=== PATIENT | female | born 1945 | race Caucasian/White ===

== ENCOUNTER 2017-05-21 14:16 | Outpatient (RCR) | payer MEDICARE, BC ==
[2017-05-22] MEDS ORDERED: FUROSEMIDE20 M1 ORAL (11:43)
[2017-05-22] MEDS ORDERED: LOSARTAN POTASS50 MG ORAL (15:45)
[2017-05-28] MEDS ORDERED: BACTRIM DS TAB1 EAC1 ORAL (11:11)
[2017-05-28] MEDS ORDERED: LEVOFLOXACIN500 MG ORAL (11:11)
[2017-05-28] MEDS ORDERED: SANTYL30 GM TP (11:12)
== END 2017-06-15 | disposition home or self-care (01) ==
LOC: WCC 14:16
DX: L97.815 Non-pressure chronic ulcer of other part of right lower leg with muscle involvement without evidence of necrosis (principal); L97.825 Non-pressure chronic ulcer of other part of left lower leg with muscle involvement without evidence of necrosis; R60.0 Localized edema; L03.115 Cellulitis of right lower limb; L03.116 Cellulitis of left lower limb; M89.671 Osteopathy after poliomyelitis, right ankle and foot; M89.672 Osteopathy after poliomyelitis, left ankle and foot; I10 Essential (primary) hypertension; Z82.49 Family history of ischemic heart disease and other diseases of the circulatory system; Z88.0 Allergy status to penicillin; Z91.018 Allergy to other foods
CPT/HCPCS: G0463 ×3

== ENCOUNTER 2017-05-22 11:21 | Inpatient (IN) | payer MEDICARE, BC ==
[~2017-05-22] VITALS: Ht 167.6 cm; Wt 83.0 kg
[2017-05-22] MEDS ORDERED: FUROSEMIDE20 M1 ORAL (11:43)
[2017-05-22 12:00] VITALS: BP 155/74
[2017-05-22] MEDS ORDERED: Vancomycin 1.5gm/D5W 250ml 250 ML IVPB ONE (12:00)
[2017-05-22 12:45] LABS: BASOPHILS % (AUTO) 0.7 % (0.0-2.0); EOSINOPHILS % (AUTO) 1.2 % (0.0-3.0); HEMATOCRIT 36.2 % (37.0-47.0); LYMPHOCYTES % (AUTO) 13.1 % (20.0-45.0); MEAN CORPUSCULAR VOLUME 89 FL (80-99); MONOCYTES % (AUTO) 5.6 % (1.0-10.0); NEUTROPHILS % (AUTO) 79.4 % (45.0-75.0); PLATELET COUNT 300 K/UL (150-450); RED BLOOD COUNT 4.09 M/UL (4.20-5.40); WHITE BLOOD COUNT 10.1 K/UL (4.8-10.8)
[2017-05-22 13:00] LABS: ANION GAP 9 mmol/L (5-15); BLOOD UREA NITROGEN 23 mg/dL (7-18); CALCIUM 9.3 MG/DL (8.5-10.1); CARBON DIOXIDE 29 MMOL/L (21-32); CHLORIDE 103 MMOL/L (98-107); CREATININE 1.1 MG/DL (0.55-1.30); POTASSIUM 3.4 MMOL/L (3.5-5.1); SODIUM 141 MMOL/L (136-145)
[2017-05-22 13:04] LABS: ALANINE AMINOTRANSFERASE 17 U/L (12-78); ALBUMIN 2.8 G/DL (3.4-5.0); ALBUMIN/GLOBULIN RATIO 0.6 (1.0-2.7); ALKALINE PHOSPHATASE 91 U/L (46-116); ASPARTATE AMINO TRANSFERASE 16 U/L (15-37); BILIRUBIN,TOTAL 0.5 MG/DL (0.2-1.0)
--- NOTE | 2017-05-22 13:56 | Consultation ---
Consult Note Assessment/Plan A/ 1) h/o osteo 2) Cellulitis bilateral lower extremities 3) Polio 4) Joint derangement 5) Pain from wounds P/ 1) MRI of bilateral ankle and tib-fib 2) Will order wound care 3) Dr Hampton and Dr Berry called 4) Pain management 5) Will follow Evan Kim DPM May 22, 2017 13:56
--- NOTE | 2017-05-22 14:41 | Infectious Diseases Prog Note ---
Assessment/Plan Assessment/Plan Full consult dictated: A) 1) bilateral leg cellulitis/wound infection/ulcer infection, r/o osteomyelitis 2) check wound culture 3) allergies - pcn P) 1) vancomycin, cefepime and aztreonam 2) check MRI, check wound culture, check labs 3) thank you Subjective Allergies: Coded Allergies: PENICILLINS (Verified Allergy, Unknown, 05/22/17) Objective Vital Signs Last 24 Hour Vital Signs Date Time Temp Pulse Resp B/P (MAP) Pulse Ox O2 Delivery O2 Flow Rate FiO2 05/22/17 13:48 97.5 05/22/17 12:00 97.5 18 155/74 98 Room Air 97.5 05/22/17 11:36 97.6 90 18 155/74 98 Room Air 97.5 Height (Feet): 5 Height (Inches): 6.00 Weight (Pounds): 183 Laboratory Tests Test 05/22/17 12:24 White Blood Count 10.1 K/UL (4.8-10.8) Red Blood Count 4.09 M/UL (4.20-5.40) L Hemoglobin 12.0 G/DL (12.0-16.0) Hematocrit 36.2 % (37.0-47.0) L Mean Corpuscular Volume 89 FL (80-99) Mean Corpuscular Hemoglobin 29.3 PG (27.0-31.0) Mean Corpuscular Hemoglobin Concent 33.0 G/DL (32.0-36.0) Red Cell Distribution Width 13.0 % (11.6-14.8) Platelet Count 300 K/UL (150-450) Mean Platelet Volume 7.1 FL (6.5-10.1) Neutrophils (%) (Auto) 79.4 % (45.0-75.0) H Lymphocytes (%) (Auto) 13.1 % (20.0-45.0) L Monocytes (%) (Auto) 5.6 % (1.0-10.0) Eosinophils (%) (Auto) 1.2 % (0.0-3.0) Basophils (%) (Auto) 0.7 % (0.0-2.0) Sodium Level 141 MMOL/L (136-145) Potassium Level 3.4 MMOL/L (3.5-5.1) L Chloride Level 103 MMOL/L (98-107) Carbon Dioxide Level 29 MMOL/L (21-32) Anion Gap 9 mmol/L (5-15) Blood Urea Nitrogen 23 mg/dL (7-18) H Creatinine 1.1 MG/DL (0.55-1.30) Estimat Glomerular Filtration Rate mL/min (>60) Glucose Level 104 MG/DL (74-106) Lactic Acid Level 1.40 mmol/L (0.66-2.22) Calcium Level 9.3 MG/DL (8.5-10.1) Total Bilirubin 0.5 MG/DL (0.2-1.0) Aspartate Amino Transf (AST/SGOT) 16 U/L (15-37) Alanine Aminotransferase (ALT/SGPT) 17 U/L (12-78) Alkaline Phosphatase 91 U/L (46-116) Total Protein 7.6 G/DL (6.4-8.2) Albumin 2.8 G/DL (3.4-5.0) L Globulin 4.8 g/dL Albumin/Globulin Ratio 0.6 (1.0-2.7) L Current Medications Medications (Trade) Dose Ordered Sig/Alec Route PRN Reason Start Time Stop Time Status Last Admin Dose Admin Aztreonam 1 gm/ Dextrose 55 ml @ 110 mls/hr Q8HR IVPB 05/22/17 22:00 05/29/17 21:59 UNV Ciprofloxacin (Cipro 500mg tab) 500 mg EVERY 12 HOURS ORAL 05/22/17 21:00 05/29/17 20:59 UNV Vancomycin HCl (Vanco rx to dose) 1 ea DAILY PRN MISC Per rx protocol 05/22/17 14:45 06/21/17 14:44 UNV MICHEAL MINAYA May 22, 2017 14:41
[2017-05-22] MEDS ORDERED: Aztreonam Inj 1 GM in NS 55 ML IVPB SCH (15:00)
[2017-05-22] MEDS ORDERED: LOSARTAN POTASS50 MG ORAL (15:45)
--- NOTE | 2017-05-22 15:55 | Emergency Room Report ---
History of Present Illness General Chief Complaint: General Complaint Source: Patient Present Illness HPI 72-year-old female presents ED for evaluation. Patient referred from wound care clinic. Terminal Operator is Dr. Kim. Patient states that she's been having chronic cellulitis of her lower extremities for years now. she was told by podiatry that the wounds are not improving and that she will require admission. Pain is throbbing, 8 out of 10, nonradiating. Denies fevers chills. States that she just had the wounds dressed today. No other aggravating or relieving factors. Denies any other associated symptoms Allergies: Coded Allergies: PENICILLINS (Verified Allergy, Unknown, 05/22/17) Patient History Past Medical History: HTN Past Surgical History: none Pertinent Family History: none Social History: Denies: smoking, alcohol use, drug use Now: No Immunizations: UTD Reviewed Nursing Documentation: PMH: Agreed, PSxH: Agreed Nursing Documentation-PMH Hx Hypertension: Yes Review of Systems All Other Systems: negative except mentioned in HPI Physical Exam Vital Signs Date Time Temp Pulse Resp B/P (MAP) Pulse Ox O2 Delivery O2 Flow Rate FiO2 05/22/17 11:36 97.6 90 18 155/74 98 Room Air 97.5 Sp02 EP Interpretation: reviewed, normal General Appearance: no apparent distress, alert, GCS 15, non-toxic Head: normocephalic, atraumatic Eyes: bilateral eye normal inspection, bilateral eye PERRL ENT: hearing grossly normal, normal pharynx, no angioedema, normal voice Neck: full range of motion, supple/symm/no masses Respiratory: chest non-tender, lungs clear, normal breath sounds, speaking full sentences Cardiovascular #1: regular rate, rhythm, no edema Cardiovascular #2: 2+ carotid (R), 2+ carotid (L), 2+ radial (R), 2+ radial (L) , 2+ dorsalis pedis (R), 2+ dorsalis pedis (L) Gastrointestinal: normal bowel sounds, non tender, soft, non-distended, no guarding, no rebound Rectal: deferred Genitourinary: normal inspection, no CVA tenderness Musculoskeletal: back normal, gait/station normal, normal range of motion Neurologic: alert, oriented x3, responsive, motor strength/tone normal, sensory intact, speech normal Psychiatric: judgement/insight normal, memory normal, mood/affect normal, no suicidal/homicidal ideation Reflexes: 3+ bicep (R), 3+ bicep (L), 3+ tricep (R), 3+ tricep (L), 3+ knee (R) , 3+ knee (L) Skin: other - bilateral LE cellulitis Lymphatic: no adenopathy Medical Decision Making Diagnostic Impression: Primary Impression: Cellulitis of both lower extremities ER Course Hospital Course 72-year-old female presents to ED with cellulitis of bilatearl LEs Differential diagnoses include: Cellulitis, DVT, abscess, rash. Clinical course Patient placed on stretcher. After initial history and physical I ordered labs , blood Cx, pain meds labs reviewed - no leukocytosis, Hb/Hct stable, no electrolyte abnormalities. antibiotics given. Dr Barlow and Dr Kim will consult. Case discussed with Dr Hampton and he agreed to accept the patient to his service for further care and support Diagnosis - cellulitis of bilateral lower extremities Patient admitted to floor in serious condition Labs Test 05/22/17 12:24 White Blood Count 10.1 K/UL (4.8-10.8) Red Blood Count 4.09 M/UL (4.20-5.40) Hemoglobin 12.0 G/DL (12.0-16.0) Hematocrit 36.2 % (37.0-47.0) Mean Corpuscular Volume 89 FL (80-99) Mean Corpuscular Hemoglobin 29.3 PG (27.0-31.0) Mean Corpuscular Hemoglobin Concent 33.0 G/DL (32.0-36.0) Red Cell Distribution Width 13.0 % (11.6-14.8) Platelet Count 300 K/UL (150-450) Mean Platelet Volume 7.1 FL (6.5-10.1) Neutrophils (%) (Auto) 79.4 % (45.0-75.0) Lymphocytes (%) (Auto) 13.1 % (20.0-45.0) Monocytes (%) (Auto) 5.6 % (1.0-10.0) Eosinophils (%) (Auto) 1.2 % (0.0-3.0) Basophils (%) (Auto) 0.7 % (0.0-2.0) Sodium Level 141 MMOL/L (136-145) Potassium Level 3.4 MMOL/L (3.5-5.1) Chloride Level 103 MMOL/L (98-107) Carbon Dioxide Level 29 MMOL/L (21-32) Anion Gap 9 mmol/L (5-15) Blood Urea Nitrogen 23 mg/dL (7-18) Creatinine 1.1 MG/DL (0.55-1.30) Estimat Glomerular Filtration Rate mL/min (>60) Glucose Level 104 MG/DL (74-106) Lactic Acid Level 1.40 mmol/L (0.66-2.22) Calcium Level 9.3 MG/DL (8.5-10.1) Total Bilirubin 0.5 MG/DL (0.2-1.0) Aspartate Amino Transf (AST/SGOT) 16 U/L (15-37) Alanine Aminotransferase (ALT/SGPT) 17 U/L (12-78) Alkaline Phosphatase 91 U/L (46-116) Total Protein 7.6 G/DL (6.4-8.2) Albumin 2.8 G/DL (3.4-5.0) Globulin 4.8 g/dL Albumin/Globulin Ratio 0.6 (1.0-2.7) Last Vital Signs Date Time Temp Pulse Resp B/P (MAP) Pulse Ox O2 Delivery O2 Flow Rate FiO2 05/22/17 13:48 97.5 05/22/17 12:00 18 155/74 98 Room Air 05/22/17 11:36 90 Status: improved Disposition: ADMITTED INPATIENT Condition: Serious Referrals: NON PHYSICIAN (PCP) RAFAT ROACH M.D. May 22, 2017 15:55
[2017-05-22 16:00] VITALS: BP 147/70
[2017-05-22] MEDS ORDERED: Milk of Magnesia 30ml Ud ORAL PRN (16:15)
[2017-05-22] MEDS: Norco 5mg/325mg tab ORAL PRN (17:21)
[2017-05-22 20:00] VITALS: BP 143/67
[2017-05-22] MEDS ORDERED: Zolpidem 5mg tab ORAL PRN (21:00)
[2017-05-22] MEDS: Ciprofloxacin 500mg tab ORAL SCH (21:04)
[2017-05-22] MEDS: Docusate 100mg cap ORAL SCH (21:04)
[2017-05-22] MEDS: Aztreonam Inj 1 GM in NS 55 ML IVPB SCH (21:05)
[2017-05-22] MEDS: HYDROmorphone 1mg/ml Carpuject IVP PRN (21:11)
[2017-05-22] MEDS: Heparin 5000 units/ml inj SUBQ SCH (21:23)
[2017-05-23] VITALS: BP 140/68
--- NOTE | 2017-05-23 03:45 | History and Physical Report ---
DATE OF ADMISSION: 05/22/2017 HISTORY OF PRESENT ILLNESS: The patient is a very pleasant 72-year-old female with history of polio since childhood, who had presented to Dr. Kim's office yesterday. She has had lower extremity wounds and cellulitis, and he wanted her admitted for further evaluation and treatment of cellulitis and rule out osteomyelitis. She denies any fevers or chills. No chest pain or shortness of breath. No headache. No sore throat. The patient is having lower extremity pains as a result. PAST MEDICAL HISTORY: Includes history of hypertension. She states she also had history of lower extremity osteomyelitis and cellulitis in 2013, which she was treated also for sepsis. As a result, she states she was in the hospital for six weeks and had some debridement done as well. She has history of polio since childhood. SOCIAL HISTORY: The patient is a retired nurse. She denies smoking, alcohol use, or drug use. REVIEW OF SYSTEMS: A 12-point review of systems reviewed, negative except for above. ALLERGIES: Allergic to penicillin. MEDICATIONS: Please see reconciled medication list. FAMILY HISTORY: Noncontributory. PHYSICAL EXAMINATION: VITAL SIGNS: Reveal blood pressure is 155/74, pulse oximetry 98%, pulse 90, respirations 18, and temperature 97.6. HEENT: Head is normocephalic and atraumatic. Pupils reactive to light. Extraocular muscles intact. NECK: Supple. No JVP. LUNGS: Clear. HEART: Regular rate and rhythm. ABDOMEN: Soft. Positive bowel sounds. Nondistended, and nontender. EXTREMITIES: Bilateral lower extremities, she does have wounds that are currently wrapped. Neurovascular appears to be intact. LABORATORY VALUES: White count 10.1, hemoglobin 12, hematocrit 36.2, and platelet count 300,000. Sodium 141, potassium 3.4, BUN of 23, creatinine 1.1. Lactic acid 1.4. Albumin 2.8. ASSESSMENT AND PLAN: The patient is a pleasant 72-year-old female with history of hypertension, history of polio, history of previous lower extremity wounds, history of septicemia in the past, and osteomyelitis requiring debridement, who has been admitted again for cellulitis of lower extremity. We will need to rule out osteo. I also ordered lower extremity arterial study to see how her blood supply is as well as Doppler of the lower extremity. I placed her on DVT and ulcer prophylaxis, started on antibiotics. We will check ESR and CRP as well as an MRI of her lower extremity. She will be seen by Infectious Disease, Dr. Boo and her repeater operator, Dr. Kim. In terms of hypertension, continue her home medication. Chas Hampton M.D. DR: TATIANA JOB#: [id number] CC:
[2017-05-23 04:00] VITALS: BP 142/66
[2017-05-23] MEDS: Aztreonam Inj 1 GM in NS 55 ML IVPB SCH ×3 (04:24→20:14)
[2017-05-23] MEDS: HYDROmorphone 1mg/ml Carpuject IVP PRN ×4 (06:25→20:08)
[2017-05-23 08:00] VITALS: BP 139/74
[2017-05-23 08:19] LABS: BASOPHILS % (AUTO) 0.7 % (0.0-2.0); EOSINOPHILS % (AUTO) 1.3 % (0.0-3.0); HEMATOCRIT 32.8 % (37.0-47.0); HEMOGLOBIN 11.1 G/DL (12.0-16.0); LYMPHOCYTES % (AUTO) 13.5 % (20.0-45.0); MEAN CORPUSCULAR VOLUME 90 FL (80-99); MONOCYTES % (AUTO) 5.8 % (1.0-10.0); NEUTROPHILS % (AUTO) 78.8 % (45.0-75.0); PLATELET COUNT 251 K/UL (150-450); RED BLOOD COUNT 3.65 M/UL (4.20-5.40); RED CELL DISTRIBUTION WIDTH 13.1 % (11.6-14.8); WHITE BLOOD COUNT 9.2 K/UL (4.8-10.8)
[2017-05-23] MEDS: Losartan 50mg tab ORAL SCH (08:39)
[2017-05-23] MEDS: Ciprofloxacin 500mg tab ORAL SCH ×2 (08:39→21:29)
[2017-05-23] MEDS: Docusate 100mg cap ORAL SCH ×2 (08:39→17:19)
[2017-05-23] MEDS: Heparin 5000 units/ml inj SUBQ SCH ×2 (08:40→21:34)
--- NOTE | 2017-05-23 08:45 | Consultation ---
DATE OF CONSULTATION: 05/22/2017 INFECTIOUS DISEASE CONSULTATION CONSULTING PHYSICIAN: Lynda Boo M.D. ATTENDING PHYSICIAN: Chas Hampton M.D. REFERRING PHYSICIAN: Dr. Kim. REASON FOR CONSULTATION: Bilateral leg cellulitis and infected wound, rule out osteo, history of osteo. CHIEF COMPLAINT: The patient's chief complaint coming in to the hospital is bilateral leg cellulitis. HISTORY OF PRESENT ILLNESS: This is a 72-year-old female with history of osteomyelitis in the past. She is allergic to penicillin and was given vancomycin and Levaquin for she states 6 weeks it sounds like. It is unclear what the organism was at that time. She is unclear what type of allergy she has to penicillin. She has been off treatment for 6 months and was noted to have redness and warmth in both legs, and she has bilateral wounds of the legs. The patient was admitted to [facility] with bilateral leg cellulitis. Infectious Disease consultation was requested. MAR was noted. Orders were noted. Notes were reviewed. Case was discussed with RN. REVIEW OF SYSTEMS: CONSTITUTIONAL: The patient has no fever, chills, night sweats, or weight loss. No [place]. No central line. HEAD AND NECK: No thrush or dysphagia. CARDIAC: No chest pain or palpitations. GASTROINTESTINAL: No nausea, vomiting, or diarrhea. No abdominal pain. GENITOURINARY: No dysuria or frequency. PULMONARY: No congestion, shortness of breath, hemoptysis, or secretions. SKIN: No rash. NEUROLOGIC: No seizures. EXTREMITIES: She has bilateral lower extremity pain especially around the wounds. PAST MEDICAL HISTORY: Includes history of the following. She has history of polio and weakness. She has no history of diabetes. She does have history of hypertension. She has history of joint derangement, history of osteo of the legs, history of wounds of the legs. History pain management. ALLERGIES: Penicillin. She is unclear what type of allergy. She states she allergy since she was young and is not sure what type of allergy she has to penicillin. FAMILY HISTORY: Noncontributory. Negative for exposure to tuberculosis or cancer. SOCIAL HISTORY: Negative for smoking, alcohol, or drug abuse. She is a retired nurse. MEDICATIONS: Upon reviewing the MAR, she is on the following medications. She has been given hydromorphone, vancomycin, Cipro, and aztreonam. Outside medications were noted and she was on furosemide or Lasix. PHYSICAL EXAMINATION: VITAL SIGNS: Temperature is 97.5, pulse rate is 90, respiratory rate 18, blood pressure 155/74, O2 saturation 98% on room air. GENERAL: Alert, responsive, in no acute distress. HEAD AND NECK: Oral exam, no thrush. Eye exam, no icterus. Normocephalic. No facial droop. No neck stiffness. Neck is supple. HEART: Regular rate and rhythm. No gallop or murmur. ABDOMEN: Soft. Positive bowel sounds. Nontender. LUNGS: Clear bilaterally. No rhonchi or rales. SKIN: No other rash. MUSCULOSKELETAL: No effusion in the legs. Bilateral legs, she has redness and warmth noted and pain she has wounds with some slough noted and drainage. No evidence of septic arthritis. PERIPHERAL VASCULAR: No gangrene of the lower extremities noted. NEUROLOGIC: Intact. Alert and oriented x3. Nonfocal. LINE SITES: Without phlebitis. GENITOURINARY: No [place]. No CVA tenderness. LABORATORY DATA: Laboratory data is as follows. White count 10.1, hemoglobin 12.0. Creatinine 1.1. Wound culture has been ordered. MRI of the lower extremities ordered by Podiatry, Dr. Kim. ASSESSMENT AND PLAN: 1. The patient has bilateral leg cellulitis with warmth and redness noted. The patient has wounds, rule out osteomyelitis. We should rule out infected wound and ulcer infection. The patient has history of osteo, treated for 6 weeks in discussion with the patient on vancomycin and Levaquin. She has been off antibiotics for 6 months per history. At this time, we will continue vancomycin and Cipro. Because of the history of fluoroquinolone use, I will also add aztreonam which should be safe in a patient with penicillin allergy. Continue antibiotics of vancomycin, aztreonam, Cipro. Check wound culture. Check MRI to rule out osteo of the lower extremities and also rule out osteo of the ankles. Check cultures. Continue wound care per Podiatry and protocol. Length of antibiotic treatment and type of antibiotics will be dependent on the MRI results and cultures. 2. History of polio. 3. Generalized weakness. 4. Hypertension. 5. Joint deformity. 6. No history of diabetes. 7. Allergy to penicillin. 8. Social history is negative. 9. Family history noncontributory. 10. MAR was noted. 11. Case discussed with RN. 12. Continue wound care per Dr. Kim. 13. Notes and records were noted. 14. Orders were entered. Lynda Boo M.D. DR: Libia JOB#: [id number] CC:
[2017-05-23 09:19] LABS: ALANINE AMINOTRANSFERASE 16 U/L (12-78); ALBUMIN 2.5 G/DL (3.4-5.0); ALBUMIN/GLOBULIN RATIO 0.6 (1.0-2.7); ALKALINE PHOSPHATASE 78 U/L (46-116); ANION GAP 6 mmol/L (5-15); ASPARTATE AMINO TRANSFERASE 15 U/L (15-37); BILIRUBIN,TOTAL 0.4 MG/DL (0.2-1.0); BLOOD UREA NITROGEN 22 mg/dL (7-18); CALCIUM 8.8 MG/DL (8.5-10.1); CARBON DIOXIDE 27 MMOL/L (21-32); CHLORIDE 109 MMOL/L (98-107); CHOLESTEROL 144 MG/DL (< 200); CREATININE 0.9 MG/DL (0.55-1.30); HDL CHOLESTEROL 51 MG/DL (40-60); POTASSIUM 3.7 MMOL/L (3.5-5.1); SODIUM 142 MMOL/L (136-145); TRIGLYCERIDES 52 MG/DL (30-150)
[2017-05-23 12:00] VITALS: BP 141/76
--- NOTE | 2017-05-23 13:22 | Wound Care Consultation ---
Wound Assessment Wound Assessment #1: Wound Number: 1 Wound Present on Admission: Yes New Wound: No Status Change of Wound: No Wound Location Body Site Modif: left, lower, lateral Wound Location Body Site: leg Wound Type: other - wounds with cellulitis Carlos Manuel Test: Does not Carlos Manuel Wound Thickness: Full Thickness Wound Length: 16.0 Wound Width: 10.0 Wound Depth: utd Percent of Wound [place]/Red: 10 Percent of Wound Bed Yellow/Wh: 90 Wound Drainage Description: Serosanguineous Wound Drainage Amount: Copious Wound Drainage Odor: None/Absent Tissue Surrounding Wound: Erythemic Wound General Appearance: Draining, Necrotic Wound Assessment #2: Wound Number: 2 Wound Present on Admission: Yes New Wound: No Status Change of Wound: No Wound Location Body Site Modif: right, lower, lateral Wound Location Body Site: leg Wound Type: other - wound with cellulitis Carlos Manuel Test: Does not Carlos Manuel Wound Thickness: Full Thickness Wound Length: 4.0 Wound Width: 8.0 Wound Depth: utd Percent of Wound Bed Yellow/Wh: 100 Wound Drainage Description: Serosanguineous Wound Drainage Amount: Copious Wound Drainage Odor: None/Absent Tissue Surrounding Wound: Erythemic Wound General Appearance: Reddened, Draining, Necrotic Wound Assessment #3: Wound Number: 3 Wound Present on Admission: Yes New Wound: No Status Change of Wound: No Wound Location Body Site Modif: right, lower, medial Wound Location Body Site: leg Wound Type: other - open wound with cellulitis Carlos Manuel Test: Does not Carlos Manuel Wound Thickness: Full Thickness Wound Length: 11.0 Wound Width: 5.5 Wound Depth: utd Percent of Wound Bed Yellow/Wh: 100 Wound Drainage Description: Serosanguineous Wound Drainage Amount: Copious Wound Drainage Odor: None/Absent Tissue Surrounding Wound: Erythemic Wound General Appearance: Reddened, Draining, Necrotic Wound Assessment #4: Wound Number: 4 New Wound: No Status Change of Wound: No Wound Location Body Site Modif: right, mid, plantar Wound Location Body Site: foot Wound Type: other - dry fissure with surrounding skin with flaky dry thick skin Carlos Manuel Test: Does not Carlos Manuel Wound Length: 4.0 Wound Width: 0.8 Wound Depth: utd Percent of Wound Black/Brown: 100 - dry scab Wound Drainage Amount: None Wound Drainage Odor: None/Absent Tissue Surrounding Wound: dry flaky Wound Comment #1 left lateral lower extremity cellulitis open wound #2 right lateral lower extremity cellulitis open wound #3 right medial lower extremity cellulitis open wound #4 right planter foot fissure with scattered flaky dry skin to surrounding area. RECOMMENDATION- FOLLOW MD ANAYA ORDERS initial dressing done as ordered pictures taken dressing remains dry and intact MAURA BELCHER May 23, 2017 13:22
[2017-05-23] MEDS: Norco 5mg/325mg tab ORAL PRN (13:57)
--- NOTE | 2017-05-23 15:58 | Diagnostic Imaging Report ---
Indication: Cellulitis and ulceration Technique: Left lower leg ankle/hindfoot imaging utilizing multiplanar T1 fast spin-echo, proton and T2 fast spin-echo with fat saturation, and STIR. Comparison: None Findings: Bone marrow signal normal. There is no evidence of vascular myelitis. Generalized subcutaneous edema demonstrated. Motion artifact present. No abscess identified. IMPRESSION: Subcutaneous edema presumably on the basis of cellulitis. No evidence of acute osteomyelitis
[2017-05-23] MEDS: Vancomycin 1250mg/D5W 250ml IVPB SCH (15:59)
[2017-05-23 16:00] VITALS: BP 124/71
--- NOTE | 2017-05-23 16:02 | Diagnostic Imaging Report ---
Indication: Cellulitis lateral ankle Technique: Right lower leg ankle/hindfoot imaging utilizing multiplanar T1 fast spin-echo, proton and T2 fast spin-echo with fat saturation, and STIR. Comparison: None Findings: There is subcutaneous edema demonstrated within the lower leg and ankle. The intramuscular compartments are normal. The bone marrow signal is normal. There is soft tissue fullness T2 hyperintense edema also in the of the deltoid ligament, just inferior to the medial malleolus. Injury to the ligament is not excluded. The study was not protocoled for evaluation of ligaments or internal derangement. There is no obvious abscess. IMPRESSION: No evidence of acute osteomyelitis
--- NOTE | 2017-05-23 17:27 | Podiatric Progress Note ---
Assessment/Plan Patient Michelle Elias is a 72 year old female who was admitted on May 22, 2017 at 13:20 with Problems: Assessment/Plan A/ 1) NEG osteo 2) Cellulitis bilateral lower extremities - improving 3) Polio 4) Joint derangement 5) Pain from wounds/cellulitis P/ 1) MRI of bilateral ankle and tib-fib - reviewed 2) Cont wound care 3) Abx per ID. 4) Pain management 5) Will follow Subjective Allergies: Coded Allergies: PENICILLINS (Verified Allergy, Unknown, 05/22/17) Subjective Patient is resting comfortably. Pain is being controlled by Dilaudid/Watson Objective Exam Last 24 Hour Vital Signs Date Time Temp Pulse Resp B/P (MAP) Pulse Ox O2 Delivery O2 Flow Rate FiO2 05/23/17 16:00 97.9 86 22 124/71 99 Room Air 97.9 05/23/17 12:00 98.6 82 18 141/76 95 Room Air 98.6 05/23/17 08:39 139/74 05/23/17 08:00 98.5 80 17 139/74 96 Room Air 98.5 05/23/17 07:00 97.9 05/23/17 06:25 97.9 05/23/17 04:00 97.9 75 20 142/66 96 Room Air 97.9 05/23/17 00:00 98.2 72 20 140/68 98 Room Air 98.2 05/22/17 21:11 98.4 05/22/17 20:00 98.0 74 20 143/67 98 Room Air 98.0 Laboratory Tests Test 05/23/17 07:00 05/23/17 07:10 White Blood Count 9.2 K/UL (4.8-10.8) Red Blood Count 3.65 M/UL (4.20-5.40) L Hemoglobin 11.1 G/DL (12.0-16.0) L Hematocrit 32.8 % (37.0-47.0) L Mean Corpuscular Volume 90 FL (80-99) Mean Corpuscular Hemoglobin 30.4 PG (27.0-31.0) Mean Corpuscular Hemoglobin Concent 33.8 G/DL (32.0-36.0) Red Cell Distribution Width 13.1 % (11.6-14.8) Platelet Count 251 K/UL (150-450) Mean Platelet Volume 6.9 FL (6.5-10.1) Neutrophils (%) (Auto) 78.8 % (45.0-75.0) H Lymphocytes (%) (Auto) 13.5 % (20.0-45.0) L Monocytes (%) (Auto) 5.8 % (1.0-10.0) Eosinophils (%) (Auto) 1.3 % (0.0-3.0) Basophils (%) (Auto) 0.7 % (0.0-2.0) Sodium Level 142 MMOL/L (136-145) Potassium Level 3.7 MMOL/L (3.5-5.1) Chloride Level 109 MMOL/L (98-107) H Carbon Dioxide Level 27 MMOL/L (21-32) Anion Gap 6 mmol/L (5-15) Blood Urea Nitrogen 22 mg/dL (7-18) H Creatinine 0.9 MG/DL (0.55-1.30) Estimat Glomerular Filtration Rate mL/min (>60) Glucose Level 107 MG/DL (74-106) H Hemoglobin A1c 5.8 % (4.3-6.0) Calcium Level 8.8 MG/DL (8.5-10.1) Total Bilirubin 0.4 MG/DL (0.2-1.0) Aspartate Amino Transf (AST/SGOT) 15 U/L (15-37) Alanine Aminotransferase (ALT/SGPT) 16 U/L (12-78) Alkaline Phosphatase 78 U/L (46-116) C-Reactive Protein, Quantitative 5.5 mg/dL (0.00-0.90) H Pro-B-Type Natriuretic Peptide 323 pg/mL (0-125) H Total Protein 6.7 G/DL (6.4-8.2) Albumin 2.5 G/DL (3.4-5.0) L Globulin 4.2 g/dL Albumin/Globulin Ratio 0.6 (1.0-2.7) L Triglycerides Level 52 MG/DL (30-150) Cholesterol Level 144 MG/DL (< 200) LDL Cholesterol 86 mg/dL (<100) HDL Cholesterol 51 MG/DL (40-60) Cholesterol/HDL Ratio 2.8 (3.3-4.4) L Thyroid Stimulating Hormone (TSH) 1.251 uiU/mL (0.358-3.740) Erythrocyte Sedimentation Rate 95 MM/HR (0-30) H Musculoskeletal Musculoskeletal MRI bilateral TIB-FIB ankles - NEG for osteo Dermatological Wound Assessment : Exudate Amount: None Dermatological Narrative Wounds are fibrotic Erythema is darkening. Evan Kim DPM May 23, 2017 17:27
--- NOTE | 2017-05-23 17:46 | Infectious Diseases Prog Note ---
Assessment/Plan Assessment/Plan ASSESSMENT AND PLAN: 1. bilateral leg/ankle/foot wound infection/ulcer infection and cellulitis, MRI without evidence of osteomyelitis - continue ciprofloxacin, vancomycin and aztreonam - check wound culture - watch cellulitis - f/u on labs - continue wound care per podiatry - d/w Dr. Kim 2. History of polio. 3. Generalized weakness. 4. Hypertension. 5. Joint deformity. 6. No history of diabetes. 7. Allergy to penicillin. 8. Social history is negative. 9. Family history noncontributory. 10. MAR was noted. 11. Case discussed with RN. 12. Continue treatment per primary - Dr. Hampton 13. Notes and records were noted. 14. Orders were entered and noted Subjective Constitutional: Reports: fatigue, Denies: fever HEENT: Denies: congestion Respiratory: Denies: shortness of breath Cardiovascular: Denies: chest pain Gastrointestinal/Abdominal: Denies: nausea, vomiting, diarrhea Neurologic: Denies: headache Psychiatric: Denies: depression Skin: Denies: rash Hematologic: Denies: bleeding Musculoskeletal: Denies: pain Allergies: Coded Allergies: PENICILLINS (Verified Allergy, Unknown, 05/22/17) Objective Vital Signs Last 24 Hour Vital Signs Date Time Temp Pulse Resp B/P (MAP) Pulse Ox O2 Delivery O2 Flow Rate FiO2 05/23/17 16:00 97.9 86 22 124/71 99 Room Air 97.9 05/23/17 12:00 98.6 82 18 141/76 95 Room Air 98.6 05/23/17 08:39 139/74 05/23/17 08:00 98.5 80 17 139/74 96 Room Air 98.5 05/23/17 07:00 97.9 05/23/17 06:25 97.9 05/23/17 04:00 97.9 75 20 142/66 96 Room Air 97.9 05/23/17 00:00 98.2 72 20 140/68 98 Room Air 98.2 05/22/17 21:11 98.4 05/22/17 20:00 98.0 74 20 143/67 98 Room Air 98.0 Height (Feet): 5 Height (Inches): 6.00 Weight (Pounds): 183 General Appearance: no acute distress HEENT: normocephalic, atraumatic, anicteric, mucous membranes moist Respiratory/Chest: lungs clear, normal breath sounds, no accessory muscle use, respiratory distress Cardiovascular: normal peripheral pulses, normal rate, regular rhythm, no gallop/murmur, no JVD Abdomen: normal bowel sounds, soft, non tender, no organomegaly, non distended Genitourinary: other - no joshi, no cva pain Extremities: no cyanosis, other - wounds noted of both legs and ankles, slough noted, still with some cellulitis of both legs Skin: no rash 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, alert, oriented x 3, responsive Lymphatic: no neck adenopathy Musculoskeletal: no effusion Objective MRI - both legs and ankles - no evidence of osteo (reports noted) wound culture - pending per RN Laboratory Tests Test 05/23/17 07:00 05/23/17 07:10 White Blood Count 9.2 K/UL (4.8-10.8) Red Blood Count 3.65 M/UL (4.20-5.40) L Hemoglobin 11.1 G/DL (12.0-16.0) L Hematocrit 32.8 % (37.0-47.0) L Mean Corpuscular Volume 90 FL (80-99) Mean Corpuscular Hemoglobin 30.4 PG (27.0-31.0) Mean Corpuscular Hemoglobin Concent 33.8 G/DL (32.0-36.0) Red Cell Distribution Width 13.1 % (11.6-14.8) Platelet Count 251 K/UL (150-450) Mean Platelet Volume 6.9 FL (6.5-10.1) Neutrophils (%) (Auto) 78.8 % (45.0-75.0) H Lymphocytes (%) (Auto) 13.5 % (20.0-45.0) L Monocytes (%) (Auto) 5.8 % (1.0-10.0) Eosinophils (%) (Auto) 1.3 % (0.0-3.0) Basophils (%) (Auto) 0.7 % (0.0-2.0) Sodium Level 142 MMOL/L (136-145) Potassium Level 3.7 MMOL/L (3.5-5.1) Chloride Level 109 MMOL/L (98-107) H Carbon Dioxide Level 27 MMOL/L (21-32) Anion Gap 6 mmol/L (5-15) Blood Urea Nitrogen 22 mg/dL (7-18) H Creatinine 0.9 MG/DL (0.55-1.30) Estimat Glomerular Filtration Rate mL/min (>60) Glucose Level 107 MG/DL (74-106) H Hemoglobin A1c 5.8 % (4.3-6.0) Calcium Level 8.8 MG/DL (8.5-10.1) Total Bilirubin 0.4 MG/DL (0.2-1.0) Aspartate Amino Transf (AST/SGOT) 15 U/L (15-37) Alanine Aminotransferase (ALT/SGPT) 16 U/L (12-78) Alkaline Phosphatase 78 U/L (46-116) C-Reactive Protein, Quantitative 5.5 mg/dL (0.00-0.90) H Pro-B-Type Natriuretic Peptide 323 pg/mL (0-125) H Total Protein 6.7 G/DL (6.4-8.2) Albumin 2.5 G/DL (3.4-5.0) L Globulin 4.2 g/dL Albumin/Globulin Ratio 0.6 (1.0-2.7) L Triglycerides Level 52 MG/DL (30-150) Cholesterol Level 144 MG/DL (< 200) LDL Cholesterol 86 mg/dL (<100) HDL Cholesterol 51 MG/DL (40-60) Cholesterol/HDL Ratio 2.8 (3.3-4.4) L Thyroid Stimulating Hormone (TSH) 1.251 uiU/mL (0.358-3.740) Erythrocyte Sedimentation Rate 95 MM/HR (0-30) H Current Medications Medications (Trade) Dose Ordered Sig/Alec Route PRN Reason Start Time Stop Time Status Last Admin Dose Admin Acetaminophen (Tylenol) 650 mg Q4H PRN ORAL Mild Pain/Temp > 100.5 05/22/17 17:00 06/21/17 16:59 Acetaminophen/ Hydrocodone Bitart (Secretary 5/325) 1 tab Q4H PRN ORAL Moderate Pain (Pain Scale 4-6) 05/22/17 16:15 05/29/17 16:14 05/23/17 13:57 Al Hydroxide/Mg Hydroxide (Mylanta) 30 ml Q6H PRN ORAL STOMACH UPSET 05/22/17 16:15 06/21/17 16:14 Aztreonam 1 gm/ Sodium Chloride 55 ml @ 110 mls/hr Q8H IVPB 05/22/17 20:30 05/29/17 23:59 05/23/17 12:45 Ciprofloxacin (Cipro 500mg tab) 500 mg EVERY 12 HOURS ORAL 05/22/17 21:00 05/29/17 20:59 05/23/17 08:39 Collagenase (Santyl) 1 applic DAILY TOPIC 05/23/17 09:00 06/22/17 08:59 05/23/17 08:40 Docusate Sodium (Colace) 100 mg TWICE A DAY ORAL 05/22/17 18:00 06/21/17 17:59 05/23/17 17:19 Heparin Sodium (Porcine) (Heparin 5000 units/ml) 5,000 units EVERY 12 HOURS SUBQ 05/22/17 21:00 06/21/17 20:59 05/23/17 08:40 Hydromorphone HCl (Dilaudid) 1 mg Q4H PRN IVP Severe Pain (Pain Scale 7-10) 05/22/17 20:00 05/29/17 19:59 05/23/17 15:52 Losartan Potassium (Cozaar) 100 mg DAILY ORAL 05/23/17 09:00 06/22/17 08:59 05/23/17 08:39 Magnesium Hydroxide (Mom) 30 ml DAILYPRN PRN ORAL Constipation 05/22/17 16:15 06/21/17 16:14 Vancomycin HCl (Vanco rx to dose) 1 ea DAILY PRN MISC Per rx protocol 05/22/17 14:45 06/21/17 14:44 Vancomycin HCl/ Dextrose 250 ml @ 166.667 mls/hr Q24H IVPB 05/23/17 12:00 05/28/17 23:59 05/23/17 15:59 Zolpidem Tartrate (Ambien) 5 mg HSPRN PRN ORAL Insomnia 05/22/17 21:00 05/29/17 20:59 MICHEAL MINAYA May 23, 2017 17:46
[2017-05-23 20:00] VITALS: BP 146/73
--- NOTE | 2017-05-23 22:59 | General Progress Note ---
Assessment/Plan Assessment/Plan LE cellulitis ostoe ruled out by MRI htn ho polio abx per ID sound care per podaitry bp controlled dvt and ulcer prohyalxis Subjective Allergies: Coded Allergies: PENICILLINS (Verified Allergy, Unknown, 05/22/17) Subjective above noted has pain in her legs no chest pain or sob Objective Last 24 Hour Vital Signs Date Time Temp Pulse Resp B/P (MAP) Pulse Ox O2 Delivery O2 Flow Rate FiO2 05/23/17 20:00 99.0 82 20 146/73 92 Room Air 99.0 05/23/17 16:00 97.9 86 22 124/71 99 Room Air 97.9 05/23/17 12:00 98.6 82 18 141/76 95 Room Air 98.6 05/23/17 08:39 139/74 05/23/17 08:00 98.5 80 17 139/74 96 Room Air 98.5 05/23/17 07:00 97.9 05/23/17 06:25 97.9 05/23/17 04:00 97.9 75 20 142/66 96 Room Air 97.9 05/23/17 00:00 98.2 72 20 140/68 98 Room Air 98.2 Intake and Output 05/22/17 05/23/17 19:00 07:00 Intake Total 350 ml 350 ml Balance 350 ml 350 ml Intake Oral 350 ml 240 ml IV Total 110 ml # Voids 2 2 Laboratory Tests 05/23/17 07:00: White Blood Count 9.2, Red Blood Count 3.65L, Hemoglobin 11.1L, Hematocrit 32.8L , Mean Corpuscular Volume 90, Mean Corpuscular Hemoglobin 30.4, Mean Corpuscular Hemoglobin Concent 33.8, Red Cell Distribution Width 13.1, Platelet Count 251, Mean Platelet Volume 6.9, Neutrophils (%) (Auto) 78.8H, Lymphocytes ( %) (Auto) 13.5L, Monocytes (%) (Auto) 5.8, Eosinophils (%) (Auto) 1.3, Basophils (%) (Auto) 0.7, Sodium Level 142, Potassium Level 3.7, Chloride Level 109H, Carbon Dioxide Level 27, Anion Gap 6, Blood Urea Nitrogen 22H, Creatinine 0.9, Estimat Glomerular Filtration Rate , Glucose Level 107H, Hemoglobin A1c 5.8 , Calcium Level 8.8, Total Bilirubin 0.4, Aspartate Amino Transf (AST/SGOT) 15, Alanine Aminotransferase (ALT/SGPT) 16, Alkaline Phosphatase 78, C-Reactive Protein, Quantitative 5.5H, Pro-B-Type Natriuretic Peptide 323H, Total Protein 6.7, Albumin 2.5L, Globulin 4.2, Albumin/Globulin Ratio 0.6L, Triglycerides Level 52, Cholesterol Level 144, LDL Cholesterol 86, HDL Cholesterol 51, Cholesterol/HDL Ratio 2.8L, Thyroid Stimulating Hormone (TSH) 1.251 05/23/17 07:10: Erythrocyte Sedimentation Rate 95H Height (Feet): 5 Height (Inches): 6.00 Weight (Pounds): 183 General Appearance: WD/WN, no apparent distress Neck: supple Cardiovascular: normal rate Respiratory/Chest: lungs clear Objective LE dressing cleann neurovascular intact FRANSICO TELLO May 23, 2017 22:59
[2017-05-24] VITALS: BP 154/74
[2017-05-24] MEDS: HYDROmorphone 1mg/ml Carpuject IVP PRN ×5 (00:34→20:47)
[2017-05-24 04:00] VITALS: BP 120/68
[2017-05-24] MEDS: Aztreonam Inj 1 GM in NS 55 ML IVPB SCH ×3 (04:48→20:46)
[2017-05-24 08:00] VITALS: BP 137/61
[2017-05-24] MEDS: Ciprofloxacin 500mg tab ORAL SCH ×2 (08:56→20:46)
[2017-05-24] MEDS: Losartan 50mg tab ORAL SCH (08:57)
[2017-05-24] MEDS: Heparin 5000 units/ml inj SUBQ SCH ×2 (08:58→20:49)
[2017-05-24] MEDS: Docusate 100mg cap ORAL SCH ×2 (08:58→17:42)
--- NOTE | 2017-05-24 10:26 | Diagnostic Imaging Report ---
APPROVED REPORT CPT Code: 39469 Present Symptoms Comments: Swelling and BLE ankle ulcers BILATERAL: Imaging reveals a patent deep venous system bilaterally. There is no evidence of thrombus within the femoral, popliteal or tibial segments. The greater saphenous veins are also within normal limits. Doppler indicates normal spontaneous flow within these segments.
--- NOTE | 2017-05-24 10:26 | Diagnostic Imaging Report ---
APPROVED REPORT CPT Code: 87103 Symptoms Non-healing Ulcer : Bilaterally Comments: Pain Comments Infection RIGHT LEG: Common femoral artery waveform analysis is within normal limits at rest. Color duplex sonography reveals patency of the superficial femoral, popliteal, posterior tibial, anterior tibial, and peroneal tibial arteries. There is no evidence of stenosis or occlusion within these segments. Doppler tibial artery waveform analysis is vasodilated, those possible results from swelling. LEFT LEG: Common femoral artery waveform analysis is within normal limits at rest. Color duplex sonography reveals patency of the superficial femoral, popliteal, posterior tibial, anterior tibial, and peroneal tibial arteries. There is no evidence of stenosis or occlusion within these segments. Doppler tibial artery waveform analysis is within normal limits. The dorsalis pedis arteries from both legs were not imaged, due to open wound. There is no evidence of hemodynamically significant arterial occlusive disease, bilaterally.
[2017-05-24 12:00] VITALS: BP 147/67
[2017-05-24] MEDS: Vancomycin 1250mg/D5W 250ml IVPB SCH (12:50)
--- NOTE | 2017-05-24 14:03 | Podiatric Progress Note ---
Assessment/Plan Patient Michelle Elias is a 72 year old female who was admitted on May 22, 2017 at 13:20 with Problems: Assessment/Plan A/ 1) NEG osteo 2) Cellulitis bilateral lower extremities - improving 3) Polio 4) Joint derangement 5) Pain from wounds/cellulitis P/ 1) MRI of bilateral ankle and tib-fib - reviewed 2) Cont wound care 3) Abx per ID. 4) Pain management 5) Will follow Subjective Allergies: Coded Allergies: PENICILLINS (Verified Allergy, Unknown, 05/22/17) Subjective Patient comfortable Objective Exam Last 24 Hour Vital Signs Date Time Temp Pulse Resp B/P (MAP) Pulse Ox O2 Delivery O2 Flow Rate FiO2 05/24/17 12:00 98.8 82 20 147/67 98 Room Air 98.8 05/24/17 08:57 137/61 05/24/17 08:00 98.9 79 18 137/61 94 Room Air 98.9 05/24/17 04:00 98.5 76 20 120/68 94 Room Air 98.5 05/24/17 00:00 98.8 90 20 154/74 94 Room Air 98.8 05/23/17 20:00 99.0 82 20 146/73 92 Room Air 99.0 05/23/17 16:00 97.9 86 22 124/71 99 Room Air 97.9 Laboratory Tests Test 05/24/17 06:35 Thyroid Stimulating Hormone (TSH) 1.019 uiU/mL (0.358-3.740) Microbiology Date/Time Source Procedure Growth Status 05/22/17 12:24 Blood Blood Culture - Preliminary NO GROWTH AFTER 24 HOURS Resulted 05/23/17 11:30 Leg Left Gram Stain Pending Resulted 05/23/17 11:30 Leg Left Wound Culture - Preliminary Resulted Dermatological Wound Assessment : Exudate Amount: None Dermatological Narrative wounds dressed. Evan Kim DPM May 24, 2017 14:03
[2017-05-24 16:00] VITALS: BP 133/68
[2017-05-24] MEDS ORDERED: Tubing IV Secondary IV ONE (17:03)
[2017-05-24] MEDS: Norco 5mg/325mg tab ORAL PRN (17:41)
[2017-05-24 22:14] VITALS: BP 121/58
--- NOTE | 2017-05-24 23:07 | General Progress Note ---
Assessment/Plan Assessment/Plan LE cellulitis ostoe ruled out by MRI htn ho polio abx per ID sound care per podaitry bp controlled dvt and ulcer prohyalxis afshan control will give breakthourgh pain mediation during dressing changes le arterial and venous studies noted dvt and ulcer phylaxis Subjective Allergies: Coded Allergies: PENICILLINS (Verified Allergy, Unknown, 05/22/17) Subjective above noted has pain in her legs no chest pain or sob Objective Last 24 Hour Vital Signs Date Time Temp Pulse Resp B/P (MAP) Pulse Ox O2 Delivery O2 Flow Rate FiO2 05/24/17 22:14 121/58 05/24/17 20:00 97.4 96 20 95 Room Air 97.4 05/24/17 16:00 97.3 71 20 133/68 96 97.3 05/24/17 12:00 98.8 82 20 147/67 98 Room Air 98.8 05/24/17 08:57 137/61 05/24/17 08:00 98.9 79 18 137/61 94 Room Air 98.9 05/24/17 04:00 98.5 76 20 120/68 94 Room Air 98.5 05/24/17 00:00 98.8 90 20 154/74 94 Room Air 98.8 Intake and Output 05/23/17 05/24/17 19:00 07:00 Intake Total 480 ml 250 ml Balance 480 ml 250 ml Intake Oral 480 ml 250 ml # Voids 2 2 # Bowel Movements 2 Laboratory Tests 05/24/17 06:35: Thyroid Stimulating Hormone (TSH) 1.019 Height (Feet): 5 Height (Inches): 6.00 Weight (Pounds): 183 General Appearance: WD/WN, alert Neck: supple Cardiovascular: normal rate Respiratory/Chest: lungs clear Objective LE dressing cleann neurovascular intact FRANSICO TELLO May 24, 2017 23:07
[2017-05-25] VITALS: BP 117/64
[2017-05-25] MEDS: Aztreonam Inj 1 GM in NS 55 ML IVPB SCH ×3 (04:25→20:39)
[2017-05-25 04:26] VITALS: BP 151/77
[2017-05-25 08:00] VITALS: BP 130/58
[2017-05-25 08:25] LABS: BASOPHILS % (AUTO) 0.7 % (0.0-2.0); EOSINOPHILS % (AUTO) 2.7 % (0.0-3.0); HEMATOCRIT 30.9 % (37.0-47.0); HEMOGLOBIN 10.3 G/DL (12.0-16.0); LYMPHOCYTES % (AUTO) 23.3 % (20.0-45.0); MEAN CORPUSCULAR VOLUME 90 FL (80-99); MONOCYTES % (AUTO) 6.1 % (1.0-10.0); NEUTROPHILS % (AUTO) 67.2 % (45.0-75.0); PLATELET COUNT 249 K/UL (150-450); RED BLOOD COUNT 3.45 M/UL (4.20-5.40); RED CELL DISTRIBUTION WIDTH 13.2 % (11.6-14.8); WHITE BLOOD COUNT 6.9 K/UL (4.8-10.8)
[2017-05-25 08:43] LABS: ANION GAP 6 mmol/L (5-15); BLOOD UREA NITROGEN 28 mg/dL (7-18); CALCIUM 8.9 MG/DL (8.5-10.1); CARBON DIOXIDE 28 MMOL/L (21-32); CHLORIDE 109 MMOL/L (98-107); CREATININE 0.9 MG/DL (0.55-1.30); SODIUM 143 MMOL/L (136-145)
[2017-05-25] MEDS: Docusate 100mg cap ORAL SCH ×3 (09:00→17:51)
[2017-05-25] MEDS: Ciprofloxacin 500mg tab ORAL SCH ×2 (09:53→20:39)
[2017-05-25] MEDS: Losartan 50mg tab ORAL SCH (09:53)
[2017-05-25] MEDS: Heparin 5000 units/ml inj SUBQ SCH ×2 (09:54→20:45)
[2017-05-25] MEDS: Norco 5mg/325mg tab ORAL PRN (11:52)
[2017-05-25 12:00] VITALS: BP 163/79
[2017-05-25] MEDS: Vancomycin 1250mg/D5W 250ml IVPB SCH (14:19)
[2017-05-25] MEDS: HYDROmorphone 1mg/ml Carpuject IVP PRN ×3 (14:22→21:31)
[2017-05-25 16:00] VITALS: BP 131/65
--- NOTE | 2017-05-25 16:45 | Infectious Diseases Prog Note ---
Assessment/Plan Assessment/Plan ASSESSMENT AND PLAN: 1. 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 History of polio. 3. Generalized weakness. 4. Hypertension. 5. Joint deformity. 6. No history of diabetes. 7. Allergy to penicillin. 8. Social history is negative. 9. Family history noncontributory. 10. MAR was noted. 11. Case discussed with RN. 12. Continue treatment per primary - Dr. Hampton 13. Notes and records were noted. 14. Orders were entered and noted Subjective Constitutional: Denies: fever HEENT: Denies: congestion Respiratory: Denies: shortness of breath Cardiovascular: Denies: chest pain Gastrointestinal/Abdominal: Denies: nausea, vomiting, diarrhea Genitourinary: Reports: other - no joshi, Denies: dysuria, hematuria, frequency Neurologic: Denies: headache Psychiatric: Denies: depression Skin: Denies: rash Hematologic: Denies: bleeding Musculoskeletal: Reports: pain - less leg pain bilateral Allergies: Coded Allergies: PENICILLINS (Verified Allergy, Unknown, 05/22/17) Objective Vital Signs Last 24 Hour Vital Signs Date Time Temp Pulse Resp B/P (MAP) Pulse Ox O2 Delivery O2 Flow Rate FiO2 05/25/17 16:00 98.7 84 20 131/65 94 Room Air 98.7 05/25/17 12:00 98.5 72 20 163/79 95 Room Air 98.5 05/25/17 09:53 130/58 05/25/17 08:00 98.4 76 20 130/58 95 Room Air 98.4 05/25/17 04:26 97.6 68 18 151/77 91 97.6 05/25/17 00:00 98.1 71 19 117/64 92 Room Air 98.1 05/24/17 22:14 121/58 05/24/17 20:00 97.4 96 20 95 Room Air 97.4 Height (Feet): 5 Height (Inches): 6.00 Weight (Pounds): 183 General Appearance: no acute distress HEENT: normocephalic, atraumatic, anicteric, mucous membranes moist Respiratory/Chest: lungs clear, normal breath sounds, no respiratory distress, no accessory muscle use Cardiovascular: normal rate, regular rhythm, no gallop/murmur, no JVD Abdomen: normal bowel sounds, soft, non tender, no organomegaly, non distended Genitourinary: other - no johsi, no cva pain Extremities: no cyanosis, other - sig less redness noted Skin: no rash 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, alert, oriented x 3, responsive Lymphatic: no neck adenopathy Musculoskeletal: no effusion Objective MRI - both legs and ankles - no evidence of osteo (reports noted) Microbiology Date/Time Source Procedure Growth Status 05/23/17 11:30 Leg Left Gram Stain - Final Resulted 05/23/17 11:30 Wound Culture - Preliminary Staphylococcus Sp Coag Neg Diphtheroids Resulted Laboratory Tests Test 05/25/17 06:12 05/25/17 11:30 White Blood Count 6.9 K/UL (4.8-10.8) Red Blood Count 3.45 M/UL (4.20-5.40) L Hemoglobin 10.3 G/DL (12.0-16.0) L Hematocrit 30.9 % (37.0-47.0) L Mean Corpuscular Volume 90 FL (80-99) Mean Corpuscular Hemoglobin 29.8 PG (27.0-31.0) Mean Corpuscular Hemoglobin Concent 33.3 G/DL (32.0-36.0) Red Cell Distribution Width 13.2 % (11.6-14.8) Platelet Count 249 K/UL (150-450) Mean Platelet Volume 7.0 FL (6.5-10.1) Neutrophils (%) (Auto) 67.2 % (45.0-75.0) Lymphocytes (%) (Auto) 23.3 % (20.0-45.0) Monocytes (%) (Auto) 6.1 % (1.0-10.0) Eosinophils (%) (Auto) 2.7 % (0.0-3.0) Basophils (%) (Auto) 0.7 % (0.0-2.0) Sodium Level 143 MMOL/L (136-145) Potassium Level 4.0 MMOL/L (3.5-5.1) Chloride Level 109 MMOL/L (98-107) H Carbon Dioxide Level 28 MMOL/L (21-32) Anion Gap 6 mmol/L (5-15) Blood Urea Nitrogen 28 mg/dL (7-18) H Creatinine 0.9 MG/DL (0.55-1.30) Estimat Glomerular Filtration Rate mL/min (>60) Glucose Level 97 MG/DL (74-106) Calcium Level 8.9 MG/DL (8.5-10.1) Vancomycin Level Trough 7.5 ug/mL (5.0-12.0) Current Medications Medications (Trade) Dose Ordered Sig/Alec Route PRN Reason Start Time Stop Time Status Last Admin Dose Admin Acetaminophen (Tylenol) 650 mg Q4H PRN ORAL Mild Pain/Temp > 100.5 05/22/17 17:00 06/21/17 16:59 Acetaminophen/ Hydrocodone Bitart (Dolores 5/325) 1 tab Q4H PRN ORAL Moderate Pain (Pain Scale 4-6) 05/22/17 16:15 05/29/17 16:14 05/25/17 11:52 Al Hydroxide/Mg Hydroxide (Mylanta) 30 ml Q6H PRN ORAL STOMACH UPSET 05/22/17 16:15 06/21/17 16:14 Aztreonam 1 gm/ Sodium Chloride 55 ml @ 110 mls/hr Q8H IVPB 05/22/17 20:30 05/29/17 23:59 05/25/17 13:10 Ciprofloxacin (Cipro 500mg tab) 500 mg EVERY 12 HOURS ORAL 05/22/17 21:00 05/29/17 20:59 05/25/17 09:53 Collagenase (Santyl) 1 applic DAILY TOPIC 05/23/17 09:00 06/22/17 08:59 05/25/17 09:53 Docusate Sodium (Colace) 100 mg TWICE A DAY ORAL 05/22/17 18:00 06/21/17 17:59 05/23/17 17:19 Heparin Sodium (Porcine) (Heparin 5000 units/ml) 5,000 units EVERY 12 HOURS SUBQ 05/22/17 21:00 06/21/17 20:59 05/25/17 09:54 Hydromorphone HCl (Dilaudid) 1 mg DAILYPRN PRN IVP Severe Breakthru Pain (>7) 05/24/17 09:45 05/31/17 09:44 05/25/17 14:22 Hydromorphone HCl (Dilaudid) 1 mg Q4H PRN IVP Severe Pain (Pain Scale 7-10) 05/22/17 20:00 05/29/17 19:59 05/24/17 20:47 Losartan Potassium (Cozaar) 100 mg DAILY ORAL 05/23/17 09:00 06/22/17 08:59 05/25/17 09:53 Magnesium Hydroxide (Mom) 30 ml DAILYPRN PRN ORAL Constipation 05/22/17 16:15 06/21/17 16:14 Vancomycin HCl (Vanco rx to dose) 1 ea DAILY PRN MISC Per rx protocol 05/22/17 14:45 06/21/17 14:44 Vancomycin HCl/ Dextrose 250 ml @ 166.667 mls/hr Q12H IVPB 05/25/17 14:00 05/30/17 13:59 05/25/17 14:19 Zolpidem Tartrate (Ambien) 5 mg HSPRN PRN ORAL Insomnia 05/22/17 21:00 05/29/17 20:59 MICHEAL MINAYA May 25, 2017 16:45
[2017-05-25 20:12] VITALS: BP 119/55
--- NOTE | 2017-05-25 21:33 | General Progress Note ---
Assessment/Plan Assessment/Plan LE cellulitis ostoe ruled out by MRI htn ho polio abx per ID sound care per podaitry bp controlled dvt and ulcer prohyalxis afshan control will give breakthourgh pain mediation during dressing changes le arterial and venous studies noted dvt and ulcer phylaxis dc plans when ok with podiatry Subjective Allergies: Coded Allergies: PENICILLINS (Verified Allergy, Unknown, 05/22/17) Subjective above noted has pain in her legs bettter controlled no chest pain or sob Objective Last 24 Hour Vital Signs Date Time Temp Pulse Resp B/P (MAP) Pulse Ox O2 Delivery O2 Flow Rate FiO2 05/25/17 21:31 98.1 05/25/17 20:12 98.1 71 18 119/55 95 98.1 05/25/17 16:00 98.7 84 20 131/65 94 Room Air 98.7 05/25/17 12:00 98.5 72 20 163/79 95 Room Air 98.5 05/25/17 09:53 130/58 05/25/17 08:00 98.4 76 20 130/58 95 Room Air 98.4 05/25/17 04:26 97.6 68 18 151/77 91 97.6 05/25/17 00:00 98.1 71 19 117/64 92 Room Air 98.1 05/24/17 22:14 121/58 Intake and Output 05/24/17 05/25/17 19:00 07:00 Intake Total 240 ml 480 ml Balance 240 ml 480 ml Intake Oral 240 ml 480 ml # Voids 4 3 Laboratory Tests 05/25/17 06:12: White Blood Count 6.9, Red Blood Count 3.45L, Hemoglobin 10.3L, Hematocrit 30.9L , Mean Corpuscular Volume 90, Mean Corpuscular Hemoglobin 29.8, Mean Corpuscular Hemoglobin Concent 33.3, Red Cell Distribution Width 13.2, Platelet Count 249, Mean Platelet Volume 7.0, Neutrophils (%) (Auto) 67.2, Lymphocytes (% ) (Auto) 23.3, Monocytes (%) (Auto) 6.1, Eosinophils (%) (Auto) 2.7, Basophils ( %) (Auto) 0.7, Sodium Level 143, Potassium Level 4.0, Chloride Level 109H, Carbon Dioxide Level 28, Anion Gap 6, Blood Urea Nitrogen 28H, Creatinine 0.9, Estimat Glomerular Filtration Rate , Glucose Level 97, Calcium Level 8.9 05/25/17 11:30: Vancomycin Level Trough 7.5 Height (Feet): 5 Height (Inches): 6.00 Weight (Pounds): 183 Neck: supple Cardiovascular: normal rate Respiratory/Chest: lungs clear Objective LE dressing cleann neurovascular intact FRANSICO TELLO May 25, 2017 21:33
[2017-05-26 00:12] VITALS: BP 140/77
[2017-05-26] MEDS: Vancomycin 1250mg/D5W 250ml IVPB SCH ×2 (02:00→13:49)
[2017-05-26 04:30] VITALS: BP 130/70
[2017-05-26] MEDS: Aztreonam Inj 1 GM in NS 55 ML IVPB SCH ×3 (05:13→20:46)
--- NOTE | 2017-05-26 07:14 | Podiatric Progress Note ---
Assessment/Plan Patient Michelle Elias is a 72 year old female who was admitted on May 22, 2017 at 13:20 with Problems: Assessment/Plan A/ 1) NEG osteo 2) Cellulitis bilateral lower extremities - improving 3) Polio 4) Joint derangement 5) Pain from wounds/cellulitis P/ 1) MRI of bilateral ankle and tib-fib - reviewed 2) Cont wound care 3) Abx per ID. Cultures reviewed 4) Pain management 5) Can D/C tomorrow, with abx recs from ID. Subjective Allergies: Coded Allergies: PENICILLINS (Verified Allergy, Unknown, 05/22/17) Subjective Resting comfortably. Objective Exam Last 24 Hour Vital Signs Date Time Temp Pulse Resp B/P (MAP) Pulse Ox O2 Delivery O2 Flow Rate FiO2 05/26/17 04:30 97.2 80 19 130/70 95 97.2 05/26/17 00:12 97.5 74 18 140/77 93 97.5 05/25/17 22:01 98.1 05/25/17 21:31 98.1 05/25/17 20:12 98.1 71 18 119/55 95 98.1 05/25/17 16:00 98.7 84 20 131/65 94 Room Air 98.7 05/25/17 12:00 98.5 72 20 163/79 95 Room Air 98.5 05/25/17 09:53 130/58 05/25/17 08:00 98.4 76 20 130/58 95 Room Air 98.4 Laboratory Tests Test 05/25/17 11:30 Vancomycin Level Trough 7.5 ug/mL (5.0-12.0) Microbiology Date/Time Source Procedure Growth Status 05/22/17 12:24 Blood Blood Culture - Preliminary NO GROWTH AFTER 72 HOURS Resulted 05/23/17 11:30 Leg Left Gram Stain - Final Resulted 05/23/17 11:30 Wound Culture - Preliminary Staphylococcus Sp Coag Neg Diphtheroids Resulted Dermatological Wound Assessment : Exudate Amount: None Dermatological Narrative dressings intact. Erythema resolving Evan Kim DPM May 26, 2017 07:14
[2017-05-26 08:00] VITALS: BP 144/78
[2017-05-26] MEDS: Ciprofloxacin 500mg tab ORAL SCH ×2 (08:56→20:46)
[2017-05-26] MEDS: Docusate 100mg cap ORAL SCH ×2 (08:57→18:43)
[2017-05-26] MEDS: Losartan 50mg tab ORAL SCH (08:57)
[2017-05-26] MEDS: Heparin 5000 units/ml inj SUBQ SCH ×2 (08:59→20:46)
[2017-05-26] MEDS: Norco 5mg/325mg tab ORAL PRN ×2 (11:40→21:09)
[2017-05-26 12:00] VITALS: BP 153/76
[2017-05-26 16:00] VITALS: BP 131/62
[2017-05-26 20:00] VITALS: BP 134/68
[2017-05-27] VITALS: BP 152/77
[2017-05-27] MEDS: HYDROmorphone 1mg/ml Carpuject IVP PRN ×7 (00:32→21:27)
[2017-05-27] MEDS: Vancomycin 1250mg/D5W 250ml IVPB SCH (01:39)
[2017-05-27 04:00] VITALS: BP 135/70
[2017-05-27] MEDS: Aztreonam Inj 1 GM in NS 55 ML IVPB SCH ×2 (04:41→13:01)
[2017-05-27 07:57] LABS: BASOPHILS % (AUTO) 1.5 % (0.0-2.0); EOSINOPHILS % (AUTO) 3.8 % (0.0-3.0); HEMATOCRIT 28.8 % (37.0-47.0); HEMOGLOBIN 9.7 G/DL (12.0-16.0); LYMPHOCYTES % (AUTO) 26.8 % (20.0-45.0); MEAN CORPUSCULAR VOLUME 89 FL (80-99); MONOCYTES % (AUTO) 9.3 % (1.0-10.0); NEUTROPHILS % (AUTO) 58.6 % (45.0-75.0); PLATELET COUNT 254 K/UL (150-450); RED BLOOD COUNT 3.23 M/UL (4.20-5.40); RED CELL DISTRIBUTION WIDTH 13.4 % (11.6-14.8); WHITE BLOOD COUNT 6.3 K/UL (4.8-10.8)
[2017-05-27 08:00] VITALS: BP 149/62
[2017-05-27 08:10] LABS: ANION GAP 8 mmol/L (5-15); BLOOD UREA NITROGEN 19 mg/dL (7-18); CALCIUM 8.7 MG/DL (8.5-10.1); CARBON DIOXIDE 26 MMOL/L (21-32); CHLORIDE 110 MMOL/L (98-107); CREATININE 0.7 MG/DL (0.55-1.30); POTASSIUM 3.4 MMOL/L (3.5-5.1); SODIUM 144 MMOL/L (136-145)
[2017-05-27] MEDS: Ciprofloxacin 500mg tab ORAL SCH (09:41)
[2017-05-27] MEDS: Docusate 100mg cap ORAL SCH ×2 (09:42→17:43)
[2017-05-27] MEDS: Losartan 50mg tab ORAL SCH (09:42)
[2017-05-27] MEDS: Heparin 5000 units/ml inj SUBQ SCH ×3 (09:50→21:46)
[2017-05-27 12:00] VITALS: BP 130/67
[2017-05-27] MEDS: Vancomycin 1gm/D5W 275ml IVPB SCH ×2 (15:38)
[2017-05-27 16:00] VITALS: BP 159/79
--- NOTE | 2017-05-27 17:58 | Infectious Diseases Prog Note ---
Assessment/Plan Assessment/Plan ASSESSMENT AND PLAN: 1. bilateral leg/ankle/foot wound infection/ulcer infection and cellulitis, MRI without evidence of osteomyelitis right leg wound with stenotrophomonas and route sales associate/diphtheroids and left leg with route sales associate/diphtheroids - levofloxacin, vancomycin and aztreonam - day # 5 abx - clinically improved to my exam with less redness overall on legs, still with pain and some swelling/redness around wounds - wound culture route sales associate and diphtheroids which are likely contaminants - watch cellulitis - f/u on labs - continue wound care per podiatry - d/w Dr. Kim and will re-evaluate patient tomorrow - if stable can discharge on levofloxacin 750 mg po daily and bactrim DS tablet one po bid, both for 7 days - d/w patient 2. History of polio. 3. Generalized weakness. 4. Hypertension. 5. Joint deformity. 6. No history of diabetes. 7. Allergy to penicillin. 8. Social history is negative. 9. Family history noncontributory. 10. MAR was noted. 11. Case discussed with RN. 12. Continue treatment per primary - Dr. Hampton 13. Notes and records were noted. 14. Orders were entered and noted 15. time spent - 30 minutes total Subjective Constitutional: Reports: fatigue, Denies: fever, chills HEENT: Denies: congestion Respiratory: Denies: shortness of breath, productive cough Cardiovascular: Denies: chest pain, palpitations Gastrointestinal/Abdominal: Denies: nausea, vomiting, diarrhea Genitourinary: Reports: other - no joshi Neurologic: Denies: headache Psychiatric: Denies: depression Skin: Denies: rash Hematologic: Denies: bleeding Musculoskeletal: Reports: pain - + leg pain, persists Allergies: Coded Allergies: PENICILLINS (Verified Allergy, Unknown, 05/22/17) Objective Vital Signs Last 24 Hour Vital Signs Date Time Temp Pulse Resp B/P (MAP) Pulse Ox O2 Delivery O2 Flow Rate FiO2 05/27/17 17:29 97.6 05/27/17 12:00 97.6 75 20 130/67 97 Room Air 97.6 05/27/17 09:42 159/56 05/27/17 08:00 97.7 73 20 149/62 96 Room Air 97.7 05/27/17 04:00 97.8 69 20 135/70 97 97.8 05/27/17 00:00 98.0 63 20 152/77 95 98.0 05/26/17 20:00 97.8 64 20 134/68 92 97.8 Height (Feet): 5 Height (Inches): 6.00 Weight (Pounds): 183 General Appearance: no acute distress HEENT: normocephalic, atraumatic, anicteric, mucous membranes moist Respiratory/Chest: lungs clear, normal breath sounds, no respiratory distress, no accessory muscle use Cardiovascular: normal rate, no gallop/murmur, no JVD Abdomen: normal bowel sounds, soft, non tender, no organomegaly, non distended Genitourinary: other - no joshi Extremities: no cyanosis, other - legs and wounds examined and overall less redness on bilateral anterior legs, some redness and pain around wounds, wounds stable Skin: no rash Neurologic/Psychiatric: ase certified technician II-XII grossly normal, alert, oriented x 3, responsive Lymphatic: no neck adenopathy Musculoskeletal: no effusion Objective MRI - both legs and ankles - no evidence of osteo (reports noted) Microbiology Date/Time Source Procedure Growth Status 05/22/17 12:24 Blood Blood Culture - Preliminary NO GROWTH AFTER 72 HOURS Resulted 05/23/17 11:30 Leg Right Gram Stain - Final Complete 05/23/17 11:30 Wound Culture - Final Stenotrophomonas Maltophilia Staphylococcus Sp Coag Neg Diphtheroids Complete Laboratory Tests Test 05/27/17 00:10 05/27/17 06:40 Vancomycin Level Trough 18.4 ug/mL (5.0-12.0) H White Blood Count 6.3 K/UL (4.8-10.8) Red Blood Count 3.23 M/UL (4.20-5.40) L Hemoglobin 9.7 G/DL (12.0-16.0) L Hematocrit 28.8 % (37.0-47.0) L Mean Corpuscular Volume 89 FL (80-99) Mean Corpuscular Hemoglobin 29.8 PG (27.0-31.0) Mean Corpuscular Hemoglobin Concent 33.5 G/DL (32.0-36.0) Red Cell Distribution Width 13.4 % (11.6-14.8) Platelet Count 254 K/UL (150-450) Mean Platelet Volume 6.8 FL (6.5-10.1) Neutrophils (%) (Auto) 58.6 % (45.0-75.0) Lymphocytes (%) (Auto) 26.8 % (20.0-45.0) Monocytes (%) (Auto) 9.3 % (1.0-10.0) Eosinophils (%) (Auto) 3.8 % (0.0-3.0) H Basophils (%) (Auto) 1.5 % (0.0-2.0) Sodium Level 144 MMOL/L (136-145) Potassium Level 3.4 MMOL/L (3.5-5.1) L Chloride Level 110 MMOL/L (98-107) H Carbon Dioxide Level 26 MMOL/L (21-32) Anion Gap 8 mmol/L (5-15) Blood Urea Nitrogen 19 mg/dL (7-18) H Creatinine 0.7 MG/DL (0.55-1.30) Estimat Glomerular Filtration Rate mL/min (>60) Glucose Level 102 MG/DL (74-106) Calcium Level 8.7 MG/DL (8.5-10.1) Current Medications Medications (Trade) Dose Ordered Sig/Alec Route PRN Reason Start Time Stop Time Status Last Admin Dose Admin Acetaminophen (Tylenol) 650 mg Q4H PRN ORAL Mild Pain/Temp > 100.5 05/22/17 17:00 06/21/17 16:59 Acetaminophen/ Hydrocodone Bitart (Medon 5/325) 1 tab Q4H PRN ORAL Moderate Pain (Pain Scale 4-6) 05/22/17 16:15 05/29/17 16:14 05/26/17 21:09 Al Hydroxide/Mg Hydroxide (Mylanta) 30 ml Q6H PRN ORAL STOMACH UPSET 05/22/17 16:15 06/21/17 16:14 Aztreonam 1 gm/ Sodium Chloride 55 ml @ 110 mls/hr Q8H IVPB 05/27/17 20:30 06/03/17 20:29 Collagenase (Santyl) 1 applic DAILY TOPIC 05/23/17 09:00 06/22/17 08:59 05/26/17 08:57 Docusate Sodium (Colace) 100 mg TWICE A DAY ORAL 05/22/17 18:00 06/21/17 17:59 05/27/17 09:42 Heparin Sodium (Porcine) (Heparin 5000 units/ml) 5,000 units EVERY 12 HOURS SUBQ 05/22/17 21:00 06/21/17 20:59 05/27/17 09:50 Hydromorphone HCl (Dilaudid) 1 mg DAILYPRN PRN IVP Severe Breakthru Pain (>7) 05/24/17 09:45 05/31/17 09:44 05/27/17 00:32 Hydromorphone HCl (Dilaudid) 1 mg Q4H PRN IVP Severe Pain (Pain Scale 7-10) 05/22/17 20:00 05/29/17 19:59 05/27/17 17:29 Levofloxacin (Levaquin) 500 mg DAILY ORAL 05/28/17 09:00 06/04/17 08:59 Losartan Potassium (Cozaar) 100 mg DAILY ORAL 05/23/17 09:00 06/22/17 08:59 05/27/17 09:42 Magnesium Hydroxide (Mom) 30 ml DAILYPRN PRN ORAL Constipation 05/22/17 16:15 06/21/17 16:14 Vancomycin HCl (Vanco rx to dose) 1 ea DAILY PRN MISC Per rx protocol 05/22/17 14:45 06/21/17 14:44 Vancomycin HCl 1 gm/Dextrose 275 ml @ 183.708 mls/hr Q12HR@0300,1500 IVPB 05/27/17 15:00 06/01/17 14:59 05/27/17 15:38 Zolpidem Tartrate (Ambien) 5 mg HSPRN PRN ORAL Insomnia 05/22/17 21:00 05/29/17 20:59 MICHEAL MINAYA May 27, 2017 17:58
[2017-05-27 20:00] VITALS: BP 151/71
[2017-05-27] MEDS ORDERED: Aztreonam Inj 1 GM in NS 55 ML IVPB SCH (20:30)
--- NOTE | 2017-05-27 21:38 | General Progress Note ---
Assessment/Plan Assessment/Plan LE cellulitis ostoe ruled out by MRI htn ho polio abx per ID dw Dr Kim to reassess legs sound care per podaitry bp controlled dvt and ulcer prohyalxis afshan control will give breakthourgh pain mediation during dressing changes le arterial and venous studies noted dvt and ulcer phylaxis dc plans when ok with podiatry Subjective Allergies: Coded Allergies: PENICILLINS (Verified Allergy, Unknown, 05/22/17) Subjective above noted patient states has increased pain and erythem in legs controlled no chest pain or sob Objective Last 24 Hour Vital Signs Date Time Temp Pulse Resp B/P (MAP) Pulse Ox O2 Delivery O2 Flow Rate FiO2 05/27/17 20:00 98.5 75 20 151/71 96 98.5 05/27/17 18:13 97.6 05/27/17 17:29 97.6 05/27/17 16:00 97.9 75 20 159/79 97 97.9 05/27/17 12:00 97.6 75 20 130/67 97 Room Air 97.6 05/27/17 09:42 159/56 05/27/17 08:00 97.7 73 20 149/62 96 Room Air 97.7 05/27/17 04:00 97.8 69 20 135/70 97 97.8 05/27/17 00:00 98.0 63 20 152/77 95 98.0 Intake and Output 05/26/17 05/27/17 19:00 07:00 Intake Total 550 ml 560.000 ml Balance 550 ml 560.000 ml Intake Oral 550 ml 200 ml IV Total 360.000 ml # Voids 4 3 # Bowel Movements 1 Laboratory Tests 05/27/17 00:10: Vancomycin Level Trough 18.4H 05/27/17 06:40: White Blood Count 6.3, Red Blood Count 3.23L, Hemoglobin 9.7L, Hematocrit 28.8L , Mean Corpuscular Volume 89, Mean Corpuscular Hemoglobin 29.8, Mean Corpuscular Hemoglobin Concent 33.5, Red Cell Distribution Width 13.4, Platelet Count 254, Mean Platelet Volume 6.8, Neutrophils (%) (Auto) 58.6, Lymphocytes (% ) (Auto) 26.8, Monocytes (%) (Auto) 9.3, Eosinophils (%) (Auto) 3.8H, Basophils (%) (Auto) 1.5, Sodium Level 144, Potassium Level 3.4L, Chloride Level 110H, Carbon Dioxide Level 26, Anion Gap 8, Blood Urea Nitrogen 19H, Creatinine 0.7, Estimat Glomerular Filtration Rate , Glucose Level 102, Calcium Level 8.7 Height (Feet): 5 Height (Inches): 6.00 Weight (Pounds): 183 General Appearance: WD/WN, no apparent distress Neck: supple Respiratory/Chest: lungs clear Abdomen: soft Objective LE dressing cleann neurovascular intact some erythema noted above dressing FRANSICO TELLO May 27, 2017 21:37
[2017-05-28] VITALS: BP 118/77
[2017-05-28] MEDS: HYDROmorphone 1mg/ml Carpuject IVP PRN ×3 (01:27→09:42)
[2017-05-28] MEDS: Vancomycin 1gm/D5W 275ml IVPB SCH ×2 (02:56)
[2017-05-28 04:00] VITALS: BP 109/58
[2017-05-28 06:58] LABS: EOSINOPHILS % (AUTO) 2.9 % (0.0-3.0); HEMOGLOBIN 10.5 G/DL (12.0-16.0); LYMPHOCYTES % (AUTO) 30.1 % (20.0-45.0); MEAN CORPUSCULAR VOLUME 90 FL (80-99); MONOCYTES % (AUTO) 9.6 % (1.0-10.0); NEUTROPHILS % (AUTO) 56.3 % (45.0-75.0); PLATELET COUNT 286 K/UL (150-450); RED BLOOD COUNT 3.46 M/UL (4.20-5.40); RED CELL DISTRIBUTION WIDTH 13.6 % (11.6-14.8)
[2017-05-28 07:11] LABS: ANION GAP 7 mmol/L (5-15); BLOOD UREA NITROGEN 18 mg/dL (7-18); CALCIUM 9.1 MG/DL (8.5-10.1); CARBON DIOXIDE 29 MMOL/L (21-32); CHLORIDE 106 MMOL/L (98-107); CREATININE 0.9 MG/DL (0.55-1.30); POTASSIUM 3.8 MMOL/L (3.5-5.1); SODIUM 142 MMOL/L (136-145)
[2017-05-28 08:00] VITALS: BP 116/56
[2017-05-28] MEDS ORDERED: Aztreonam Inj 1 GM in NS 55 ML IVPB SCH (08:00)
--- NOTE | 2017-05-28 08:25 | Podiatric Progress Note ---
Assessment/Plan Patient Michelle Elias is a 72 year old female who was admitted on May 22, 2017 at 13:20 with Problems: Assessment/Plan A/ 1) NEG osteo 2) Cellulitis bilateral lower extremities - resolved 3) Polio 4) Joint derangement 5) Pain from wounds/cellulitis P/ 1) MRI of bilateral ankle and tib-fib - reviewed 2) Cont wound care - home health orders written. d/w nursing at bedside. Rx for Santyl written. 3) Abx per ID. Cultures reviewed - Rx written for Bactrim DS BID and Levofloxacin 750mg QD both x 7 days 4) Pain management - will send Rx for [place] electronically from my office. 5) D/C today with home health. Will see at wound center next week. Subjective Allergies: Coded Allergies: PENICILLINS (Verified Allergy, Unknown, 05/22/17) Subjective Patient is comfortable. Is happy swelling is down and redness has resolved. She is getting tingling sensation on the top of the left foot. Objective Exam Last 24 Hour Vital Signs Date Time Temp Pulse Resp B/P (MAP) Pulse Ox O2 Delivery O2 Flow Rate FiO2 05/28/17 04:00 97.7 68 20 109/58 93 97.7 05/28/17 00:00 98.8 74 20 118/77 93 98.8 05/27/17 20:00 98.5 75 20 151/71 96 98.5 05/27/17 18:13 97.6 05/27/17 17:29 97.6 05/27/17 16:00 97.9 75 20 159/79 97 97.9 05/27/17 12:00 97.6 75 20 130/67 97 Room Air 97.6 05/27/17 09:42 159/56 Laboratory Tests Test 05/28/17 06:00 White Blood Count 7.0 K/UL (4.8-10.8) Red Blood Count 3.46 M/UL (4.20-5.40) L Hemoglobin 10.5 G/DL (12.0-16.0) L Hematocrit 31.0 % (37.0-47.0) L Mean Corpuscular Volume 90 FL (80-99) Mean Corpuscular Hemoglobin 30.4 PG (27.0-31.0) Mean Corpuscular Hemoglobin Concent 33.8 G/DL (32.0-36.0) Red Cell Distribution Width 13.6 % (11.6-14.8) Platelet Count 286 K/UL (150-450) Mean Platelet Volume 6.7 FL (6.5-10.1) Neutrophils (%) (Auto) 56.3 % (45.0-75.0) Lymphocytes (%) (Auto) 30.1 % (20.0-45.0) Monocytes (%) (Auto) 9.6 % (1.0-10.0) Eosinophils (%) (Auto) 2.9 % (0.0-3.0) Basophils (%) (Auto) 1.0 % (0.0-2.0) Sodium Level 142 MMOL/L (136-145) Potassium Level 3.8 MMOL/L (3.5-5.1) Chloride Level 106 MMOL/L (98-107) Carbon Dioxide Level 29 MMOL/L (21-32) Anion Gap 7 mmol/L (5-15) Blood Urea Nitrogen 18 mg/dL (7-18) Creatinine 0.9 MG/DL (0.55-1.30) Estimat Glomerular Filtration Rate mL/min (>60) Glucose Level 79 MG/DL (74-106) Calcium Level 9.1 MG/DL (8.5-10.1) Microbiology Date/Time Source Procedure Growth Status 05/22/17 12:24 Blood Blood Culture - Final NO GROWTH AFTER 5 DAYS Complete 05/23/17 11:30 Leg Right Gram Stain - Final Complete 05/23/17 11:30 Wound Culture - Final Stenotrophomonas Maltophilia Staphylococcus Sp Coag Neg Diphtheroids Complete Dermatological Wound Assessment : Exudate Amount: None Dermatological Narrative BLE wounds are 20% more granalar now. Fibrosis is present. Erythema has darkened at all sites. Edema BLE resolved. Evan Kim DPM May 28, 2017 08:25
[2017-05-28] MEDS ORDERED: Levofloxacin 500mg tab ORAL SCH (09:00)
[2017-05-28] MEDS: Docusate 100mg cap ORAL SCH (09:29)
[2017-05-28 09:30] VITALS: BP 116/56
[2017-05-28] MEDS: Losartan 50mg tab ORAL SCH (09:30)
[2017-05-28] MEDS: Heparin 5000 units/ml inj SUBQ SCH (09:31)
[2017-05-28] MEDS ORDERED: LEVOFLOXACIN500 MG ORAL (11:11)
[2017-05-28] MEDS ORDERED: BACTRIM DS TAB1 EAC1 ORAL (11:11)
[2017-05-28] MEDS ORDERED: SANTYL30 GM TP (11:12)
--- NOTE | 2017-05-28 18:11 | Discharge Summary ---
Discharge Summary Hospital Course Date of Admission May 22, 2017 at 13:20 Date of Discharge May 28, 2017 at 12:08 Admitting Diagnosis bilateral LE cellulitis HPI Michelle Elias is a 72 year old female who was admitted on May 22, 2017 at 13:20 for Bilateral Lower Extremity Cellulitis Hospital Course [id number] Discharge Discharge Disposition Patient was discharged to Home with Home Health(06) Discharge Diagnoses: Magdalena Suárez NP May 28, 2017 18:10
--- NOTE | 2017-05-29 01:30 | Discharge Summary 2 SIG ---
DATE OF ADMISSION: 05/22/2017 DATE OF DISCHARGE: 05/28/2017 CONSULTANTS: 1. Lynda Boo M.D. 2. Evan Kim M.D. BRIEF HOSPITAL COURSE: The patient is a 72-year-old female with history of polio since childhood, who presented to Dr. Kim's office. She had lower extremity wounds and cellulitis. The patient was then transferred to [facility] for further evaluation. She has medical history including hypertension, history of lower extremity osteomyelitis and cellulitis in 2013, she was also treated for sepsis. On evaluation at ED, there was no leukocytosis. H/H were stable. There were no electrolyte abnormalities noted. She was admitted for cellulitis of both lower extremities and the patient was seen by Dr. Boo. She was started on vancomycin and ciprofloxacin. Because of history of fluoroquinolone use, aztreonam was added. She was seen by wound nurse and was given daily wound care treatment. She had MRI of bilateral ankle, tibia, and fibula. Results were negative for osteomyelitis. She had venous duplex of lower extremity that was negative for DVT. Arterial ultrasound showed significant arterial occlusive disease bilaterally. Blood culture did not isolate any growth. Wound culture with Stenotrophomonas and coagulase-negative Staph/diptheroids. Left leg with coagulase-negative Staph and diphtheroids. She was continued on levofloxacin, vancomycin, and aztreonam. She was clinically improved with less redness on the legs. Coagulase-negative Staph and diphtheroids likely contaminant. She was eventually cleared for discharge home to continue p.o. antibiotics at home, levofloxacin 750 mg p.o. daily and Bactrim DS one tablet p.o. b.i.d. for 7 days. DISCHARGE DIAGNOSES: 1. Lower extremity cellulitis, polymicrobial. 2. Osteomyelitis, ruled out by MRI. 3. Hypertension. 4. Polio. 5. Joint derangement. 6. Bilateral leg/ankle/foot wound infection with ulcer, present on admission. DISPOSITION: The patient was discharged home with home health. DISCHARGE MEDICATIONS: Refer to medication list. DISCHARGE INSTRUCTIONS: Follow up with PCP and Podiatry for wound care. Chas Hampton M.D. I have been assigned to dictate discharge summary on this account and I was not involved in the patient's management. Magdalena Suárez N.P. DR: Valerie JOB#: [id number] CC: LINN
== END 2017-05-28 12:08 | disposition home health service (06) | DRG 603 ==
LOC: EMR 12:02 → 4E 13:20 → EDBEDREQ 13:38 → 4E 15:13
DX: L03.116 Cellulitis of left lower limb (principal); I10 Essential (primary) hypertension; L03.115 Cellulitis of right lower limb; Z86.12 Personal history of poliomyelitis; R53.1 Weakness; M21.90 Unspecified acquired deformity of unspecified limb; Z88.0 Allergy status to penicillin
CPT/HCPCS: 36415; 80048; 80053; 80061; 80202; 83036; 83605; 83880; 84443; 85025; 85651; 86140; 87040; 87070; 87181; 87205; 93925; 93970; 99285; J8499

== ENCOUNTER 2017-06-18 11:29 | Outpatient (RCR) | payer MEDICARE, BC ==
[~2017-06-18] VITALS: Ht 167.6 cm; Wt 83.0 kg
[~2017-06-18 11:29] MED LIST: BACTRIM DS TAB1 EAC1 ORAL; FUROSEMIDE20 M1 ORAL; LEVOFLOXACIN500 MG ORAL; LOSARTAN POTASS50 MG ORAL; SANTYL30 GM TP
[2017-07-12] MEDS ORDERED: Lidocaine 4% Top Soln 50ml TOPIC ONE (12:45)
== END 2017-07-15 | disposition home or self-care (01) ==
LOC: WCC 11:29
DX: L97.815 Non-pressure chronic ulcer of other part of right lower leg with muscle involvement without evidence of necrosis (principal); L97.825 Non-pressure chronic ulcer of other part of left lower leg with muscle involvement without evidence of necrosis; R60.0 Localized edema; M89.671 Osteopathy after poliomyelitis, right ankle and foot; M89.672 Osteopathy after poliomyelitis, left ankle and foot; L03.115 Cellulitis of right lower limb; L03.116 Cellulitis of left lower limb; I10 Essential (primary) hypertension; Z88.0 Allergy status to penicillin
CPT/HCPCS: G0463 ×4

== ENCOUNTER 2017-07-16 10:37 | Outpatient (RCR) | payer MEDICARE, BC ==
[~2017-07-16] VITALS: Ht 167.6 cm; Wt 83.0 kg
[2017-07-25] MEDS ORDERED: Lidocaine 4% Top Soln 50ml TOPIC ONE (16:45)
[2017-08-05] MEDS ORDERED: ATENOLOL100 MG ORAL (14:02)
== END 2017-08-15 | disposition home or self-care (01) ==
LOC: WCC 10:37
DX: L97.815 Non-pressure chronic ulcer of other part of right lower leg with muscle involvement without evidence of necrosis (principal); L97.825 Non-pressure chronic ulcer of other part of left lower leg with muscle involvement without evidence of necrosis; R60.0 Localized edema; M89.671 Osteopathy after poliomyelitis, right ankle and foot; M89.672 Osteopathy after poliomyelitis, left ankle and foot; L03.116 Cellulitis of left lower limb; Z88.0 Allergy status to penicillin
CPT/HCPCS: G0463 ×3

== ENCOUNTER 2017-08-05 13:09 | Inpatient (IN) | payer MEDICARE, BC ==
[~2017-08-05] VITALS: Ht 170.2 cm; Wt 76.7 kg
--- NOTE | 2017-08-05 14:00 | Emergency Room Report ---
History of Present Illness General Chief Complaint: Lower Extremity Injury Source: Patient Present Illness HPI Patient presents with complaints of bilateral worsening leg infections Patient has been seen at wound care For over the past several months recently saw her specialist who felt the area was worsening Patient has been on oral Levaquin Denies any fevers however feels generally weak denies any chest pain or shortness of breath Denies any back or flank pain there has been increased discharge from the bilateral feet Left foot appears to be worsening Allergies: Coded Allergies: CRANBERRY (Verified Allergy, Unknown, Anaphylaxis, 08/05/17) PENICILLINS (Verified Allergy, Unknown, 05/22/17) Patient History Past Medical History: see triage record Pertinent Family History: none Last Menstrual Period: NA Reviewed Nursing Documentation: PMH: Agreed; PSxH: Agreed Nursing Documentation-PMH Past Medical History: No History, Except For Hx Cardiac Problems: No Hx Hypertension: Yes Hx Gastrointestinal Problems: No Hx Neurological Problems: No Review of Systems All Other Systems: negative except mentioned in HPI Physical Exam Vital Signs Date Time Temp Pulse Resp B/P (MAP) Pulse Ox O2 Delivery O2 Flow Rate FiO2 08/05/17 13:21 98.2 87 18 165/86 98 Room Air 98.2 Sp02 EP Interpretation: reviewed, normal General Appearance: well appearing, no apparent distress Head: normocephalic, atraumatic Eyes: bilateral eye PERRL, bilateral eye EOMI ENT: hearing grossly normal, normal pharynx, TMs + canals normal, uvula midline Neck: full range of motion, supple, no meningismus, no bony tend Respiratory: lungs clear, normal breath sounds, no rhonchi, no respiratory distress, no retraction, no accessory muscle use Cardiovascular #1: normal peripheral pulses, regular rate, rhythm, no edema, no gallop, no JVD, no murmur Gastrointestinal: normal bowel sounds, non tender, soft, no mass, no organomegaly, non-distended, no guarding, no hernia, no pulsatile mass, no rebound Genitourinary: no CVA tenderness Musculoskeletal: other - Increased swelling, erythema bilaterally, causing difficulty ambulating Neurologic: oriented x3, responsive, senior maintenance technician III-XII nml as tested, motor strength/ tone normal, sensory intact Psychiatric: mood/affect normal Skin: other - Significant erythema and open wounds bilaterally, left lower shimmery has increased discharge pulses are intact Lymphatic: normal inspection, no adenopathy Medical Decision Making Diagnostic Impression: Primary Impression: Bilateral lower leg cellulitis ER Course Given the patient's presentation and findings Septic workup is initiated Patient provided with IV hydration Antibiotics are deferred to specialty consultation Podiatry specialty notified Labs Test 08/05/17 13:40 08/06/17 06:10 White Blood Count 11.1 K/UL (4.8-10.8) 11.4 K/UL (4.8-10.8) Red Blood Count 3.80 M/UL (4.20-5.40) 2.97 M/UL (4.20-5.40) Hemoglobin 10.3 G/DL (12.0-16.0) 8.5 G/DL (12.0-16.0) Hematocrit 32.3 % (37.0-47.0) 25.0 % (37.0-47.0) Mean Corpuscular Volume 85 FL (80-99) 84 FL (80-99) Mean Corpuscular Hemoglobin 27.2 PG (27.0-31.0) 28.6 PG (27.0-31.0) Mean Corpuscular Hemoglobin Concent 32.0 G/DL (32.0-36.0) 34.1 G/DL (32.0-36.0) Red Cell Distribution Width 13.3 % (11.6-14.8) 13.4 % (11.6-14.8) Platelet Count 338 K/UL (150-450) 257 K/UL (150-450) Mean Platelet Volume 7.0 FL (6.5-10.1) 6.9 FL (6.5-10.1) Neutrophils (%) (Auto) 78.1 % (45.0-75.0) 77.1 % (45.0-75.0) Lymphocytes (%) (Auto) 13.8 % (20.0-45.0) 14.0 % (20.0-45.0) Monocytes (%) (Auto) 6.3 % (1.0-10.0) 6.7 % (1.0-10.0) Eosinophils (%) (Auto) 1.4 % (0.0-3.0) 1.6 % (0.0-3.0) Basophils (%) (Auto) 0.5 % (0.0-2.0) 0.5 % (0.0-2.0) Sodium Level 142 MMOL/L (136-145) 142 MMOL/L (136-145) Potassium Level 3.3 MMOL/L (3.5-5.1) 4.4 MMOL/L (3.5-5.1) Chloride Level 103 MMOL/L (98-107) 107 MMOL/L (98-107) Carbon Dioxide Level 28 MMOL/L (21-32) 27 MMOL/L (21-32) Anion Gap 11 mmol/L (5-15) 8 mmol/L (5-15) Blood Urea Nitrogen 26 mg/dL (7-18) 26 mg/dL (7-18) Creatinine 1.2 MG/DL (0.55-1.30) 1.0 MG/DL (0.55-1.30) Estimat Glomerular Filtration Rate mL/min (>60) mL/min (>60) Glucose Level 107 MG/DL (74-106) 89 MG/DL (74-106) Lactic Acid Level 1.80 mmol/L (0.66-2.22) Calcium Level 10.2 MG/DL (8.5-10.1) 9.1 MG/DL (8.5-10.1) Total Bilirubin 0.4 MG/DL (0.2-1.0) 0.4 MG/DL (0.2-1.0) Aspartate Amino Transf (AST/SGOT) 16 U/L (15-37) 25 U/L (15-37) Alanine Aminotransferase (ALT/SGPT) 14 U/L (12-78) 14 U/L (12-78) Alkaline Phosphatase 75 U/L (46-116) 59 U/L (46-116) Creatine Kinase MB 0.6 NG/ML (0.0-3.6) Total Protein 8.2 G/DL (6.4-8.2) 6.7 G/DL (6.4-8.2) Albumin 2.8 G/DL (3.4-5.0) 2.1 G/DL (3.4-5.0) Globulin 5.4 g/dL 4.6 g/dL Albumin/Globulin Ratio 0.5 (1.0-2.7) 0.5 (1.0-2.7) Erythrocyte Sedimentation Rate 125 MM/HR (0-30) C-Reactive Protein, Quantitative 13.4 mg/dL (0.00-0.90) Triglycerides Level 57 MG/DL (30-150) Cholesterol Level 126 MG/DL (< 200) LDL Cholesterol 79 mg/dL (<100) HDL Cholesterol 50 MG/DL (40-60) Cholesterol/HDL Ratio 2.5 (3.3-4.4) Thyroid Stimulating Hormone (TSH) 2.827 uiU/mL (0.358-3.740) Rhythm Strip Diag. Results EP Interpretation: yes Rate: 77 Rhythm: NSR, no PVC's, no ectopy Chest X-Ray Diagnostic Results Chest X-Ray Diagnostic Results : Chest X-Ray Ordered: Yes # of Views/Limited/Complete: 1 View Indication: Chest Pain EP Interpretation: Yes Interpretation: no consolidation, no effusion, no pneumothorax Impression: No acute disease Last Vital Signs Date Time Temp Pulse Resp B/P (MAP) Pulse Ox O2 Delivery O2 Flow Rate FiO2 08/05/17 13:21 98.2 87 18 165/86 98 Room Air 98.2 Status: improved Disposition: ADMITTED INPATIENT Condition: Serious Referrals: NON PHYSICIAN (PCP) Cr Pavon DO August 05, 2017 14:00
[2017-08-05] MEDS ORDERED: ATENOLOL100 MG ORAL (14:02)
[2017-08-05 14:08] LABS: BASOPHILS % (AUTO) 0.5 % (0.0-2.0); EOSINOPHILS % (AUTO) 1.4 % (0.0-3.0); HEMATOCRIT 32.3 % (37.0-47.0); HEMOGLOBIN 10.3 G/DL (12.0-16.0); LYMPHOCYTES % (AUTO) 13.8 % (20.0-45.0); MEAN CORPUSCULAR VOLUME 85 FL (80-99); MONOCYTES % (AUTO) 6.3 % (1.0-10.0); NEUTROPHILS % (AUTO) 78.1 % (45.0-75.0); PLATELET COUNT 338 K/UL (150-450); RED CELL DISTRIBUTION WIDTH 13.3 % (11.6-14.8); WHITE BLOOD COUNT 11.1 K/UL (4.8-10.8)
--- NOTE | 2017-08-05 14:19 | Diagnostic Imaging Report ---
Indication: Cough, preop Comparison: None A single view chest radiograph was obtained. Findings: Cardiomediastinal appearance is prominent. Pulmonary vascularity is appropriate. The diaphragmatic contour is smooth and costophrenic angles are sharp. No pleural effusions are identified. The bones are osteopenic. Impression: No acute findings. Cardiomegaly
[2017-08-05 14:21] LABS: ANION GAP 11 mmol/L (5-15); BLOOD UREA NITROGEN 26 mg/dL (7-18); CALCIUM 10.2 MG/DL (8.5-10.1); CARBON DIOXIDE 28 MMOL/L (21-32); CHLORIDE 103 MMOL/L (98-107); CREATININE 1.2 MG/DL (0.55-1.30); POTASSIUM 3.3 MMOL/L (3.5-5.1); SODIUM 142 MMOL/L (136-145)
[2017-08-05 14:34] LABS: ALANINE AMINOTRANSFERASE 14 U/L (12-78); ALBUMIN 2.8 G/DL (3.4-5.0); ALBUMIN/GLOBULIN RATIO 0.5 (1.0-2.7); ALKALINE PHOSPHATASE 75 U/L (46-116); ASPARTATE AMINO TRANSFERASE 16 U/L (15-37); BILIRUBIN,TOTAL 0.4 MG/DL (0.2-1.0); CKMB 0.6 NG/ML (0.0-3.6)
[2017-08-05] MEDS ORDERED: Zolpidem 5mg tab ORAL PRN (17:45)
[2017-08-05] MEDS ORDERED: Milk of Magnesia 30ml Ud ORAL PRN (17:45)
[2017-08-05] MEDS ORDERED: Morphine Sulfate 4mg/ml Inj IM PRN (17:45)
[2017-08-05 17:53] VITALS: BP 136/64
[2017-08-05] MEDS: Docusate 100mg cap ORAL SCH (18:00)
[2017-08-05] MEDS ORDERED: Vancomycin 1.5 GM/D5W 250ML IVPB ONE (20:00)
[2017-08-05] MEDS: Heparin 5000 units/ml inj SUBQ SCH (20:48)
[2017-08-05 21:26] VITALS: BP 123/54
[2017-08-05] MEDS: Morphine Sulfate 4mg/ml Inj IVP PRN (21:55)
[2017-08-05] MEDS ORDERED: HYDROcodone/Acetamin 10/325 tab ORAL PRN (23:45)
[2017-08-05] MEDS ORDERED: Norco 5mg/325mg tab ORAL PRN (23:45)
[2017-08-05] MEDS: HYDROcodone/Acetamin 10/325 tab ORAL PRN (23:58)
--- NOTE | 2017-08-06 | History and Physical Report ---
DATE OF ADMISSION: 08/05/2017 HISTORY OF PRESENT ILLNESS: This is a very pleasant 72-year-old female with history of polio since childhood, history of lower extremity wound with cellulitis, followed by Dr. Kim from [facility] for wound care, who has sent her to the emergency room for admission for infection of lower extremity cellulitis for which she will probably need to have some debridement done. She denies any fevers or chills. She admits the pain and takes narcotics at home. She denies any chest pain or shortness of breath. No headaches. No sore throat. No urinary symptoms. PAST MEDICAL HISTORY: History of hypertension. She has a history of lower extremity osteomyelitis and cellulitis in the past in 2013. She was also treated at that time for sepsis. She was in the hospital for 6 weeks, and had some debridement done as well. She has had a history of polio since childhood. MEDICATIONS: Please see reconciled medication list. ALLERGIES: Allergic to penicillin. SOCIAL HISTORY: The patient is retired nurse. She does not smoke, does not drink any alcohol, and does not use any illicit drugs. FAMILY HISTORY: Noncontributory. REVIEW OF SYSTEMS: Twelve point review of systems reviewed negative except for above. PHYSICAL EXAMINATION: GENERAL: She is well developed and well nourished, currently in no apparent distress. VITAL SIGNS: Blood pressure 123/54, pulse 90, respirations 20, and temperature 97.7 degrees. HEENT: Head is normocephalic and atraumatic. Pupils reactive to light. LUNGS: Clear to auscultation. HEART: Regular rate and rhythm. ABDOMEN: Soft. EXTREMITIES: Left lower extremity is wrapped and appears to be erythematous. NEUROLOGIC: She is alert and oriented. LABORATORY AND DIAGNOSTIC DATA: Labs revealed a white count of 11.1, hemoglobin 10.3, hematocrit 32.3 and platelet count was 338,000. Sodium 142, potassium 3.3, BUN of 26, creatinine 1.2, and glucose 107. Calcium 10.2. Lactic acid 1.80. Chest x-ray reveals no acute findings. ASSESSMENT AND PLAN: The patient is a 72-year-old female with history of polio and history of lower extremity wounds, history of cellulitis and osteomyelitis who presents with worsening cellulitis. She has been on oral antibiotics at home. The patient will be admitted. Fever workup initiated. We will place on vancomycin. Infectious Disease consultation to see her as well. Her strategic consultant Dr. Kim will see her for treatment to continue her other medications from home. Ordered lower extremity venous Dopplers placed on DVT and ulcer prophylaxis. For pain management, I have asked Dr. Stone to see her. Chas Hampton M.D. DR: ALISSA JOB#: [id number] CC:
[2017-08-06] MEDS: Morphine Sulfate 4mg/ml Inj IVP PRN ×5 (01:25→20:49)
[2017-08-06] MEDS: HYDROcodone/Acetamin 10/325 tab ORAL PRN ×5 (04:25→22:47)
[2017-08-06 07:25] LABS: BASOPHILS % (AUTO) 0.5 % (0.0-2.0); EOSINOPHILS % (AUTO) 1.6 % (0.0-3.0); HEMOGLOBIN 8.5 G/DL (12.0-16.0); MEAN CORPUSCULAR VOLUME 84 FL (80-99); MONOCYTES % (AUTO) 6.7 % (1.0-10.0); NEUTROPHILS % (AUTO) 77.1 % (45.0-75.0); PLATELET COUNT 257 K/UL (150-450); RED BLOOD COUNT 2.97 M/UL (4.20-5.40); RED CELL DISTRIBUTION WIDTH 13.4 % (11.6-14.8); WHITE BLOOD COUNT 11.4 K/UL (4.8-10.8)
[2017-08-06 07:56] LABS: ALANINE AMINOTRANSFERASE 14 U/L (12-78); ALBUMIN 2.1 G/DL (3.4-5.0); ALBUMIN/GLOBULIN RATIO 0.5 (1.0-2.7); ALKALINE PHOSPHATASE 59 U/L (46-116); ANION GAP 8 mmol/L (5-15); ASPARTATE AMINO TRANSFERASE 25 U/L (15-37); BILIRUBIN,TOTAL 0.4 MG/DL (0.2-1.0); BLOOD UREA NITROGEN 26 mg/dL (7-18); CALCIUM 9.1 MG/DL (8.5-10.1); CARBON DIOXIDE 27 MMOL/L (21-32); CHLORIDE 107 MMOL/L (98-107); CHOLESTEROL 126 MG/DL (< 200); HDL CHOLESTEROL 50 MG/DL (40-60); POTASSIUM 4.4 MMOL/L (3.5-5.1); SODIUM 142 MMOL/L (136-145); TRIGLYCERIDES 57 MG/DL (30-150)
[2017-08-06 08:00] VITALS: BP 112/67
[2017-08-06] MEDS: Docusate 100mg cap ORAL SCH ×2 (08:26→17:15)
[2017-08-06] MEDS: Losartan 50mg tab ORAL SCH (08:31)
[2017-08-06] MEDS: Heparin 5000 units/ml inj SUBQ SCH ×2 (08:37→20:55)
[2017-08-06] MEDS ORDERED: Levofloxacin 500mg tab ORAL ONE (09:00)
[2017-08-06 15:53] VITALS: BP 101/50
--- NOTE | 2017-08-06 16:15 | Consultation ---
Consult Note Assessment/Plan A/ 1) h/o osteo 2) Cellulitis bilateral lower extremities 3) Polio 4) Joint derangement 5) Pain from wounds P/ 1) Will order repeat MRI of bilateral ankle and tib-fib. 2) Will order wound care 3) Dr Amato - cardiology clearance for surgery this 1:30PM 4) Pain management consult requested 5) Will follow Evan Kim DPM August 06, 2017 16:15
--- NOTE | 2017-08-06 16:46 | Cardiac Electrophysiology PN ---
Subjective Subjective [id number] Objective Last 24 Hour Vital Signs Date Time Temp Pulse Resp B/P (MAP) Pulse Ox O2 Delivery O2 Flow Rate FiO2 08/06/17 16:01 97.5 08/06/17 15:53 97.5 73 20 101/50 93 97.5 08/06/17 15:31 97.7 08/06/17 13:32 97.7 08/06/17 12:33 97.7 08/06/17 09:29 97.7 08/06/17 08:29 97.7 08/06/17 08:00 97.5 84 16 112/67 96 97.5 08/06/17 06:24 97.7 08/06/17 04:25 97.7 08/06/17 01:25 97.7 08/05/17 23:58 97.7 08/05/17 21:55 97.7 08/05/17 21:26 97.7 90 20 123/54 95 Room Air 97.7 08/05/17 19:19 98.1 08/05/17 18:49 98.1 08/05/17 17:55 Room Air 08/05/17 17:53 98.1 82 20 136/64 94 98.1 Intake and Output 08/05/17 08/06/17 19:00 07:00 Intake Total 120 ml 500 ml Output Total 300 ml Balance 120 ml 200 ml Intake Oral 120 ml 250 ml IV Total 250 ml Output Urine Total 300 ml # Voids 1 Laboratory Tests Test 08/06/17 06:10 White Blood Count 11.4 K/UL (4.8-10.8) H Red Blood Count 2.97 M/UL (4.20-5.40) L Hemoglobin 8.5 G/DL (12.0-16.0) L Hematocrit 25.0 % (37.0-47.0) L Mean Corpuscular Volume 84 FL (80-99) Mean Corpuscular Hemoglobin 28.6 PG (27.0-31.0) Mean Corpuscular Hemoglobin Concent 34.1 G/DL (32.0-36.0) Red Cell Distribution Width 13.4 % (11.6-14.8) Platelet Count 257 K/UL (150-450) Mean Platelet Volume 6.9 FL (6.5-10.1) Neutrophils (%) (Auto) 77.1 % (45.0-75.0) H Lymphocytes (%) (Auto) 14.0 % (20.0-45.0) L Monocytes (%) (Auto) 6.7 % (1.0-10.0) Eosinophils (%) (Auto) 1.6 % (0.0-3.0) Basophils (%) (Auto) 0.5 % (0.0-2.0) Erythrocyte Sedimentation Rate 125 MM/HR (0-30) H Sodium Level 142 MMOL/L (136-145) Potassium Level 4.4 MMOL/L (3.5-5.1) Chloride Level 107 MMOL/L (98-107) Carbon Dioxide Level 27 MMOL/L (21-32) Anion Gap 8 mmol/L (5-15) Blood Urea Nitrogen 26 mg/dL (7-18) H Creatinine 1.0 MG/DL (0.55-1.30) Estimat Glomerular Filtration Rate mL/min (>60) Glucose Level 89 MG/DL (74-106) Calcium Level 9.1 MG/DL (8.5-10.1) Total Bilirubin 0.4 MG/DL (0.2-1.0) Aspartate Amino Transf (AST/SGOT) 25 U/L (15-37) Alanine Aminotransferase (ALT/SGPT) 14 U/L (12-78) Alkaline Phosphatase 59 U/L (46-116) C-Reactive Protein, Quantitative 13.4 mg/dL (0.00-0.90) H Total Protein 6.7 G/DL (6.4-8.2) Albumin 2.1 G/DL (3.4-5.0) L Globulin 4.6 g/dL Albumin/Globulin Ratio 0.5 (1.0-2.7) L Triglycerides Level 57 MG/DL (30-150) Cholesterol Level 126 MG/DL (< 200) LDL Cholesterol 79 mg/dL (<100) HDL Cholesterol 50 MG/DL (40-60) Cholesterol/HDL Ratio 2.5 (3.3-4.4) L Thyroid Stimulating Hormone (TSH) 2.827 uiU/mL (0.358-3.740) Elver Amato MD August 06, 2017 16:46
--- NOTE | 2017-08-06 17:27 | Consultation ---
History of Present Illness General Date patient seen: August 06, 2017 Time patient seen: 05:15 - pm Chief Complaint: Lower Extremity Injury Referring physician: Dr. Hampton Reason for Consultation: Pain management Present Illness HPI This is a 72 y/o female being seen on the med/surg floor of [facility] for initial pain management consultation. Patient was admitted under the care of Dr. Hampton with c/o B/L LE pain caused by cellulitis and h/o polio causing post polio syndrome. She has been seen by chiropractic care and is scheduled for surgery. She was started on Morphine 2mg IV Q3H PRN and [place] 10/325mg PO 1 tab Q4H PRN moderate pain. She had been requesting Dilaudid but hospital has run out of this medication. At this time patient is in bed reporting her pain has been a 6/10 which has been tolerated on the medication. She has no other complaints. Allergies: Coded Allergies: CRANBERRY (Verified Allergy, Unknown, Anaphylaxis, 08/05/17) PENICILLINS (Verified Allergy, Unknown, 05/22/17) Medication History Scheduled Atenolol* (Tenormin*), 100 MG ORAL DAILY, (Reported) Collagenase Clostridium Hist. (Santyl), 1 APPLIC TP DAILY, (Reported) Furosemide* (Lasix*), 20 MG ORAL DAILY, (Reported) Levofloxacin (Levofloxacin*), 750 MG ORAL DAILY, (Reported) Losartan Potassium* (Losartan Potassium*), 100 MG ORAL DAILY, (Reported) Trimethoprim/Sulfamethoxazole 160/800* (Bactrim Ds Tablet*), 1 TAB ORAL BID, ( Reported) Patient History Healthcare decision maker Resuscitation status Advanced Directive on File No Patient History Narrative History of hypertension. She has a history of lower extremity osteomyelitis and cellulitis in the past in 2013. She was also treated at that time for sepsis. She was in the hospital for 6 weeks, and had some debridement done as well. She has had a history of polio since childhood. Review of Systems Constitutional: Reports: no symptoms Eye: Reports: no symptoms ENT: Reports: no symptoms Respiratory: Reports: no symptoms Cardiovascular: Reports: no symptoms Gastrointestinal: Reports: no symptoms Genitourinary: Reports: no symptoms Musculoskeletal: Reports: muscle stiffness Skin: Reports: lesions Psychiatric: Reports: no symptoms Neurological: Reports: focal weakness Endocrine: Reports: no symptoms Hematologic/Lymphatic: Reports: no symptoms Physical Exam General Appearance: WD/WN, no apparent distress, alert HEENT: PERRL, EOMI Neck: non-tender, normal alignment, supple, normal inspection Respiratory/Chest: lungs clear, normal breath sounds, no respiratory distress Cardiovascular/Chest: normal rate, regular rhythm Abdomen: non tender, soft Extremities: severe edema - with bandages applied, tenderness to palpaiton Neurologic: abnormal gait, alert, oriented x 3 Last 24 Hour Vital Signs Date Time Temp Pulse Resp B/P (MAP) Pulse Ox O2 Delivery O2 Flow Rate FiO2 08/06/17 16:01 97.5 08/06/17 15:53 97.5 73 20 101/50 93 97.5 08/06/17 15:31 97.7 08/06/17 13:32 97.7 08/06/17 12:33 97.7 08/06/17 09:29 97.7 08/06/17 08:29 97.7 08/06/17 08:00 97.5 84 16 112/67 96 97.5 08/06/17 06:24 97.7 08/06/17 04:25 97.7 08/06/17 01:25 97.7 08/05/17 23:58 97.7 08/05/17 21:55 97.7 08/05/17 21:26 97.7 90 20 123/54 95 Room Air 97.7 08/05/17 19:19 98.1 08/05/17 18:49 98.1 08/05/17 17:55 Room Air 08/05/17 17:53 98.1 82 20 136/64 94 98.1 Intake and Output 08/05/17 08/06/17 19:00 07:00 Intake Total 120 ml 500 ml Output Total 300 ml Balance 120 ml 200 ml Intake Oral 120 ml 250 ml IV Total 250 ml Output Urine Total 300 ml # Voids 1 Laboratory Tests Test 08/06/17 06:10 White Blood Count 11.4 K/UL (4.8-10.8) H Red Blood Count 2.97 M/UL (4.20-5.40) L Hemoglobin 8.5 G/DL (12.0-16.0) L Hematocrit 25.0 % (37.0-47.0) L Mean Corpuscular Volume 84 FL (80-99) Mean Corpuscular Hemoglobin 28.6 PG (27.0-31.0) Mean Corpuscular Hemoglobin Concent 34.1 G/DL (32.0-36.0) Red Cell Distribution Width 13.4 % (11.6-14.8) Platelet Count 257 K/UL (150-450) Mean Platelet Volume 6.9 FL (6.5-10.1) Neutrophils (%) (Auto) 77.1 % (45.0-75.0) H Lymphocytes (%) (Auto) 14.0 % (20.0-45.0) L Monocytes (%) (Auto) 6.7 % (1.0-10.0) Eosinophils (%) (Auto) 1.6 % (0.0-3.0) Basophils (%) (Auto) 0.5 % (0.0-2.0) Erythrocyte Sedimentation Rate 125 MM/HR (0-30) H Sodium Level 142 MMOL/L (136-145) Potassium Level 4.4 MMOL/L (3.5-5.1) Chloride Level 107 MMOL/L (98-107) Carbon Dioxide Level 27 MMOL/L (21-32) Anion Gap 8 mmol/L (5-15) Blood Urea Nitrogen 26 mg/dL (7-18) H Creatinine 1.0 MG/DL (0.55-1.30) Estimat Glomerular Filtration Rate mL/min (>60) Glucose Level 89 MG/DL (74-106) Calcium Level 9.1 MG/DL (8.5-10.1) Total Bilirubin 0.4 MG/DL (0.2-1.0) Aspartate Amino Transf (AST/SGOT) 25 U/L (15-37) Alanine Aminotransferase (ALT/SGPT) 14 U/L (12-78) Alkaline Phosphatase 59 U/L (46-116) C-Reactive Protein, Quantitative 13.4 mg/dL (0.00-0.90) H Total Protein 6.7 G/DL (6.4-8.2) Albumin 2.1 G/DL (3.4-5.0) L Globulin 4.6 g/dL Albumin/Globulin Ratio 0.5 (1.0-2.7) L Triglycerides Level 57 MG/DL (30-150) Cholesterol Level 126 MG/DL (< 200) LDL Cholesterol 79 mg/dL (<100) HDL Cholesterol 50 MG/DL (40-60) Cholesterol/HDL Ratio 2.5 (3.3-4.4) L Thyroid Stimulating Hormone (TSH) 2.827 uiU/mL (0.358-3.740) Height (Feet): 5 Height (Inches): 7.00 Weight (Pounds): 165 Medications Current Medications Medications (Trade) Dose Ordered Sig/Alec Route PRN Reason Start Time Stop Time Status Last Admin Dose Admin Acetaminophen/ Hydrocodone Bitart ([place] 10/325) 1 tab Q4H PRN ORAL Pain Scale (4-6) 08/05/17 23:45 08/12/17 23:44 08/06/17 12:33 Al Hydroxide/Mg Hydroxide (Mylanta) 30 ml BID PRN ORAL Abdominal cramps 08/05/17 17:45 09/04/17 17:44 Atenolol (Tenormin) 100 mg DAILY ORAL 08/06/17 09:00 09/05/17 08:59 Collagenase (Santyl) 1 applic DAILY TOPIC 08/05/17 19:30 09/04/17 19:29 08/06/17 08:28 Diphenhydramine HCl (Benadryl) 25 mg Q6H PRN ORAL Itching 08/05/17 21:45 09/04/17 21:44 08/05/17 21:58 Docusate Sodium (Colace) 100 mg TWICE A DAY ORAL 08/05/17 18:00 09/04/17 17:59 08/06/17 17:15 Furosemide (Lasix) 20 mg DAILY ORAL 08/06/17 09:00 09/05/17 08:59 Heparin Sodium (Porcine) (Heparin 5000 units/ml) 5,000 units EVERY 12 HOURS SUBQ 08/05/17 21:00 09/04/17 20:59 08/06/17 08:37 Levofloxacin (Levaquin) 750 mg Q48H ORAL 08/05/17 20:00 08/12/17 23:59 08/05/17 20:44 Losartan Potassium (Cozaar) 100 mg DAILY ORAL 08/06/17 09:00 09/05/17 08:59 Magnesium Hydroxide (Mom) 30 ml BID PRN ORAL Constipation 08/05/17 17:45 09/04/17 17:44 Morphine Sulfate (Morphine Sulfate) 2 mg Q3H PRN IVP Severe Pain (Pain Scale 7-10) 08/05/17 21:15 08/12/17 21:14 08/06/17 15:31 Ondansetron HCl (Zofran) 4 mg Q4HR PRN IVP Nausea & Vomiting 08/05/17 17:45 09/04/17 17:44 Vancomycin HCl (Vanco rx to dose) 1 ea DAILY PRN MISC Per rx protocol 08/05/17 17:45 09/04/17 17:44 Vancomycin HCl 1 gm/Dextrose 275 ml @ 183.708 mls/hr Q24H IVPB 08/06/17 20:00 08/11/17 19:59 Zolpidem Tartrate (Ambien) 5 mg HSPRN PRN ORAL Insomnia 08/05/17 17:45 08/12/17 17:44 Assessment/Plan Assessment/Plan (1) B/L LE pain (2) B/L LE cellulitis with open wounds (3) Post polio syndrome Patient will be continued on [place] and Morphine D/w Dr. Stone and he concurred. Thank you for the courtesy of this consultation. AZAM GAMEZ August 06, 2017 17:27
--- NOTE | 2017-08-06 18:45 | Consultation ---
DATE OF CONSULTATION: 08/06/2017 CARDIOLOGY CONSULTATION CONSULTING PHYSICIAN: Elver Amato M.D. REFERRING PHYSICIAN: Chas Hampton M.D. REASON FOR CONSULTATION: Management of hypertension and preoperative clearance prior to podiatric surgery. HISTORY OF PRESENT ILLNESS: The patient is a 72-year-old lady with history of hypertension, probably since childhood as well as lower extremity wound and cellulitis, was sent to the emergency room for infection of the lower extremity cellulitis. The patient was evaluated by Dr. Kim and felt the patient needs debridement. A Cardiology consultation is obtained for management of hypertension and preoperative clearance. PAST MEDICAL HISTORY: 1. Hypertension. 2. Bilateral lower extremity cellulitis and osteomyelitis in 2013. 3. History of polio. MEDICATIONS: Per reconciliation. ALLERGIES: She is allergic to penicillin. FAMILY HISTORY: Noncontributory. 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 REVIEW OF SYSTEMS: Review of systems was performed and was negative other than what was mentioned in the history of present illness. PHYSICAL EXAMINATION: VITAL SIGNS: Blood pressure of 101/50, pulse 73, respirations 20, and she is afebrile. HEAD AND NECK: No JVD. LUNGS: Clear. CARDIOVASCULAR: Regular S1 and S2 with no gallop or murmur. ABDOMEN: Soft and nontender. EXTREMITIES: Bilateral lower extremity edema and cellulitis of the ankles. LABORATORY AND DIAGNOSTIC DATA: Her labs show white count of 11.4, hemoglobin 8.5, hematocrit of 25, and platelet count is 257. Sodium 142, potassium 4.4, BUN of 26, creatinine 1, and glucose of 89. ASSESSMENT AND PLAN: 1. Hypertension. Blood pressure is currently stable on atenolol 100 mg daily as well as Lasix 20 mg daily. The patient also on Cozaar 100 mg daily, all will be continued. 2. Lower extremity cellulitis, possible osteo. We will get EKG and echocardiogram for further evaluation. The patient, however, denies any prior myocardial infarction or coronary artery disease or congestive heart failure, and is able to lay flat in bed without any shortness of breath. Unless EKG and echocardiogram are significantly abnormal, the patient is cleared to undergo surgery by Dr. Kim. 3. History of polio. 4. Anemia. Thank you very much, Dr. Hampton, for allowing me to participate in the care of this patient. Please do not hesitate to contact me for any questions regarding my evaluation. Elvre Amato M.D. DR: CHANA JOB#: [id number] CC:
--- NOTE | 2017-08-06 18:45 | Consultation ---
DATE OF CONSULTATION: 08/06/2017 INFECTIOUS DISEASE CONSULTATION CONSULTING PHYSICIAN: Helio Shepherd M.D. This consult is for coverage of Dr. Burrell. PRIMARY ATTENDING PHYSICIAN: Chas Hampton M.D. REASON FOR CONSULT: Cellulitis of both legs. HISTORY OF PRESENT ILLNESS: This is a 72-year-old white female admitted yesterday because of chronic wound in the lower extremities not responding to the antibiotic. The patient had these wounds for long time of about 1 year. She had a recent admission in May 2017 that showed bilateral cellulitis. Both MRIs were negative for osteomyelitis. She got Levaquin and vancomycin at that time and before admission was on p.o. Levaquin. 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 ALLERGIES: Allergic to cranberry and penicillin. MEDICATION: Getting vancomycin, atenolol, Lasix, losartan, [place], diphenhydramine, morphine, Levaquin, collagenase, Zofran, Ambien, Mylanta. SOCIAL HISTORY: . No history of alcohol, drug abuse, or smoking. no child REVIEW OF SYSTEMS: No fever. No chills. No nausea. No vomiting. No diarrhea. No coughing. No shortness of breath. She has chronic ulceration in legs, ambulatory with walker. PHYSICAL EXAMINATION: VITAL SIGNS: Temperature 97.7, pulse 84, blood pressure 112/67. GENERAL APPEARANCE: No acute distress. HEAD AND NECK: [place] conjunctivae. No oral lesion. HEART: S1, S2. Regular. LUNGS: Clear. ABDOMEN: Soft, nontender. EXTREMITIES: She has some edema in the lower extremities. Multiple ulcerations in lower extremity, two in the right side and another one in the left side. wounds are extensive and located in lower leg. LABORATORY AND DIAGNOSTIC DATA: WBC 11.4, hemoglobin 8.5, hematocrit 25, and platelet 257,000. Sodium 142, potassium 4.4, chloride 107, bicarbonate 27, BUN 26, creatinine 1, albumin is 2.1. Chest x-ray showed cardiomegaly. Venous duplex was negative for DVT. IMPRESSION: Cellulitis with ulceration in both lower extremities. The patient will have wound debridement with registered dental assistant. She has hypertension, anemia, post-polio syndrome. RECOMMENDATION: We will continue Levaquin and vancomycin. We will obtain wound cultures. We will suggest deep tissue culture at the time of surgery. At the end of my exam, I thank Dr. Hampton for involving me in the care of this patient. Helio Shepherd M.D. DR: DIDIER JOB#: [id number] CC: LNIN
[2017-08-06] MEDS: Vancomycin 1gm/D5W 275ml IVPB SCH ×2 (20:00)
[2017-08-06 21:09] VITALS: BP 130/63
--- NOTE | 2017-08-06 22:31 | General Progress Note ---
Assessment/Plan Assessment/Plan LE cellulitis ho om ho polio ho chronic pain abx per ID wound care ? need for debridement pain control per Dr Gann dvt and ulcer prhylaxis Subjective Allergies: Coded Allergies: CRANBERRY (Verified Allergy, Unknown, Anaphylaxis, 08/05/17) PENICILLINS (Verified Allergy, Unknown, 05/22/17) Subjective co pain LE no chest pain or sob Objective Last 24 Hour Vital Signs Date Time Temp Pulse Resp B/P (MAP) Pulse Ox O2 Delivery O2 Flow Rate FiO2 08/06/17 21:19 98.3 08/06/17 21:09 98.3 80 17 130/63 95 98.3 08/06/17 20:49 97.5 08/06/17 19:05 97.5 08/06/17 18:06 97.5 08/06/17 15:53 97.5 73 20 101/50 93 97.5 08/06/17 15:31 97.7 08/06/17 12:33 97.7 08/06/17 09:29 97.7 08/06/17 08:29 97.7 08/06/17 08:00 97.5 84 16 112/67 96 97.5 08/06/17 06:24 97.7 08/06/17 04:25 97.7 08/06/17 01:25 97.7 08/05/17 23:58 97.7 Intake and Output 08/05/17 08/06/17 19:00 07:00 Intake Total 120 ml 500 ml Output Total 300 ml Balance 120 ml 200 ml Intake Oral 120 ml 250 ml IV Total 250 ml Output Urine Total 300 ml # Voids 1 Laboratory Tests 08/06/17 06:10: White Blood Count 11.4H, Red Blood Count 2.97L, Hemoglobin 8.5L, Hematocrit 25.0L, Mean Corpuscular Volume 84, Mean Corpuscular Hemoglobin 28.6, Mean Corpuscular Hemoglobin Concent 34.1, Red Cell Distribution Width 13.4, Platelet Count 257, Mean Platelet Volume 6.9, Neutrophils (%) (Auto) 77.1H, Lymphocytes ( %) (Auto) 14.0L, Monocytes (%) (Auto) 6.7, Eosinophils (%) (Auto) 1.6, Basophils (%) (Auto) 0.5, Erythrocyte Sedimentation Rate 125H, Sodium Level 142 , Potassium Level 4.4, Chloride Level 107, Carbon Dioxide Level 27, Anion Gap 8 , Blood Urea Nitrogen 26H, Creatinine 1.0, Estimat Glomerular Filtration Rate , Glucose Level 89, Calcium Level 9.1, Total Bilirubin 0.4, Aspartate Amino Transf (AST/SGOT) 25, Alanine Aminotransferase (ALT/SGPT) 14, Alkaline Phosphatase 59, C-Reactive Protein, Quantitative 13.4H, Total Protein 6.7, Albumin 2.1L, Globulin 4.6, Albumin/Globulin Ratio 0.5L, Triglycerides Level 57 , Cholesterol Level 126, LDL Cholesterol 79, HDL Cholesterol 50, Cholesterol/ HDL Ratio 2.5L, Thyroid Stimulating Hormone (TSH) 2.827 Height (Feet): 5 Height (Inches): 7.00 Weight (Pounds): 165 General Appearance: WD/WN, no apparent distress Neck: supple Cardiovascular: regular rhythm Respiratory/Chest: lungs clear Objective LE wroapped pos erythema see pictures Chas Hampton MD August 06, 2017 22:31
[2017-08-07 00:13] VITALS: BP 127/65
[2017-08-07] MEDS: Morphine Sulfate 4mg/ml Inj IVP PRN ×5 (01:59→17:27)
[2017-08-07] MEDS: HYDROcodone/Acetamin 10/325 tab ORAL PRN ×4 (03:13→22:25)
[2017-08-07 04:00] VITALS: BP 114/62
[2017-08-07 08:10] LABS: CHOLESTEROL 130 MG/DL (< 200); HDL CHOLESTEROL 45 MG/DL (40-60); TRIGLYCERIDES 62 MG/DL (30-150)
--- NOTE | 2017-08-07 09:07 | General Progress Note ---
Assessment/Plan Assessment/Plan (1) B/L LE pain (2) B/L LE cellulitis with open wounds (3) Post polio syndrome Patient will be continued on [place] and Morphine D/w Dr. Stone and he concurred. Subjective Date patient seen: August 07, 2017 Time patient seen: 07:15 - am Allergies: Coded Allergies: CRANBERRY (Verified Allergy, Unknown, Anaphylaxis, 08/05/17) PENICILLINS (Verified Allergy, Unknown, 05/22/17) Subjective Constitutional: Reports: no symptoms Eye: Reports: no symptoms ENT: Reports: no symptoms Respiratory: Reports: no symptoms Cardiovascular: Reports: no symptoms Gastrointestinal: Reports: no symptoms Genitourinary: Reports: no symptoms Musculoskeletal: Reports: muscle stiffness Skin: Reports: lesions Psychiatric: Reports: no symptoms Neurological: Reports: focal weakness Endocrine: Reports: no symptoms Hematologic/Lymphatic: Reports: no symptoms Subjective Patient reports that here pain is at a moderate level. Controlled on the [place] and Morphine. She has no new complaints. Objective Last 24 Hour Vital Signs Date Time Temp Pulse Resp B/P (MAP) Pulse Ox O2 Delivery O2 Flow Rate FiO2 08/07/17 08:48 98.1 08/07/17 07:49 98.1 08/07/17 06:44 98.1 08/07/17 06:14 98.1 08/07/17 04:00 98.0 74 17 114/62 97 98.0 08/07/17 03:13 98.1 08/07/17 01:59 98.1 08/07/17 00:13 98.1 75 16 127/65 95 98.1 08/06/17 22:47 98.3 08/06/17 21:09 98.3 80 17 130/63 95 98.3 08/06/17 20:49 97.5 08/06/17 18:06 97.5 08/06/17 15:53 97.5 73 20 101/50 93 97.5 08/06/17 15:31 97.7 08/06/17 12:33 97.7 08/06/17 09:29 97.7 Intake and Output 08/06/17 08/07/17 19:00 07:00 Intake Total 480 ml 240 ml Balance 480 ml 240 ml Intake Oral 480 ml 240 ml Laboratory Tests 08/07/17 05:45: Pro-B-Type Natriuretic Peptide 632H, Triglycerides Level 62, Cholesterol Level 130, LDL Cholesterol 78, HDL Cholesterol 45, Cholesterol/HDL Ratio 2.9L Height (Feet): 5 Height (Inches): 7.00 Weight (Pounds): 169 Objective General Appearance: WD/WN, no apparent distress, alert HEENT: PERRL, EOMI Neck: non-tender, normal alignment, supple, normal inspection Respiratory/Chest: lungs clear, normal breath sounds, no respiratory distress Cardiovascular/Chest: normal rate, regular rhythm Abdomen: non tender, soft Extremities: severe edema - with bandages applied, tenderness to palpaiton Neurologic: abnormal gait, alert, oriented x 3 AZAM GAMEZ August 07, 2017 09:07
[2017-08-07] MEDS: Docusate 100mg cap ORAL SCH ×2 (09:48→17:22)
[2017-08-07] MEDS: Heparin 5000 units/ml inj SUBQ SCH ×2 (09:48→20:02)
[2017-08-07] MEDS: Losartan 50mg tab ORAL SCH (09:49)
[2017-08-07 10:29] VITALS: BP 128/63
--- NOTE | 2017-08-07 11:19 | Infectious Diseases Prog Note ---
Assessment/Plan Assessment/Plan antibiotics : vancomycin iv, levoquin A 1. bilateral leg ulcers with cellulitis 2. hypertension 3. post polio syndrome P 1. continue vancomycin iv, levoquin 2. will follow up cultures 3. debridement planned Subjective Constitutional: Denies: fever, chills Respiratory: Denies: shortness of breath Gastrointestinal/Abdominal: Denies: nausea, vomiting, diarrhea Musculoskeletal: Reports: pain - decreased Allergies: Coded Allergies: CRANBERRY (Verified Allergy, Unknown, Anaphylaxis, 08/05/17) PENICILLINS (Verified Allergy, Unknown, 05/22/17) Objective Vital Signs Last 24 Hour Vital Signs Date Time Temp Pulse Resp B/P (MAP) Pulse Ox O2 Delivery O2 Flow Rate FiO2 08/07/17 10:47 97.9 08/07/17 10:29 97.9 72 18 128/63 96 Room Air 97.9 08/07/17 10:17 98.1 08/07/17 09:49 112/56 08/07/17 09:00 79 112/56 08/07/17 08:48 98.1 08/07/17 07:49 98.1 08/07/17 06:14 98.1 08/07/17 04:00 98.0 74 17 114/62 97 98.0 08/07/17 03:13 98.1 08/07/17 01:59 98.1 08/07/17 00:13 98.1 75 16 127/65 95 98.1 08/06/17 22:47 98.3 08/06/17 21:09 98.3 80 17 130/63 95 98.3 08/06/17 20:49 97.5 08/06/17 18:06 97.5 08/06/17 15:53 97.5 73 20 101/50 93 97.5 08/06/17 15:31 97.7 08/06/17 12:33 97.7 Height (Feet): 5 Height (Inches): 7.00 Weight (Pounds): 169 Respiratory/Chest: lungs clear Cardiovascular: normal rate, regular rhythm, no gallop/murmur Abdomen: soft, non tender Extremities: other - + edema, erythema with ulcers bilaterally Microbiology Date/Time Source Procedure Growth Status 08/05/17 13:50 Blood Blood Culture - Preliminary NO GROWTH AFTER 24 HOURS Resulted 08/05/17 13:40 Blood Blood Culture - Preliminary NO GROWTH AFTER 24 HOURS Resulted Laboratory Tests Test 08/07/17 05:45 Pro-B-Type Natriuretic Peptide 632 pg/mL (0-125) H Triglycerides Level 62 MG/DL (30-150) Cholesterol Level 130 MG/DL (< 200) LDL Cholesterol 78 mg/dL (<100) HDL Cholesterol 45 MG/DL (40-60) Cholesterol/HDL Ratio 2.9 (3.3-4.4) L Current Medications Medications (Trade) Dose Ordered Sig/Alec Route PRN Reason Start Time Stop Time Status Last Admin Dose Admin Acetaminophen/ Hydrocodone Bitart ([place] 10/325) 1 tab Q4H PRN ORAL Pain Scale (4-6) 08/05/17 23:45 08/12/17 23:44 08/07/17 07:49 Al Hydroxide/Mg Hydroxide (Mylanta) 30 ml BID PRN ORAL Abdominal cramps 08/05/17 17:45 09/04/17 17:44 Atenolol (Tenormin) 100 mg DAILY ORAL 08/06/17 09:00 09/05/17 08:59 Collagenase (Santyl) 1 applic DAILY TOPIC 08/07/17 06:00 09/04/17 19:29 08/07/17 10:17 Diphenhydramine HCl (Benadryl) 25 mg Q6H PRN ORAL Itching 08/05/17 21:45 09/04/17 21:44 08/05/17 21:58 Docusate Sodium (Colace) 100 mg TWICE A DAY ORAL 08/05/17 18:00 09/04/17 17:59 08/07/17 09:48 Furosemide (Lasix) 20 mg DAILY ORAL 08/06/17 09:00 09/05/17 08:59 Heparin Sodium (Porcine) (Heparin 5000 units/ml) 5,000 units EVERY 12 HOURS SUBQ 08/05/17 21:00 09/04/17 20:59 08/07/17 09:48 Levofloxacin (Levaquin) 750 mg Q48H ORAL 08/05/17 20:00 08/12/17 23:59 08/05/17 20:44 Losartan Potassium (Cozaar) 100 mg DAILY ORAL 08/06/17 09:00 09/05/17 08:59 Magnesium Hydroxide (Mom) 30 ml BID PRN ORAL Constipation 5/21/18 17:45 09/04/17 17:44 Morphine Sulfate (Morphine Sulfate) 2 mg Q3H PRN IVP Severe Pain (Pain Scale 7-10) 08/05/17 21:15 08/12/17 21:14 08/07/17 10:17 Ondansetron HCl (Zofran) 4 mg Q4HR PRN IVP Nausea & Vomiting 08/05/17 17:45 09/04/17 17:44 Vancomycin HCl (Vanco rx to dose) 1 ea DAILY PRN MISC Per rx protocol 08/05/17 17:45 09/04/17 17:44 Vancomycin HCl 1 gm/Dextrose 275 ml @ 183.708 mls/hr Q24H IVPB 08/06/17 20:00 08/11/17 19:59 08/06/17 20:00 Zolpidem Tartrate (Ambien) 5 mg HSPRN PRN ORAL Insomnia 08/05/17 17:45 08/12/17 17:44 NASIR MCKEON August 07, 2017 11:19
[2017-08-07 12:00] VITALS: BP 131/60
--- NOTE | 2017-08-07 13:20 | Diagnostic Imaging Report ---
APPROVED REPORT CPT Code: 69492 Present Symptoms Comments: BILATERAL LEGS PAIN. BILATERAL: Imaging reveals a patent deep venous system bilaterally. There is no evidence of thrombus within the femoral, popliteal or tibial segments. The greater saphenous veins are also within normal limits. Doppler indicates normal spontaneous flow within these segments.
--- NOTE | 2017-08-07 14:03 | Cardiac Electrophysiology PN ---
Assessment/Plan Assessment/Plan 1. Hypertension, stable on atenolol 100 mg daily, Lasix 20 mg daily and Cozaar 100 mg daily 2. Lower extremity cellulitis, possible osteo. Echo pending. The patient, however, denies any prior myocardial infarction or coronary artery disease or congestive heart failure, and is able to lay flat in bed without any shortness of breath.The patient is cleared to undergo surgery by Dr. Kim. 3. History of polio. 4. Anemia. Subjective Subjective Feeling better. Getting MRI feet. Objective Last 24 Hour Vital Signs Date Time Temp Pulse Resp B/P (MAP) Pulse Ox O2 Delivery O2 Flow Rate FiO2 08/07/17 12:40 97.9 08/07/17 10:47 97.9 08/07/17 10:29 97.9 72 18 128/63 96 Room Air 97.9 08/07/17 10:17 98.1 08/07/17 09:49 112/56 08/07/17 09:00 79 112/56 08/07/17 08:48 98.1 08/07/17 07:49 98.1 08/07/17 06:14 98.1 08/07/17 04:00 98.0 74 17 114/62 97 98.0 08/07/17 03:13 98.1 08/07/17 01:59 98.1 08/07/17 00:13 98.1 75 16 127/65 95 98.1 08/06/17 22:47 98.3 08/06/17 21:09 98.3 80 17 130/63 95 98.3 08/06/17 20:49 97.5 08/06/17 18:06 97.5 08/06/17 15:53 97.5 73 20 101/50 93 97.5 08/06/17 15:31 97.7 Intake and Output 08/06/17 08/07/17 19:00 07:00 Intake Total 480 ml 240 ml Balance 480 ml 240 ml Intake Oral 480 ml 240 ml Laboratory Tests Test 08/07/17 05:45 Pro-B-Type Natriuretic Peptide 632 pg/mL (0-125) H Triglycerides Level 62 MG/DL (30-150) Cholesterol Level 130 MG/DL (< 200) LDL Cholesterol 78 mg/dL (<100) HDL Cholesterol 45 MG/DL (40-60) Cholesterol/HDL Ratio 2.9 (3.3-4.4) L Microbiology Date/Time Source Procedure Growth Status 08/05/17 13:50 Blood Blood Culture - Preliminary NO GROWTH AFTER 24 HOURS Resulted 08/05/17 13:40 Blood Blood Culture - Preliminary NO GROWTH AFTER 24 HOURS Resulted Objective HEAD AND NECK: No JVD. LUNGS: Clear. CARDIOVASCULAR: Regular S1 and S2 with no gallop or murmur. ABDOMEN: Soft and nontender. EXTREMITIES: Bilateral lower extremity edema and cellulitis of the ankles. Elver Amato MD August 07, 2017 14:03
--- NOTE | 2017-08-07 14:58 | Cardiology Report ---
APPROVED REPORT EXAM: Two-dimensional and M-mode echocardiogram with Doppler and color Doppler. INDICATION Hypertension/HCVD M-Mode DIMENSIONS IVSd1.4 (0.7-1.1cm)Left Atrium (MM)3.2 (1.6-4.0cm) LVDd5.1 (3.5-5.6cm)Aortic Root3.2 (2.0-3.7cm) PWd0.9 (0.7-1.1cm)Aortic Cusp Exc.1.6 (1.5-2.0cm) IVSs1.9 cm LVDs2.7 (2.5-4.0cm) PWs1.6 cm Normal left ventricular chamber size, systolic function and wall motion. Left ventricular ejection fraction estimated to be 60 %. Mild left ventricular hypertrophy by 2-D. No evidence of pericardial effusion. Left and right atrial sizes at upper limits of normal. Right ventricular chamber size is within normal limits. Focal aortic valve sclerosis with adequate cusp excursion. Thickened mitral valve leaflets with normal excursion. Mitral annulus and aortic root calcification. Normal pulmonic valve structure. Normal tricuspid valve structure. IVC at normal size with physiologic collapse. A color flow and spectral Doppler study was performed and revealed: Trace aortic regurgitation. Trace mitral regurgitation. Mitral diastolic velocities suggest reduced left ventricular relaxation c/w mild LV diastolic dysfunction (Grade I ). Trace tricuspid regurgitation. Tricuspid systolic velocities suggests peak right ventricular systolic pressure of 18 mmHg. Mild pulmonic regurgitation present.
--- NOTE | 2017-08-07 15:13 | Anethesia Preoperative Eval ---
Anesthesia Pre-op PMH/ROS General Date of Evaluation: August 07, 2017 Time of Evaluation: 15:01 Anesthesiologist: Charity ASA Score: ASA 4 Mallampati Score Class I : Soft palate, uvula, fauces, pillars visible Class II: Soft palate, uvula, fauces visible Class III: Soft palate, base of uvula visible Class IV: Only hard plate visible Mallampati Classification: Class II Surgeon: Julio Diagnosis: Cellulitis L Lower Extremity Surgical Procedure: Debride Bilateral Legs nd Ankle BX Anesthesia History: none Family History: no anesthesia problems Allergies: Coded Allergies: CRANBERRY (Verified Allergy, Unknown, Anaphylaxis, 08/05/17) PENICILLINS (Verified Allergy, Unknown, 05/22/17) Medications: see eMAR Past Medical History Cardiovascular: Reports: HTN Gastrointestinal/Genitourinary: Reports: other - Uterine/Ovarian CA Hematology/Immune: Reports: other - Polymyositis Musculoskeletal/Integumentary: Reports: edema, other - Cold Extremities PSxH Narrative: POLLY, Oophorectomy Anesthesia Pre-op Phys. Exam Physician Exam Last Vital Signs Date Time Temp Pulse Resp B/P (MAP) Pulse Ox O2 Delivery O2 Flow Rate FiO2 08/07/17 14:52 97.9 08/07/17 10:29 72 18 128/63 96 Room Air Constitutional: NAD Neurologic: CN 2-12 intact Cardiovascular: RRR Respiratory: CTA Gastrointestinal: S/NT/ND Airway Exam Mallampati Score: Class II MO: limited ROM: limited Teeth: missing, intact Anesthesia Pre-op A/P Labs Chemistry Test 08/07/17 05:45 Pro-B-Type Natriuretic Peptide 632 pg/mL (0-125) H Triglycerides Level 62 MG/DL (30-150) Cholesterol Level 130 MG/DL (< 200) LDL Cholesterol 78 mg/dL (<100) HDL Cholesterol 45 MG/DL (40-60) Cholesterol/HDL Ratio 2.9 (3.3-4.4) L Risk Assessment & Plan Assessment: ASA 4 Plan: GA Status Change Before Surgery: No Pre-Antibiotics Drug: AARONA Zach Nash MD August 07, 2017 15:13
--- NOTE | 2017-08-07 16:09 | Diagnostic Imaging Report ---
Indication: Cellulitis, swelling and ulceration Technique: MRI examination of the pelvis and left tibia was performed in a 1.5 Cecile magnet. Sequences obtained include multiplanar T1 and T2 fast spin echo, and STIR. Comparison: none Findings: Bone marrow signal is normal. The marker placed in the anterolateral part of the lower leg. No definite abscess. There is subcutaneous edema. The anterior compartment and posterior compartments of the leg appear normal. IMPRESSION: Subcutaneous edema consistent with cellulitis. No evidence of abscess or acute osteomyelitis
--- NOTE | 2017-08-07 16:11 | Diagnostic Imaging Report ---
Indication: Right leg cellulitis and pain Technique: MRI of the right tibia was imaged in a 1.5 Cecile magnet. Pulse sequences obtained include multiphase T1 fast spin-echo and STIR. Comparison: None Findings: Subcutaneous edema is present especially along the lateral part of the lower leg. No obvious large abscess. Skin thickening noted. The muscular compartments appear normal in signal. Bone marrow signal is normal. IMPRESSION: Subcutaneous edema and swelling consistent with cellulitis. No evidence of acute osteomyelitis. No obvious abscess.
--- NOTE | 2017-08-07 16:19 | Cardiology Report ---
APPROVED REPORT EKG Measurement Heart [id number] Sinus rhythm with premature supraventricular complexes Otherwise normal ECG
--- NOTE | 2017-08-07 17:14 | Cardiology Report ---
APPROVED REPORT EKG Measurement Heart [id number] Sinus rhythm with 1st degree AV block with occasional premature ventricular complexes Nonspecific T wave abnormality Abnormal ECG
[2017-08-07] MEDS: Vancomycin 1gm/D5W 275ml IVPB SCH ×2 (20:34)
[2017-08-07 21:10] VITALS: BP 148/63
--- NOTE | 2017-08-07 22:35 | General Progress Note ---
Assessment/Plan Assessment/Plan LE cellulitis ho om ho polio ho chronic pain abx per ID wound care planning on surgeryon podiatric surgery tomorrow pain control per Dr Gann dvt and ulcer prhylaxis Subjective Allergies: Coded Allergies: CRANBERRY (Verified Allergy, Unknown, Anaphylaxis, 08/05/17) PENICILLINS (Verified Allergy, Unknown, 05/22/17) Subjective co pain LE no chest pain or sob Objective Last 24 Hour Vital Signs Date Time Temp Pulse Resp B/P (MAP) Pulse Ox O2 Delivery O2 Flow Rate FiO2 08/07/17 22:25 98.1 08/07/17 21:10 98.1 71 17 148/63 96 Room Air 98.1 08/07/17 17:57 97.9 08/07/17 17:27 97.9 08/07/17 14:22 97.9 08/07/17 14:12 97.9 08/07/17 12:40 97.9 08/07/17 12:00 97.1 71 131/60 97.1 08/07/17 10:29 97.9 72 18 128/63 96 Room Air 97.9 08/07/17 10:17 98.1 08/07/17 09:49 112/56 08/07/17 09:00 79 112/56 08/07/17 07:49 98.1 08/07/17 06:14 98.1 08/07/17 04:00 98.0 74 17 114/62 97 98.0 08/07/17 03:13 98.1 08/07/17 01:59 98.1 08/07/17 00:13 98.1 75 16 127/65 95 98.1 08/06/17 22:47 98.3 Intake and Output 08/06/17 08/07/17 19:00 07:00 Intake Total 480 ml 240 ml Balance 480 ml 240 ml Intake Oral 480 ml 240 ml Laboratory Tests 08/07/17 05:45: Pro-B-Type Natriuretic Peptide 632H, Triglycerides Level 62, Cholesterol Level 130, LDL Cholesterol 78, HDL Cholesterol 45, Cholesterol/HDL Ratio 2.9L Height (Feet): 5 Height (Inches): 7.00 Weight (Pounds): 169 General Appearance: WD/WN Cardiovascular: normal rate Respiratory/Chest: lungs clear Abdomen: soft Objective LE wroapped pos erythema see pictures Chas Hampton MD August 07, 2017 22:35
[2017-08-08] VITALS (11 sets, daily range): BP systolic 113–167; BP diastolic 57–83
[2017-08-08] MEDS: Morphine Sulfate 4mg/ml Inj IVP PRN ×6 (00:37→21:25)
--- NOTE | 2017-08-08 08:54 | General Progress Note ---
Assessment/Plan Assessment/Plan (1) B/L LE pain (2) B/L LE cellulitis with open wounds (3) Post polio syndrome Patient will be continued on [place] and Morphine D/w Dr. Stone and he concurred. Subjective Date patient seen: August 08, 2017 Time patient seen: 08:00 - am Allergies: Coded Allergies: CRANBERRY (Verified Allergy, Unknown, Anaphylaxis, 08/05/17) PENICILLINS (Verified Allergy, Unknown, 05/22/17) Subjective Constitutional: Reports: no symptoms Eye: Reports: no symptoms ENT: Reports: no symptoms Respiratory: Reports: no symptoms Cardiovascular: Reports: no symptoms Gastrointestinal: Reports: no symptoms Genitourinary: Reports: no symptoms Musculoskeletal: Reports: muscle stiffness Skin: Reports: lesions Psychiatric: Reports: no symptoms Neurological: Reports: focal weakness Endocrine: Reports: no symptoms Hematologic/Lymphatic: Reports: no symptoms Subjective Patient is comfortable and is scheduled for wound debridement later today. Her pain is tolerated well on the medications. Objective Last 24 Hour Vital Signs Date Time Temp Pulse Resp B/P (MAP) Pulse Ox O2 Delivery O2 Flow Rate FiO2 08/08/17 08:00 98.6 73 20 144/74 98 98.6 08/08/17 07:07 98.6 08/08/17 06:37 98.6 08/08/17 05:57 Room Air 08/08/17 04:00 98.2 67 18 142/74 95 Room Air 98.2 08/08/17 03:31 98.6 08/08/17 01:33 Room Air 08/08/17 01:00 98.6 69 18 130/68 95 Room Air 98.6 08/08/17 00:37 98.1 08/07/17 23:24 98.1 08/07/17 22:25 98.1 08/07/17 21:10 98.1 71 17 148/63 96 Room Air 98.1 08/07/17 20:00 Room Air 08/07/17 17:27 97.9 08/07/17 14:22 97.9 08/07/17 12:40 97.9 08/07/17 12:00 97.1 71 131/60 97.1 08/07/17 10:29 97.9 72 18 128/63 96 Room Air 97.9 08/07/17 10:17 98.1 08/07/17 09:49 112/56 08/07/17 09:00 79 112/56 Intake and Output 08/07/17 08/08/17 19:00 07:00 Intake Total 850 ml 275.000 ml Balance 850 ml 275.000 ml IV Total 275.000 ml Other 850 ml # Voids 3 1 Height (Feet): 5 Height (Inches): 7.00 Weight (Pounds): 169 Objective General Appearance: WD/WN, no apparent distress, alert HEENT: PERRL, EOMI Neck: non-tender, normal alignment, supple, normal inspection Respiratory/Chest: lungs clear, normal breath sounds, no respiratory distress Cardiovascular/Chest: normal rate, regular rhythm Abdomen: non tender, soft Extremities: severe edema - with bandages applied, tenderness to palpaiton Neurologic: abnormal gait, alert, oriented x 3 AZAM GAMEZ August 08, 2017 08:54
[2017-08-08] MEDS: Losartan 50mg tab ORAL SCH ×2 (09:00→09:17)
[2017-08-08] MEDS: Heparin 5000 units/ml inj SUBQ SCH ×2 (09:00→21:21)
[2017-08-08] MEDS: Docusate 100mg cap ORAL SCH ×2 (09:00→09:16)
--- NOTE | 2017-08-08 12:05 | Infectious Diseases Prog Note ---
Assessment/Plan Assessment/Plan A 1. bilateral leg ulcers with cellulitis 2. hypertension 3. post polio syndrome P 1. continue vancomycin iv, Levaquin 2. will follow up cultures 3. Waiting for debridement today Subjective ROS Limited/Unobtainable: No Constitutional: Reports: no symptoms Cardiovascular: Reports: no symptoms Gastrointestinal/Abdominal: Reports: other - NPO for procedure Genitourinary: Reports: no symptoms Musculoskeletal: Reports: pain, other - in legs Allergies: Coded Allergies: CRANBERRY (Verified Allergy, Unknown, Anaphylaxis, 08/05/17) PENICILLINS (Verified Allergy, Unknown, 05/22/17) Objective Vital Signs Last 24 Hour Vital Signs Date Time Temp Pulse Resp B/P (MAP) Pulse Ox O2 Delivery O2 Flow Rate FiO2 08/08/17 08:00 98.6 73 20 144/74 98 98.6 08/08/17 07:07 98.6 08/08/17 06:37 98.6 08/08/17 05:57 Room Air 08/08/17 04:00 98.2 67 18 142/74 95 Room Air 98.2 08/08/17 03:31 98.6 08/08/17 01:33 Room Air 08/08/17 01:00 98.6 69 18 130/68 95 Room Air 98.6 08/08/17 00:37 98.1 08/07/17 23:24 98.1 08/07/17 22:25 98.1 08/07/17 21:10 98.1 71 17 148/63 96 Room Air 98.1 08/07/17 20:00 Room Air 08/07/17 17:27 97.9 08/07/17 14:22 97.9 08/07/17 12:40 97.9 Height (Feet): 5 Height (Inches): 7.00 Weight (Pounds): 169 General Appearance: no acute distress HEENT: mucous membranes moist Respiratory/Chest: lungs clear Cardiovascular: normal rate Abdomen: soft, non tender Extremities: no edema Skin: other - bilateral leg ulcers Neurologic/Psychiatric: alert, oriented x 3, responsive Microbiology Date/Time Source Procedure Growth Status 08/05/17 13:50 Blood Blood Culture - Preliminary NO GROWTH AFTER 48 HOURS Resulted 08/05/17 13:40 Blood Blood Culture - Preliminary NO GROWTH AFTER 48 HOURS Resulted 08/07/17 06:45 Wound Gram Stain Pending Resulted 08/07/17 06:45 Wound Wound Culture - Preliminary Resulted Current Medications Medications (Trade) Dose Ordered Sig/Alec Route PRN Reason Start Time Stop Time Status Last Admin Dose Admin Acetaminophen/ Hydrocodone Bitart ([place] 10/325) 1 tab Q4H PRN ORAL Pain Scale (4-6) 08/05/17 23:45 08/12/17 23:44 08/07/17 22:25 Al Hydroxide/Mg Hydroxide (Mylanta) 30 ml BID PRN ORAL Abdominal cramps 08/05/17 17:45 09/04/17 17:44 Atenolol (Tenormin) 100 mg DAILY ORAL 08/06/17 09:00 09/05/17 08:59 Collagenase (Santyl) 1 applic DAILY TOPIC 08/07/17 06:00 09/04/17 19:29 08/07/17 10:17 Diphenhydramine HCl (Benadryl) 25 mg Q6H PRN ORAL Itching 08/05/17 21:45 09/04/17 21:44 08/05/17 21:58 Docusate Sodium (Colace) 100 mg TWICE A DAY ORAL 08/05/17 18:00 09/04/17 17:59 08/07/17 17:22 Furosemide (Lasix) 20 mg DAILY ORAL 08/06/17 09:00 09/05/17 08:59 Heparin Sodium (Porcine) (Heparin 5000 units/ml) 5,000 units EVERY 12 HOURS SUBQ 08/05/17 21:00 09/04/17 20:59 08/07/17 09:48 Levofloxacin (Levaquin) 750 mg Q48H ORAL 08/05/17 20:00 08/12/17 23:59 08/07/17 20:34 Losartan Potassium (Cozaar) 100 mg DAILY ORAL 08/06/17 09:00 09/05/17 08:59 Magnesium Hydroxide (Mom) 30 ml BID PRN ORAL Constipation 08/05/17 17:45 09/04/17 17:44 Morphine Sulfate (Morphine Sulfate) 2 mg Q3H PRN IVP Severe Pain (Pain Scale 7-10) 08/05/17 21:15 08/12/17 21:14 08/08/17 09:36 Ondansetron HCl (Zofran) 4 mg Q4HR PRN IVP Nausea & Vomiting 08/05/17 17:45 09/04/17 17:44 Vancomycin HCl (Vanco rx to dose) 1 ea DAILY PRN MISC Per rx protocol 08/05/17 17:45 09/04/17 17:44 Vancomycin HCl 1 gm/Dextrose 275 ml @ 183.708 mls/hr Q24H IVPB 08/06/17 20:00 08/11/17 19:59 08/07/17 20:34 Zolpidem Tartrate (Ambien) 5 mg HSPRN PRN ORAL Insomnia 08/05/17 17:45 08/12/17 17:44 MARK POMPA August 08, 2017 12:05
[2017-08-08] MEDS ORDERED: Bacitracin 50000 Units Vial ONE (13:03)
[2017-08-08] MEDS ORDERED: Bupivacaine 0.5% Inj 30 ml vial INJ ONE (13:03)
[2017-08-08] MEDS ORDERED: NeoSporin Gu Irrig 1ml Amp IRRIG ONE (13:03)
[2017-08-08] MEDS ORDERED: Lidocaine 1% MPF 10mg/ml 5ml ONE (13:15)
[2017-08-08] MEDS ORDERED: Propofol 200mg/20ml IV ONE (13:15)
[2017-08-08] MEDS ORDERED: fentaNYL 100 mcg/2 mL IV ONE (13:16)
[2017-08-08] MEDS ORDERED: Midazolam 2mg/2ml Inj ONE (13:16)
[2017-08-08] MEDS ORDERED: Sterile Water Irrig 1000ml IRRIG ONE (13:30)
[2017-08-08] MEDS ORDERED: Labetalol 5mg/ml 20ml vial IV ONE (13:30)
[2017-08-08] MEDS ORDERED: LR 1000ml ONE (13:30)
[2017-08-08] MEDS ORDERED: NS Irrig 1000ml ONE (13:30)
--- NOTE | 2017-08-08 13:38 | Pre-Procedure Note/Attestation ---
Pre-Procedure Note/Attestation Complete Prior to Procedure Planned Procedure: bilateral Procedure Narrative: Debridement of wounds and skin biopsy bilateral leg wounds Attestation I attest that I discussed the nature of the procedure; its benefits; risks and complications; and alternatives (and the risks and benefits of such alternatives ), prior to the procedure, with the patient (or the patient's legal field sales representative). I attest that, if there was a reasonable possibility of needing a blood transfusion, the patient (or the patient's legal field sales representative) was given the [facility] standardized written summary, pursuant to the Duane Nicol[place] Blood Safety Act ([place] Health and Safety Code # 1645, as amended). I attest that I re-evaluated the patient just prior to the surgery and that there has been no change in the patient's H&P, except as documented below: vEan Kim DPM August 08, 2017 13:38
[2017-08-08] MEDS ORDERED: Bupivacaine 0.25% Inj 30ml INJ ONE (13:58)
[2017-08-08] MEDS ORDERED: Sodium Chloride 10ml vial INJ ONE (14:23)
[2017-08-08] MEDS ORDERED: Morphine Sulfate 10mg/ml Inj ONE (14:23)
[2017-08-08] MEDS ORDERED: Midazolam 2mg/2ml Inj IVP PRN (14:46)
[2017-08-08] MEDS ORDERED: LR 1000ml 1,000 ML IVLG SCH (14:47)
[2017-08-08] MEDS ORDERED: Metoclopramide 10mg/2ml Inj IVP PRN (14:47)
[2017-08-08] MEDS ORDERED: DiphenhydrAMINE 50mg/ml Inj IVP PRN (14:47)
[2017-08-08] MEDS ORDERED: fentaNYL 100 mcg/2 mL IV PRN (14:48)
[2017-08-08] MEDS ORDERED: Ketorolac 30mg Inj IV PRN (14:49)
--- NOTE | 2017-08-08 15:14 | Brief Operative Note ---
Immediate Post Operative Note Operative Note Pre-op Diagnosis: 1) Nonpressure ulcers bilateral legs 2) Cellulitis bilateral lower extremities 3) Polio 4) Joint derangement 5) Pain from wounds Post-op Diagnosis: same as pre-op Surgeon: Evan Kim DPM Home Demonstration Agent: none Anesthesiologist: Dr Coe Anesthesia: general Specimen: yes - 7 skin biopsies Complications: none Condition: stable Fluids: per anesthesia Estimated Blood Loss: volume - 20 Drains: none Implant(s) used?: No Evan Kim DPM August 08, 2017 15:14
--- NOTE | 2017-08-08 15:23 | Immediate Post-Op Evaluation ---
Immediate Post-Op Evalulation Immediate Post-Op Evalulation Procedure: Debridement and Bx of chronic wounds bilateral legs Date of Evaluation: August 08, 2017 Time of Evaluation: 15:22 IV Fluids: 1000 Blood Products: none Estimated Blood Loss: 50 Urinary Output: none Blood Pressure Systolic: 162 Blood Pressure Diastolic: 58 Pulse Rate: 78 Respiratory Rate: 22 O2 Sat by Pulse Oximetry: 99 Temperature (Fahrenheit): 97.8 Pain Score (1-10): 2 Nausea: No Vomiting: No Complications none Patient Status: reacts, patent, none Hydration Status: adequate Macario Coe MD August 08, 2017 15:23
--- NOTE | 2017-08-08 17:18 | Cardiac Electrophysiology PN ---
Assessment/Plan Assessment/Plan 1. Hypertension, stable on atenolol 100 mg daily, Lasix 20 mg daily and Cozaar 100 mg daily 2. Lower extremity cellulitis, possible osteo. Echo EF 60%. No prior myocardial infarction or coronary artery disease or congestive heart failure. S/P Debridement by Dr. Kim.No periop cardiac issues 3. History of polio. 4. Anemia. OMERO RN Subjective Subjective Feeling better. Had LE debridement today by Dr Kim. Objective Last 24 Hour Vital Signs Date Time Temp Pulse Resp B/P (MAP) Pulse Ox O2 Delivery O2 Flow Rate FiO2 08/08/17 15:58 98.6 80 20 150/79 100 Nasal Cannula 3.0 98.6 08/08/17 15:45 81 18 158/73 100 Nasal Cannula 3.0 08/08/17 15:30 79 20 163/81 100 Nasal Cannula 3.0 08/08/17 15:23 208.0 78 22 99 08/08/17 15:20 78 18 148/74 100 Nasal Cannula 3.0 08/08/17 15:15 82 21 162/83 100 Simple Mask 6.0 08/08/17 15:11 98.9 83 22 167/81 97 Simple Mask 6.0 98.9 08/08/17 12:00 99.0 76 20 128/73 97 99.0 08/08/17 08:00 98.6 73 20 144/74 98 98.6 08/08/17 07:07 98.6 08/08/17 06:37 98.6 08/08/17 05:57 Room Air 08/08/17 04:00 98.2 67 18 142/74 95 Room Air 98.2 08/08/17 03:31 98.6 08/08/17 01:33 Room Air 08/08/17 01:00 98.6 69 18 130/68 95 Room Air 98.6 08/08/17 00:37 98.1 08/07/17 23:24 98.1 08/07/17 22:25 98.1 08/07/17 21:10 98.1 71 17 148/63 96 Room Air 98.1 08/07/17 20:00 Room Air 08/07/17 17:27 97.9 Intake and Output 08/07/17 08/08/17 19:00 07:00 Intake Total 850 ml 275.000 ml Balance 850 ml 275.000 ml IV Total 275.000 ml Other 850 ml # Voids 3 1 Microbiology Date/Time Source Procedure Growth Status 08/07/17 06:45 Wound Gram Stain Pending Resulted 08/07/17 06:45 Wound Wound Culture - Preliminary Resulted Objective HEAD AND NECK: No JVD. LUNGS: Clear. CARDIOVASCULAR: Regular S1 and S2 with no gallop or murmur. ABDOMEN: Soft and nontender. EXTREMITIES: Bilateral lower extremity edema. S/p debridement Elver Amato MD August 08, 2017 17:18
--- NOTE | 2017-08-08 18:15 | Operative Note - Dictated ---
DATE OF OPERATION: 08/08/2017 SURGEON: Evan Kim M.D. BREAKFAST MANAGER SURGEON: None. ANESTHESIOLOGIST: Macario Coe M.D. TYPE OF ANESTHESIA: General. PREOPERATIVE DIAGNOSES: 1. Non-pressure ulcers, bilateral legs to the level of muscle. 2. Cellulitis, bilateral lower extremities. 3. Polio. 4. Joint derangement. 5. Pain from wounds. POSTOPERATIVE DIAGNOSES: 1. Non-pressure ulcers, bilateral legs to the level of muscle. 2. Cellulitis, bilateral lower extremities. 3. Polio. 4. Joint derangement. 5. Pain from wounds. PROCEDURES PERFORMED: 1. Excisional debridement of bilateral lower extremity wounds to the level of muscle, greater than 60 cm2. 2. Seven full-thickness biopsies of the wounds bilaterally. COMPLICATIONS: None. ESTIMATED BLOOD LOSS: 20 mL. SPECIMENS SENT: Seven skin biopsies. CONDITION: At PACU, stable. ANTIBIOTICS: Given on the floor including vancomycin and Levaquin. OPERATIVE PROCEDURE: The patient was transferred to the operating room and placed on the operating table supine position. Anesthesiologist then began general anesthesia. Bilateral lower extremities were scrubbed, prepped, and draped in usual aseptic manner. Time-out was taken. After anesthesia check, attention was directed to the left lateral leg where excisional debridement was performed to the level of muscle. Good bleeding and healthy tissue was noted. Hemostasis was achieved through compression. Three biopsies were taken at three various sites as noted on the pathology reports and designated in a clock fashion to identify the sites. Any bleeders were cauterized. Attention was then directed to the medial right leg where excisional debridement was performed to the level of muscle. Again, hemostasis was achieved through compression. Two biopsies were taken there at the 12 and 6 o'clock. Bleeders were cauterized with cautery. Attention was directed to the right lateral foot where excisional debridement was performed to the level of muscle. Hemostasis was achieved through compression. Two full-thickness skin biopsies were performed again at the 12 and 6 o'clock positions. All superficial bleeders were cauterized. All wounds were flushed. Visual inspection was performed to note all the wounds were granular, healthy, and no active bleeding was noted. Wounds were dry. All three wounds were locally infiltrated with a total of 23 mL of 0.25% plain Marcaine. Xeroform dressings, gauze, and compression was applied to both bilateral lower extremities. The patient tolerated the procedure and anesthesia well and was sent to recovery room in stable condition. The patient will be followed as an inpatient and biopsies will be monitored for diagnosis. Evan Kim D.P.M. DR: Yossi JOB#: [id number] CC: LINN
[2017-08-08] MEDS: HYDROcodone/Acetamin 10/325 tab ORAL PRN (18:53)
[2017-08-08] MEDS: Vancomycin 1250mg/D5W 250ml IVPB SCH (21:19)
--- NOTE | 2017-08-08 22:22 | General Progress Note ---
Assessment/Plan Assessment/Plan LE cellulitis ho osteomylitis ho polio ho chronic pain abx per ID wound care planning on surgeryon podiatric surgery today pain control per Dr Gann dvt and ulcer prhylaxis Subjective Allergies: Coded Allergies: CRANBERRY (Verified Allergy, Unknown, Anaphylaxis, 08/05/17) PENICILLINS (Verified Allergy, Unknown, 05/22/17) Subjective no chest pain or sob leg pain controlled going to OR today Objective Last 24 Hour Vital Signs Date Time Temp Pulse Resp B/P (MAP) Pulse Ox O2 Delivery O2 Flow Rate FiO2 08/08/17 20:00 97.5 80 18 113/57 97 Room Air 97.5 08/08/17 15:58 98.6 80 20 150/79 100 Nasal Cannula 3.0 98.6 08/08/17 15:45 81 18 158/73 100 Nasal Cannula 3.0 08/08/17 15:30 79 20 163/81 100 Nasal Cannula 3.0 08/08/17 15:23 208.0 78 22 99 08/08/17 15:20 78 18 148/74 100 Nasal Cannula 3.0 08/08/17 15:15 82 21 162/83 100 Simple Mask 6.0 08/08/17 15:11 98.9 83 22 167/81 97 Simple Mask 6.0 98.9 08/08/17 12:00 99.0 76 20 128/73 97 99.0 08/08/17 08:00 98.6 73 20 144/74 98 98.6 08/08/17 07:07 98.6 08/08/17 06:37 98.6 08/08/17 05:57 Room Air 08/08/17 04:00 98.2 67 18 142/74 95 Room Air 98.2 08/08/17 03:31 98.6 08/08/17 01:33 Room Air 08/08/17 01:00 98.6 69 18 130/68 95 Room Air 98.6 08/08/17 00:37 98.1 08/07/17 23:24 98.1 08/07/17 22:25 98.1 Intake and Output 08/07/17 08/08/17 19:00 07:00 Intake Total 850 ml 275.000 ml Balance 850 ml 275.000 ml IV Total 275.000 ml Other 850 ml # Voids 3 1 Laboratory Tests 08/08/17 19:25: Vancomycin Level Trough 9.1 Height (Feet): 5 Height (Inches): 7.00 Weight (Pounds): 169 General Appearance: WD/WN, no apparent distress Neck: supple Cardiovascular: normal rate Respiratory/Chest: lungs clear Abdomen: soft Objective LE wroapped pos erythema see pictures Chas Hampton MD August 08, 2017 22:22
[2017-08-09 00:14] VITALS: BP 112/63
[2017-08-09] MEDS: Morphine Sulfate 4mg/ml Inj IVP PRN ×6 (00:32→20:15)
[2017-08-09 04:03] VITALS: BP 143/71
[2017-08-09 08:00] VITALS: BP 92/50
--- NOTE | 2017-08-09 08:42 | 48 Hour Post Anesthesia Eval ---
Post Anesthesia Evaluation Procedure: Debridement and Bx of chronic wounds bilateral legs Date of Evaluation: August 09, 2017 Time of Evaluation: 08:41 Blood Pressure Systolic: 148 0: 76 Pulse Rate: 82 Respiratory Rate: 22 Temperature (Fahrenheit): 97.8 O2 Sat by Pulse Oximetry: 99 Airway: patent Nausea: No Vomiting: No Pain Intensity: 3 Hydration Status: adequate Cardiopulmonary Status: stable Mental Status/LOC: patient returned to baseline Follow-up Care/Observations: n/a Post-Anesthesia Complications: none Follow-up care needed: N/A Macario Coe MD August 09, 2017 08:42
[2017-08-09] MEDS: Losartan 50mg tab ORAL SCH (08:50)
[2017-08-09] MEDS: Docusate 100mg cap ORAL SCH ×3 (08:53→17:16)
[2017-08-09] MEDS: HYDROcodone/Acetamin 10/325 tab ORAL PRN ×3 (08:54→22:04)
[2017-08-09] MEDS: Heparin 5000 units/ml inj SUBQ SCH ×2 (09:00→21:53)
--- NOTE | 2017-08-09 09:23 | General Progress Note ---
Assessment/Plan Assessment/Plan (1) B/L LE pain (2) B/L LE cellulitis with open wounds (3) Post polio syndrome (4) S/p debridement of B/L LE wounds Patient will be continued on [place] and Morphine. No RX for opioids needed for discharge as per Pt. D/w Dr. Stone and he concurred. Subjective Date patient seen: August 09, 2017 Time patient seen: 07:15 - am Allergies: Coded Allergies: CRANBERRY (Verified Allergy, Unknown, Anaphylaxis, 08/05/17) PENICILLINS (Verified Allergy, Unknown, 05/22/17) Subjective Constitutional: Reports: no symptoms Eye: Reports: no symptoms ENT: Reports: no symptoms Respiratory: Reports: no symptoms Cardiovascular: Reports: no symptoms Gastrointestinal: Reports: no symptoms Genitourinary: Reports: no symptoms Musculoskeletal: Reports: muscle stiffness Skin: Reports: lesions Psychiatric: Reports: no symptoms Neurological: Reports: focal weakness Endocrine: Reports: no symptoms Hematologic/Lymphatic: Reports: no symptoms Subjective Patient is s/p debridement of wounds. The pain has been well tolerated on the [place] and Morphine. She explains that at home as Vicodin and does not need an RX for discharge. Objective Last 24 Hour Vital Signs Date Time Temp Pulse Resp B/P (MAP) Pulse Ox O2 Delivery O2 Flow Rate FiO2 08/09/17 08:54 97.8 08/09/17 08:50 92/50 08/09/17 08:50 82 92/50 08/09/17 08:42 208.0 82 22 99 08/09/17 08:00 97.3 81 16 92/50 94 Room Air 97.3 08/09/17 04:03 97.9 73 18 143/71 95 Room Air 97.9 08/09/17 00:14 97.7 71 16 112/63 97 Room Air 97.7 08/08/17 20:00 97.5 80 18 113/57 97 Room Air 97.5 08/08/17 15:58 98.6 80 20 150/79 100 Nasal Cannula 3.0 98.6 08/08/17 15:45 81 18 158/73 100 Nasal Cannula 3.0 08/08/17 15:30 79 20 163/81 100 Nasal Cannula 3.0 08/08/17 15:23 208.0 78 22 99 5/24/18 15:20 78 18 148/74 100 Nasal Cannula 3.0 08/08/17 15:15 82 21 162/83 100 Simple Mask 6.0 08/08/17 15:11 98.9 83 22 167/81 97 Simple Mask 6.0 98.9 08/08/17 12:00 99.0 76 20 128/73 97 99.0 Intake and Output 08/08/17 08/09/17 19:00 07:00 Intake Total 1000 ml 240 ml Output Total 20 ml Balance 980 ml 240 ml Intake Oral 240 ml IV Total 1000 ml Estimated Blood Loss 20 ml # Voids 1 Laboratory Tests 08/08/17 19:25: Vancomycin Level Trough 9.1 Height (Feet): 5 Height (Inches): 7.00 Weight (Pounds): 169 Objective General Appearance: WD/WN, no apparent distress, alert HEENT: PERRL, EOMI Neck: non-tender, normal alignment, supple, normal inspection Respiratory/Chest: lungs clear, normal breath sounds, no respiratory distress Cardiovascular/Chest: normal rate, regular rhythm Abdomen: non tender, soft Extremities: severe edema - with bandages applied, tenderness to palpaiton Neurologic: abnormal gait, alert, oriented x 3 AZAM GAMEZ August 09, 2017 09:23
[2017-08-09 10:04] LABS: BASOPHILS % (AUTO) 0.8 % (0.0-2.0); EOSINOPHILS % (AUTO) 2.5 % (0.0-3.0); HEMATOCRIT 25.4 % (37.0-47.0); HEMOGLOBIN 8.3 G/DL (12.0-16.0); LYMPHOCYTES % (AUTO) 24.1 % (20.0-45.0); MEAN CORPUSCULAR VOLUME 85 FL (80-99); MONOCYTES % (AUTO) 7.7 % (1.0-10.0); NEUTROPHILS % (AUTO) 64.9 % (45.0-75.0); PLATELET COUNT 269 K/UL (150-450); RED BLOOD COUNT 2.99 M/UL (4.20-5.40); RED CELL DISTRIBUTION WIDTH 13.3 % (11.6-14.8); WHITE BLOOD COUNT 6.4 K/UL (4.8-10.8)
[2017-08-09 10:28] LABS: ALANINE AMINOTRANSFERASE 15 U/L (12-78); ALBUMIN 2.2 G/DL (3.4-5.0); ALBUMIN/GLOBULIN RATIO 0.5 (1.0-2.7); ALKALINE PHOSPHATASE 59 U/L (46-116); ANION GAP 6 mmol/L (5-15); ASPARTATE AMINO TRANSFERASE 18 U/L (15-37); BILIRUBIN,TOTAL 0.3 MG/DL (0.2-1.0); BLOOD UREA NITROGEN 12 mg/dL (7-18); CALCIUM 8.6 MG/DL (8.5-10.1); CARBON DIOXIDE 30 MMOL/L (21-32); CHLORIDE 107 MMOL/L (98-107); POTASSIUM 3.3 MMOL/L (3.5-5.1); SODIUM 143 MMOL/L (136-145)
--- NOTE | 2017-08-09 11:20 | Infectious Diseases Prog Note ---
Assessment/Plan Assessment/Plan antibiotics : vancomycin iv, levoquin A 1. bilateral leg ulcers with cellulitis with gram negative rods s/p debridement 2. hypertension 3. post polio syndrome P 1. continue vancomycin iv, levoquin 2. will follow up cultures Subjective Constitutional: Denies: fever, chills Respiratory: Denies: shortness of breath, dry cough Gastrointestinal/Abdominal: Denies: nausea, vomiting, diarrhea Musculoskeletal: Reports: pain Allergies: Coded Allergies: CRANBERRY (Verified Allergy, Unknown, Anaphylaxis, 08/05/17) PENICILLINS (Verified Allergy, Unknown, 05/22/17) Objective Vital Signs Last 24 Hour Vital Signs Date Time Temp Pulse Resp B/P (MAP) Pulse Ox O2 Delivery O2 Flow Rate FiO2 08/09/17 10:49 97.8 08/09/17 10:05 97.8 08/09/17 09:53 97.8 08/09/17 08:54 97.8 08/09/17 08:50 92/50 08/09/17 08:50 82 92/50 08/09/17 08:42 208.0 82 22 99 08/09/17 08:00 97.3 81 16 92/50 94 Room Air 97.3 08/09/17 04:03 97.9 73 18 143/71 95 Room Air 97.9 08/09/17 00:14 97.7 71 16 112/63 97 Room Air 97.7 08/08/17 20:00 97.5 80 18 113/57 97 Room Air 97.5 08/08/17 15:58 98.6 80 20 150/79 100 Nasal Cannula 3.0 98.6 08/08/17 15:45 81 18 158/73 100 Nasal Cannula 3.0 08/08/17 15:30 79 20 163/81 100 Nasal Cannula 3.0 08/08/17 15:23 208.0 78 22 99 08/08/17 15:20 78 18 148/74 100 Nasal Cannula 3.0 08/08/17 15:15 82 21 162/83 100 Simple Mask 6.0 08/08/17 15:11 98.9 83 22 167/81 97 Simple Mask 6.0 98.9 08/08/17 12:00 99.0 76 20 128/73 97 99.0 Height (Feet): 5 Height (Inches): 7.00 Weight (Pounds): 169 Respiratory/Chest: lungs clear Cardiovascular: normal rate, regular rhythm, no gallop/murmur Abdomen: soft, non tender Extremities: other - + legs in bandages Microbiology Date/Time Source Procedure Growth Status 08/07/17 06:45 Wound Gram Stain Pending Resulted 08/07/17 06:45 Wound Culture - Preliminary Gram Negative Bacillus 1 Resulted Laboratory Tests Test 08/08/17 19:25 08/09/17 09:30 Vancomycin Level Trough 9.1 ug/mL (5.0-12.0) White Blood Count 6.4 K/UL (4.8-10.8) Red Blood Count 2.99 M/UL (4.20-5.40) L Hemoglobin 8.3 G/DL (12.0-16.0) L Hematocrit 25.4 % (37.0-47.0) L Mean Corpuscular Volume 85 FL (80-99) Mean Corpuscular Hemoglobin 27.7 PG (27.0-31.0) Mean Corpuscular Hemoglobin Concent 32.6 G/DL (32.0-36.0) Red Cell Distribution Width 13.3 % (11.6-14.8) Platelet Count 269 K/UL (150-450) Mean Platelet Volume 6.1 FL (6.5-10.1) L Neutrophils (%) (Auto) 64.9 % (45.0-75.0) Lymphocytes (%) (Auto) 24.1 % (20.0-45.0) Monocytes (%) (Auto) 7.7 % (1.0-10.0) Eosinophils (%) (Auto) 2.5 % (0.0-3.0) Basophils (%) (Auto) 0.8 % (0.0-2.0) Sodium Level 143 MMOL/L (136-145) Potassium Level 3.3 MMOL/L (3.5-5.1) L Chloride Level 107 MMOL/L (98-107) Carbon Dioxide Level 30 MMOL/L (21-32) Anion Gap 6 mmol/L (5-15) Blood Urea Nitrogen 12 mg/dL (7-18) Creatinine 1.0 MG/DL (0.55-1.30) Estimat Glomerular Filtration Rate mL/min (>60) Glucose Level 109 MG/DL (74-106) H Calcium Level 8.6 MG/DL (8.5-10.1) Total Bilirubin 0.3 MG/DL (0.2-1.0) Aspartate Amino Transf (AST/SGOT) 18 U/L (15-37) Alanine Aminotransferase (ALT/SGPT) 15 U/L (12-78) Alkaline Phosphatase 59 U/L (46-116) Total Protein 6.5 G/DL (6.4-8.2) Albumin 2.2 G/DL (3.4-5.0) L Globulin 4.3 g/dL Albumin/Globulin Ratio 0.5 (1.0-2.7) L Current Medications Medications (Trade) Dose Ordered Sig/Alec Route PRN Reason Start Time Stop Time Status Last Admin Dose Admin Acetaminophen/ Hydrocodone Bitart (Carmen 10/325) 1 tab Q4H PRN ORAL Pain Scale (4-6) 08/05/17 23:45 08/12/17 23:44 08/09/17 08:54 Al Hydroxide/Mg Hydroxide (Mylanta) 30 ml BID PRN ORAL Abdominal cramps 08/05/17 17:45 09/04/17 17:44 Atenolol (Tenormin) 100 mg DAILY ORAL 08/06/17 09:00 09/05/17 08:59 Collagenase (Santyl) 1 applic DAILY TOPIC 08/07/17 06:00 09/04/17 19:29 08/09/17 09:00 Diphenhydramine HCl (Benadryl) 25 mg Q6H PRN ORAL Itching 08/05/17 21:45 09/04/17 21:44 08/05/17 21:58 Docusate Sodium (Colace) 100 mg TWICE A DAY ORAL 08/05/17 18:00 09/04/17 17:59 08/09/17 09:01 Furosemide (Lasix) 20 mg DAILY ORAL 08/06/17 09:00 09/05/17 08:59 Heparin Sodium (Porcine) (Heparin 5000 units/ml) 5,000 units EVERY 12 HOURS SUBQ 08/05/17 21:00 09/04/17 20:59 08/09/17 09:00 Levofloxacin (Levaquin) 750 mg Q48H ORAL 08/05/17 20:00 08/12/17 23:59 08/07/17 20:34 Losartan Potassium (Cozaar) 100 mg DAILY ORAL 08/06/17 09:00 09/05/17 08:59 Magnesium Hydroxide (Mom) 30 ml BID PRN ORAL Constipation 08/05/17 17:45 09/04/17 17:44 Morphine Sulfate (Morphine Sulfate) 2 mg Q3H PRN IVP Severe Pain (Pain Scale 7-10) 08/05/17 21:15 08/12/17 21:14 08/09/17 10:05 Ondansetron HCl (Zofran) 4 mg Q4HR PRN IVP Nausea & Vomiting 08/05/17 17:45 09/04/17 17:44 Potassium Chloride (K-Dur) 40 meq ONCE ONCE ORAL 08/09/17 11:00 08/09/17 11:01 UNV Vancomycin HCl (Vanco rx to dose) 1 ea DAILY PRN MISC Per rx protocol 08/05/17 17:45 09/04/17 17:44 Vancomycin HCl/ Dextrose 250 ml @ 166.667 mls/hr Q24H IVPB 08/08/17 22:00 08/13/17 21:59 08/08/17 21:19 Zolpidem Tartrate (Ambien) 5 mg HSPRN PRN ORAL Insomnia 08/05/17 17:45 08/12/17 17:44 NASIR MCKEON August 09, 2017 11:20
[2017-08-09 11:55] VITALS: BP 133/66
--- NOTE | 2017-08-09 14:58 | Cardiac Electrophysiology PN ---
Assessment/Plan Assessment/Plan 1. Hypertension on atenolol 100 mg daily, Lasix 20 mg daily and Cozaar 100 mg daily 2. Lower extremity cellulitis, possible osteo. Echo EF 60%. No prior myocardial infarction or coronary artery disease or congestive heart failure. S/P Debridement by Dr. Kim. Tolerated well 3. History of polio. 4. Anemia. DW RN Subjective Subjective Has feet pain at site of LE debridement yesterday Objective Last 24 Hour Vital Signs Date Time Temp Pulse Resp B/P (MAP) Pulse Ox O2 Delivery O2 Flow Rate FiO2 08/09/17 14:20 98.0 08/09/17 13:50 98.0 08/09/17 11:55 98.0 78 20 133/66 98 98.0 08/09/17 10:05 97.8 08/09/17 09:53 97.8 08/09/17 08:54 97.8 08/09/17 08:50 92/50 08/09/17 08:50 82 92/50 08/09/17 08:42 208.0 82 22 99 08/09/17 08:00 97.3 81 16 92/50 94 Room Air 97.3 08/09/17 04:03 97.9 73 18 143/71 95 Room Air 97.9 08/09/17 00:14 97.7 71 16 112/63 97 Room Air 97.7 08/08/17 20:00 97.5 80 18 113/57 97 Room Air 97.5 08/08/17 15:58 98.6 80 20 150/79 100 Nasal Cannula 3.0 98.6 08/08/17 15:45 81 18 158/73 100 Nasal Cannula 3.0 08/08/17 15:30 79 20 163/81 100 Nasal Cannula 3.0 08/08/17 15:23 208.0 78 22 99 08/08/17 15:20 78 18 148/74 100 Nasal Cannula 3.0 08/08/17 15:15 82 21 162/83 100 Simple Mask 6.0 08/08/17 15:11 98.9 83 22 167/81 97 Simple Mask 6.0 98.9 Intake and Output 08/08/17 08/09/17 19:00 07:00 Intake Total 1000 ml 240 ml Output Total 20 ml Balance 980 ml 240 ml Intake Oral 240 ml IV Total 1000 ml Estimated Blood Loss 20 ml # Voids 1 Laboratory Tests Test 08/08/17 19:25 08/09/17 09:30 Vancomycin Level Trough 9.1 ug/mL (5.0-12.0) White Blood Count 6.4 K/UL (4.8-10.8) Red Blood Count 2.99 M/UL (4.20-5.40) L Hemoglobin 8.3 G/DL (12.0-16.0) L Hematocrit 25.4 % (37.0-47.0) L Mean Corpuscular Volume 85 FL (80-99) Mean Corpuscular Hemoglobin 27.7 PG (27.0-31.0) Mean Corpuscular Hemoglobin Concent 32.6 G/DL (32.0-36.0) Red Cell Distribution Width 13.3 % (11.6-14.8) Platelet Count 269 K/UL (150-450) Mean Platelet Volume 6.1 FL (6.5-10.1) L Neutrophils (%) (Auto) 64.9 % (45.0-75.0) Lymphocytes (%) (Auto) 24.1 % (20.0-45.0) Monocytes (%) (Auto) 7.7 % (1.0-10.0) Eosinophils (%) (Auto) 2.5 % (0.0-3.0) Basophils (%) (Auto) 0.8 % (0.0-2.0) Sodium Level 143 MMOL/L (136-145) Potassium Level 3.3 MMOL/L (3.5-5.1) L Chloride Level 107 MMOL/L (98-107) Carbon Dioxide Level 30 MMOL/L (21-32) Anion Gap 6 mmol/L (5-15) Blood Urea Nitrogen 12 mg/dL (7-18) Creatinine 1.0 MG/DL (0.55-1.30) Estimat Glomerular Filtration Rate mL/min (>60) Glucose Level 109 MG/DL (74-106) H Calcium Level 8.6 MG/DL (8.5-10.1) Total Bilirubin 0.3 MG/DL (0.2-1.0) Aspartate Amino Transf (AST/SGOT) 18 U/L (15-37) Alanine Aminotransferase (ALT/SGPT) 15 U/L (12-78) Alkaline Phosphatase 59 U/L (46-116) Total Protein 6.5 G/DL (6.4-8.2) Albumin 2.2 G/DL (3.4-5.0) L Globulin 4.3 g/dL Albumin/Globulin Ratio 0.5 (1.0-2.7) L Microbiology Date/Time Source Procedure Growth Status 08/07/17 06:45 Wound Gram Stain Pending Resulted 08/07/17 06:45 Wound Culture - Preliminary Gram Negative Bacillus 1 Resulted Objective HEAD AND NECK: No JVD. LUNGS: Clear. CARDIOVASCULAR: Regular S1 and S2 with no gallop or murmur. ABDOMEN: Soft and nontender. EXTREMITIES: Bilateral lower extremity edema. S/p debridement Elver Amato MD August 09, 2017 14:58
--- NOTE | 2017-08-09 15:53 | Podiatric Progress Note ---
Assessment/Plan Patient Michelle Elias is a 72 year old female who was admitted on August 05, 2017 at 13: 57 with Assessment/Plan A/ 1) Non pressure ulcers to muscle bilateral lower extremities 2) Cellulitis bilateral lower extremities 3) Polio 4) Joint derangement 5) Pain from wounds P/ 1) Cont daily wound care 2) Cont IV abx per ID 3) Skin biopsies pending 4) Appreciate pain management recs 5) Will follow Subjective Allergies: Coded Allergies: CRANBERRY (Verified Allergy, Unknown, Anaphylaxis, 08/05/17) PENICILLINS (Verified Allergy, Unknown, 05/22/17) Subjective Patient seen. Has significant post op pain being controlled with Morphine. Dressings changed today with nurse. Objective Exam Last 24 Hour Vital Signs Date Time Temp Pulse Resp B/P (MAP) Pulse Ox O2 Delivery O2 Flow Rate FiO2 08/09/17 14:20 98.0 08/09/17 13:50 98.0 08/09/17 11:55 98.0 78 20 133/66 98 98.0 08/09/17 10:05 97.8 08/09/17 09:53 97.8 08/09/17 08:54 97.8 08/09/17 08:50 92/50 08/09/17 08:50 82 92/50 08/09/17 08:42 208.0 82 22 99 08/09/17 08:00 97.3 81 16 92/50 94 Room Air 97.3 08/09/17 04:03 97.9 73 18 143/71 95 Room Air 97.9 08/09/17 00:14 97.7 71 16 112/63 97 Room Air 97.7 08/08/17 20:00 97.5 80 18 113/57 97 Room Air 97.5 08/08/17 15:58 98.6 80 20 150/79 100 Nasal Cannula 3.0 98.6 Laboratory Tests Test 08/08/17 19:25 08/09/17 09:30 Vancomycin Level Trough 9.1 ug/mL (5.0-12.0) White Blood Count 6.4 K/UL (4.8-10.8) Red Blood Count 2.99 M/UL (4.20-5.40) L Hemoglobin 8.3 G/DL (12.0-16.0) L Hematocrit 25.4 % (37.0-47.0) L Mean Corpuscular Volume 85 FL (80-99) Mean Corpuscular Hemoglobin 27.7 PG (27.0-31.0) Mean Corpuscular Hemoglobin Concent 32.6 G/DL (32.0-36.0) Red Cell Distribution Width 13.3 % (11.6-14.8) Platelet Count 269 K/UL (150-450) Mean Platelet Volume 6.1 FL (6.5-10.1) L Neutrophils (%) (Auto) 64.9 % (45.0-75.0) Lymphocytes (%) (Auto) 24.1 % (20.0-45.0) Monocytes (%) (Auto) 7.7 % (1.0-10.0) Eosinophils (%) (Auto) 2.5 % (0.0-3.0) Basophils (%) (Auto) 0.8 % (0.0-2.0) Sodium Level 143 MMOL/L (136-145) Potassium Level 3.3 MMOL/L (3.5-5.1) L Chloride Level 107 MMOL/L (98-107) Carbon Dioxide Level 30 MMOL/L (21-32) Anion Gap 6 mmol/L (5-15) Blood Urea Nitrogen 12 mg/dL (7-18) Creatinine 1.0 MG/DL (0.55-1.30) Estimat Glomerular Filtration Rate mL/min (>60) Glucose Level 109 MG/DL (74-106) H Calcium Level 8.6 MG/DL (8.5-10.1) Total Bilirubin 0.3 MG/DL (0.2-1.0) Aspartate Amino Transf (AST/SGOT) 18 U/L (15-37) Alanine Aminotransferase (ALT/SGPT) 15 U/L (12-78) Alkaline Phosphatase 59 U/L (46-116) Total Protein 6.5 G/DL (6.4-8.2) Albumin 2.2 G/DL (3.4-5.0) L Globulin 4.3 g/dL Albumin/Globulin Ratio 0.5 (1.0-2.7) L Microbiology Date/Time Source Procedure Growth Status 08/05/17 13:50 Blood Blood Culture - Preliminary NO GROWTH AFTER 72 HOURS Resulted 08/07/17 06:45 Wound Gram Stain Pending Resulted 08/07/17 06:45 Wound Culture - Preliminary Gram Negative Bacillus 1 Resulted Dermatological Dermatological Narrative Dressings intact. No strike through Evan Kim DPM August 09, 2017 15:53
[2017-08-09 16:00] VITALS: BP 110/49
[2017-08-09] MEDS ORDERED: Tubing IV Secondary IV ONE (17:51)
[2017-08-09 20:03] VITALS: BP 117/58
--- NOTE | 2017-08-09 21:47 | General Progress Note ---
Assessment/Plan Assessment/Plan LE cellulitis ho osteomyelitis ho polio ho chronic pain abx per ID post op wound care pain control per Dr Gann dvt and ulcer prophylaxis Subjective Allergies: Coded Allergies: CRANBERRY (Verified Allergy, Unknown, Anaphylaxis, 08/05/17) PENICILLINS (Verified Allergy, Unknown, 05/22/17) Subjective no chest pain or sob sp surgery has some pain Objective Last 24 Hour Vital Signs Date Time Temp Pulse Resp B/P (MAP) Pulse Ox O2 Delivery O2 Flow Rate FiO2 08/09/17 20:45 97.9 08/09/17 20:38 Room Air 08/09/17 20:15 97.9 08/09/17 20:03 97.9 70 17 117/58 95 97.9 08/09/17 19:09 98.0 08/09/17 18:10 98.0 08/09/17 17:16 98.0 08/09/17 16:00 98.0 72 19 110/49 98 98.0 08/09/17 13:50 98.0 08/09/17 11:55 98.0 78 20 133/66 98 98.0 08/09/17 10:05 97.8 08/09/17 08:54 97.8 08/09/17 08:50 92/50 08/09/17 08:50 82 92/50 08/09/17 08:42 208.0 82 22 99 08/09/17 08:00 97.3 81 16 92/50 94 Room Air 97.3 08/09/17 04:03 97.9 73 18 143/71 95 Room Air 97.9 08/09/17 00:14 97.7 71 16 112/63 97 Room Air 97.7 Intake and Output 08/08/17 08/09/17 19:00 07:00 Intake Total 1000 ml 240 ml Output Total 20 ml Balance 980 ml 240 ml Intake Oral 240 ml IV Total 1000 ml Estimated Blood Loss 20 ml # Voids 1 Laboratory Tests 08/09/17 09:30: White Blood Count 6.4, Red Blood Count 2.99L, Hemoglobin 8.3L, Hematocrit 25.4L , Mean Corpuscular Volume 85, Mean Corpuscular Hemoglobin 27.7, Mean Corpuscular Hemoglobin Concent 32.6, Red Cell Distribution Width 13.3, Platelet Count 269, Mean Platelet Volume 6.1L, Neutrophils (%) (Auto) 64.9, Lymphocytes ( %) (Auto) 24.1, Monocytes (%) (Auto) 7.7, Eosinophils (%) (Auto) 2.5, Basophils (%) (Auto) 0.8, Sodium Level 143, Potassium Level 3.3L, Chloride Level 107, Carbon Dioxide Level 30, Anion Gap 6, Blood Urea Nitrogen 12, Creatinine 1.0, Estimat Glomerular Filtration Rate , Glucose Level 109H, Calcium Level 8.6, Total Bilirubin 0.3, Aspartate Amino Transf (AST/SGOT) 18, Alanine Aminotransferase (ALT/SGPT) 15, Alkaline Phosphatase 59, Total Protein 6.5, Albumin 2.2L, Globulin 4.3, Albumin/Globulin Ratio 0.5L Height (Feet): 5 Height (Inches): 7.00 Weight (Pounds): 169 General Appearance: WD/WN Cardiovascular: normal rate Respiratory/Chest: lungs clear Abdomen: soft Objective LE wroapped pos erythema see pictures Chas Hampton MD August 09, 2017 21:47
[2017-08-09] MEDS: Vancomycin 1250mg/D5W 250ml IVPB SCH (22:21)
[2017-08-10] MEDS: Morphine Sulfate 4mg/ml Inj IVP PRN ×6 (00:21→22:09)
[2017-08-10 00:41] VITALS: BP 137/70
[2017-08-10 04:00] VITALS: BP 133/65
[2017-08-10 07:59] LABS: BASOPHILS % (AUTO) 0.7 % (0.0-2.0); EOSINOPHILS % (AUTO) 2.7 % (0.0-3.0); HEMATOCRIT 25.6 % (37.0-47.0); HEMOGLOBIN 8.4 G/DL (12.0-16.0); LYMPHOCYTES % (AUTO) 24.7 % (20.0-45.0); MEAN CORPUSCULAR VOLUME 85 FL (80-99); MONOCYTES % (AUTO) 7.9 % (1.0-10.0); PLATELET COUNT 242 K/UL (150-450); RED BLOOD COUNT 3.02 M/UL (4.20-5.40); RED CELL DISTRIBUTION WIDTH 13.8 % (11.6-14.8); WHITE BLOOD COUNT 7.3 K/UL (4.8-10.8)
[2017-08-10 08:00] VITALS: BP 114/53
[2017-08-10 08:01] LABS: ANION GAP 7 mmol/L (5-15); BLOOD UREA NITROGEN 15 mg/dL (7-18); CALCIUM 8.5 MG/DL (8.5-10.1); CARBON DIOXIDE 28 MMOL/L (21-32); CHLORIDE 108 MMOL/L (98-107); POTASSIUM 4.1 MMOL/L (3.5-5.1); SODIUM 143 MMOL/L (136-145)
[2017-08-10] MEDS: Losartan 50mg tab ORAL SCH (09:00)
[2017-08-10] MEDS: Docusate 100mg cap ORAL SCH ×2 (09:19→17:11)
[2017-08-10] MEDS: Heparin 5000 units/ml inj SUBQ SCH ×2 (09:21→22:21)
[2017-08-10 12:00] VITALS: BP 143/73
[2017-08-10] MEDS: HYDROcodone/Acetamin 10/325 tab ORAL PRN ×3 (13:04→23:31)
[2017-08-10 15:52] VITALS: BP 123/60
--- NOTE | 2017-08-10 15:58 | Cardiac Electrophysiology PN ---
Assessment/Plan Assessment/Plan 1. Hypertension on atenolol 100 mg daily, Lasix 20 mg daily and Cozaar 100 mg daily 2. Lower extremity cellulitis, possible osteo. Echo EF 60%. No prior myocardial infarction or coronary artery disease or congestive heart failure. S/P Debridement by Dr. Kim. 3. History of polio. 4. Anemia. OMERO RN Subjective Subjective Feet pain at site of debridement better. Objective Last 24 Hour Vital Signs Date Time Temp Pulse Resp B/P (MAP) Pulse Ox O2 Delivery O2 Flow Rate FiO2 08/10/17 15:52 98.2 72 18 123/60 95 98.2 08/10/17 14:03 97.9 08/10/17 13:04 97.9 08/10/17 12:00 100.0 18 143/73 94 Room Air 100.0 08/10/17 12:00 97.9 75 18 143/73 95 97.9 08/10/17 10:43 96.8 08/10/17 10:13 96.8 08/10/17 08:00 96.8 72 18 114/53 95 96.8 08/10/17 06:57 97.7 08/10/17 06:40 Room Air 08/10/17 04:06 97.7 08/10/17 04:00 97.3 69 18 133/65 97 97.3 08/10/17 00:50 Room Air 08/10/17 00:41 97.7 70 18 137/70 95 97.7 08/10/17 00:21 97.9 08/09/17 22:04 97.9 08/09/17 20:38 Room Air 08/09/17 20:15 97.9 08/09/17 20:03 97.9 70 17 117/58 95 97.9 08/09/17 18:10 98.0 08/09/17 17:16 98.0 08/09/17 16:00 98.0 72 19 110/49 98 98.0 Intake and Output 08/09/17 08/10/17 19:00 07:00 Intake Total 300 ml 250.000 ml Balance 300 ml 250.000 ml Intake Oral 300 ml IV Total 250.000 ml # Voids 3 3 Laboratory Tests Test 08/10/17 06:35 White Blood Count 7.3 K/UL (4.8-10.8) Red Blood Count 3.02 M/UL (4.20-5.40) L Hemoglobin 8.4 G/DL (12.0-16.0) L Hematocrit 25.6 % (37.0-47.0) L Mean Corpuscular Volume 85 FL (80-99) Mean Corpuscular Hemoglobin 28.0 PG (27.0-31.0) Mean Corpuscular Hemoglobin Concent 33.0 G/DL (32.0-36.0) Red Cell Distribution Width 13.8 % (11.6-14.8) Platelet Count 242 K/UL (150-450) Mean Platelet Volume 5.8 FL (6.5-10.1) L Neutrophils (%) (Auto) 64.0 % (45.0-75.0) Lymphocytes (%) (Auto) 24.7 % (20.0-45.0) Monocytes (%) (Auto) 7.9 % (1.0-10.0) Eosinophils (%) (Auto) 2.7 % (0.0-3.0) Basophils (%) (Auto) 0.7 % (0.0-2.0) Sodium Level 143 MMOL/L (136-145) Potassium Level 4.1 MMOL/L (3.5-5.1) Chloride Level 108 MMOL/L (98-107) H Carbon Dioxide Level 28 MMOL/L (21-32) Anion Gap 7 mmol/L (5-15) Blood Urea Nitrogen 15 mg/dL (7-18) Creatinine 1.0 MG/DL (0.55-1.30) Estimat Glomerular Filtration Rate mL/min (>60) Glucose Level 88 MG/DL (74-106) Calcium Level 8.5 MG/DL (8.5-10.1) Magnesium Level 1.8 MG/DL (1.8-2.4) Objective HEAD AND NECK: No JVD. LUNGS: Clear. CARDIOVASCULAR: Regular S1 and S2 with no gallop or murmur. ABDOMEN: Soft and nontender. EXTREMITIES: Bilateral lower extremity edema. S/p debridement Elver Amato MD August 10, 2017 15:58
--- NOTE | 2017-08-10 17:03 | General Progress Note ---
Assessment/Plan Assessment/Plan LE cellulitis ho osteomyelitis ho polio ho chronic pain abx per ID post op wound care pain control per Dr Gann dvt and ulcer prophylaxis ambulate Subjective Allergies: Coded Allergies: CRANBERRY (Verified Allergy, Unknown, Anaphylaxis, 08/05/17) PENICILLINS (Verified Allergy, Unknown, 05/22/17) Subjective no chest pain or sob pain controlled Objective Last 24 Hour Vital Signs Date Time Temp Pulse Resp B/P (MAP) Pulse Ox O2 Delivery O2 Flow Rate FiO2 08/10/17 15:52 98.2 72 18 123/60 95 98.2 08/10/17 14:03 97.9 08/10/17 13:04 97.9 08/10/17 12:00 100.0 18 143/73 94 Room Air 100.0 08/10/17 12:00 97.9 75 18 143/73 95 97.9 08/10/17 10:43 96.8 08/10/17 10:13 96.8 08/10/17 08:00 96.8 72 18 114/53 95 96.8 08/10/17 06:57 97.7 08/10/17 06:40 Room Air 08/10/17 04:06 97.7 08/10/17 04:00 97.3 69 18 133/65 97 97.3 08/10/17 00:50 Room Air 08/10/17 00:41 97.7 70 18 137/70 95 97.7 08/10/17 00:21 97.9 08/09/17 22:04 97.9 08/09/17 20:38 Room Air 08/09/17 20:15 97.9 08/09/17 20:03 97.9 70 17 117/58 95 97.9 08/09/17 18:10 98.0 08/09/17 17:16 98.0 Intake and Output 08/09/17 08/10/17 19:00 07:00 Intake Total 300 ml 250.000 ml Balance 300 ml 250.000 ml Intake Oral 300 ml IV Total 250.000 ml # Voids 3 3 Laboratory Tests 08/10/17 06:35: White Blood Count 7.3, Red Blood Count 3.02L, Hemoglobin 8.4L, Hematocrit 25.6L , Mean Corpuscular Volume 85, Mean Corpuscular Hemoglobin 28.0, Mean Corpuscular Hemoglobin Concent 33.0, Red Cell Distribution Width 13.8, Platelet Count 242, Mean Platelet Volume 5.8L, Neutrophils (%) (Auto) 64.0, Lymphocytes ( %) (Auto) 24.7, Monocytes (%) (Auto) 7.9, Eosinophils (%) (Auto) 2.7, Basophils (%) (Auto) 0.7, Sodium Level 143, Potassium Level 4.1, Chloride Level 108H, Carbon Dioxide Level 28, Anion Gap 7, Blood Urea Nitrogen 15, Creatinine 1.0, Estimat Glomerular Filtration Rate , Glucose Level 88, Calcium Level 8.5, Magnesium Level 1.8 Height (Feet): 5 Height (Inches): 7.00 Weight (Pounds): 169 General Appearance: WD/WN Neck: supple Cardiovascular: regular rhythm Respiratory/Chest: lungs clear Abdomen: soft Objective LE wrapped pos erythema see pictures Chas Hampton MD August 10, 2017 17:03
[2017-08-10 20:00] VITALS: BP 118/66
[2017-08-10] MEDS ORDERED: Vancomycin 1gm inj IVPB ONE (21:49)
[2017-08-10] MEDS: Vancomycin 1250mg/D5W 250ml IVPB SCH (22:07)
[2017-08-11] VITALS: BP 135/75
[2017-08-11] MEDS: Morphine Sulfate 4mg/ml Inj IVP PRN ×3 (02:11→18:11)
[2017-08-11 04:00] VITALS: BP 139/65
[2017-08-11 08:21] VITALS: BP 100/52
[2017-08-11] MEDS: Docusate 100mg cap ORAL SCH ×2 (08:40→17:01)
[2017-08-11] MEDS: Heparin 5000 units/ml inj SUBQ SCH ×2 (08:41→21:04)
[2017-08-11] MEDS: Losartan 50mg tab ORAL SCH (08:41)
[2017-08-11] MEDS: HYDROcodone/Acetamin 10/325 tab ORAL PRN ×3 (10:18→21:57)
[2017-08-11] MEDS ORDERED: Minocycline HCl 50mg cap ORAL SCH (11:00)
[2017-08-11 12:04] VITALS: BP 124/66
--- NOTE | 2017-08-11 12:22 | Infectious Diseases Prog Note ---
Assessment/Plan Assessment/Plan A 1. bilateral leg ulcers with cellulitis s/p debridement 2. 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 continue vancomycin iv & Minocycline 2. can be discharged with Po Minocycline Subjective ROS Limited/Unobtainable: No Constitutional: Reports: no symptoms Respiratory: Reports: no symptoms Cardiovascular: Reports: no symptoms Gastrointestinal/Abdominal: Reports: no symptoms Musculoskeletal: Reports: pain, other - in legs Allergies: Coded Allergies: CRANBERRY (Verified Allergy, Unknown, Anaphylaxis, 08/05/17) PENICILLINS (Verified Allergy, Unknown, 05/22/17) Objective Vital Signs Last 24 Hour Vital Signs Date Time Temp Pulse Resp B/P (MAP) Pulse Ox O2 Delivery O2 Flow Rate FiO2 08/11/17 12:04 97.7 65 20 124/66 94 97.7 08/11/17 11:17 98.1 08/11/17 10:18 98.1 08/11/17 08:42 79 100/52 08/11/17 08:41 100/52 08/11/17 08:21 98.1 79 20 100/52 95 98.1 08/11/17 06:42 97.7 08/11/17 05:48 97.7 08/11/17 04:00 97.7 68 19 139/65 98 97.7 08/11/17 00:00 98.4 72 20 135/75 98 98.4 08/10/17 20:00 99.5 84 19 118/66 93 99.5 08/10/17 18:58 98.2 08/10/17 17:12 98.2 08/10/17 15:52 98.2 72 18 123/60 95 98.2 08/10/17 13:04 97.9 Height (Feet): 5 Height (Inches): 7.00 Weight (Pounds): 169 General Appearance: no acute distress HEENT: mucous membranes moist Respiratory/Chest: lungs clear Cardiovascular: normal rate Abdomen: soft, non tender Extremities: no edema Skin: ulcers, other - surgical dressing of legs Neurologic/Psychiatric: alert, oriented x 3, responsive Current Medications Medications (Trade) Dose Ordered Sig/Alec Route PRN Reason Start Time Stop Time Status Last Admin Dose Admin Acetaminophen/ Hydrocodone Bitart ([place] 10/325) 1 tab Q4H PRN ORAL Pain Scale (4-6) 08/05/17 23:45 08/12/17 23:44 08/11/17 10:18 Al Hydroxide/Mg Hydroxide (Mylanta) 30 ml BID PRN ORAL Abdominal cramps 08/05/17 17:45 09/04/17 17:44 Atenolol (Tenormin) 100 mg DAILY ORAL 08/06/17 09:00 09/05/17 08:59 Collagenase (Santyl) 1 applic DAILY TOPIC 08/07/17 06:00 09/04/17 19:29 08/11/17 08:42 Diphenhydramine HCl (Benadryl) 25 mg Q6H PRN ORAL Itching 08/05/17 21:45 09/04/17 21:44 08/05/17 21:58 Docusate Sodium (Colace) 100 mg TWICE A DAY ORAL 08/05/17 18:00 09/04/17 17:59 08/11/17 08:40 Furosemide (Lasix) 20 mg DAILY ORAL 08/06/17 09:00 09/05/17 08:59 Heparin Sodium (Porcine) (Heparin 5000 units/ml) 5,000 units EVERY 12 HOURS SUBQ 08/05/17 21:00 09/04/17 20:59 08/11/17 08:41 Losartan Potassium (Cozaar) 100 mg DAILY ORAL 08/06/17 09:00 09/05/17 08:59 Magnesium Hydroxide (Mom) 30 ml BID PRN ORAL Constipation 08/05/17 17:45 09/04/17 17:44 Minocycline HCl (Minocin) 100 mg Q12HR ORAL 08/11/17 21:00 08/18/17 20:59 Morphine Sulfate (Morphine Sulfate) 2 mg Q3H PRN IVP Severe Pain (Pain Scale 7-10) 08/05/17 21:15 08/12/17 21:14 08/11/17 05:48 Ondansetron HCl (Zofran) 4 mg Q4HR PRN IVP Nausea & Vomiting 08/05/17 17:45 09/04/17 17:44 Vancomycin HCl (Vanco rx to dose) 1 ea DAILY PRN MISC Per rx protocol 08/05/17 17:45 09/04/17 17:44 Vancomycin HCl/ Dextrose 250 ml @ 166.667 mls/hr Q24H IVPB 08/08/17 22:00 08/13/17 21:59 08/10/17 22:07 Zolpidem Tartrate (Ambien) 5 mg HSPRN PRN ORAL Insomnia 08/05/17 17:45 08/12/17 17:44 MARK POMPA August 11, 2017 12:22
[2017-08-11 16:09] VITALS: BP 137/65
--- NOTE | 2017-08-11 17:10 | General Progress Note ---
Assessment/Plan Assessment/Plan (1) B/L LE pain (2) B/L LE cellulitis with open wounds (3) Post polio syndrome (4) S/p debridement of B/L LE wounds Patient will be continued on [place] and Morphine. D/w Dr. Stone and he concurred. Subjective Date patient seen: August 11, 2017 Time patient seen: 19:00 - pm Allergies: Coded Allergies: CRANBERRY (Verified Allergy, Unknown, Anaphylaxis, 08/05/17) PENICILLINS (Verified Allergy, Unknown, 05/22/17) Subjective Constitutional: Reports: no symptoms Eye: Reports: no symptoms ENT: Reports: no symptoms Respiratory: Reports: no symptoms Cardiovascular: Reports: no symptoms Gastrointestinal: Reports: no symptoms Genitourinary: Reports: no symptoms Musculoskeletal: Reports: muscle stiffness Skin: Reports: lesions Psychiatric: Reports: no symptoms Neurological: Reports: focal weakness Endocrine: Reports: no symptoms Hematologic/Lymphatic: Reports: no symptoms Subjective Patient is in bed and pain is 2/10. She has no new complaints. Objective Last 24 Hour Vital Signs Date Time Temp Pulse Resp B/P (MAP) Pulse Ox O2 Delivery O2 Flow Rate FiO2 08/11/17 17:01 97.7 08/11/17 16:09 97.7 74 20 137/65 97 97.7 08/11/17 12:04 97.7 65 20 124/66 94 97.7 08/11/17 11:17 98.1 08/11/17 10:18 98.1 08/11/17 08:42 79 100/52 08/11/17 08:41 100/52 08/11/17 08:21 98.1 79 20 100/52 95 98.1 08/11/17 06:42 97.7 08/11/17 05:48 97.7 08/11/17 04:00 97.7 68 19 139/65 98 97.7 08/11/17 00:00 98.4 72 20 135/75 98 98.4 08/10/17 20:00 99.5 84 19 118/66 93 99.5 08/10/17 18:58 98.2 08/10/17 17:12 98.2 Intake and Output 08/10/17 08/11/17 19:00 07:00 Intake Total 480 ml 450.000 ml Balance 480 ml 450.000 ml Intake Oral 480 ml 200 ml IV Total 250.000 ml # Voids 3 3 Height (Feet): 5 Height (Inches): 7.00 Weight (Pounds): 169 Objective General Appearance: WD/WN, no apparent distress, alert HEENT: PERRL, EOMI Neck: non-tender, normal alignment, supple, normal inspection Respiratory/Chest: lungs clear, normal breath sounds, no respiratory distress Cardiovascular/Chest: normal rate, regular rhythm Abdomen: non tender, soft Extremities: severe edema - with bandages applied, tenderness to palpaiton Neurologic: abnormal gait, alert, oriented x 3 AZAM GAMEZ August 11, 2017 17:10
[2017-08-11 20:00] VITALS: BP 138/75
[2017-08-11] MEDS: Minocycline HCl 50mg cap ORAL SCH (21:02)
[2017-08-11] MEDS: Vancomycin 1250mg/D5W 250ml IVPB SCH (21:48)
[2017-08-12] VITALS: BP 147/67
[2017-08-12] MEDS: Morphine Sulfate 4mg/ml Inj IVP PRN (01:52)
[2017-08-12 04:00] VITALS: BP 137/62
[2017-08-12 08:00] VITALS: BP 128/62
--- NOTE | 2017-08-12 09:12 | General Progress Note ---
Assessment/Plan Assessment/Plan (1) B/L LE pain (2) B/L LE cellulitis with open wounds (3) Post polio syndrome (4) S/p debridement of B/L LE wounds Patient will be continued on [place] and Morphine. D/w Dr. Stone and he concurred. Subjective Date patient seen: August 12, 2017 Time patient seen: 07:00 - am Allergies: Coded Allergies: CRANBERRY (Verified Allergy, Unknown, Anaphylaxis, 08/05/17) PENICILLINS (Verified Allergy, Unknown, 05/22/17) Subjective Constitutional: Reports: no symptoms Eye: Reports: no symptoms ENT: Reports: no symptoms Respiratory: Reports: no symptoms Cardiovascular: Reports: no symptoms Gastrointestinal: Reports: no symptoms Genitourinary: Reports: no symptoms Musculoskeletal: Reports: muscle stiffness Skin: Reports: lesions Psychiatric: Reports: no symptoms Neurological: Reports: focal weakness Endocrine: Reports: no symptoms Hematologic/Lymphatic: Reports: no symptoms Subjective Her pain has been well controlled and tolerated on the [place] and Morphine. She has no new complaints. Objective Last 24 Hour Vital Signs Date Time Temp Pulse Resp B/P (MAP) Pulse Ox O2 Delivery O2 Flow Rate FiO2 08/12/17 08:00 98.0 69 20 128/62 98 98.0 08/12/17 04:00 98.4 65 18 137/62 96 98.4 08/12/17 00:00 98.6 66 18 147/67 94 98.6 08/11/17 20:00 97.9 68 18 138/75 96 97.9 08/11/17 18:41 97.7 08/11/17 18:11 97.7 08/11/17 18:00 97.7 08/11/17 17:01 97.7 08/11/17 16:09 97.7 74 20 137/65 97 97.7 08/11/17 12:04 97.7 65 20 124/66 94 97.7 08/11/17 10:18 98.1 Intake and Output 08/11/17 08/12/17 19:00 07:00 Intake Total 600 ml 725.000 ml Balance 600 ml 725.000 ml Intake Oral 600 ml 475 ml IV Total 250.000 ml # Voids 2 3 Height (Feet): 5 Height (Inches): 7.00 Weight (Pounds): 169 Objective General Appearance: WD/WN, no apparent distress, alert HEENT: PERRL, EOMI Neck: non-tender, normal alignment, supple, normal inspection Respiratory/Chest: lungs clear, normal breath sounds, no respiratory distress Cardiovascular/Chest: normal rate, regular rhythm Abdomen: non tender, soft Extremities: severe edema - with bandages applied, tenderness to palpaiton Neurologic: abnormal gait, alert, oriented x 3 AZAM GAMEZ August 12, 2017 09:11
[2017-08-12] MEDS: Docusate 100mg cap ORAL SCH ×2 (09:16→18:51)
[2017-08-12] MEDS: Losartan 50mg tab ORAL SCH (09:17)
[2017-08-12] MEDS: Minocycline HCl 50mg cap ORAL SCH ×2 (09:17→21:12)
[2017-08-12] MEDS: Heparin 5000 units/ml inj SUBQ SCH ×2 (09:18→21:18)
[2017-08-12] MEDS ORDERED: Morphine Sulfate 4mg/ml Inj IVP PRN (10:00)
[2017-08-12 12:00] VITALS: BP 139/66
--- NOTE | 2017-08-12 12:06 | Infectious Diseases Prog Note ---
Assessment/Plan Assessment/Plan A 1. bilateral leg ulcers with cellulitis s/p debridement 2. 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 continue vancomycin iv & Minocycline 2. can be discharged with Po Minocycline Subjective ROS Limited/Unobtainable: No Constitutional: Reports: no symptoms Cardiovascular: Reports: no symptoms Gastrointestinal/Abdominal: Reports: no symptoms Genitourinary: Reports: no symptoms Musculoskeletal: Reports: pain, other - in legs Allergies: Coded Allergies: CRANBERRY (Verified Allergy, Unknown, Anaphylaxis, 08/05/17) PENICILLINS (Verified Allergy, Unknown, 05/22/17) Objective Vital Signs Last 24 Hour Vital Signs Date Time Temp Pulse Resp B/P (MAP) Pulse Ox O2 Delivery O2 Flow Rate FiO2 08/12/17 09:17 128/62 08/12/17 09:00 69 128/62 08/12/17 08:00 98.0 69 20 128/62 98 98.0 08/12/17 04:00 98.4 65 18 137/62 96 98.4 08/12/17 00:00 98.6 66 18 147/67 94 98.6 08/11/17 20:00 97.9 68 18 138/75 96 97.9 08/11/17 18:41 97.7 08/11/17 18:11 97.7 08/11/17 18:00 97.7 08/11/17 17:01 97.7 08/11/17 16:09 97.7 74 20 137/65 97 97.7 Height (Feet): 5 Height (Inches): 7.00 Weight (Pounds): 169 General Appearance: no acute distress HEENT: mucous membranes moist Respiratory/Chest: lungs clear Cardiovascular: normal rate Abdomen: soft, non tender Extremities: no edema, other - deformity of legs Skin: ulcers, other - legs Neurologic/Psychiatric: alert, oriented x 3, responsive Current Medications Medications (Trade) Dose Ordered Sig/Alec Route PRN Reason Start Time Stop Time Status Last Admin Dose Admin Acetaminophen/ Hydrocodone Bitart ([place] 10/325) 1 tab Q4H PRN ORAL Pain Scale (4-6) 08/12/17 10:00 08/19/17 09:59 Al Hydroxide/Mg Hydroxide (Mylanta) 30 ml BID PRN ORAL Abdominal cramps 08/05/17 17:45 09/04/17 17:44 Atenolol (Tenormin) 100 mg DAILY ORAL 08/06/17 09:00 09/05/17 08:59 Collagenase (Santyl) 1 applic DAILY TOPIC 08/07/17 06:00 09/04/17 19:29 08/12/17 09:19 Diphenhydramine HCl (Benadryl) 25 mg Q6H PRN ORAL Itching 08/05/17 21:45 09/04/17 21:44 08/05/17 21:58 Docusate Sodium (Colace) 100 mg TWICE A DAY ORAL 08/05/17 18:00 09/04/17 17:59 08/12/17 09:16 Furosemide (Lasix) 20 mg DAILY ORAL 08/06/17 09:00 09/05/17 08:59 Heparin Sodium (Porcine) (Heparin 5000 units/ml) 5,000 units EVERY 12 HOURS SUBQ 08/05/17 21:00 09/04/17 20:59 08/12/17 09:18 Losartan Potassium (Cozaar) 100 mg DAILY ORAL 08/06/17 09:00 09/05/17 08:59 08/12/17 09:17 Magnesium Hydroxide (Mom) 30 ml BID PRN ORAL Constipation 08/05/17 17:45 09/04/17 17:44 Minocycline HCl (Minocin) 100 mg Q12HR ORAL 08/11/17 21:00 08/18/17 20:59 08/12/17 09:17 Morphine Sulfate (Morphine Sulfate) 2 mg Q3H PRN IVP Severe Pain (Pain Scale 7-10) 08/12/17 10:00 08/19/17 09:59 Ondansetron HCl (Zofran) 4 mg Q4HR PRN IVP Nausea & Vomiting 08/05/17 17:45 09/04/17 17:44 Vancomycin HCl (Vanco rx to dose) 1 ea DAILY PRN MISC Per rx protocol 08/05/17 17:45 09/04/17 17:44 Vancomycin HCl/ Dextrose 250 ml @ 166.667 mls/hr Q24H IVPB 08/08/17 22:00 08/13/17 21:59 08/11/17 21:48 Zolpidem Tartrate (Ambien) 5 mg HSPRN PRN ORAL Insomnia 08/05/17 17:45 08/12/17 17:44 MARK POMPA August 12, 2017 12:06
[2017-08-12] MEDS: HYDROcodone/Acetamin 10/325 tab ORAL PRN ×2 (12:34→21:20)
--- NOTE | 2017-08-12 13:11 | Cardiac Electrophysiology PN ---
Assessment/Plan Assessment/Plan 1. Hypertension on atenolol 100 mg daily, Lasix 20 mg daily and Cozaar 100 mg daily 2. Lower extremity cellulitis, possible osteo. Echo EF 60%. No prior myocardial infarction or coronary artery disease or congestive heart failure. S/P Debridement by Dr. Kim. Dressing changed today 3. History of polio. 4. Anemia. DW RN Subjective Subjective Feet dressing change was just done.No CP or SOB. Objective Last 24 Hour Vital Signs Date Time Temp Pulse Resp B/P (MAP) Pulse Ox O2 Delivery O2 Flow Rate FiO2 08/12/17 12:34 97.6 08/12/17 12:00 97.6 68 20 139/66 97 97.6 08/12/17 09:17 128/62 08/12/17 09:00 69 128/62 08/12/17 08:00 98.0 69 20 128/62 98 98.0 08/12/17 04:00 98.4 65 18 137/62 96 98.4 08/12/17 00:00 98.6 66 18 147/67 94 98.6 08/11/17 20:00 97.9 68 18 138/75 96 97.9 08/11/17 18:41 97.7 08/11/17 18:11 97.7 08/11/17 18:00 97.7 08/11/17 17:01 97.7 08/11/17 16:09 97.7 74 20 137/65 97 97.7 Intake and Output 08/11/17 08/12/17 19:00 07:00 Intake Total 600 ml 725.000 ml Balance 600 ml 725.000 ml Intake Oral 600 ml 475 ml IV Total 250.000 ml # Voids 2 3 Objective HEAD AND NECK: No JVD. LUNGS: Clear. CARDIOVASCULAR: Regular S1 and S2 with no gallop or murmur. ABDOMEN: Soft and nontender. EXTREMITIES: Bilateral lower extremity edema. S/p debridement Elver Amato MD August 12, 2017 13:11
[2017-08-12 16:00] VITALS: BP_SYST 122; BP_SYST 144; BP_DIAS 60; BP_DIAS 78
[2017-08-12 20:00] VITALS: BP 127/61
[2017-08-12] MEDS: Vancomycin 1250mg/D5W 250ml IVPB SCH (21:13)
--- NOTE | 2017-08-12 21:23 | General Progress Note ---
Assessment/Plan Assessment/Plan LE cellulitis ho osteomyelitis ho polio ho chronic pain abx per ID post op wound care pain control per Dr Gann dvt and ulcer prophylaxis ambulate dc plans when ok with podiatry and ID Subjective Allergies: Coded Allergies: CRANBERRY (Verified Allergy, Unknown, Anaphylaxis, 08/05/17) PENICILLINS (Verified Allergy, Unknown, 05/22/17) Subjective no chest pain or sob pain controlled Objective Last 24 Hour Vital Signs Date Time Temp Pulse Resp B/P (MAP) Pulse Ox O2 Delivery O2 Flow Rate FiO2 08/12/17 20:00 97.7 63 17 127/61 95 97.7 08/12/17 19:22 97.9 08/12/17 18:52 97.9 08/12/17 16:00 97.9 89 19 122/60 98 97.9 08/12/17 13:33 97.6 08/12/17 12:34 97.6 08/12/17 12:00 97.6 68 20 139/66 97 97.6 08/12/17 09:17 128/62 08/12/17 09:00 69 128/62 08/12/17 08:00 98.0 69 20 128/62 98 98.0 08/12/17 04:00 98.4 65 18 137/62 96 98.4 08/12/17 00:00 98.6 66 18 147/67 94 98.6 Intake and Output 08/11/17 08/12/17 19:00 07:00 Intake Total 600 ml 725.000 ml Balance 600 ml 725.000 ml Intake Oral 600 ml 475 ml IV Total 250.000 ml # Voids 2 3 Height (Feet): 5 Height (Inches): 7.00 Weight (Pounds): 169 General Appearance: WD/WN Cardiovascular: normal rate Respiratory/Chest: lungs clear Abdomen: soft Objective LE wrapped pos erythema see pictures Chas Hampton MD August 12, 2017 21:23
[2017-08-13] VITALS: BP 150/78
[2017-08-13 04:00] VITALS: BP 136/72
[2017-08-13 08:01] VITALS: BP 144/72
[2017-08-13] MEDS: Docusate 100mg cap ORAL SCH (08:51)
[2017-08-13] MEDS: HYDROcodone/Acetamin 10/325 tab ORAL PRN (08:52)
[2017-08-13] MEDS: Losartan 50mg tab ORAL SCH (08:52)
[2017-08-13] MEDS: Minocycline HCl 50mg cap ORAL SCH (08:53)
--- NOTE | 2017-08-13 08:54 | General Progress Note ---
Assessment/Plan Assessment/Plan (1) B/L LE pain (2) B/L LE cellulitis with open wounds (3) Post polio syndrome (4) S/p debridement of B/L LE wounds Patient will be continued on [place] and Morphine. Was advised to f/u with her PMD and surgeon when discharged. D/w Dr. Stone and he concurred. Subjective Date patient seen: August 13, 2017 Time patient seen: 07:00 - am Allergies: Coded Allergies: CRANBERRY (Verified Allergy, Unknown, Anaphylaxis, 08/05/17) PENICILLINS (Verified Allergy, Unknown, 05/22/17) Subjective Constitutional: Reports: no symptoms Eye: Reports: no symptoms ENT: Reports: no symptoms Respiratory: Reports: no symptoms Cardiovascular: Reports: no symptoms Gastrointestinal: Reports: no symptoms Genitourinary: Reports: no symptoms Musculoskeletal: Reports: muscle stiffness Skin: Reports: lesions Psychiatric: Reports: no symptoms Neurological: Reports: focal weakness Endocrine: Reports: no symptoms Hematologic/Lymphatic: Reports: no symptoms Subjective Patient is in bed showing no signs of pain or distress. Looking forward to being discharged home as per onshore diver. Objective Last 24 Hour Vital Signs Date Time Temp Pulse Resp B/P (MAP) Pulse Ox O2 Delivery O2 Flow Rate FiO2 08/13/17 08:50 64 144/72 08/13/17 08:01 97.9 64 18 144/72 98 97.9 08/13/17 04:00 97.7 66 17 136/72 94 97.7 08/13/17 00:00 97.7 66 18 150/78 94 97.7 08/12/17 20:00 97.7 63 17 127/61 95 97.7 08/12/17 19:22 97.9 08/12/17 18:52 97.9 08/12/17 16:00 97.9 89 19 122/60 98 97.9 08/12/17 13:33 97.6 08/12/17 12:34 97.6 08/12/17 12:00 97.6 68 20 139/66 97 97.6 08/12/17 09:17 128/62 08/12/17 09:00 69 128/62 Intake and Output 08/12/17 08/13/17 19:00 07:00 Intake Total 600 ml Balance 600 ml Intake Oral 600 ml # Voids 3 3 # Bowel Movements 2 Height (Feet): 5 Height (Inches): 7.00 Weight (Pounds): 169 Objective General Appearance: WD/WN, no apparent distress, alert HEENT: PERRL, EOMI Neck: non-tender, normal alignment, supple, normal inspection Respiratory/Chest: lungs clear, normal breath sounds, no respiratory distress Cardiovascular/Chest: normal rate, regular rhythm Abdomen: non tender, soft Extremities: severe edema - with bandages applied, tenderness to palpaiton Neurologic: abnormal gait, alert, oriented x 3 AZAM GAMEZ August 13, 2017 08:54
[2017-08-13] MEDS: Heparin 5000 units/ml inj SUBQ SCH (08:58)
--- NOTE | 2017-08-13 10:36 | Cardiac Electrophysiology PN ---
Assessment/Plan Assessment/Plan 1. Hypertension on atenolol 100 mg daily, Lasix 20 mg daily and Cozaar 100 mg daily 2. Lower extremity cellulitis, possible osteo. Echo EF 60%. No prior myocardial infarction or coronary artery disease or congestive heart failure. S/P Debridement by Dr. Kim. 3. History of polio. 4. Anemia. 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 Subjective Subjective No CP or SOB.Awaiting DC today Objective Last 24 Hour Vital Signs Date Time Temp Pulse Resp B/P (MAP) Pulse Ox O2 Delivery O2 Flow Rate FiO2 08/13/17 09:51 97.9 08/13/17 08:52 97.9 08/13/17 08:52 144/72 08/13/17 08:50 64 144/72 08/13/17 08:01 97.9 64 18 144/72 98 97.9 08/13/17 04:00 97.7 66 17 136/72 94 97.7 08/13/17 00:00 97.7 66 18 150/78 94 97.7 08/12/17 20:00 97.7 63 17 127/61 95 97.7 08/12/17 19:22 97.9 08/12/17 18:52 97.9 08/12/17 16:00 97.9 89 19 122/60 98 97.9 08/12/17 12:34 97.6 08/12/17 12:00 97.6 68 20 139/66 97 97.6 Intake and Output 08/12/17 08/13/17 19:00 07:00 Intake Total 600 ml Balance 600 ml Intake Oral 600 ml # Voids 3 3 # Bowel Movements 2 Objective HEAD AND NECK: No JVD. LUNGS: Clear. CARDIOVASCULAR: Regular S1 and S2 with no gallop or murmur. ABDOMEN: Soft and nontender. EXTREMITIES: S/p debridement Elver Amato MD August 13, 2017 10:36
--- NOTE | 2017-08-13 11:32 | Infectious Diseases Prog Note ---
"Assessment/Plan Assessment/Plan antibiotics : vancomycin iv, minocycline A 1. bilateral leg ulcers with cellulitis with MRSA | stenotrophomonas s/p debridement 2. hypertension 3. post polio syndrome P 1. d/c vancomycin iv, minocycline 2. start and continue po doxycycline 11 more days 3. will follow up cultures Subjective Constitutional: Denies: fever, chills Respiratory: Denies: shortness of breath, dry cough Gastrointestinal/Abdominal: Denies: nausea, vomiting, diarrhea Musculoskeletal: Reports: pain - decreased Allergies: Coded Allergies: CRANBERRY (Verified Allergy, Unknown, Anaphylaxis, 08/05/17) PENICILLINS (Verified Allergy, Unknown, 05/22/17) Objective Vital Signs Last 24 Hour Vital Signs Date Time Temp Pulse Resp B/P (MAP) Pulse Ox O2 Delivery O2 Flow Rate FiO2 08/13/17 09:51 97.9 08/13/17 08:52 97.9 08/13/17 08:52 144/72 08/13/17 08:50 64 144/72 08/13/17 08:01 97.9 64 18 144/72 98 97.9 08/13/17 04:00 97.7 66 17 136/72 94 97.7 08/13/17 00:00 97.7 66 18 150/78 94 97.7 08/12/17 20:00 97.7 63 17 127/61 95 97.7 08/12/17 19:22 97.9 08/12/17 18:52 97.9 08/12/17 16:00 97.9 89 19 122/60 98 97.9 08/12/17 12:34 97.6 08/12/17 12:00 97.6 68 20 139/66 97 97.6 Height (Feet): 5 Height (Inches): 7.00 Weight (Pounds): 169 Respiratory/Chest: lungs clear Cardiovascular: normal rate, regular rhythm, no gallop/murmur Abdomen: soft, non tender Extremities: other - legs in dressings Current Medications Medications (Trade) Dose Ordered Sig/Alec Route PRN Reason Start Time Stop Time Status Last Admin Dose Admin Acetaminophen/ Hydrocodone Bitart ([place] 10/325) 1 tab Q4H PRN ORAL Pain Scale (4-6) 08/12/17 10:00 08/19/17 09:59 08/13/17 08:52 Al Hydroxide/Mg Hydroxide (Mylanta) 30 ml BID PRN ORAL Abdominal cramps 08/05/17 17:45 09/04/17 17:44 Atenolol (Tenormin) 100 mg DAILY ORAL 08/06/17 09:00 09/05/17 08:59 Collagenase (Santyl) 1 applic DAILY TOPIC 08/07/17 06:00 09/04/17 19:29 08/13/17 08:58 Diphenhydramine HCl (Benadryl) 25 mg Q6H PRN ORAL Itching 08/05/17 21:45 09/04/17 21:44 08/05/17 21:58 Docusate Sodium (Colace) 100 mg TWICE A DAY ORAL 08/05/17 18:00 09/04/17 17:59 08/13/17 08:51 Furosemide (Lasix) 20 mg DAILY ORAL 08/06/17 09:00 09/05/17 08:59 Heparin Sodium (Porcine) (Heparin 5000 units/ml) 5,000 units EVERY 12 HOURS SUBQ 08/05/17 21:00 09/04/17 20:59 08/13/17 08:58 Losartan Potassium (Cozaar) 100 mg DAILY ORAL 08/06/17 09:00 09/05/17 08:59 08/13/17 08:52 Magnesium Hydroxide (Mom) 30 ml BID PRN ORAL Constipation 08/05/17 17:45 09/04/17 17:44 Minocycline HCl (Minocin) 100 mg Q12HR ORAL 08/11/17 21:00 08/18/17 20:59 08/13/17 08:53 Morphine Sulfate (Morphine Sulfate) 2 mg Q3H PRN IVP Severe Pain (Pain Scale 7-10) 08/12/17 10:00 08/19/17 09:59 08/12/17 18:52 Ondansetron HCl (Zofran) 4 mg Q4HR PRN IVP Nausea & Vomiting 08/05/17 17:45 09/04/17 17:44 Vancomycin HCl (Vanco rx to dose) 1 ea DAILY PRN MISC Per rx protocol 08/05/17 17:45 09/04/17 17:44 Vancomycin HCl/ Dextrose 250 ml @ 166.667 mls/hr Q24H IVPB 08/08/17 22:00 08/18/17 21:59 08/12/17 21:13 NASIR MCKEON August 13, 2017 11:32"
[2017-08-13 11:38] VITALS: BP 140/69
--- NOTE | 2017-08-14 10:26 | Discharge Summary ---
Discharge Summary Discharge Summary _ DATE OF ADMISSION: 08/05/2017 DATE OF DISCHARGE: 08/13/2017 REASON FOR ADMISSION: 72 years old female with a past medical history significant for polio since childhood, hypertension, history of bilateral lower extremity cellulitis and osteomyelitis in 2013, who followed up with poultry boner for wound care, was sent to emergency room for admission due to infected lower extremity wounds and probable cellulitis. Patient denied fever and chills. Patient admitted to pain and was taking analgesics at home. She denied chest pain or shortness of breath, no headaches, no urinary symptoms. Upon evaluation in emergency room WBC 11.1, lactic acid 1.8. Chest x-ray revealed no acute cardio pulmonary pathology but revealed evidence of cardiomegaly. Venous duplex bilateral lower extremity revealed no evidence of acute DVT. Hemoglobin 10.3 hematocrit 32.3. Patient was afebrile with stable vital signs. Patient admitted with diagnosis of bilateral lower extremity wounds, cellulitis, hypertension, history of osteomyelitis CONSULTANTS: boring mill operator Dr. Amato ID specialist Dr. Burrell Pain specialist Dr. Stone Ticket Sales Supervisor Dr. Kim [facility] COURSE: Patient admitted to medical surgical floor. Patient started on empiric intravenous antibiotics. Infectious disease doctor closely followed. Blood culture were negative, wound culture revealed MRSA and Stenotrophomonas. Patient undergone MRI of bilateral tibia-fibula which revealed evidence consistent with cellulitis, but showed no evidence of acute osteomyelitis or obvious abscess . Ticket Sales Supervisor closely [email or web address]. Patient undergone on 08/08 excisional debridement of bilateral lower extremity wounds to the level of muscle and seven full-thickness biopsy of bilateral lower extremity. Results of biopsy still pending. Wound care provided as per poultry boner recommendations. Pain specialist closely followed. Pain management was provided as per pain specialist recommendations. Pain was controlled. Service Desk Manager closely followed. Blood pressure was managed with atenolol, Cozaar and Lasix and remained stable. Renal parameters and volumes were closely monitored. Echocardiogram revealed preserved ejection fraction of 60%. No evidence of pericardial effusion. Right ventricular pressure of 18. Supportive care provided. DVT and GI prophylaxis provided. Bowel regimen instituted. Hemoglobin and hematocrit were closely monitored, with goal to keep hemoglobin above 7 . Counts remained stable , no need for transfusion. Prior to discharge hemoglobin 8.4 hematocrit 25.6. Leukocytosis resolved. MRI revealed no evidence of osteomyelitis. Blood culture were negative. Infectious disease doctor changed antibiotic to oral doxycycline to complete the course of antibiotic. Prescription provided. Home health arranged for wound care. Patient was stable for discharge home with home health services to follow FINAL DIAGNOSES: Bilateral lower extremity non pressure ulcers Bilateral lower extremity cellulitis with MRSA and Stenotrophomonas Status post excisional debridement of bilateral lower extremity wounds to the level of muscle, status post seven full-thickness biopsy of the wounds bilaterally Hypertension Anemia History of osteomyelitis DISCHARGE MEDICATIONS: See Medication Reconciliation list. Patient to complete oral antibiotic course as prescribed by ID DISCHARGE INSTRUCTIONS: Patient was discharged home with home health services for wound care; patient to follow-up with her primary care provider next week I have been assigned to dictate discharge summary for this account. I was not involved in the patient's management. Zahra Nuñez NP August 14, 2017 10:26
== END 2017-08-13 14:00 | disposition home health service (06) | DRG 580 ==
LOC: EMR 13:53 → 4W 13:57 → EDBEDREQ 15:08
PROC: 0HBLXZX Excision of Left Lower Leg Skin, External Approach, Diagnostic (ICD-10-PCS; principal; 2017-08-08 13:30)
PROC: 0KBS0ZZ Excision of Right Lower Leg Muscle, Open Approach (ICD-10-PCS; principal; 2017-08-08 13:30)
PROC: 0HBKXZX Excision of Right Lower Leg Skin, External Approach, Diagnostic (ICD-10-PCS; principal; 2017-08-08 13:30)
PROC: 0KBT0ZZ Excision of Left Lower Leg Muscle, Open Approach (ICD-10-PCS; principal; 2017-08-08 13:30)
DX: L03.116 Cellulitis of left lower limb (principal); L97.829 Non-pressure chronic ulcer of other part of left lower leg with unspecified severity; L97.819 Non-pressure chronic ulcer of other part of right lower leg with unspecified severity; L03.115 Cellulitis of right lower limb; I10 Essential (primary) hypertension; A49.02 Methicillin resistant Staphylococcus aureus infection, unspecified site; Z22.322 Carrier or suspected carrier of Methicillin resistant Staphylococcus aureus; Z86.12 Personal history of poliomyelitis; D64.9 Anemia, unspecified; M24.9 Joint derangement, unspecified
CPT/HCPCS: 36415; 71045; 80048; 80053; 80061; 80202; 82553; 83605; 83735; 83880; 84443; 85025; 85651; 86140; 87040; 87070; 87181; 87205; 93005; 93306; 93970; 94003; 94150; 99285; J2250; J2405; J8499

== ENCOUNTER 2017-09-17 10:21 | Outpatient (RCR) | payer MEDICARE, BC ==
[~2017-09-17] VITALS: Ht 167.6 cm; Wt 83.0 kg
[~2017-09-17 10:21] MED LIST changes: +ATENOLOL100 MG ORAL
[2017-09-24] MEDS ORDERED: Lidocaine 4% Top Soln 50ml TOPIC ONE (12:15)
--- NOTE | 2017-10-01 21:15 | Consultation ---
DATE OF CONSULTATION: 10/01/2017 INFECTIOUS DISEASE CONSULTATION CONSULTING PHYSICIAN: Santhosh Andrews M.D. REQUESTING PHYSICIAN: Julio Gordon M.D. REASON FOR CONSULTATION: Bilateral legs and ankle chronic nonhealing wounds with infection due to multiple organisms, multidrug-resistant. Failed outpatient oral antibiotics treatment. Recommendation for antibiotics treatment and further management. HISTORY OF PRESENT ILLNESS: The patient is a 72-year-old female with past medical history significant for polio since childhood, status post bilateral ankle surgery to lower her arch due to polio, who developed bilateral leg wounds since 2013 and was treated for cellulitis and possible osteomyelitis at that time with complete resolution of her wounds. She had recurrence of her wounds in both lower extremity about a year ago and she has been followed by the wound care clinic at [facility] as an outpatient with head swamper since then. The patient was admitted on 08/05/2017 due to worsening wound infection on both sides and she underwent surgical debridement at that time. Culture of the wound grew multi-drug resistant Stenotrophomonas maltophilia and MRSA. The patient was initially on vancomycin, but then she was switched to oral doxycycline and was discharged home on oral doxycycline for 11 days as per the last Infectious Disease note. The patient did not have any significant improvement in her wounds, in fact, they became sloughy and have exudate on both sides. The patient had repeated wound culture at the wound care clinic, part of her followup with the head swamper, the result of which grew Enterococcus faecalis, sensitive to Zyvox and quinupristin only. So, she was started on Zyvox 10 days ago and she took it until Saturday, but stopped it over the weekend because it caused diarrhea, then restarted it on Saturday. The patient continued to have extensive large wounds with no significant improvement or progress since her previous hospitalization. So, Infectious Disease consultation was requested for further recommendation and antibiotics treatment of her chronic lower extremity nonhealing wounds. The patient denied any fever or chills. No cough or shortness of breath. No nausea or vomiting. No diarrhea. No urinary symptoms. She definitely has pain in both lower extremity and ankles due to her wounds with yellowish exudative discharge on both wound sites. PAST MEDICAL HISTORY: Significant for hypertension, lower extremity cellulitis and chronic wounds in 2013, post-polio syndrome, and chronic nonhealing lower extremity wounds. PAST SURGICAL HISTORY: She had bilateral lower extremity arch lowering surgery after she had polio and recent surgical debridement of her wounds in July 2017. MEDICATIONS: She is currently on Zyvox 600 twice daily, started 10 days ago. For the rest of her medications, please refer to MAR. ALLERGIES: She is allergic to penicillin with rash and hives. FAMILY HISTORY: Not contributory. SOCIAL HISTORY: The patient lives at home with family. Denied using any drugs, tobacco, or alcohol. REVIEW OF SYSTEMS: A 14-point of system reviewed were all negative apart from the one I mentioned above in my History and Physical. PHYSICAL EXAMINATION: VITAL SIGNS: Reviewed and stable. GENERAL: An elderly female, obese, lying in bed, awake, alert, oriented, and not in acute distress. HEENT: Normocephalic and atraumatic. Pupils reactive to light equally. Moist oral mucosa. No exudate or thrush. NECK: Supple. No lymphadenopathy. CARDIOVASCULAR: Regular rate and rhythm. No murmur or gallop. LUNGS: Clear bilaterally. Diminished breathing sounds at the bases. No rales or rhonchi. ABDOMEN: Soft, obese, nontender, and nondistended. Normal bowel sounds. No hepatosplenomegaly or ascites. EXTREMITY: She had large left lateral lower leg and ankle wound with granulation at the base and yellowish exudate and red borders. She also had right ankle medial and lateral wounds extent to the lower leg both with exudates yellowish in color and granulation at the base with skin redness and erythema surrounding her wounds in both lower extremities. Pulse +2 distal pedal in both lower extremities. She had onychomycosis in both feet. LABORATORY DATA: Labs latest showed white count of 7.3, hemoglobin of 8.4, and platelet count of 242,000. BUN of 15 and creatinine of 1. MICROBIOLOGY: On 08/07/2017, leg wound ulcer culture grew multidrug resistant Stenotrophomonas maltophilia and MRSA. On 09/17/2017, wound culture of the legs grew Enterococcus faecalis, sensitive only to Zyvox and vancomycin. IMAGING: The patient had MRI of both lower extremity on 08/07/2017 including left and right leg with no evidence of osteomyelitis, but soft tissue edema and no deep abscess. She also had venous Doppler and arterial study, both showed patent vascular system with no stenosis or thrombosis. ASSESSMENT AND RECOMMENDATION: 1. Left leg lateral aspect ankle wound with yellowish exudate, chronic in nature. The patient grew multiple resistant bacteria from her wounds including Stenotrophomonas maltophilia and Enterococcus faecalis. At this stage, I recommend skin biopsy to be sent for bacterial, fungal, and AFB culture to identify the exact etiology of her soft tissue infection and to consider choosing the right antibiotics based on her tissue culture and not based on wound culture, which can be contaminant. The patient will need skin biopsy. She agreed to proceed with that option. We will hold giving any antibiotics at this point until skin biopsy is done and we will consider starting them once we get the result. 2. Right leg lateral and medial wounds extending to the ankle. Approach will be the same as #1 with skin biopsy to be sent for bacterial, fungal, and AFB culture to identify the exact etiology of her soft tissue infection and to choose the right antibiotics in the future. The patient to continue aggressive local wound care as per wound care clinic service and to keep the wounds dry and clean as possible. 3. Cellulitis of both lower extremities. The patient is already on Zyvox at this point to finish her course. She will be started on antibiotics once skin biopsy culture is obtained. All questions were answered in detail to the patient and to the wound care clinic team including. Podiatry please feel free to call us with any question. Infectious Disease will continue to follow. Santhosh Andrews M.D. DR: EVELINE JOB#: [id number] CC:
[2017-10-03] MEDS ORDERED: Lidocaine 4% Top Soln 50ml TOPIC ONE (12:00)
--- NOTE | 2017-10-15 16:30 | Infectious Diseases Prog Note ---
Assessment/Plan Problems: (1) Open ankle wound Assessment & Plan: with beefy granulated tissue , she is going to have multiple skin biopsies to be sent for culture bacterial, fungal and AFB. will consider starting antibiotics once bacterial growth is confirmed, continue aggressive local wound care and dressings change as per vamp strap ironer . will follow along with you (2) Ankle cellulitis Assessment & Plan: due to the above, will start antibiotics once bacterial growth is confirmed from biopsy culture which she had done today . to avoid the over use of antibiotics since she received a lot in the past and developed MDR organisms. continue local wound care and dressings change as per wound care team , will monitor culture Subjective Constitutional: Reports: no symptoms HEENT: Reports: no symptoms Respiratory: Reports: no symptoms Breasts: Reports: no symptoms Cardiovascular: Reports: no symptoms Gastrointestinal/Abdominal: Reports: no symptoms Genitourinary: Reports: no symptoms Neurologic: Reports: no symptoms Psychiatric: Reports: no symptoms Skin: Reports: ulcer Endocrine: Reports: no symptoms Hematologic: Reports: no symptoms Musculoskeletal: Reports: no symptoms Allergies: Coded Allergies: CRANBERRY (Verified Allergy, Unknown, Anaphylaxis, 08/05/17) PENICILLINS (Verified Allergy, Unknown, 05/22/17) Objective General Appearance: WD/WN, no acute distress HEENT: normocephalic, atraumatic, anicteric, mucous membranes moist, PERRL Respiratory/Chest: chest wall non-tender, lungs clear, normal breath sounds, no respiratory distress, no accessory muscle use Cardiovascular: normal peripheral pulses, normal rate, regular rhythm, no gallop/murmur, no JVD Abdomen: normal bowel sounds, soft, non tender, no organomegaly, non distended , no mass, no scars Extremities: no cyanosis, no clubbing, other - edema with right ankle medial and lateral wounds and left lateral ankle wound covered with whitish exudate Skin: no rash, no lesions, ulcers - on the right ankle medial and lateral aspect , and left ankle lateral aspect with beefy tissue Neurologic/Psychiatric: alert, oriented x 3, responsive Lymphatic: no neck adenopathy, no groin adenopathy Musculoskeletal: normal muscle bulk, no effusion Santhosh Andrews M.D. Oct 15, 2017 16:30
[2017-10-15] MEDS ORDERED: Lidocaine 4% Top Soln 50ml TOPIC ONE (17:30)
== END 2017-10-15 | disposition home or self-care (01) ==
LOC: WCC 10:21
DX: S91.002D Unspecified open wound, left ankle, subsequent encounter (principal); S91.001D Unspecified open wound, right ankle, subsequent encounter; L03.116 Cellulitis of left lower limb; L03.115 Cellulitis of right lower limb; B95.2 Enterococcus as the cause of diseases classified elsewhere
CPT/HCPCS: 11043; 11046; 11100; 11101; 87070; 87116; 87181; 87205; G0463

== ENCOUNTER 2017-10-22 14:54 | Outpatient (RCR) | payer MEDICARE, BC ==
[~2017-10-22] VITALS: Ht 167.6 cm; Wt 81.6 kg
--- NOTE | 2017-10-22 17:19 | Infectious Diseases Prog Note ---
Assessment/Plan Problems: (1) Open ankle wound Assessment & Plan: chronic and infected with enterococcus faecalis and MRSA , will start her on daptomycin to treat her for wounds infection, for 2-4 weeks depending on her clinical improvement , she may need compression stockings for her venous stasis to improve her edema and wounds recovery . will monitor weekly CK, CBC, and CMP while on daptomycin. all side effects from daptomycin were explained to the patient and she agreed to proceed. will need PICC line for marine oil terminal superintendent antibiotics treatment , D/W patient and primary care physician (2) Ankle cellulitis Assessment & Plan: due to MRSA and enterococcus faecalis, will be on daptomycin already (3) Venous stasis dermatitis of both lower extremities Assessment & Plan: suspect due to her polio , recommend legs wrapping and to keep them elevated all the time Subjective Constitutional: Reports: no symptoms HEENT: Reports: no symptoms Respiratory: Reports: no symptoms Breasts: Reports: no symptoms Cardiovascular: Reports: no symptoms Gastrointestinal/Abdominal: Reports: no symptoms Genitourinary: Reports: no symptoms Neurologic: Reports: no symptoms Psychiatric: Reports: no symptoms Skin: Reports: ulcer Endocrine: Reports: no symptoms Hematologic: Reports: no symptoms Musculoskeletal: Reports: pain, swelling Allergies: Coded Allergies: CRANBERRY (Verified Allergy, Unknown, Anaphylaxis, 08/05/17) PENICILLINS (Verified Allergy, Unknown, 05/22/17) Objective General Appearance: WD/WN, no acute distress HEENT: normocephalic, atraumatic, anicteric, mucous membranes moist, PERRL Respiratory/Chest: chest wall non-tender, lungs clear, normal breath sounds, no respiratory distress, no accessory muscle use Cardiovascular: normal peripheral pulses, normal rate, regular rhythm, no gallop/murmur, no JVD Abdomen: normal bowel sounds, soft, non tender, no organomegaly, non distended , no mass Extremities: no cyanosis, no clubbing Skin: no rash, ulcers, other - large right ankle wounds and left ankle wound covered with exudate and surrounded with Neurologic/Psychiatric: alert, oriented x 3, responsive Lymphatic: no neck adenopathy, no groin adenopathy Musculoskeletal: normal muscle bulk Santhosh Andrews M.D. Oct 22, 2017 17:19
[2017-10-23] MEDS ORDERED: Lidocaine 4% Top Soln 50ml TOPIC ONE (17:00)
--- NOTE | 2017-10-29 17:22 | Infectious Diseases Prog Note ---
Assessment/Plan Problems: (1) Open ankle wound Assessment & Plan: chronic and infected with enterococcus faecalis and MRSA , continue daptomycin to treat her wounds infection for 4 weeks depending on her clinical improvement , she may need compression stockings for her venous stasis to improve her edema and wounds recovery . will monitor weekly CK, CBC, and CMP while on daptomycin. all side effects from daptomycin were explained to the patient and she agreed to proceed. she refused PICC line placement for skilled nursing antibiotics treatment , D/W patient and wound care team (2) Ankle cellulitis Assessment & Plan: due to MRSA and enterococcus faecalis, improving on daptomycin already (3) Vicky parapsilosis infection Assessment & Plan: of the skin wounds , will add fluconazol 100 mg po q 24 hours for four weeks course of treatment (4) Venous stasis dermatitis of both lower extremities Assessment & Plan: suspect due to her polio , recommend legs wrapping and to keep them elevated all the time Subjective Constitutional: Reports: no symptoms HEENT: Reports: no symptoms Respiratory: Reports: no symptoms Breasts: Reports: no symptoms Cardiovascular: Reports: no symptoms Gastrointestinal/Abdominal: Reports: no symptoms Genitourinary: Reports: no symptoms Neurologic: Reports: no symptoms Psychiatric: Reports: no symptoms Skin: Reports: no symptoms Endocrine: Reports: no symptoms Hematologic: Reports: no symptoms Musculoskeletal: Reports: no symptoms Allergies: Coded Allergies: CRANBERRY (Verified Allergy, Unknown, Anaphylaxis, 08/05/17) PENICILLINS (Verified Allergy, Unknown, 05/22/17) Subjective sharp pain at the wounds site Objective General Appearance: WD/WN, no acute distress HEENT: normocephalic, atraumatic, anicteric, mucous membranes moist, PERRL, EOMI, pharynx normal, supple, no JVD Respiratory/Chest: chest wall non-tender, lungs clear, normal breath sounds, no respiratory distress, no accessory muscle use Cardiovascular: normal peripheral pulses, normal rate, regular rhythm, no gallop/murmur, no JVD Abdomen: normal bowel sounds, soft, non tender, no organomegaly, non distended , no mass, no scars Genitourinary: normal external genitalia Extremities: no cyanosis, no clubbing Skin: no rash, no lesions, ulcers, other - right medial and lateral wounds with exudates covering the wounds and surrounding cellulitis Neurologic/Psychiatric: alert, oriented x 3, responsive Lymphatic: no neck adenopathy, no groin adenopathy Musculoskeletal: normal muscle bulk Santhosh Andrews M.D. Oct 29, 2017 17:22
[2017-10-31] MEDS ORDERED: Lidocaine 4% Top Soln 50ml TOPIC ONE (11:30)
--- NOTE | 2017-11-05 16:38 | Infectious Diseases Prog Note ---
Assessment/Plan Problems: (1) Open ankle wound Assessment & Plan: chronic and infected with enterococcus faecalis and MRSA , with no significant improvement mainly on the left ankle wound suspect circulation problem such as venous stasis or atypical organisms, recommend referral for vascular study with arterial and venous Doppler. continue daptomycin to treat her wounds infection for average of 4 weeks depending on her clinical improvement , she may need gisselle boot for her venous stasis to improve her edema and wounds recovery . recommend to change wound dressing to [place] since continues to have extensive exudate . will monitor weekly CK, CBC, and CMP while on daptomycin. all side effects from daptomycin were explained to the patient and she agreed to proceed. she refused PICC line placement for continuous churn buttermaker antibiotics treatment , D/W patient and wound care team (2) Ankle cellulitis Assessment & Plan: due to MRSA and enterococcus faecalis, slow recovery while on daptomycin, keep legs elevated all the time while in bed, apply compression device such as gisselle boot (3) Vicky parapsilosis infection Assessment & Plan: of the skin wounds , continue fluconazol 100 mg po q 24 hours for four weeks course of treatment (4) Venous stasis dermatitis of both lower extremities Assessment & Plan: suspect due to her polio , recommend vascular study of both legs to rule out circulation problems , may need legs wrapping and to keep them elevated all the time Subjective Constitutional: Reports: no symptoms HEENT: Reports: no symptoms Respiratory: Reports: no symptoms Breasts: Reports: no symptoms Cardiovascular: Reports: no symptoms Gastrointestinal/Abdominal: Reports: no symptoms Genitourinary: Reports: no symptoms Neurologic: Reports: no symptoms Psychiatric: Reports: no symptoms Skin: Reports: ulcer, other Endocrine: Reports: no symptoms Hematologic: Reports: no symptoms Musculoskeletal: Reports: pain, swelling Allergies: Coded Allergies: CRANBERRY (Verified Allergy, Unknown, Anaphylaxis, 08/05/17) PENICILLINS (Verified Allergy, Unknown, 05/22/17) Subjective sharp pain at the wounds site with swelling of the skin and redness surrounding them Objective General Appearance: WD/WN, no acute distress HEENT: normocephalic, atraumatic, anicteric, mucous membranes moist, PERRL, EOMI, pharynx normal, supple, no JVD Respiratory/Chest: chest wall non-tender, lungs clear, normal breath sounds, no respiratory distress, no accessory muscle use Cardiovascular: normal peripheral pulses, normal rate, regular rhythm, no gallop/murmur, no JVD Abdomen: normal bowel sounds, soft, non tender, no organomegaly, non distended , no mass, no scars Genitourinary: normal external genitalia Extremities: other - veous stasis with edema of the skin and large left lateral ankle wound with exudate and yellowish discharge , right ankle medial and lateral wounds with less exudate and redness . Skin: no rash, no lesions, ulcers Neurologic/Psychiatric: alert, oriented x 3, responsive Lymphatic: no neck adenopathy, no groin adenopathy Musculoskeletal: normal muscle bulk, other - venous stasis of the legs Santhosh Andrews M.D. Nov 05, 2017 16:38
[2017-11-08] MEDS ORDERED: Lidocaine 4% Top Soln 50ml TOPIC ONE (13:15)
--- NOTE | 2017-11-12 17:44 | Infectious Diseases Prog Note ---
Assessment/Plan Problems: (1) Open ankle wound Assessment & Plan: chronic and infected with enterococcus faecalis and MRSA , now with improvement in the depth of her wounds with less exudate after using gisselle boot . will continue daptomycin to treat her wounds infection for average of 4 weeks depending on her clinical improvement , she will use venous pump instead of the gisselle boot for her venous stasis to improve her edema and wounds recovery . continue wound dressing as per wound care team . will monitor weekly CK, CBC, and CMP while on daptomycin. all side effects from daptomycin were explained to the patient and she agreed to proceed. she refused PICC line placement for group home antibiotics treatment , D/W patient and wound care team (2) Ankle cellulitis Assessment & Plan: due to MRSA and enterococcus faecalis, slow recovery while on daptomycin, keep legs elevated all the time while in bed, continue to apply compression device such as gisselle boot or venous pump to improve her edema and wound recovery (3) Vicky parapsilosis infection Assessment & Plan: of the skin wounds , continue fluconazol 100 mg po q 24 hours for four weeks course of treatment (4) Venous stasis dermatitis of both lower extremities Assessment & Plan: suspect due to her polio , recommend vascular study of both legs to rule out circulation problems , continue local compression devices and keep legs elevated all the time Subjective Constitutional: Reports: no symptoms HEENT: Reports: no symptoms Respiratory: Reports: no symptoms Breasts: Reports: no symptoms Cardiovascular: Reports: no symptoms Gastrointestinal/Abdominal: Reports: no symptoms Genitourinary: Reports: no symptoms Neurologic: Reports: no symptoms Psychiatric: Reports: no symptoms Skin: Reports: ulcer Endocrine: Reports: no symptoms Hematologic: Reports: no symptoms Musculoskeletal: Reports: pain, swelling Allergies: Coded Allergies: CRANBERRY (Verified Allergy, Unknown, Anaphylaxis, 08/05/17) PENICILLINS (Verified Allergy, Unknown, 05/22/17) Subjective she has less pain at the wounds site with less swelling of the skin and redness surrounding the wounds after she used gisselle boot Objective General Appearance: WD/WN, no acute distress HEENT: normocephalic, atraumatic, anicteric, mucous membranes moist, PERRL, EOMI, pharynx normal, supple, no JVD Respiratory/Chest: chest wall non-tender, lungs clear, normal breath sounds, no respiratory distress, no accessory muscle use Cardiovascular: normal peripheral pulses, normal rate, regular rhythm, no gallop/murmur, no JVD Abdomen: normal bowel sounds, soft, non tender, no organomegaly, non distended , no mass, no scars Genitourinary: normal external genitalia Extremities: no cyanosis, no clubbing, other - left leg wound with thin exudate , right leg two wounds on the medial and lateral aspect with thin exudate Skin: no rash, no lesions, ulcers Neurologic/Psychiatric: alert, oriented x 3, responsive Lymphatic: no neck adenopathy, no groin adenopathy Musculoskeletal: normal muscle bulk, other - venous stasis and edema Santhosh Andrews M.D. Nov 12, 2017 17:44
== END 2017-11-15 | disposition home or self-care (01) ==
LOC: WCC 14:54
DX: L97.815 Non-pressure chronic ulcer of other part of right lower leg with muscle involvement without evidence of necrosis (principal); L97.825 Non-pressure chronic ulcer of other part of left lower leg with muscle involvement without evidence of necrosis; R60.0 Localized edema; M89.671 Osteopathy after poliomyelitis, right ankle and foot; M89.672 Osteopathy after poliomyelitis, left ankle and foot; Z88.0 Allergy status to penicillin; I89.0 Lymphedema, not elsewhere classified; I87.2 Venous insufficiency (chronic) (peripheral); I10 Essential (primary) hypertension
CPT/HCPCS: 11043; 11046; 29580

== ENCOUNTER 2017-11-19 15:09 | Outpatient (RCR) | payer MEDICARE, BC ==
[~2017-11-19] VITALS: Ht 167.6 cm; Wt 81.6 kg
--- NOTE | 2017-11-20 20:23 | Infectious Diseases Prog Note ---
Assessment/Plan Problems: (1) Open ankle wound Assessment & Plan: with no evidence of infection at this point , has been on daptomycin for almost four weeks, she showed improvement with gisselle boot to keep the fluids out of her legs and with stopping santyl topical, at this point she should be worked up with vascular study to assess the need for possible revascularization , since she showed slow improvement to iv antibiotics . she will be done on 11/21/17. she is to continue local wound care with debridement and dressings change as per the wound care team. I will continue to monitor her AFB tissue biopsy culture for any growth . (2) Ankle cellulitis Assessment & Plan: improved , but continues to have venous stasis like dermatitis .recommend vascular eval (3) Venous stasis dermatitis of both lower extremities Assessment & Plan: continue with legs wrapping and keep legs elevated when possible, recommend vascular eval with mapping . all questions were answered to the patient and the wound care team , please call with any questions Subjective Constitutional: Reports: no symptoms HEENT: Reports: no symptoms Respiratory: Reports: no symptoms Breasts: Reports: no symptoms Cardiovascular: Reports: no symptoms Gastrointestinal/Abdominal: Reports: no symptoms Genitourinary: Reports: no symptoms Neurologic: Reports: no symptoms Psychiatric: Reports: no symptoms Skin: Reports: ulcer Endocrine: Reports: no symptoms Hematologic: Reports: no symptoms Musculoskeletal: Reports: no symptoms Allergies: Coded Allergies: CRANBERRY (Verified Allergy, Unknown, Anaphylaxis, 08/05/17) PENICILLINS (Verified Allergy, Unknown, 05/22/17) Subjective late entry note for 11/19/17. [facility], with the wound care team , she has improvement in the depth of her wounds, and now they are more shallow , no significant exudate or draining from the wounds, with good granulation tissue at the base . Objective General Appearance: WD/WN, no acute distress HEENT: normocephalic, atraumatic, anicteric, mucous membranes moist, PERRL Respiratory/Chest: chest wall non-tender, lungs clear, normal breath sounds, no respiratory distress, no accessory muscle use Cardiovascular: normal peripheral pulses, normal rate, regular rhythm, no gallop/murmur, no JVD Abdomen: normal bowel sounds, soft, non tender, no organomegaly, non distended , no mass, no scars Extremities: no cyanosis, no clubbing, other - B/L legs wounds with mild exudates and good granulation at the bases , no pus draining , but lymphatic fluids, no foul smell Skin: no rash, no lesions, ulcers - right ankle medial and lateral wounds with clean base, left lateral leg wound with mild exudate Neurologic/Psychiatric: compotype operator II-XII grossly normal, no motor/sensory deficits, alert, oriented x 3, responsive Santhosh Andrews M.D. Nov 20, 2017 20:23
[2017-11-28] MEDS ORDERED: Lidocaine 4% Top Soln 50ml TOPIC ONE (12:15)
[2017-12-05] MEDS ORDERED: Lidocaine 4% Top Soln 50ml TOPIC ONE (12:00)
[2017-12-11] MEDS ORDERED: Lidocaine 4% Top Soln 50ml TOPIC ONE (16:30)
== END 2017-12-15 | disposition home or self-care (01) ==
LOC: WCC 15:09
DX: L97.815 Non-pressure chronic ulcer of other part of right lower leg with muscle involvement without evidence of necrosis (principal); L97.825 Non-pressure chronic ulcer of other part of left lower leg with muscle involvement without evidence of necrosis; R60.0 Localized edema; M89.671 Osteopathy after poliomyelitis, right ankle and foot; M89.672 Osteopathy after poliomyelitis, left ankle and foot; I87.2 Venous insufficiency (chronic) (peripheral); I89.0 Lymphedema, not elsewhere classified; I10 Essential (primary) hypertension; Z88.0 Allergy status to penicillin
CPT/HCPCS: 11043; 11046; 29580; 97606

== ENCOUNTER 2017-12-17 09:04 | Outpatient (RCR) | payer MEDICARE, BC ==
[~2017-12-17] VITALS: Ht 167.6 cm; Wt 81.6 kg
[2017-12-19] MEDS ORDERED: Lidocaine 4% Top Soln 50ml TOPIC ONE (11:45)
--- NOTE | 2017-12-24 18:04 | Infectious Diseases Prog Note ---
Assessment/Plan Problems: (1) Open ankle wound Assessment & Plan: was treated previously with daptomycin for four weeks , since her skin tissue culture grew staph aureus and enterococcus faecalis only. fungal and AFB culture is negative, patient needs vascular study to evaluate her skin perfusion , which I think the reason she didn't have significant improvement with antibiotics in the past. I also recommend leg wrapping and dakin topical dressings to all wounds . I don't see any benefit at this point for more systemic antibiotics since she didn't respond well to them in the past due to venous failure in her legs . wounds don't look infected but colonized . D/W patient and strap buckler machine in details . (2) Venous stasis dermatitis of both lower extremities Assessment & Plan: recommend vascular eval for work up with veins mapping . Subjective Constitutional: Reports: no symptoms HEENT: Reports: no symptoms Respiratory: Reports: no symptoms Breasts: Reports: no symptoms Cardiovascular: Reports: no symptoms Gastrointestinal/Abdominal: Reports: no symptoms Genitourinary: Reports: no symptoms Neurologic: Reports: no symptoms Psychiatric: Reports: no symptoms Skin: Reports: ulcer Endocrine: Reports: no symptoms Hematologic: Reports: no symptoms Musculoskeletal: Reports: no symptoms Allergies: Coded Allergies: CRANBERRY (Verified Allergy, Unknown, Anaphylaxis, 08/05/17) PENICILLINS (Verified Allergy, Unknown, 05/22/17) All Systems: reviewed and negative except above Objective General Appearance: WD/WN, no acute distress HEENT: normocephalic, atraumatic, anicteric, mucous membranes moist, PERRL, EOMI, pharynx normal, supple, no JVD Respiratory/Chest: chest wall non-tender, lungs clear, normal breath sounds, no respiratory distress, no accessory muscle use Cardiovascular: normal peripheral pulses, normal rate, regular rhythm, no gallop/murmur, no JVD Abdomen: normal bowel sounds, soft, non tender, no organomegaly, non distended , no mass, no scars Extremities: no cyanosis, no clubbing, other - right medial and lateral ankle wounds with exudate , left lateral wound large with exudate, no foul smell Skin: no rash, no lesions, ulcers - on the right ankle, and left leg Santhosh Andrews M.D. Dec 24, 2017 18:04
[2017-12-26] MEDS ORDERED: Lidocaine 4% Top Soln 50ml TOPIC ONE (10:00)
[2018-01-01] MEDS ORDERED: Lidocaine 4% Top Soln 50ml TOPIC ONE (11:15)
[2018-01-15] MEDS ORDERED: Lidocaine 4% Top Soln 50ml TOPIC ONE (11:15)
== END 2018-01-15 | disposition home or self-care (01) ==
LOC: WCC 09:04
DX: L97.815 Non-pressure chronic ulcer of other part of right lower leg with muscle involvement without evidence of necrosis (principal); L97.825 Non-pressure chronic ulcer of other part of left lower leg with muscle involvement without evidence of necrosis; R60.0 Localized edema; M89.671 Osteopathy after poliomyelitis, right ankle and foot; M89.672 Osteopathy after poliomyelitis, left ankle and foot; I87.2 Venous insufficiency (chronic) (peripheral); I89.0 Lymphedema, not elsewhere classified; Z88.0 Allergy status to penicillin; I10 Essential (primary) hypertension
CPT/HCPCS: 11043; 11046; 97606; G0463

== ENCOUNTER 2018-01-21 12:46 | Outpatient (RCR) | payer MEDICARE, BC ==
[~2018-01-21] VITALS: Ht 167.6 cm; Wt 81.6 kg
[2018-01-21] MEDS ORDERED: ZINC50 M1 ORAL (18:38)
[2018-01-21] MEDS ORDERED: LOSARTAN POTAS100 MG ORAL (19:16)
[2018-01-21] MEDS ORDERED: ZINC30 MG ORAL (19:16)
[2018-01-21] MEDS ORDERED: FUROSEMIDE40 MG ORAL (19:16)
[2018-01-21] MEDS ORDERED: RESVERATROL100 MG PO (19:28)
[2018-01-21] MEDS ORDERED: BIOTIN5 M2 PO (19:28)
[2018-01-21] MEDS ORDERED: PROTEIN975 MG PO (19:28)
[2018-01-21] MEDS ORDERED: [UNRECOGNIZED DRUG - OTHER] PO (19:28)
[2018-01-21] MEDS ORDERED: VITAMIN A10000 UNIT ORAL (19:28)
[2018-01-21] MEDS ORDERED: FISH OIL 1,0001 EAC1 ORAL (19:28)
[2018-01-21] MEDS ORDERED: VITAMIN D1000 UNI1 ORAL (19:42)
[2018-01-21] MEDS ORDERED: VITAMIN C500 M1 ORAL (19:42)
[2018-01-22] MEDS ORDERED: Lidocaine 4% Top Soln 50ml TOPIC ONE (16:15)
[2018-01-29] MEDS ORDERED: BACTRIM-DS1 EA ORAL (11:26)
[2018-01-29] MEDS ORDERED: LEVOFLOXACIN500 MG ORAL (11:27)
[2018-01-29] MEDS ORDERED: PROTONIX20 MG ORAL (11:27)
[2018-01-29] MEDS ORDERED: NORCO 10-325 T1 EACH ORAL (11:33)
== END 2018-02-14 | disposition home or self-care (01) ==
LOC: WCC 12:46
DX: L97.815 Non-pressure chronic ulcer of other part of right lower leg with muscle involvement without evidence of necrosis (principal); L97.825 Non-pressure chronic ulcer of other part of left lower leg with muscle involvement without evidence of necrosis; R60.0 Localized edema; M89.671 Osteopathy after poliomyelitis, right ankle and foot; M89.672 Osteopathy after poliomyelitis, left ankle and foot; I87.2 Venous insufficiency (chronic) (peripheral); I89.0 Lymphedema, not elsewhere classified; L03.115 Cellulitis of right lower limb; L03.116 Cellulitis of left lower limb; Z88.0 Allergy status to penicillin; I10 Essential (primary) hypertension
CPT/HCPCS: G0463 ×2

== ENCOUNTER 2018-01-21 16:07 | Inpatient (IN) | payer MEDICARE, BC ==
[~2018-01-21] VITALS: Ht 165.1 cm; Wt 88.6 kg
--- NOTE | 2018-01-21 16:15 | Emergency Room Report ---
History of Present Illness General Chief Complaint: leg redness Source: Patient Present Illness HPI Patient is a 72-year-old female sent in from wound care clinic for increased lower extremity cellulitis. Patient had the prior history of chronic nonhealing wounds. Patient had previously been taking daptomycin IV without any relief. Patient is followed by Dr. Chas Hampton. Patient was sent in by Dr. Kim. Allergies: Coded Allergies: CRANBERRY (Verified Allergy, Unknown, Anaphylaxis, 08/05/17) PENICILLINS (Verified Allergy, Unknown, 05/22/17) Nursing Documentation-PMH Hx Cardiac Problems: Yes Hx Hypertension: Yes Hx Cancer: Yes Hx Gastrointestinal Problems: No Hx Neurological Problems: Yes Hx Weakness: Yes - post polio syndrome Physical Exam Sp02 EP Interpretation: reviewed, normal General Appearance: normal inspection, well appearing, no apparent distress, alert, GCS 15, non-toxic Head: atraumatic ENT: normal ENT inspection, hearing grossly normal, normal voice Neck: normal inspection, full range of motion, supple, no bony tend Respiratory: normal inspection, lungs clear, normal breath sounds, no respiratory distress, no retraction, no wheezing Cardiovascular #1: regular rate, rhythm, no edema Gastrointestinal: normal inspection, normal bowel sounds, non tender, soft, no guarding, no hernia Genitourinary: no CVA tenderness Musculoskeletal: normal inspection, back normal, normal range of motion Neurologic: normal inspection, alert, responsive, speech normal Psychiatric: normal inspection, judgement/insight normal, mood/affect normal Skin: other - right leg erythema with satellite lesions, bilateral chronic nonhealing wounds. Medical Decision Making Diagnostic Impression: Primary Impression: Ankle cellulitis Additional Impression: Open ankle wound ER Course Presented for lower extremity swelling. Differential diagnoses included was not limited to allergic reaction, liver failure, congestive heart failure, DVT, cellulitis, among others. Because of complexity of patient's case laboratory testing and imaging studies were ordered. The patient given IV pain medications. The patient was discussed with Dr. Kim. Patient was discussed with Dr. Chas Hampton for inpatient management. Patient was noted to be taking Lasix 40 mg, losartan 100 mg as well as multiple [id number] supplements. Labs Test 01/21/18 17:35 White Blood Count 18.0 K/UL (4.8-10.8) Red Blood Count 3.24 M/UL (4.20-5.40) Hemoglobin 8.3 G/DL (12.0-16.0) Hematocrit 25.6 % (37.0-47.0) Mean Corpuscular Volume 79 FL (80-99) Mean Corpuscular Hemoglobin 25.6 PG (27.0-31.0) Mean Corpuscular Hemoglobin Concent 32.5 G/DL (32.0-36.0) Red Cell Distribution Width 16.5 % (11.6-14.8) Platelet Count 335 K/UL (150-450) Mean Platelet Volume 5.7 FL (6.5-10.1) Neutrophils (%) (Auto) % (45.0-75.0) Lymphocytes (%) (Auto) % (20.0-45.0) Monocytes (%) (Auto) % (1.0-10.0) Eosinophils (%) (Auto) % (0.0-3.0) Basophils (%) (Auto) % (0.0-2.0) Status: unchanged Disposition: ADMITTED INPATIENT Condition: Serious Johan James MD Jan 21, 2018 16:15
[2018-01-21] MEDS ORDERED: Morphine Sulfate 4mg/ml Inj (IV/IM USE ONLY) IVP ONE (17:00)
[2018-01-21 18:09] LABS: HEMATOCRIT 25.6 % (37.0-47.0); HEMOGLOBIN 8.3 G/DL (12.0-16.0); MEAN CORPUSCULAR VOLUME 79 FL (80-99); PLATELET COUNT 335 K/UL (150-450); RED BLOOD COUNT 3.24 M/UL (4.20-5.40); RED CELL DISTRIBUTION WIDTH 16.5 % (11.6-14.8)
[2018-01-21 18:20] LABS: INR 1.1 (0.9-1.1)
[2018-01-21 18:23] LABS: ANION GAP 13 mmol/L (5-15); BLOOD UREA NITROGEN 43 mg/dL (7-18); CALCIUM 9.2 MG/DL (8.5-10.1); CARBON DIOXIDE 18 MMOL/L (21-32); CHLORIDE 107 MMOL/L (98-107); CREATININE 1.3 MG/DL (0.55-1.30); POTASSIUM 2.9 MMOL/L (3.5-5.1); SODIUM 138 MMOL/L (136-145)
[2018-01-21 18:28] VITALS: BP 114/62
[2018-01-21 18:34] LABS: ALANINE AMINOTRANSFERASE 17 U/L (12-78); ALBUMIN 2.2 G/DL (3.4-5.0); ALBUMIN/GLOBULIN RATIO 0.4 (1.0-2.7); ALKALINE PHOSPHATASE 90 U/L (46-116); ASPARTATE AMINO TRANSFERASE 17 U/L (15-37); BILIRUBIN,TOTAL 0.2 MG/DL (0.2-1.0)
[2018-01-21] MEDS ORDERED: ZINC50 M1 ORAL (18:38)
[2018-01-21] MEDS ORDERED: LOSARTAN POTAS100 MG ORAL (19:16)
[2018-01-21] MEDS ORDERED: ZINC30 MG ORAL (19:16)
[2018-01-21] MEDS ORDERED: FUROSEMIDE40 MG ORAL (19:16)
[2018-01-21] MEDS ORDERED: RESVERATROL100 MG PO (19:28)
[2018-01-21] MEDS ORDERED: BIOTIN5 M2 PO (19:28)
[2018-01-21] MEDS ORDERED: PROTEIN975 MG PO (19:28)
[2018-01-21] MEDS ORDERED: [UNRECOGNIZED DRUG - OTHER] PO (19:28)
[2018-01-21] MEDS ORDERED: VITAMIN A10000 UNIT ORAL (19:28)
[2018-01-21] MEDS ORDERED: FISH OIL 1,0001 EAC1 ORAL (19:28)
[2018-01-21] MEDS ORDERED: VITAMIN D1000 UNI1 ORAL (19:42)
[2018-01-21] MEDS ORDERED: VITAMIN C500 M1 ORAL (19:42)
[2018-01-21 20:00] VITALS: BP 101/48
[2018-01-21] MEDS ORDERED: Morphine Sulfate 2mg/ml Inj IVP PRN (20:30)
[2018-01-21] MEDS ORDERED: Norco 5mg/325mg tab ORAL PRN (20:30)
[2018-01-21] MEDS ORDERED: Milk of Magnesia 30ml Ud ORAL PRN (21:15)
[2018-01-21] MEDS ORDERED: Zolpidem 5mg tab ORAL PRN (21:15)
[2018-01-21] MEDS: Vancomycin 1 GM in D5W 275 ML IVPB SCH (22:33)
[2018-01-21] MEDS ORDERED: DiphenhydrAMINE 50mg/ml Inj IVP PRN (23:21)
[2018-01-21] MEDS: HYDROmorphone 1mg/ml Carpuject IVP PRN (23:53)
[2018-01-22 00:09] VITALS: BP 127/62
[2018-01-22 04:00] VITALS: BP 106/52
[2018-01-22] MEDS: HYDROmorphone 1mg/ml Carpuject IVP PRN ×5 (06:22→20:08)
[2018-01-22 06:29] LABS: HEMATOCRIT 23.1 % (37.0-47.0); HEMOGLOBIN 7.5 G/DL (12.0-16.0); MEAN CORPUSCULAR VOLUME 78 FL (80-99); PLATELET COUNT 322 K/UL (150-450); RED BLOOD COUNT 2.98 M/UL (4.20-5.40); RED CELL DISTRIBUTION WIDTH 16.9 % (11.6-14.8); WHITE BLOOD COUNT 13.4 K/UL (4.8-10.8)
[2018-01-22 07:18] LABS: ALANINE AMINOTRANSFERASE 16 U/L (12-78); ALBUMIN 1.8 G/DL (3.4-5.0); ALBUMIN/GLOBULIN RATIO 0.4 (1.0-2.7); ALKALINE PHOSPHATASE 76 U/L (46-116); ANION GAP 11 mmol/L (5-15); ASPARTATE AMINO TRANSFERASE 12 U/L (15-37); BILIRUBIN,TOTAL 0.3 MG/DL (0.2-1.0); BLOOD UREA NITROGEN 32 mg/dL (7-18); CALCIUM 8.9 MG/DL (8.5-10.1); CARBON DIOXIDE 20 MMOL/L (21-32); CHLORIDE 111 MMOL/L (98-107); CHOLESTEROL 114 MG/DL (< 200); CREATININE 1.1 MG/DL (0.55-1.30); HDL CHOLESTEROL 46 MG/DL (40-60); POTASSIUM 3.1 MMOL/L (3.5-5.1); SODIUM 142 MMOL/L (136-145); TRIGLYCERIDES 62 MG/DL (30-150)
[2018-01-22 08:00] VITALS: BP 104/50
[2018-01-22] MEDS: Docusate 100mg cap ORAL SCH ×2 (08:54→17:09)
--- NOTE | 2018-01-22 08:56 | General Progress Note ---
Assessment/Plan Assessment/Plan (1) B/L LE pain (2) B/L LE cellulitis with open wounds (3) Post polio syndrome (4) H/o debridement of B/L LE wounds Patient will be continued on [place] increased to 10/325mg PO 1 tab Q4H PRN mod pain and Dilaudid. We will discontinue the morphine and start Neurontin 100mg PO 1 tab TID. D/w Dr. Stone and he concurred. Subjective Date patient seen: Jan 22, 2018 Time patient seen: 07:15 - am Allergies: Coded Allergies: CRANBERRY (Verified Allergy, Unknown, Anaphylaxis, 08/05/17) PENICILLINS (Verified Allergy, Unknown, 05/22/17) Subjective Constitutional: Reports: no symptoms Eye: Reports: no symptoms ENT: Reports: no symptoms Respiratory: Reports: no symptoms Cardiovascular: Reports: no symptoms Gastrointestinal: Reports: no symptoms Genitourinary: Reports: no symptoms Musculoskeletal: Reports: muscle stiffness Skin: Reports: lesions Psychiatric: Reports: no symptoms Neurological: Reports: focal weakness Endocrine: Reports: no symptoms Hematologic/Lymphatic: Reports: no symptoms Subjective Patient is a known patient from prior admission. C/o severe LE pain. Started on Dilaudid 1mg IV Q3H PRN which h has been reducing her pain. D/w her about Neurontin. She understands. Objective Last 24 Hour Vital Signs Date Time Temp Pulse Resp B/P (MAP) Pulse Ox O2 Delivery O2 Flow Rate FiO2 01/22/18 04:00 98.1 80 19 106/52 (70) 97 01/22/18 00:09 98.1 93 20 127/62 (83) 99 01/21/18 22:49 Room Air 01/21/18 20:00 98.5 81 20 101/48 (65) 97 01/21/18 19:53 97.9 89 15 114/62 96 Room Air 01/21/18 18:28 97.9 89 15 114/62 96 Room Air 01/21/18 18:14 97.9 01/21/18 16:51 70 14 Room Air 01/21/18 16:14 97.9 70 14 110/58 99 Room Air Intake and Output 01/21/18 01/22/18 19:00 07:00 Intake Total 100 ml 395.208 ml Balance 100 ml 395.208 ml Intake Oral 120 ml IV Total 100 ml 275.208 ml # Voids 1 3 Laboratory Tests 01/21/18 17:35: White Blood Count 18.0H, Red Blood Count 3.24L, Hemoglobin 8.3L, Hematocrit 25.6L, Mean Corpuscular Volume 79L, Mean Corpuscular Hemoglobin 25.6L, Mean Corpuscular Hemoglobin Concent 32.5, Red Cell Distribution Width 16.5H, Platelet Count 335, Mean Platelet Volume 5.7L, Neutrophils (%) (Auto) , Lymphocytes (%) (Auto) , Monocytes (%) (Auto) , Eosinophils (%) (Auto) , Basophils (%) (Auto) , Differential Total Cells Counted 100, Neutrophils % ( Manual) 90H, Lymphocytes % (Manual) 6L, Monocytes % (Manual) 3, Eosinophils % ( Manual) 0, Basophils % (Manual) 0, Band Neutrophils 1, Platelet Estimate Adequate, Platelet Morphology Normal, Polychromasia 1+, Anisocytosis 1+, Microcytosis 1+, Prothrombin Time 11.8H, Prothromb Time International Ratio 1.1 , Activated Partial Thromboplast Time 28, Sodium Level 138, Potassium Level 2.9L , Chloride Level 107, Carbon Dioxide Level 18L, Anion Gap 13, Blood Urea Nitrogen 43H, Creatinine 1.3, Estimat Glomerular Filtration Rate , Glucose Level 120H, Calcium Level 9.2, Total Bilirubin 0.2, Aspartate Amino Transf (AST/ SGOT) 17, Alanine Aminotransferase (ALT/SGPT) 17, Alkaline Phosphatase 90, Troponin I 0.000, Pro-B-Type Natriuretic Peptide 428H, Total Protein 7.8, Albumin 2.2L, Globulin 5.6, Albumin/Globulin Ratio 0.4L 01/22/18 05:30: White Blood Count 13.4H, Red Blood Count 2.98L, Hemoglobin 7.5L, Hematocrit 23.1L, Mean Corpuscular Volume 78L, Mean Corpuscular Hemoglobin 25.3L, Mean Corpuscular Hemoglobin Concent 32.6, Red Cell Distribution Width 16.9H, Platelet Count 322, Mean Platelet Volume 6.2L, Neutrophils (%) (Auto) , Lymphocytes (%) (Auto) , Monocytes (%) (Auto) , Eosinophils (%) (Auto) , Basophils (%) (Auto) , Differential Total Cells Counted 100, Neutrophils % ( Manual) 87H, Lymphocytes % (Manual) 7L, Monocytes % (Manual) 5, Eosinophils % ( Manual) 1, Basophils % (Manual) 0, Band Neutrophils 0, Platelet Estimate Adequate, Platelet Morphology Normal, Anisocytosis 1+, Microcytosis 1+, Sodium Level 142, Potassium Level 3.1L, Chloride Level 111H, Carbon Dioxide Level 20L, Anion Gap 11, Blood Urea Nitrogen 32H, Creatinine 1.1, Estimat Glomerular Filtration Rate , Glucose Level 91, Calcium Level 8.9, Total Bilirubin 0.3, Aspartate Amino Transf (AST/SGOT) 12L, Alanine Aminotransferase (ALT/SGPT) 16, Alkaline Phosphatase 76, Total Protein 6.9, Albumin 1.8L, Globulin 5.1, Albumin/ Globulin Ratio 0.4L, Hypochromasia 1+, Triglycerides Level 62, Cholesterol Level 114, LDL Cholesterol 58, HDL Cholesterol 46, Cholesterol/HDL Ratio 2.5L, Thyroid Stimulating Hormone (TSH) 0.889 Height (Feet): 5 Height (Inches): 6.00 Weight (Pounds): 196 Objective General Appearance: WD/WN, no apparent distress, alert HEENT: PERRL, EOMI Neck: non-tender, normal alignment, supple, normal inspection Respiratory/Chest: lungs clear, normal breath sounds, no respiratory distress Cardiovascular/Chest: normal rate, regular rhythm Abdomen: non tender, soft Extremities: severe edema - with bandages applied, tenderness to palpaiton Neurologic: abnormal gait, alert, oriented x 3 Ricco Damico Jan 22, 2018 08:56
[2018-01-22] MEDS: Heparin 5000 units/ml inj SUBQ SCH ×2 (08:57→21:25)
[2018-01-22] MEDS: Losartan 50mg tab ORAL SCH (09:00)
[2018-01-22] MEDS ORDERED: HYDROcodone/Acetamin 10/325 tab ORAL PRN ×2 (09:00→12:35)
[2018-01-22] MEDS: Furosemide 40mg tab ORAL SCH (09:00)
--- NOTE | 2018-01-22 11:31 | Consultation ---
Consult Note Consult Note S: Pt seen bedside this AM with nursing staff. Pt was admitted overnight for severe B/L LE Pain, R>L Cellulitis and chronic non-healing leg wounds. Pt states these wounds have been present for over year, was receiving wound care therapy however pain and redness became severe. She has history of previous surgical debridements, which were refractory. Per pt she has had multiple work ups without definitive Dx for etiology of her B/L LE wounds. She denies any constitutional sxs. Mikaela any purulent drainage to her B/L LE. O: Right Leg: Ulcer 1: Right medial leg: Approx 15cm x 5cm x UTD Wound base 80% fibrotic, exposed Subq layer, surrounding chris-wound erythema, (-) malodor or active purulent drainage. (+) severe POP. Ascending erythema to proximal 1/3 ant tibia. Ulcer 2: Right lateral RF: Approx: 10cm x 5xm x UTD, Wound base 100% fibrotic, exposed Subq layer, surrounding chris-wound erythema, (-) malodor or active purulent drainage. (+) severe POP. Ascending erythema to proximal 1/3 ant tibia. Left Leg: Ulcer 1: Left lateral leg: Size: Lateral Leg extending distally to lateral MF. Wound base 100% fibrotic, exposed Subq layer, surrounding chris-wound erythema, ( -) malodor or active purulent drainage. (+) severe POP. Ascending erythema to proximal 1/3 ant tibia. Assessment/Plan Assessment/Plan (1) B/L LE Chronic Ulcerations with severe pain. (2) B/L LE cellulitis (3) Post polio syndrome (4) H/O debridement of B/L LE wounds - Pt seen and evaluated. - Chart reviewed. - WBC 18 - Temp 98.1 - Pt on IV Vanc and Levaquin, Recommend ID consult for ABx specification. - Wound Cx Swab obtained B/L LE. Submit for C&S, aerobic, anaerobic and fungal. - Recommend Blood Cx. - Ordered ESR, CRP. Pending. - Ordered B/L Leg, ankle and foot XR. - Daily Wound care: please give adequate pain medication 30min to 1 hr before dressing change. Have Lidocaine solution available. Cleanse wounds with NS, remove dressing, apply xeroform to areas of ulceration as primary dressing, apply 4 x 4 gauze, ABD and Kerlix. - Pt has severe B/L LE pain, please adjust pain meds accordingly to therapeutic levels for patient. Pain management per primary team. - Clinically wounds are severe in size and wound base is very fibrotic surrounding cellulitis. Infection, immunosuppresion, malignant, and vascular etiology needs to be R/O. - Pod will cont to monitor. Uriel Green DPM Jan 22, 2018 11:31
[2018-01-22 12:00] VITALS: BP 117/56
--- NOTE | 2018-01-22 14:30 | Diagnostic Imaging Report ---
Indication: Left leg pain Comparison: None Findings: Two views of the left tibia and fibula were obtained. No acute fracture, malalignment, or periosteal reaction are identified. Bones are osteopenic. Soft tissues are unremarkable. Impression: No acute injury.
--- NOTE | 2018-01-22 14:31 | Diagnostic Imaging Report ---
Indication: left ankle pain Comparison: None Findings: 3 views of the left ankle obtained. No definite fractures identified. The bones are diffusely osteopenic. The subtalar joint appears fused. There is generalized soft tissue swelling. IMPRESSION: No acute fracture identified.
--- NOTE | 2018-01-22 14:33 | Diagnostic Imaging Report ---
Indication: right leg pain Comparison: None Findings: Two views of the right tibia and fibula were obtained. No definite acute fracture is identified. The bones are diffusely osteopenic. Moderate arthrosis of the ankle and the knee demonstrated with narrowing of the joint space and moderate osteophyte formation. IMPRESSION: No acute fracture appreciated
--- NOTE | 2018-01-22 14:33 | Diagnostic Imaging Report ---
Indication: Pain right ankle ankle pain/trauma Comparison: None Findings: 3 views of the right ankle obtained. There is marked deformity of the talus which appears collapsed. 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 There is apparent calcaneocuboid fusion as well as infusion of the talonavicular joint is a likely. Arthritis of the tibiotalar joint noted. No obvious acute fracture identified. The bones are osteopenic. IMPRESSION: No acute fracture identified. Severe deformity of the right ankle and hindfoot as described above
--- NOTE | 2018-01-22 15:49 | Infectious Diseases Prog Note ---
Assessment/Plan Assessment/Plan Full consult dictated; A) 1) bilateral leg cellulitis, ? sepsis, leukocytosis, sirs 2) chronic bilateral leg wounds and ulcers, ? infected, ? osteomyelitis 3) allergies - pcn 4) pmh noted P) 1) vancomycin and aztreonam 2) wound culture ordered 3) will d/w podiatry about further imaging 4) thank you Subjective Allergies: Coded Allergies: CRANBERRY (Verified Allergy, Unknown, Anaphylaxis, 08/05/17) PENICILLINS (Verified Allergy, Unknown, 05/22/17) Objective Vital Signs Last 24 Hour Vital Signs Date Time Temp Pulse Resp B/P (MAP) Pulse Ox O2 Delivery O2 Flow Rate FiO2 01/22/18 13:06 98.1 01/22/18 12:00 98.1 86 18 117/56 (76) 95 01/22/18 09:00 104/50 01/22/18 09:00 Room Air 01/22/18 08:00 98.2 76 15 104/50 (68) 95 01/22/18 04:00 98.1 80 19 106/52 (70) 97 01/22/18 00:09 98.1 93 20 127/62 (83) 99 01/21/18 22:49 Room Air 01/21/18 20:00 98.5 81 20 101/48 (65) 97 01/21/18 19:53 97.9 89 15 114/62 96 Room Air 01/21/18 18:28 97.9 89 15 114/62 96 Room Air 01/21/18 18:14 97.9 01/21/18 16:51 70 14 Room Air 01/21/18 16:14 97.9 70 14 110/58 99 Room Air Height (Feet): 5 Height (Inches): 6.00 Weight (Pounds): 196 Laboratory Tests Test 01/21/18 17:35 01/22/18 05:30 01/22/18 12:35 White Blood Count 18.0 K/UL (4.8-10.8) H 13.4 K/UL (4.8-10.8) H Red Blood Count 3.24 M/UL (4.20-5.40) L 2.98 M/UL (4.20-5.40) L Hemoglobin 8.3 G/DL (12.0-16.0) L 7.5 G/DL (12.0-16.0) L Hematocrit 25.6 % (37.0-47.0) L 23.1 % (37.0-47.0) L Mean Corpuscular Volume 79 FL (80-99) L 78 FL (80-99) L Mean Corpuscular Hemoglobin 25.6 PG (27.0-31.0) L 25.3 PG (27.0-31.0) L Mean Corpuscular Hemoglobin Concent 32.5 G/DL (32.0-36.0) 32.6 G/DL (32.0-36.0) Red Cell Distribution Width 16.5 % (11.6-14.8) H 16.9 % (11.6-14.8) H Platelet Count 335 K/UL (150-450) 322 K/UL (150-450) Mean Platelet Volume 5.7 FL (6.5-10.1) L 6.2 FL (6.5-10.1) L Neutrophils (%) (Auto) % (45.0-75.0) % (45.0-75.0) Lymphocytes (%) (Auto) % (20.0-45.0) % (20.0-45.0) Monocytes (%) (Auto) % (1.0-10.0) % (1.0-10.0) Eosinophils (%) (Auto) % (0.0-3.0) % (0.0-3.0) Basophils (%) (Auto) % (0.0-2.0) % (0.0-2.0) Differential Total Cells Counted 100 100 Neutrophils % (Manual) 90 % (45-75) H 87 % (45-75) H Lymphocytes % (Manual) 6 % (20-45) L 7 % (20-45) L Monocytes % (Manual) 3 % (1-10) 5 % (1-10) Eosinophils % (Manual) 0 % (0-3) 1 % (0-3) Basophils % (Manual) 0 % (0-2) 0 % (0-2) Band Neutrophils 1 % (0-8) 0 % (0-8) Platelet Estimate Adequate Adequate Platelet Morphology Normal Normal Polychromasia 1+ Anisocytosis 1+ 1+ Microcytosis 1+ 1+ Prothrombin Time 11.8 SEC (9.30-11.50) H Prothromb Time International Ratio 1.1 (0.9-1.1) Activated Partial Thromboplast Time 28 SEC (23-33) Sodium Level 138 MMOL/L (136-145) 142 MMOL/L (136-145) Potassium Level 2.9 MMOL/L (3.5-5.1) L 3.1 MMOL/L (3.5-5.1) L Chloride Level 107 MMOL/L (98-107) 111 MMOL/L (98-107) H Carbon Dioxide Level 18 MMOL/L (21-32) L 20 MMOL/L (21-32) L Anion Gap 13 mmol/L (5-15) 11 mmol/L (5-15) Blood Urea Nitrogen 43 mg/dL (7-18) H 32 mg/dL (7-18) H Creatinine 1.3 MG/DL (0.55-1.30) 1.1 MG/DL (0.55-1.30) Estimat Glomerular Filtration Rate mL/min (>60) mL/min (>60) Glucose Level 120 MG/DL (74-106) H 91 MG/DL (74-106) Calcium Level 9.2 MG/DL (8.5-10.1) 8.9 MG/DL (8.5-10.1) Total Bilirubin 0.2 MG/DL (0.2-1.0) 0.3 MG/DL (0.2-1.0) Aspartate Amino Transf (AST/SGOT) 17 U/L (15-37) 12 U/L (15-37) L Alanine Aminotransferase (ALT/SGPT) 17 U/L (12-78) 16 U/L (12-78) Alkaline Phosphatase 90 U/L (46-116) 76 U/L (46-116) Troponin I 0.000 ng/mL (0.000-0.056) Pro-B-Type Natriuretic Peptide 428 pg/mL (0-125) H Total Protein 7.8 G/DL (6.4-8.2) 6.9 G/DL (6.4-8.2) Albumin 2.2 G/DL (3.4-5.0) L 1.8 G/DL (3.4-5.0) L Globulin 5.6 g/dL 5.1 g/dL Albumin/Globulin Ratio 0.4 (1.0-2.7) L 0.4 (1.0-2.7) L Hypochromasia 1+ C-Reactive Protein, Quantitative 22.1 mg/dL (0.00-0.90) H Triglycerides Level 62 MG/DL (30-150) Cholesterol Level 114 MG/DL (< 200) LDL Cholesterol 58 mg/dL (<100) HDL Cholesterol 46 MG/DL (40-60) Cholesterol/HDL Ratio 2.5 (3.3-4.4) L Thyroid Stimulating Hormone (TSH) 0.889 uiU/mL (0.358-3.740) Erythrocyte Sedimentation Rate 125 MM/HR (0-30) H Current Medications Medications (Trade) Dose Ordered Sig/Alec Route PRN Reason Start Time Stop Time Status Last Admin Dose Admin Acetaminophen (Tylenol) 650 mg Q6H PRN ORAL Mild Pain/Temp > 100.5 01/21/18 21:15 02/20/18 21:14 Acetaminophen/ Hydrocodone Bitart (Wolsey 10/325) 1 tab Q4H PRN ORAL Breakthrough Pain 01/22/18 12:35 01/29/18 12:34 Al Hydroxide/Mg Hydroxide (Mylanta) 30 ml BID PRN ORAL heartburn, upset stomach 01/21/18 21:15 02/20/18 21:14 Ascorbic Acid (Vitamin C) 3,000 mg THREE TIMES A DAY ORAL 01/22/18 09:00 02/21/18 08:59 UNV Diphenhydramine HCl (Benadryl) 25 mg Q4HR PRN IVP Itching 01/21/18 23:21 02/20/18 23:20 01/21/18 23:32 Docusate Sodium (Colace) 100 mg TWICE A DAY ORAL 01/22/18 09:00 02/21/18 08:59 01/22/18 08:54 Fish Oil (Fish Oil) 3,000 mg DAILY ORAL 01/22/18 09:00 02/21/18 08:59 UNV Furosemide (Lasix) 40 mg DAILY ORAL 01/22/18 09:00 02/21/18 08:59 Gabapentin (Neurontin) 100 mg THREE TIMES A DAY ORAL 01/22/18 13:00 02/21/18 12:59 Heparin Sodium (Porcine) (Heparin 5000 units/ml) 5,000 units EVERY 12 HOURS SUBQ 01/22/18 09:00 02/21/18 08:59 01/22/18 08:57 Hydromorphone HCl (Dilaudid) 1 mg Q3HR PRN IVP For Pain 01/21/18 23:22 01/28/18 23:21 01/22/18 15:30 Levofloxacin 50 ml @ 50 mls/hr Q24H IVPB 01/22/18 18:00 01/29/18 17:59 Losartan Potassium (Cozaar) 100 mg DAILY ORAL 01/22/18 09:00 02/21/18 08:59 Magnesium Hydroxide (Mom) 30 ml HSPRN PRN ORAL Constipation 01/21/18 21:15 02/20/18 21:14 Non-Formulary Medication (Non-Formulary Med) 1 ea DAILY ORAL 01/22/18 09:00 02/21/18 08:59 UNV Pantoprazole (Protonix) 40 mg DAILY ORAL 01/22/18 09:00 02/21/18 08:59 01/22/18 08:54 Vancomycin HCl (Vanco rx to dose) 1 ea DAILY PRN MISC Per rx protocol 01/21/18 21:15 02/20/18 21:14 Vancomycin HCl 1 gm/Dextrose 275 ml @ 183.708 mls/hr Q24H IVPB 01/21/18 23:00 01/26/18 22:59 01/21/18 22:33 Vitamin A (Aquasol A) 50,000 intlu DAILY ORAL 01/22/18 09:00 02/21/18 08:59 UNV Vitamin D (Vitamin D) 10,000 intlu DAILY ORAL 01/22/18 09:00 02/21/18 08:59 UNV Zolpidem Tartrate (Ambien) 5 mg HSPRN PRN ORAL Insomnia 01/21/18 21:15 01/28/18 21:14 Lynda Boo MD Jan 22, 2018 15:49
[2018-01-22 16:00] VITALS: BP 115/50
[2018-01-22] MEDS ORDERED: Aztreonam Inj 1 GM in D5W 55 ML IVPB SCH (16:00)
[2018-01-22] MEDS: Aztreonam Inj 1 GM in D5W 55 ML IVPB SCH ×2 (16:23→21:24)
--- NOTE | 2018-01-22 17:57 | Cardiology Report ---
APPROVED REPORT EKG Measurement Heart [id number] Normal sinus rhythm Nonspecific ST abnormality Abnormal ECG
[2018-01-22] MEDS ORDERED: Levofloxacin 250mg/D5W 50ml IVPB SCH (18:00)
[2018-01-22 20:00] VITALS: BP 118/58
--- NOTE | 2018-01-22 22:17 | Consultation ---
DATE OF CONSULTATION: 01/22/2018 INFECTIOUS DISEASE CONSULTATION CONSULTING PHYSICIAN: Lynda Boo M.D. ATTENDING PHYSICIAN: Chas Hampton M.D. REFERRING PHYSICIANS: Chas Hampton M.D. and Evan Kim D.P.M. CHIEF COMPLAINT: The patient's chief complaint coming in to the hospital is severe bilateral leg cellulitis and nonhealing wounds and ulcers of the lower extremities bilaterally. REASON FOR CONSULTATION: Bilateral leg cellulitis and chronic nonhealing wounds and ulcers, possible infected wounds bilaterally. REASON FOR ADMISSION: Cellulitis, chronic nonhealing wounds of bilateral legs. HISTORY OF PRESENT ILLNESS: This is a very pleasant 72-year-old female who has history of chronic wounds of the lower extremities and nonhealing ulcers and wounds. The patient presented with exacerbation of cellulitis of bilateral lower extremities. I discussed with the patient. She has chronic wounds, but usually does not have cellulitis; however, she has had redness and warmth bilaterally at this time. Infectious Disease consultation is requested for antibiotic management. She said she has been on Levaquin and vancomycin in the past. She is allergic to penicillin where she gets severe reaction. The patient was placed on vancomycin and aztreonam for now. Wound cultures have been ordered. The patient does have an elevated sedimentation rate, that was noted. The patient also had elevated white count, possibly septic from the soft tissue infection. She did have SIRS criteria. MAR was noted. Orders were noted. Notes were reviewed. REVIEW OF SYSTEMS: CONSTITUTIONAL: The patient has generalized fatigue, but no focal weakness. Main issue was leg pain. She is complaining at this time that is quite severe. She has no fever, chills, night sweats, or weight loss mentioned. She does have maybe low-grade fever, nothing significant. No chills. HEAD AND NECK: No head pain, neck pain, thrush, or dysphagia. No sinus tenderness or change in vision. CARDIAC: No chest pain or palpitations. GENITOURINARY: No dysuria, frequency, or [place]. PULMONARY: No congestion, shortness of breath, hemoptysis, or secretions. GASTROINTESTINAL: No abdominal pain, nausea, vomiting, or diarrhea. EXTREMITIES: She does have extremity pain. NEUROLOGIC: No seizures. SKIN: No other rash or itching. PAST MEDICAL HISTORY: Cardiac disease, hypertension, also history of cancer, history of neurological disease, post-polio syndrome, and weakness. She has a history of debridement and chronic wounds of lower extremities. ALLERGIES: Include Cranberry and penicillin. She has a severe reaction to penicillin. SOCIAL HISTORY: Negative for smoking, alcohol, or drug abuse. She has worked as a nurse in the past. FAMILY HISTORY: Noncontributory. No diabetes or cancer. MEDICATIONS: Upon reviewing the MAR, she is on following medications. She was on Levaquin and vancomycin. I am changing her aztreonam, which she tolerated in the past. Also gabapentin, hydrocodone, ascorbic acid, furosemide, losartan, fish oil, vitamin A, and vitamin D. History of non-formulary medications. Ducosate, pantoprazole, heparin, hydromorphone, diphenhydramine, vancomycin, and aztreonam. I discontinued Levaquin, zolpidem, acetaminophen, and hydroxide. Outside medications were noted and reconciled. PHYSICAL EXAMINATION: VITAL SIGNS: Pulse rate has been as high as 93, T-max 99.7, pulse rate 82, respiratory rate 18, blood pressure 115/50, and saturation 93% on room air. GENERAL: Alert, responsive, no acute distress, oriented x3. HEAD AND NECK: Oral exam, no thrush. Eye exam, no icterus. NECK: Supple. No JVD. Normocephalic. No sinus tenderness. HEART: Regular. No gallop or murmur. No friction rub. ABDOMEN: Soft. Positive bowel sounds. Nontender. LUNGS: Clear bilaterally. No rhonchi or rales. SKIN: No maculopapular rash. MUSCULOSKELETAL: She has bilateral leg redness, warmth, and swelling with severe pain on palpation. All findings are consistent with cellulitis. She has multiple wounds that were reviewed. They appear on bilateral lower extremities and also on the leg and ankle and foot area with surrounding cellulitis, redness, and warmth. PERIPHERAL VASCULAR: No gangrene. MUSCULOSKELETAL: No evidence of septic arthritis. SKIN: No other rash noted. NEUROLOGIC: Intact, nonfocal, alert and oriented x3, generalized weakness, but mostly alert, responsive, and nonfocal. LINE SITES: Without phlebitis. GENITOURINARY: No [place]. LABORATORY DATA: Creatinine 1.1. LFTs were noted. White count today is 13.4, hemoglobin 7.5, and white count on admission 18.0. Sedimentation rate is 125. IMAGING STUDIES: X-rays of the lower extremities were reviewed and noted and there was no mention of osteomyelitis. UA will also be ordered. ASSESSMENT AND PLAN: 1. The patient has severe bilateral leg cellulitis with pain redness and warmth. The patient has multiple wounds of the lower extremities including ankle, feet and legs. The patient certainly likely has cellulitis secondary to the underlying wounds. Continue wound care per Podiatry. The patient also elevated sedimentation rate. There is a questionable history of osteo, it is unclear what type of workup she has had for osteo. At this time, giving vancomycin and aztreonam for MRSA and gram-negative coverage with the patient both at risk for MRSA or Staph aureus cellulitis and infected wounds and also gram negatives. Continue vancomycin and aztreonam, and check wound culture. Watch the patient's cellulitis clinically in bilateral extremities, feet, and ankle. We would follow up on wound culture laboratories. Consider further imaging to rule out osteo if not done recently. I will discuss with Podiatry. The patient also seems to be septic with elevated white count. SIRS criteria likely secondary soft tissue infection. We will monitor laboratories including white cell count. 2. 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 3. The patient has a history of hypertension. 4. History of cardiac disease, positive related hypertension. 5. History of post-polio syndrome and weakness. 6. History of neurological disease. 7. History of cancer per the records. 8. Hypertension, treatment per primary. 9. Skin care protocol. Podiatry. 10. Past medical history noted. 11. Allergies, cranberry and penicillin. 12. Social history is negative. 13. Family history is noncontributory. 14. MAR was noted. 15. Case discussed with RN. 16. Continue with primary consultants. 17. Case communicated with primary doctor and Podiatry. Lynda Boo M.D. DR: JOLYNN JOB#: [id number] CC:
[2018-01-22] MEDS: Vancomycin 1 GM in D5W 275 ML IVPB SCH (23:01)
--- NOTE | 2018-01-22 23:32 | History and Physical Report ---
DATE OF ADMISSION: 01/21/2018 HISTORY OF PRESENT ILLNESS: The patient is an unfortunate 72-year-old female with historry of polio since childhood, history of lower extremity wounds with cellulitis, followed by Dr. Kim, her insulator helper, for wound care. She was seen by him yesterday and was sent in secondary to worsening lower extremity bilateral cellulitis and wounds. She denies any fevers or chills. She does admit to having pain and takes narcotics at home. She denies any chest pain or shortness of breath. Denies any headaches or sore throat. No urinary symptoms. PAST MEDICAL HISTORY: Includes a history of hypertension, history of lower extremity osteomyelitis with cellulitis in the past, and history of sepsis in the past. She had been hospitalized for 6 weeks with sepsis and had debridement done in the past and history of polio since childhood. MEDICATIONS: Please see reconciled med list. ALLERGIES: She is allergic to penicillin. 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 She does not smoke. Does not drink any alcohol. Does not use any illicit drugs. FAMILY HISTORY: Noncontributory. REVIEW OF SYSTEMS: A 12-point review of systems reviewed. Negative except for above. PHYSICAL EXAMINATION: GENERAL: She is well developed and well nourished. Currently, in no apparent distress. VITAL SIGNS: Revealed a blood pressure 104/50, respirations 15, saturations 95% on room air, temperature 98.2, and pulse 76. HEENT: Head is normocephalic and atraumatic. Pupils reactive to light. Extraocular muscles are intact. Eyes are anicteric. NECK: Supple. No JVP. LUNGS: Clear. HEART: Regular rate and rhythm. ABDOMEN: Soft. Positive bowel sounds. EXTREMITIES: She does have wounds. She does have erythema to bilateral lower extremities and they are wrapped. NEUROVASCULAR: Intact. LABORATORY DATA: Labs reveal a white count of 18,000, hemoglobin 8.3, hematocrit 25.6, and platelet count 335,000. Her sodium was 142, potassium 3.1, chloride 111, BUN of 32, and creatinine 1.1. C-reactive protein 22.1. TSH is normal. Albumin 1.8. IMAGING STUDIES: X-rays of the tibia and fibula revealed no fracture. Ankle x-ray on the right, no acute fracture. She has severe deformity of the ankle and hind foot. On the left, no acute fracture. ASSESSMENT AND PLAN: The patient is an unfortunate 72-year-old female, who has a history of polio since childhood, has lower extremity cellulitis and wounds worsening and thus, she has been admitted. She does have a leukocytosis. Full fever workup initiated in the ER. She is placed on antibiotics as per ID, Dr. Boo. She also has a low albumin and as a result, protein-calorie malnutrition, which will affect wound care. We will check a pre-albumin on her and place her on boost. Dr. Kim, her insulator helper will manage her wound care. In terms of her chronic pain, we will ____ she is on narcotics. I will ask Dr. Stone from Pain Management to see her. Her potassium is low. We will supplement and check a magnesium level. Chas Hampton M.D. DR: DIPTI JOB#: [id number] CC:
[2018-01-23] VITALS: BP 110/56
[2018-01-23] MEDS: HYDROmorphone 1mg/ml Carpuject IVP PRN ×6 (00:56→21:17)
[2018-01-23 04:00] VITALS: BP 123/66
[2018-01-23] MEDS: Aztreonam Inj 1 GM in D5W 55 ML IVPB SCH ×3 (05:11→21:06)
[2018-01-23 07:23] LABS: HEMATOCRIT 23.7 % (37.0-47.0); HEMOGLOBIN 7.9 G/DL (12.0-16.0); MEAN CORPUSCULAR VOLUME 77 FL (80-99); PLATELET COUNT 328 K/UL (150-450); RED BLOOD COUNT 3.08 M/UL (4.20-5.40); RED CELL DISTRIBUTION WIDTH 16.2 % (11.6-14.8); WHITE BLOOD COUNT 9.7 K/UL (4.8-10.8)
[2018-01-23 07:39] LABS: ALANINE AMINOTRANSFERASE 15 U/L (12-78); ALBUMIN 1.8 G/DL (3.4-5.0); ALBUMIN/GLOBULIN RATIO 0.3 (1.0-2.7); ALKALINE PHOSPHATASE 76 U/L (46-116); ANION GAP 10 mmol/L (5-15); ASPARTATE AMINO TRANSFERASE 12 U/L (15-37); BILIRUBIN,TOTAL 0.3 MG/DL (0.2-1.0); BLOOD UREA NITROGEN 25 mg/dL (7-18); CALCIUM 8.9 MG/DL (8.5-10.1); CARBON DIOXIDE 22 MMOL/L (21-32); CHLORIDE 111 MMOL/L (98-107); CREATININE 0.9 MG/DL (0.55-1.30); POTASSIUM 3.5 MMOL/L (3.5-5.1); SODIUM 143 MMOL/L (136-145)
[2018-01-23 08:00] VITALS: BP 125/58
[2018-01-23] MEDS: Losartan 50mg tab ORAL SCH (09:00)
[2018-01-23] MEDS: Furosemide 40mg tab ORAL SCH (09:00)
--- NOTE | 2018-01-23 09:12 | General Progress Note ---
Assessment/Plan Assessment/Plan (1) B/L LE pain (2) B/L LE cellulitis with open wounds (3) Post polio syndrome (4) H/o debridement of B/L LE wounds Patient will be continued on Neurontin, [place] and Dilaudid. D/w Dr. Stone and he concurred. Subjective Date patient seen: Jan 23, 2018 Time patient seen: 07:15 - am Allergies: Coded Allergies: CRANBERRY (Verified Allergy, Unknown, Anaphylaxis, 08/05/17) PENICILLINS (Verified Allergy, Unknown, 05/22/17) Subjective Constitutional: Reports: no symptoms Eye: Reports: no symptoms ENT: Reports: no symptoms Respiratory: Reports: no symptoms Cardiovascular: Reports: no symptoms Gastrointestinal: Reports: no symptoms Genitourinary: Reports: no symptoms Musculoskeletal: Reports: muscle stiffness Skin: Reports: lesions Psychiatric: Reports: no symptoms Neurological: Reports: focal weakness Endocrine: Reports: no symptoms Hematologic/Lymphatic: Reports: no symptoms Subjective Patient continues to c/o pain in her Legs. The Neurontin as per pt is helping to reduce the pain. Has taken 6 doses of Dilaudid in the last 24hrs. Was advised to take the [place] she understands. Objective Last 24 Hour Vital Signs Date Time Temp Pulse Resp B/P (MAP) Pulse Ox O2 Delivery O2 Flow Rate FiO2 01/23/18 04:00 98.4 78 18 123/66 (85) 95 01/23/18 00:00 98.1 75 18 110/56 (74) 96 01/22/18 21:11 Room Air 01/22/18 20:00 99.0 83 18 118/58 (78) 94 01/22/18 16:00 99.7 82 18 115/50 (71) 93 01/22/18 16:00 99.7 01/22/18 12:00 98.1 86 18 117/56 (76) 95 Intake and Output 01/22/18 01/23/18 19:00 07:00 Intake Total 720 ml 680.000 ml Balance 720 ml 680.000 ml Intake Oral 720 ml 240 ml IV Total 440.000 ml # Voids 2 2 # Bowel Movements 1 4 Laboratory Tests 01/22/18 12:35: Erythrocyte Sedimentation Rate 125H 01/23/18 06:30: White Blood Count 9.7, Red Blood Count 3.08L, Hemoglobin 7.9L, Hematocrit 23.7L , Mean Corpuscular Volume 77L, Mean Corpuscular Hemoglobin 25.7L, Mean Corpuscular Hemoglobin Concent 33.4, Red Cell Distribution Width 16.2H, Platelet Count 328, Mean Platelet Volume 5.8L, Neutrophils (%) (Auto) , Lymphocytes (%) (Auto) , Monocytes (%) (Auto) , Eosinophils (%) (Auto) , Basophils (%) (Auto) , Differential Total Cells Counted 100, Neutrophils % ( Manual) 69, Lymphocytes % (Manual) 20, Monocytes % (Manual) 10, Eosinophils % ( Manual) 1, Basophils % (Manual) 0, Band Neutrophils 0, Platelet Estimate Adequate, Platelet Morphology Normal, Polychromasia 1+, Hypochromasia 2+, Anisocytosis 2+, Microcytosis 1+, Sodium Level 143, Potassium Level 3.5, Chloride Level 111H, Carbon Dioxide Level 22, Anion Gap 10, Blood Urea Nitrogen 25H, Creatinine 0.9, Estimat Glomerular Filtration Rate , Glucose Level 107H, Calcium Level 8.9, Magnesium Level 2.1, Total Bilirubin 0.3, Aspartate Amino Transf (AST/SGOT) 12L, Alanine Aminotransferase (ALT/SGPT) 15, Alkaline Phosphatase 76, Total Protein 7.2, Albumin 1.8L, Globulin 5.4, Albumin/Globulin Ratio 0.3L, Prealbumin [Pending] Height (Feet): 5 Height (Inches): 6.00 Weight (Pounds): 196 Objective General Appearance: WD/WN, no apparent distress, alert HEENT: PERRL, EOMI Neck: non-tender, normal alignment, supple, normal inspection Respiratory/Chest: lungs clear, normal breath sounds, no respiratory distress Cardiovascular/Chest: normal rate, regular rhythm Abdomen: non tender, soft Extremities: severe edema - with bandages applied, tenderness to palpaiton Neurologic: abnormal gait, alert, oriented x 3 Ricco Damico Jan 23, 2018 09:12
[2018-01-23] MEDS: Ascorbic Acid 500mg tab ORAL SCH (09:47)
[2018-01-23] MEDS: Zinc Sulfate 220mg cap ORAL SCH (09:48)
[2018-01-23] MEDS: Vitamin D 1000 IU Tab ORAL SCH (09:48)
[2018-01-23] MEDS: VITAMIN A 10000 UNIT ORAL SCH (09:48)
[2018-01-23] MEDS: Docusate 100mg cap ORAL SCH ×2 (09:49→17:09)
[2018-01-23] MEDS: Heparin 5000 units/ml inj SUBQ SCH ×2 (09:54→21:07)
[2018-01-23] MEDS ORDERED: Isovue-370 150ml vial INJ PRN ×2 (10:15)
--- NOTE | 2018-01-23 10:26 | General Progress Note ---
Progress Note Progress Note Patient seen and examined earlier Consult dictated Recurrent bilateral leg ulcerations with cellulitis Polio, HTN, Obesity Rec Complete leg duplex CT angio aorta and legs Abx per ID MRI legs r/o osteo DVT and decub precautions Local wound care and compression unna boot like dressing per podiatry May need skin graft once all wounds granulated Yaniv Méndez MD Jan 23, 2018 10:26
[2018-01-23 12:00] VITALS: BP 124/64
[2018-01-23 12:07] LABS: APPEARANCE,URINE SLIGHTLY CLOUDY; BILIRUBIN, URINE NEGATIVE (NEGATIVE); COLOR,URINE PALE YELLOW; GLUCOSE, URINE (UA) NEGATIVE (NEGATIVE); KETONES,URINE NEGATIVE (NEGATIVE); LEUKOCYTE ESTERASE ,URINE 2+ (NEGATIVE); NITRITE,URINE NEGATIVE (NEGATIVE); PH,URINE 6 (4.5-8.0); PROTEIN,URINE 2+ (NEGATIVE); UROBILINOGEN,URINE NORMAL MG/DL (0.0-1.0)
[2018-01-23 16:00] VITALS: BP_SYST 124; BP_SYST 129; BP_DIAS 62; BP_DIAS 64
--- NOTE | 2018-01-23 16:25 | Diagnostic Imaging Report ---
Indication: Bilateral leg pain and cellulitis. Nonhealing ulcers both lower extremities. Peripheral vascular disease Technique: Continuous helical transaxial imaging of the abdomen and pelvis was obtained from the lung base to the pubic symphysis during rapid intravenous contrast administration. Arterial phase of enhancement obtained. Coronal 2-D reformats were also obtained and maximum intensity projection images in multiple planes. Study obtained in a Siemens sensation [address] Total Dose length Product (DLP): [address] Dose Index Volume (CTDIvol): 0.15, 8.11, 56.78 mGy Comparison: None Findings: The abdominal aorta shows a moderate mural calcification consistent with atherosclerotic disease. There is no aneurysm or dissection. No significant stenosis identified. The celiac trunk, SMA, BERNICE, single bilateral renal arteries appear widely patent. The common iliac external iliac and internal iliac arteries are widely patent. The common femoral arteries superficial femoral arteries appear widely patent. Evaluation of the lower extremity runoff is limited below the knees due to numerous enhancing veins below the calf bilaterally. These appear to be varicosities. On the right side, the popliteal artery shows no significant stenosis. The tibioperoneal trunk appears normal. The anterior tibial artery is visualized primarily on transaxial images and appears patent although there is relatively poor flow below the mid calf with diminished caliber of the vessel and suggestion of multiple severe stenoses and occlusion of the distal MOOSE above the ankle. The GAS LINE INSTALLER and peroneal arteries also appear small with suggestion of moderate to severe multi segment stenoses with occlusion probably at about the mid calf. Reconstructions are uninterpretable due to the venous contamination. On the left side, again there is significant venous contamination with the multiple varicosities both deep and superficial demonstrated. The superficial femoral artery and popliteal artery appear widely patent. The tibioperoneal trunk moderately narrow. There is high takeoff of the what appears to be the anterior tibial artery which occludes about mid calf. Both the posterior tibial artery and peroneal artery demonstrates multi focal high-grade stenoses with occlusion above the ankle. Nonvascular findings: Posterior basilar reticular densities demonstrated in the lungs nonspecific. Findings probably due to atelectasis. There is narrowing of intervertebral discs and accompanying endplate osteophyte formation. Hypertrophied facet joints also demonstrated.. Trace free fluid noted within the pelvis. IMPRESSION: No significant stenosis of the abdominal aorta, iliac arteries or major branches of the abdominal aorta. No significant stenosis of the femoral or popliteal arteries with good in-line flow to the level of popliteal arteries bilaterally. Moderate to severe vascular disease below the knees bilaterally involving the tibial peroneal trunk and trifurcation vessels with relatively poor runoff to the ankle and feet secondary to multifocal moderate to high-grade stenoses. Evaluation of this is limited due to presence of varicose veins which confound and obscure the arterial anatomy. A conventional angiogram may be of benefit if needed. There is severe arthrosis of the left hip with remodeling, obliteration of the joint space and extensive osteophyte formation. Changes less severe on the right hip. Moderate degenerative changes of the spine. Generalized osteopenia. Suggestion of a basilar atelectasis and/or mild fibrosis. Contracted gallbladder. Severe arthrosis of the left hip. The CT scanner at [facility] is accredited by the [employer] and the scans are performed using dose optimization techniques as appropriate to a performed exam including Automatic Exposure control.
--- NOTE | 2018-01-23 18:30 | Consultation ---
DATE OF CONSULTATION: 01/22/2018 CONSULTING PHYSICIAN: Yaniv Méndez M.D. REFERRING PHYSICIAN: 1. Mayo Kim DPM. 2. Chas Tello M.D. REASON FOR CONSULTATION: Lower extremity leg wounds, nonhealing. 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 The patient had multiple hospital admission for infection and cellulitis, has been seeing other physicians in another hospital. The patient reportedly had prior history of polio and has had chronic circumferential bilateral leg, ankle, pretibial, and calf wounds with fibrinous exudate with recurrent cellulitis and infection. Vascular Surgery is consulted for further evaluation. The patient ambulates with some difficulty. She has had intermittent pain. She has refused dressing changes and leg duplex studies and wants lidocaine. PAST MEDICAL HISTORY: As above. History of hypertension, recurrent lower extremity wounds with recurrent cellulitis, prior history of polio, hypertension, obesity. MEDICATIONS: See attached MAR. ALLERGIES: Penicillin. 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 No illicit drug use. FAMILY HISTORY: Unremarkable. REVIEW OF SYSTEMS: CARDIOVASCULAR: No history of chest pain or palpitations. PULMONARY: No cough or hemoptysis. GASTROINTESTINAL: No abdominal pain, constipation, or diarrhea. GENITOURINARY: No urinary complaints. NEUROLOGIC: No history of strokes or seizures. PHYSICAL EXAMINATION: VITAL SIGNS: The patient is afebrile at 97.8, heart rate is 76, blood pressure is 104/50, respirations 16. VASCULAR: The patient has palpable radial pulses bilaterally. No evidence of carotid bruit. LUNGS: Clear to auscultation. HEART: Regular rate and rhythm. ABDOMEN: Soft, nontender. EXTREMITIES: She has palpable femoral pulses. Intact popliteal and pedal Dopplers bilaterally. She has bilateral lower extremity dressing which was changed just now. Her picture of the wounds were reviewed. She does have fibrinous exudates circumferentially on her ankle, both legs. Distal foot is warm, but well-perfused toes with no distal toe ulceration. LABORATORY DATA: Revealed WBC of 18,000, hemoglobin 8.3, platelet count 335,000. Sodium 142, potassium 3.1, BUN 32, creatinine 1.1. IMPRESSION: 1. Bilateral recurrent lower extremity circumferential wound, likely has venous stasis ulceration with recurrent cellulitis and dermatitis. Rule out tibial arterial insufficiency 2. History of hypertension, obesity, poliomyelitis. PLAN AND RECOMMENDATIONS: She will need complete lower extremity arterial and venous duplex. She needs dedicated venous reflux duplex imaging. We will obtain CT angiogram of her aorta and lower extremity runoff to assess and evaluate her vasculopathy. Continue antibiotics, local wound care and compression, Unna boot, and dressing per Podiatry service. DVT and decubitus precautions. Based on her non invasive imaging will then assess need for invasive studies and interventions. The above was discussed at length with the patient and the nurse at bedside. Yaniv Méndez M.D. DR: Mannie JOB#: [id number] CC: Yaniv Méndez M.D.; Fax#: [phone] CHAS TELLO M.D. ; FAX#: [phone] MAYO KIM D.P.M.; FAX#: [phone] LINN
--- NOTE | 2018-01-23 19:41 | General Progress Note ---
Assessment/Plan Assessment/Plan LE wounds bilaterally cellulitis ho polio chronic pain hypokalemia abx per ID awaiting LE arterial and Venous studies vascular eval appreicated wound care per dr Kim pain control per pain managment dvt and ulcer rpohylaxis Subjective Allergies: Coded Allergies: CRANBERRY (Verified Allergy, Unknown, Anaphylaxis, 08/05/17) PENICILLINS (Verified Allergy, Unknown, 05/22/17) Subjective feels ok co pain in LE seesing pain managment no chest painor sob Objective Last 24 Hour Vital Signs Date Time Temp Pulse Resp B/P (MAP) Pulse Ox O2 Delivery O2 Flow Rate FiO2 01/23/18 17:40 98.6 01/23/18 16:00 98.0 70 18 129/62 (84) 94 01/23/18 16:00 98.6 79 19 124/64 (84) 99 01/23/18 12:00 98.6 79 19 124/64 (84) 99 01/23/18 09:00 Room Air 01/23/18 08:00 97.9 80 20 125/58 (80) 97 01/23/18 04:00 98.4 78 18 123/66 (85) 95 01/23/18 00:00 98.1 75 18 110/56 (74) 96 01/22/18 21:11 Room Air 01/22/18 20:00 99.0 83 18 118/58 (78) 94 Intake and Output 01/22/18 01/23/18 19:00 07:00 Intake Total 720 ml 680.000 ml Balance 720 ml 680.000 ml Intake Oral 720 ml 240 ml IV Total 440.000 ml # Voids 2 2 # Bowel Movements 1 4 Laboratory Tests 01/23/18 06:30: White Blood Count 9.7, Red Blood Count 3.08L, Hemoglobin 7.9L, Hematocrit 23.7L , Mean Corpuscular Volume 77L, Mean Corpuscular Hemoglobin 25.7L, Mean Corpuscular Hemoglobin Concent 33.4, Red Cell Distribution Width 16.2H, Platelet Count 328, Mean Platelet Volume 5.8L, Neutrophils (%) (Auto) , Lymphocytes (%) (Auto) , Monocytes (%) (Auto) , Eosinophils (%) (Auto) , Basophils (%) (Auto) , Differential Total Cells Counted 100, Neutrophils % ( Manual) 69, Lymphocytes % (Manual) 20, Monocytes % (Manual) 10, Eosinophils % ( Manual) 1, Basophils % (Manual) 0, Band Neutrophils 0, Platelet Estimate Adequate, Platelet Morphology Normal, Polychromasia 1+, Hypochromasia 2+, Anisocytosis 2+, Microcytosis 1+, Sodium Level 143, Potassium Level 3.5, Chloride Level 111H, Carbon Dioxide Level 22, Anion Gap 10, Blood Urea Nitrogen 25H, Creatinine 0.9, Estimat Glomerular Filtration Rate , Glucose Level 107H, Calcium Level 8.9, Magnesium Level 2.1, Total Bilirubin 0.3, Aspartate Amino Transf (AST/SGOT) 12L, Alanine Aminotransferase (ALT/SGPT) 15, Alkaline Phosphatase 76, Total Protein 7.2, Albumin 1.8L, Globulin 5.4, Albumin/Globulin Ratio 0.3L, Prealbumin [Pending] 01/23/18 11:40: Urine Color Pale yellow, Urine Appearance Slightly cloudy, Urine pH 6, Urine Specific [place] 1.015, Urine Protein 2+H, Urine Glucose (UA) Negative, Urine Ketones Negative, Urine Blood 5+H, Urine Nitrite Negative, Urine Bilirubin Negative, Urine Urobilinogen Normal, Urine Leukocyte Esterase 2+H, Urine RBC 30- 40H, Urine WBC 5-10H, Urine Squamous Epithelial Cells Few, Urine Bacteria Few Height (Feet): 5 Height (Inches): 6.00 Weight (Pounds): 196 General Appearance: WD/WN, no apparent distress Neck: supple Cardiovascular: normal rate Respiratory/Chest: lungs clear Objective LE wraaped please see pictures for wounds Chas Hampton MD Jan 23, 2018 19:41
[2018-01-23 20:00] VITALS: BP 110/53
[2018-01-23] MEDS: Vancomycin 1 GM in D5W 275 ML IVPB SCH (22:16)
[2018-01-24] VITALS: BP 149/72
[2018-01-24] MEDS: HYDROmorphone 1mg/ml Carpuject IVP PRN ×5 (00:46→14:12)
[2018-01-24 04:03] VITALS: BP 123/57
[2018-01-24] MEDS: Aztreonam Inj 1 GM in D5W 55 ML IVPB SCH ×3 (05:31→21:38)
[2018-01-24 06:36] LABS: HEMATOCRIT 24.7 % (37.0-47.0); HEMOGLOBIN 7.9 G/DL (12.0-16.0); MEAN CORPUSCULAR VOLUME 77 FL (80-99); PLATELET COUNT 349 K/UL (150-450); RED BLOOD COUNT 3.21 M/UL (4.20-5.40); RED CELL DISTRIBUTION WIDTH 15.9 % (11.6-14.8); WHITE BLOOD COUNT 10.3 K/UL (4.8-10.8)
[2018-01-24 06:47] LABS: ANION GAP 10 mmol/L (5-15); BLOOD UREA NITROGEN 28 mg/dL (7-18); CALCIUM 8.8 MG/DL (8.5-10.1); CARBON DIOXIDE 22 MMOL/L (21-32); CHLORIDE 112 MMOL/L (98-107); CREATININE 0.9 MG/DL (0.55-1.30); FERRITIN 45 NG/ML (8-388); POTASSIUM 3.7 MMOL/L (3.5-5.1); SODIUM 144 MMOL/L (136-145)
[2018-01-24 07:00] LABS: % IRON SATURATION 8 % (15-50); IRON 22 ug/dL (50-175); TOTAL IRON BINDING CAPACITY 266 ug/dL (250-450)
[2018-01-24 08:00] VITALS: BP 124/63
[2018-01-24] MEDS: Losartan 50mg tab ORAL SCH (09:00)
[2018-01-24] MEDS: Furosemide 40mg tab ORAL SCH (09:00)
--- NOTE | 2018-01-24 09:01 | General Progress Note ---
Assessment/Plan Assessment/Plan LE wounds bilaterally cellulitis ho polio chronic pain hypokalemia anemia abx per ID awaiting LE arterial and Venous studie results vascular eval appreicated wound care per dr Kim check ferritin iron panel stool ob pain control per pain managment dvt and ulcer rpohylaxis Subjective Allergies: Coded Allergies: CRANBERRY (Verified Allergy, Unknown, Anaphylaxis, 08/05/17) PENICILLINS (Verified Allergy, Unknown, 05/22/17) Subjective feels ok co pain in LE seesing pain managment no chest pain or sob Objective Last 24 Hour Vital Signs Date Time Temp Pulse Resp B/P (MAP) Pulse Ox O2 Delivery O2 Flow Rate FiO2 01/24/18 04:03 98.9 79 19 123/57 (79) 94 01/24/18 00:00 99.4 81 19 149/72 (97) 95 01/23/18 22:44 Room Air 01/23/18 20:00 97.7 73 19 110/53 (72) 94 01/23/18 17:40 98.6 01/23/18 16:00 98.0 70 18 129/62 (84) 94 01/23/18 16:00 98.6 79 19 124/64 (84) 99 01/23/18 12:00 98.6 79 19 124/64 (84) 99 Intake and Output 01/23/18 01/24/18 19:00 07:00 Intake Total 360 ml 510.000 ml Balance 360 ml 510.000 ml Intake Oral 360 ml 180 ml IV Total 330.000 ml # Voids 5 4 # Bowel Movements 4 2 Laboratory Tests 01/23/18 11:40: Urine Color Pale yellow, Urine Appearance Slightly cloudy, Urine pH 6, Urine Specific [place] 1.015, Urine Protein 2+H, Urine Glucose (UA) Negative, Urine Ketones Negative, Urine Blood 5+H, Urine Nitrite Negative, Urine Bilirubin Negative, Urine Urobilinogen Normal, Urine Leukocyte Esterase 2+H, Urine RBC 30- 40H, Urine WBC 5-10H, Urine Squamous Epithelial Cells Few, Urine Bacteria Few 01/24/18 05:10: White Blood Count 10.3, Red Blood Count 3.21L, Hemoglobin 7.9L, Hematocrit 24.7L , Mean Corpuscular Volume 77L, Mean Corpuscular Hemoglobin 24.5L, Mean Corpuscular Hemoglobin Concent 31.9L, Red Cell Distribution Width 15.9H, Platelet Count 349, Mean Platelet Volume 6.0L, Neutrophils (%) (Auto) , Lymphocytes (%) (Auto) , Monocytes (%) (Auto) , Eosinophils (%) (Auto) , Basophils (%) (Auto) , Neutrophils % (Manual) [Pending], Lymphocytes % (Manual) [Pending], Platelet Estimate [Pending], Platelet Morphology [Pending], Sodium Level 144, Potassium Level 3.7, Chloride Level 112H, Carbon Dioxide Level 22, Anion Gap 10, Blood Urea Nitrogen 28H, Creatinine 0.9, Estimat Glomerular Filtration Rate , Glucose Level 96, Calcium Level 8.8, Iron Level 22L, Total Iron Binding Capacity 266, Percent Iron Saturation 8L, Unsaturated Iron Binding 244, Ferritin 45 Height (Feet): 5 Height (Inches): 6.00 Weight (Pounds): 196 General Appearance: WD/WN, no apparent distress Neck: supple Cardiovascular: normal rate Respiratory/Chest: lungs clear Abdomen: soft Objective LE wraaped please see pictures for wounds Chas Hampton MD Jan 24, 2018 09:01
[2018-01-24] MEDS: Zinc Sulfate 220mg cap ORAL SCH (09:23)
[2018-01-24] MEDS: Docusate 100mg cap ORAL SCH ×2 (09:23→18:02)
[2018-01-24] MEDS: Vitamin D 1000 IU Tab ORAL SCH (09:24)
[2018-01-24] MEDS: Ascorbic Acid 500mg tab ORAL SCH (09:24)
[2018-01-24] MEDS: VITAMIN A 10000 UNIT ORAL SCH (09:24)
--- NOTE | 2018-01-24 09:25 | General Progress Note ---
Assessment/Plan Assessment/Plan (1) B/L LE pain (2) B/L LE cellulitis with open wounds (3) Post polio syndrome (4) H/o debridement of B/L LE wounds Patient will be continued on Saffell and Dilaudid. We will increase Neurontin to 300mg PO 1 tab TID. D/w Dr. Stone and he concurred. Subjective Date patient seen: Jan 24, 2018 Time patient seen: 07:00 - am Allergies: Coded Allergies: CRANBERRY (Verified Allergy, Unknown, Anaphylaxis, 08/05/17) PENICILLINS (Verified Allergy, Unknown, 05/22/17) Subjective Constitutional: Reports: no symptoms Eye: Reports: no symptoms ENT: Reports: no symptoms Respiratory: Reports: no symptoms Cardiovascular: Reports: no symptoms Gastrointestinal: Reports: no symptoms Genitourinary: Reports: no symptoms Musculoskeletal: Reports: muscle stiffness Skin: Reports: lesions Psychiatric: Reports: no symptoms Neurological: Reports: focal weakness Endocrine: Reports: no symptoms Hematologic/Lymphatic: Reports: no symptoms Subjective Patient has continued pain requesting the Dilaudid for her pain. She reports that the Neurontin has helped with no SE. I d/w patient that the Saffell will be changed to severe pain and Dilaudid should only be used for severe breakthrough pain. She understands. Objective Last 24 Hour Vital Signs Date Time Temp Pulse Resp B/P (MAP) Pulse Ox O2 Delivery O2 Flow Rate FiO2 01/24/18 04:03 98.9 79 19 123/57 (79) 94 01/24/18 00:00 99.4 81 19 149/72 (97) 95 01/23/18 22:44 Room Air 01/23/18 20:00 97.7 73 19 110/53 (72) 94 01/23/18 17:40 98.6 01/23/18 16:00 98.0 70 18 129/62 (84) 94 01/23/18 16:00 98.6 79 19 124/64 (84) 99 01/23/18 12:00 98.6 79 19 124/64 (84) 99 Intake and Output 01/23/18 01/24/18 19:00 07:00 Intake Total 360 ml 510.000 ml Balance 360 ml 510.000 ml Intake Oral 360 ml 180 ml IV Total 330.000 ml # Voids 5 4 # Bowel Movements 4 2 Laboratory Tests 01/23/18 11:40: Urine Color Pale yellow, Urine Appearance Slightly cloudy, Urine pH 6, Urine Specific [place] 1.015, Urine Protein 2+H, Urine Glucose (UA) Negative, Urine Ketones Negative, Urine Blood 5+H, Urine Nitrite Negative, Urine Bilirubin Negative, Urine Urobilinogen Normal, Urine Leukocyte Esterase 2+H, Urine RBC 30- 40H, Urine WBC 5-10H, Urine Squamous Epithelial Cells Few, Urine Bacteria Few 01/24/18 05:10: White Blood Count 10.3, Red Blood Count 3.21L, Hemoglobin 7.9L, Hematocrit 24.7L , Mean Corpuscular Volume 77L, Mean Corpuscular Hemoglobin 24.5L, Mean Corpuscular Hemoglobin Concent 31.9L, Red Cell Distribution Width 15.9H, Platelet Count 349, Mean Platelet Volume 6.0L, Neutrophils (%) (Auto) , Lymphocytes (%) (Auto) , Monocytes (%) (Auto) , Eosinophils (%) (Auto) , Basophils (%) (Auto) , Neutrophils % (Manual) [Pending], Lymphocytes % (Manual) [Pending], Platelet Estimate [Pending], Platelet Morphology [Pending], Sodium Level 144, Potassium Level 3.7, Chloride Level 112H, Carbon Dioxide Level 22, Anion Gap 10, Blood Urea Nitrogen 28H, Creatinine 0.9, Estimat Glomerular Filtration Rate , Glucose Level 96, Calcium Level 8.8, Iron Level 22L, Total Iron Binding Capacity 266, Percent Iron Saturation 8L, Unsaturated Iron Binding 244, Ferritin 45, Vitamin B12 Level [Pending] Height (Feet): 5 Height (Inches): 6.00 Weight (Pounds): 196 Objective General Appearance: WD/WN, no apparent distress, alert HEENT: PERRL, EOMI Neck: non-tender, normal alignment, supple, normal inspection Respiratory/Chest: lungs clear, normal breath sounds, no respiratory distress Cardiovascular/Chest: normal rate, regular rhythm Abdomen: non tender, soft Extremities: severe edema - with bandages applied, tenderness to palpaiton Neurologic: abnormal gait, alert, oriented x 3 Ricco Damico Jan 24, 2018 09:25
[2018-01-24] MEDS: Heparin 5000 units/ml inj SUBQ SCH ×2 (09:26→20:27)
[2018-01-24 12:00] VITALS: BP 126/62
[2018-01-24] MEDS: HYDROcodone/Acetamin 10/325 tab ORAL PRN ×3 (12:44→23:19)
--- NOTE | 2018-01-24 13:24 | Podiatric Progress Note ---
Assessment/Plan Patient Michelle Elias is a 72 year old female who was admitted on Jan 21, 2018 at 17:30 with Assessment/Plan Assessment/Plan Assessment/Plan (1) B/L LE Chronic Ulcerations with severe pain. (2) B/L LE cellulitis (3) Post polio syndrome (4) H/O debridement of B/L LE wounds - Pt seen and evaluated. - Chart reviewed. - WBC 10.3 downtrending since DOA. 18 - Cont IV ABx. - Wound Cx Swab pre-joel results show Staph. Aureus growth. - Recommend Blood Cx. - B/L Leg, and ankle XR negative for OM or ST infection. - Recommend B/L LE leg and ankle MRI w/ and w/o contrast if no C/I present. - Daily Wound care: please give adequate pain medication 30min to 1 hr before dressing change. Have Lidocaine solution available. Cleanse wounds with NS, remove dressing, apply xeroform to areas of ulceration as primary dressing, apply 4 x 4 gauze, ABD and Kerlix. - Pt has severe B/L LE pain, please adjust pain meds accordingly to therapeutic levels for patient. Pain management per primary team. - Clinically wounds are severe in size and wound base is very fibrotic surrounding cellulitis. Infection, immunosuppresion, malignant, and vascular etiology needs to be R/O. - Pt underwent CT angio per vasc. Will await results. - Please order Lidocaine solution for bedside dressing changes. - Pod will cont to monitor. Subjective Allergies: Coded Allergies: CRANBERRY (Verified Allergy, Unknown, Anaphylaxis, 08/05/17) PENICILLINS (Verified Allergy, Unknown, 05/22/17) Subjective S: Pt seen bedside with nursing staff for severe B/L LE Pain, R>L Cellulitis and chronic non-healing leg wounds. Pt states these wounds have been present for over year, was receiving wound care therapy however pain and redness became severe. She has history of previous surgical debridements, which were refractory. She confirms nursing staff keeping her dressing C/D/I, confirms nursing staff is still changing dressings. She relates the redness has improved but her pain is still significant to B/L LE. Pt states she recently completed her CT B/L LE. Objective Exam Last 24 Hour Vital Signs Date Time Temp Pulse Resp B/P (MAP) Pulse Ox O2 Delivery O2 Flow Rate FiO2 01/24/18 12:00 98.2 78 18 126/62 (83) 95 01/24/18 09:00 Room Air 01/24/18 09:00 123/57 01/24/18 08:00 97.7 78 20 124/63 (83) 94 01/24/18 04:03 98.9 79 19 123/57 (79) 94 01/24/18 00:00 99.4 81 19 149/72 (97) 95 01/23/18 22:44 Room Air 01/23/18 20:00 97.7 73 19 110/53 (72) 94 01/23/18 17:40 98.6 01/23/18 16:00 98.0 70 18 129/62 (84) 94 01/23/18 16:00 98.6 79 19 124/64 (84) 99 Laboratory Tests Test 01/24/18 05:10 White Blood Count 10.3 K/UL (4.8-10.8) Red Blood Count 3.21 M/UL (4.20-5.40) L Hemoglobin 7.9 G/DL (12.0-16.0) L Hematocrit 24.7 % (37.0-47.0) L Mean Corpuscular Volume 77 FL (80-99) L Mean Corpuscular Hemoglobin 24.5 PG (27.0-31.0) L Mean Corpuscular Hemoglobin Concent 31.9 G/DL (32.0-36.0) L Red Cell Distribution Width 15.9 % (11.6-14.8) H Platelet Count 349 K/UL (150-450) Mean Platelet Volume 6.0 FL (6.5-10.1) L Neutrophils (%) (Auto) % (45.0-75.0) Lymphocytes (%) (Auto) % (20.0-45.0) Monocytes (%) (Auto) % (1.0-10.0) Eosinophils (%) (Auto) % (0.0-3.0) Basophils (%) (Auto) % (0.0-2.0) Differential Total Cells Counted 100 Neutrophils % (Manual) 75 % (45-75) Lymphocytes % (Manual) 15 % (20-45) L Monocytes % (Manual) 8 % (1-10) Eosinophils % (Manual) 2 % (0-3) Basophils % (Manual) 0 % (0-2) Band Neutrophils 0 % (0-8) Platelet Estimate Adequate Platelet Morphology Normal Hypochromasia 3+ Anisocytosis 1+ Microcytosis 1+ Sodium Level 144 MMOL/L (136-145) Potassium Level 3.7 MMOL/L (3.5-5.1) Chloride Level 112 MMOL/L (98-107) H Carbon Dioxide Level 22 MMOL/L (21-32) Anion Gap 10 mmol/L (5-15) Blood Urea Nitrogen 28 mg/dL (7-18) H Creatinine 0.9 MG/DL (0.55-1.30) Estimat Glomerular Filtration Rate mL/min (>60) Glucose Level 96 MG/DL (74-106) Calcium Level 8.8 MG/DL (8.5-10.1) Iron Level 22 ug/dL (50-175) L Total Iron Binding Capacity 266 ug/dL (250-450) Percent Iron Saturation 8 % (15-50) L Unsaturated Iron Binding 244 ug/dL (112-346) Ferritin 45 NG/ML (8-388) Vitamin B12 Level 367 PG/ML (193-986) Microbiology Date/Time Source Procedure Growth Status 01/22/18 11:25 Wound Gram Stain - Final Resulted 01/22/18 11:25 Wound Wound Culture - Preliminary Resulted 01/23/18 11:40 Urine,Clean Catch Urine Culture - Preliminary NO GROWTH Resulted Neurological Neurological Narrative Focused B/L LE O: Right Leg: Ulcer 1: Right medial leg: Approx 15cm x 5cm x UTD Wound base 80% fibrotic, exposed Subq layer, surrounding chris-wound erythema, (-) malodor or active purulent drainage. (+) severe POP. Ascending erythema to proximal 1/3 ant tibia. Ulcer 2: Right lateral RF: Approx: 10cm x 5xm x UTD, Wound base 100% fibrotic, exposed Subq layer, surrounding chris-wound erythema, (-) malodor or active purulent drainage. (+) severe POP. Ascending erythema to proximal 1/3 ant tibia. Left Leg: Ulcer 1: Left lateral leg: Size: Lateral Leg extending distally to lateral MF. Wound base 100% fibrotic, exposed Subq layer, surrounding chris-wound erythema, ( -) malodor or active purulent drainage. (+) severe POP. Ascending erythema to proximal 1/3 ant tibia. Dermatological Dermatological: within nl limits Uriel Green DPM Jan 24, 2018 13:24
--- NOTE | 2018-01-24 14:03 | GI Initial Consult Note ---
History of Present Illness General Date patient seen: Jan 24, 2018 Time patient seen: 14:00 Reason for Hospitalization: General Complaint Referring physician: FRANSICO TELLO Reason for Consultation: ANEMIA Present Illness HPI The patient is an unfortunate 72-year-old female with history of polio since childhood, history of lower extremity wounds with cellulitis, followed by Dr. Kim, her rn renal, for wound care. She was seen by him yesterday and was sent in secondary to worsening lower extremity bilateral cellulitis and wounds. She denies any fevers or chills. She does admit to having pain and takes narcotics at home. She denies any chest pain or shortness of breath. Denies any headaches or sore throat. No urinary symptoms. GI consulted to r/o any GI bleed. Per RN report, patient had noticed blood in her stools. Pt seen, awake A&Ox4 NAD with no active s/sx of N/V/D. Pt stated she noticed blood while she was wiping. She states the blood was vaginal, and not from her rectum. She denies any history of hemorrhoids. The patient is taking opioids and has complaint of constipation. No history of endoscopy / colonoscopy. Labs reviewed noted with microcytic anemia. Home Meds Reported Medications Cholecalciferol (Vitamin D3)* (VITAMIN D*) 1,000 Unit Tablet, 14618 UNITS ORAL DAILY 01/21/18 Ascorbic Acid* (VITAMIN C*) 500 Mg Tablet, 3000 MG ORAL THREE TIMES A DAY 01/21/18 Protein Supplement (PROTEIN) 975 Mg Tablet, 975 MG PO DAILY 01/21/18 Biotin (BIOTIN) 5 Mg Tablet, 5 MG PO DAILY 01/21/18 Resveratrol (RESVERATROL) 100 Mg Capsule, 100 MG PO DAILY 01/21/18 Collagen, Hydrolysate (Bovine) (Collagen Hydrolysate) 1 Gm Powder, 100 GM PO DAILY 01/21/18 Export-3 Fatty Acids/Fish Oil* (FISH OIL 1,000 MG SOFTGEL*) 1 Each Capsule, 3 CAP ORAL DAILY 01/21/18 Vitamin A* (VITAMIN A*) 10,000 Unit Capsule, 21975 UNITS ORAL DAILY 01/21/18 Losartan Potassium (LOSARTAN POTASSIUM) 100 Mg Tablet, 100 MG ORAL DAILY 01/21/18 Zinc Gluconate (ZINC) 30 Mg Tablet, 90 MG ORAL DAILY 01/21/18 Furosemide* (LASIX*) 40 Mg Tablet, 40 MG ORAL DAILY 01/21/18 Discontinued Reported Medications Atenolol* (TENORMIN*) 100 Mg Tablet, 100 MG ORAL DAILY, TAB 08/05/17 Collagenase Clostridium Hist. (Santyl) 30 Gm Oint...g., 1 APPLIC TP DAILY, #15 GM 0 Refills 05/28/17 Trimethoprim/Sulfamethoxazole 160/800* (BACTRIM DS TABLET*) 1 Each Tablet, 1 TAB ORAL BID for 7 Days, TAB 05/28/17 Levofloxacin (LEVOFLOXACIN*) 500 Mg Tablet, 750 MG ORAL DAILY for 7 Days, TAB 05/28/17 Med list reviewed/reconciled: Yes Allergies: Coded Allergies: CRANBERRY (Verified Allergy, Unknown, Anaphylaxis, 08/05/17) PENICILLINS (Verified Allergy, Unknown, 05/22/17) Patient History History Provided By: Patient, Medical Record [facility] Narrative Includes a history of hypertension, history of lower extremity osteomyelitis with cellulitis in the past, and history of sepsis in the past. She had been hospitalized for 6 weeks with sepsis and had debridement done in the past and history of polio since childhood. Social History: Denies: smoking, alcohol use, drug use, other Review of Systems All Other Systems: negative except mentioned in HPI Physical Exam Vital Signs Date Time Temp Pulse Resp B/P (MAP) Pulse Ox O2 Delivery O2 Flow Rate FiO2 01/21/18 16:14 97.9 70 14 110/58 99 Room Air Sp02 EP Interpretation: reviewed, normal Labs Laboratory Tests Test 01/24/18 05:10 White Blood Count 10.3 K/UL (4.8-10.8) Red Blood Count 3.21 M/UL (4.20-5.40) L Hemoglobin 7.9 G/DL (12.0-16.0) L Hematocrit 24.7 % (37.0-47.0) L Mean Corpuscular Volume 77 FL (80-99) L Mean Corpuscular Hemoglobin 24.5 PG (27.0-31.0) L Mean Corpuscular Hemoglobin Concent 31.9 G/DL (32.0-36.0) L Red Cell Distribution Width 15.9 % (11.6-14.8) H Platelet Count 349 K/UL (150-450) Mean Platelet Volume 6.0 FL (6.5-10.1) L Neutrophils (%) (Auto) % (45.0-75.0) Lymphocytes (%) (Auto) % (20.0-45.0) Monocytes (%) (Auto) % (1.0-10.0) Eosinophils (%) (Auto) % (0.0-3.0) Basophils (%) (Auto) % (0.0-2.0) Differential Total Cells Counted 100 Neutrophils % (Manual) 75 % (45-75) Lymphocytes % (Manual) 15 % (20-45) L Monocytes % (Manual) 8 % (1-10) Eosinophils % (Manual) 2 % (0-3) Basophils % (Manual) 0 % (0-2) Band Neutrophils 0 % (0-8) Platelet Estimate Adequate Platelet Morphology Normal Hypochromasia 3+ Anisocytosis 1+ Microcytosis 1+ Sodium Level 144 MMOL/L (136-145) Potassium Level 3.7 MMOL/L (3.5-5.1) Chloride Level 112 MMOL/L (98-107) H Carbon Dioxide Level 22 MMOL/L (21-32) Anion Gap 10 mmol/L (5-15) Blood Urea Nitrogen 28 mg/dL (7-18) H Creatinine 0.9 MG/DL (0.55-1.30) Estimat Glomerular Filtration Rate mL/min (>60) Glucose Level 96 MG/DL (74-106) Calcium Level 8.8 MG/DL (8.5-10.1) Iron Level 22 ug/dL (50-175) L Total Iron Binding Capacity 266 ug/dL (250-450) Percent Iron Saturation 8 % (15-50) L Unsaturated Iron Binding 244 ug/dL (112-346) Ferritin 45 NG/ML (8-388) Vitamin B12 Level 367 PG/ML (193-986) General Appearance: well appearing, no apparent distress, alert Head: normocephalic EENT: PERRL/EOMI, normal ENT inspection Neck: supple Respiratory: normal breath sounds, no respiratory distress Cardiovascular: normal rate Gastrointestinal: normal inspection, non tender, soft, normal bowel sounds, non -distended Rectal: deferred Genitourinary: no CVA tenderness Musculoskeletal: normal inspection, back normal Neurologic: normal inspection, alert, oriented x3, responsive Psychiatric: normal inspection, judgement/insight normal, memory normal Skin: normal inspection, normal color, no rash, warm/dry, palpation normal, well hydrated Lymphatic: normal inspection, no adenopathy Current Medications Current Medications Medications (Trade) Dose Ordered Sig/Alec Route PRN Reason Start Time Stop Time Status Last Admin Dose Admin Acetaminophen (Tylenol) 650 mg Q6H PRN ORAL Mild Pain/Temp > 100.5 01/21/18 21:15 02/20/18 21:14 Acetaminophen/ Hydrocodone Bitart ([place] 10/325) 1 tab Q4H PRN ORAL severe pain 01/24/18 12:35 01/29/18 12:34 01/24/18 12:44 Al Hydroxide/Mg Hydroxide (Mylanta) 30 ml BID PRN ORAL heartburn, upset stomach 01/21/18 21:15 02/20/18 21:14 Ascorbic Acid (Vitamin C) 3,000 mg DAILY ORAL 01/23/18 09:00 02/22/18 08:59 01/24/18 09:24 Aztreonam 1 gm/ Dextrose 55 ml @ 110 mls/hr Q8HR IVPB 01/22/18 17:00 01/29/18 16:59 01/24/18 05:31 Diphenhydramine HCl (Benadryl) 25 mg Q4HR PRN IVP Itching 01/21/18 23:21 02/20/18 23:20 01/21/18 23:32 Docusate Sodium (Colace) 100 mg TWICE A DAY ORAL 01/22/18 09:00 02/21/18 08:59 01/24/18 09:23 Fish Oil (Fish Oil) 3,000 mg DAILY ORAL 01/23/18 09:00 02/22/18 08:59 01/24/18 09:25 Furosemide (Lasix) 40 mg DAILY ORAL 01/22/18 09:00 02/21/18 08:59 Gabapentin (Neurontin) 300 mg THREE TIMES A DAY ORAL 01/24/18 09:19 02/21/18 09:18 01/24/18 12:44 Heparin Sodium (Porcine) (Heparin 5000 units/ml) 5,000 units EVERY 12 HOURS SUBQ 01/22/18 09:00 02/21/18 08:59 01/24/18 09:26 Hydromorphone HCl (Dilaudid) 1 mg Q3H PRN IVP severe breakthrough pain 01/24/18 09:15 01/31/18 09:14 01/24/18 10:51 Iopamidol (Isovue-370 150ml) 150 ml NOW PRN INJ Radiology Procedure 01/23/18 10:15 01/25/18 10:15 Iopamidol (Isovue-370 150ml) 150 ml NOW PRN INJ Radiology Procedure 01/23/18 10:15 01/25/18 10:15 Losartan Potassium (Cozaar) 100 mg DAILY ORAL 01/22/18 09:00 02/21/18 08:59 Magnesium Hydroxide (Mom) 30 ml HSPRN PRN ORAL Constipation 01/21/18 21:15 02/20/18 21:14 Pantoprazole (Protonix) 40 mg DAILY ORAL 01/22/18 09:00 02/21/18 08:59 01/24/18 09:25 Vancomycin HCl (Vanco rx to dose) 1 ea DAILY PRN MISC Per rx protocol 01/21/18 21:15 02/20/18 21:14 Vancomycin HCl 1 gm/Dextrose 275 ml @ 183.708 mls/hr Q24H IVPB 01/21/18 23:00 01/26/18 22:59 01/23/18 22:16 Vitamin A (Aquasol A) 10,000 intlu DAILY ORAL 01/23/18 09:00 02/22/18 08:59 01/24/18 09:24 Vitamin D (Vitamin D) 4,000 intlu DAILY ORAL 01/23/18 09:00 02/22/18 08:59 01/24/18 09:24 Zinc Sulfate (Zinc Sulfate) 440 mg DAILY ORAL 01/23/18 09:00 02/22/18 08:59 01/24/18 09:23 Zolpidem Tartrate (Ambien) 5 mg HSPRN PRN ORAL Insomnia 01/21/18 21:15 01/28/18 21:14 GI: Plan Problems: (1) Iron deficiency anemia Plan iron deficiency anemia >> venofer regular diet, tolerating OB stool r/o GI bleed monitor H&H, prn transfusions bowel regime >> colace + miralax ppi fu labs outpatient GI procedures Discussed with Dr. Cleveland. Thank you for this patient referral, we will follow. The patient was seen and examined at bedside and all new and available data was reviewed in the patients chart. I agree with the above findings, impression and plan. (Patient seen earlier today. Signature stamp does not reflect patient encounter time.). - MD Ruma NevarezClears[facility] Jan 24, 2018 14:03
--- NOTE | 2018-01-24 14:34 | Infectious Diseases Prog Note ---
Assessment/Plan Assessment/Plan ASSESSMENT AND PLAN: 1. bilateral leg cellulitis with infected wounds/ulcers of legs/ankles/feet, sepsis, leukocytosis - vancomycin and aztreonam for now - day # 3 antibiotics - wound culture with staph aureus, check final wound culture - sepsis better, leukocytosis better - monitor labs 2. 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 3. The patient has a history of hypertension. 4. History of cardiac disease, positive related hypertension. 5. History of post-polio syndrome and weakness. 6. History of neurological disease. 7. History of cancer per the records. 8. Hypertension, treatment per primary. 9. Skin care protocol. Podiatry. 10. Past medical history noted. 11. Allergies, cranberry and penicillin. 12. Social history is negative. 13. Family history is noncontributory. 14. MAR was noted. 15. Case discussed with RN. 16. Continue with primary consultants. 17. Case communicated with primary doctor and Podiatry. Subjective Constitutional: Reports: fatigue; Denies: fever HEENT: Denies: congestion Respiratory: Denies: shortness of breath, productive cough Cardiovascular: Denies: chest pain Gastrointestinal/Abdominal: Denies: nausea, vomiting, diarrhea Genitourinary: Reports: other - no joshi Neurologic: Denies: headache Psychiatric: Denies: depression Skin: Denies: rash Hematologic: Denies: bleeding Musculoskeletal: Reports: pain, other - + bilateral leg pain Allergies: Coded Allergies: CRANBERRY (Verified Allergy, Unknown, Anaphylaxis, 08/05/17) PENICILLINS (Verified Allergy, Unknown, 05/22/17) Objective Vital Signs Last 24 Hour Vital Signs Date Time Temp Pulse Resp B/P (MAP) Pulse Ox O2 Delivery O2 Flow Rate FiO2 01/24/18 12:00 98.2 78 18 126/62 (83) 95 01/24/18 09:00 Room Air 01/24/18 09:00 123/57 01/24/18 08:00 97.7 78 20 124/63 (83) 94 01/24/18 04:03 98.9 79 19 123/57 (79) 94 01/24/18 00:00 99.4 81 19 149/72 (97) 95 01/23/18 22:44 Room Air 01/23/18 20:00 97.7 73 19 110/53 (72) 94 01/23/18 17:40 98.6 01/23/18 16:00 98.0 70 18 129/62 (84) 94 01/23/18 16:00 98.6 79 19 124/64 (84) 99 Height (Feet): 5 Height (Inches): 6.00 Weight (Pounds): 196 General Appearance: no acute distress HEENT: normocephalic, atraumatic, anicteric, mucous membranes moist Respiratory/Chest: lungs clear, normal breath sounds, no respiratory distress Cardiovascular: normal rate, regular rhythm, no gallop/murmur, no JVD Abdomen: normal bowel sounds, soft, non tender, no organomegaly, non distended Genitourinary: other - no joshi, no cva pain Extremities: no cyanosis, other - cellulitis of bilatera legs - less redness noted, + pain Skin: no rash, other - leg wounds noted with slough 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, alert, oriented x 3, responsive Lymphatic: no neck adenopathy Musculoskeletal: no effusion Objective LE x-rays noted - no osteomyelitis mentioned, reports noted CT noted Microbiology Date/Time Source Procedure Growth Status 01/22/18 11:25 Wound Gram Stain - Final Resulted 01/22/18 11:25 Wound Wound Culture - Preliminary Resulted 01/22/18 11:25 Wound Gram Stain - Final Resulted 01/22/18 11:25 Wound Culture - Preliminary Staphylococcus Aureus Resulted 01/23/18 11:40 Urine,Clean Catch Urine Culture - Preliminary NO GROWTH Resulted Laboratory Tests Test 01/24/18 05:10 White Blood Count 10.3 K/UL (4.8-10.8) Red Blood Count 3.21 M/UL (4.20-5.40) L Hemoglobin 7.9 G/DL (12.0-16.0) L Hematocrit 24.7 % (37.0-47.0) L Mean Corpuscular Volume 77 FL (80-99) L Mean Corpuscular Hemoglobin 24.5 PG (27.0-31.0) L Mean Corpuscular Hemoglobin Concent 31.9 G/DL (32.0-36.0) L Red Cell Distribution Width 15.9 % (11.6-14.8) H Platelet Count 349 K/UL (150-450) Mean Platelet Volume 6.0 FL (6.5-10.1) L Neutrophils (%) (Auto) % (45.0-75.0) Lymphocytes (%) (Auto) % (20.0-45.0) Monocytes (%) (Auto) % (1.0-10.0) Eosinophils (%) (Auto) % (0.0-3.0) Basophils (%) (Auto) % (0.0-2.0) Differential Total Cells Counted 100 Neutrophils % (Manual) 75 % (45-75) Lymphocytes % (Manual) 15 % (20-45) L Monocytes % (Manual) 8 % (1-10) Eosinophils % (Manual) 2 % (0-3) Basophils % (Manual) 0 % (0-2) Band Neutrophils 0 % (0-8) Platelet Estimate Adequate Platelet Morphology Normal Hypochromasia 3+ Anisocytosis 1+ Microcytosis 1+ Sodium Level 144 MMOL/L (136-145) Potassium Level 3.7 MMOL/L (3.5-5.1) Chloride Level 112 MMOL/L (98-107) H Carbon Dioxide Level 22 MMOL/L (21-32) Anion Gap 10 mmol/L (5-15) Blood Urea Nitrogen 28 mg/dL (7-18) H Creatinine 0.9 MG/DL (0.55-1.30) Estimat Glomerular Filtration Rate mL/min (>60) Glucose Level 96 MG/DL (74-106) Calcium Level 8.8 MG/DL (8.5-10.1) Iron Level 22 ug/dL (50-175) L Total Iron Binding Capacity 266 ug/dL (250-450) Percent Iron Saturation 8 % (15-50) L Unsaturated Iron Binding 244 ug/dL (112-346) Ferritin 45 NG/ML (8-388) Vitamin B12 Level 367 PG/ML (193-986) Current Medications Medications (Trade) Dose Ordered Sig/Alec Route PRN Reason Start Time Stop Time Status Last Admin Dose Admin Acetaminophen (Tylenol) 650 mg Q6H PRN ORAL Mild Pain/Temp > 100.5 01/21/18 21:15 02/20/18 21:14 Acetaminophen/ Hydrocodone Bitart (Spicer 10) 1 tab Q4H PRN ORAL severe pain 01/24/18 12:35 01/29/18 12:34 01/24/18 12:44 Al Hydroxide/Mg Hydroxide (Mylanta) 30 ml BID PRN ORAL heartburn, upset stomach 01/21/18 21:15 02/20/18 21:14 Ascorbic Acid (Vitamin C) 3,000 mg DAILY ORAL 01/23/18 09:00 02/22/18 08:59 01/24/18 09:24 Aztreonam 1 gm/ Dextrose 55 ml @ 110 mls/hr Q8HR IVPB 01/22/18 17:00 01/29/18 16:59 01/24/18 14:11 Diphenhydramine HCl (Benadryl) 25 mg Q4HR PRN IVP Itching 01/21/18 23:21 02/20/18 23:20 01/21/18 23:32 Docusate Sodium (Colace) 100 mg TWICE A DAY ORAL 01/22/18 09:00 02/21/18 08:59 01/24/18 09:23 Fish Oil (Fish Oil) 3,000 mg DAILY ORAL 01/23/18 09:00 02/22/18 08:59 01/24/18 09:25 Furosemide (Lasix) 40 mg DAILY ORAL 01/22/18 09:00 02/21/18 08:59 Gabapentin (Neurontin) 300 mg THREE TIMES A DAY ORAL 01/24/18 09:19 02/21/18 09:18 01/24/18 12:44 Heparin Sodium (Porcine) (Heparin 5000 units/ml) 5,000 units EVERY 12 HOURS SUBQ 01/22/18 09:00 02/21/18 08:59 01/24/18 09:26 Hydromorphone HCl (Dilaudid) 1 mg Q3H PRN IVP severe breakthrough pain 01/24/18 09:15 01/31/18 09:14 01/24/18 14:12 Iopamidol (Isovue-370 150ml) 150 ml NOW PRN INJ Radiology Procedure 01/23/18 10:15 01/25/18 10:15 Iopamidol (Isovue-370 150ml) 150 ml NOW PRN INJ Radiology Procedure 01/23/18 10:15 01/25/18 10:15 Losartan Potassium (Cozaar) 100 mg DAILY ORAL 01/22/18 09:00 12/7/18 08:59 Magnesium Hydroxide (Mom) 30 ml HSPRN PRN ORAL Constipation 01/21/18 21:15 02/20/18 21:14 Pantoprazole (Protonix) 40 mg DAILY ORAL 01/22/18 09:00 02/21/18 08:59 01/24/18 09:25 Vancomycin HCl (Vanco rx to dose) 1 ea DAILY PRN MISC Per rx protocol 01/21/18 21:15 02/20/18 21:14 Vancomycin HCl 1 gm/Dextrose 275 ml @ 183.708 mls/hr Q24H IVPB 01/21/18 23:00 01/26/18 22:59 01/23/18 22:16 Vitamin A (Aquasol A) 10,000 intlu DAILY ORAL 01/23/18 09:00 02/22/18 08:59 01/24/18 09:24 Vitamin D (Vitamin D) 4,000 intlu DAILY ORAL 01/23/18 09:00 02/22/18 08:59 01/24/18 09:24 Zinc Sulfate (Zinc Sulfate) 440 mg DAILY ORAL 01/23/18 09:00 02/22/18 08:59 01/24/18 09:23 Zolpidem Tartrate (Ambien) 5 mg HSPRN PRN ORAL Insomnia 01/21/18 21:15 01/28/18 21:14 Lynda Boo MD Jan 24, 2018 14:34
--- NOTE | 2018-01-24 15:50 | General Progress Note ---
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
[2018-01-24 16:00] VITALS: BP 106/57
--- NOTE | 2018-01-24 19:51 | Diagnostic Imaging Report ---
EXAM: MR Left Lower Extremity Without Intravenous Contrast, Tibia and Fibula CLINICAL HISTORY: WEAK TECHNIQUE: Multiplanar magnetic resonance images of the left tibia and fibula without intravenous contrast. COMPARISON: No relevant prior studies available. FINDINGS: Limitations: Limited due to motion. Bones/joints: No evidence of osteomyelitis or acute fracture. Soft tissues: Subcutaneous edema. No discrete abscess collection. IMPRESSION: 1. No evidence of osteomyelitis or acute fracture. 2. Subcutaneous edema. No discrete abscess collection.
[2018-01-24] MEDS: Miralax 17gm pkt ORAL SCH (20:26)
[2018-01-24] MEDS: Iron Sucrose 100 MG in NS 55 ML IV SCH (20:26)
[2018-01-24 20:49] VITALS: BP 113/56
[2018-01-24] MEDS ORDERED: Vancomycin 1gm inj IVPB ONE (23:11)
[2018-01-24] MEDS: Vancomycin 1 GM in D5W 275 ML IVPB SCH (23:21)
[2018-01-25 00:11] VITALS: BP 146/68
[2018-01-25] MEDS: HYDROmorphone 1mg/ml Carpuject IVP PRN ×7 (03:03→23:14)
[2018-01-25 04:00] VITALS: BP 108/52
[2018-01-25] MEDS: Aztreonam Inj 1 GM in D5W 55 ML IVPB SCH ×3 (05:09→21:43)
[2018-01-25 07:24] LABS: BASOPHILS % (AUTO) 0.8 % (0.0-2.0); HEMATOCRIT 24.7 % (37.0-47.0); LYMPHOCYTES % (AUTO) 22.8 % (20.0-45.0); MEAN CORPUSCULAR VOLUME 76 FL (80-99); MONOCYTES % (AUTO) 6.4 % (1.0-10.0); NEUTROPHILS % (AUTO) 66.9 % (45.0-75.0); PLATELET COUNT 344 K/UL (150-450); RED BLOOD COUNT 3.24 M/UL (4.20-5.40); RED CELL DISTRIBUTION WIDTH 16.2 % (11.6-14.8); WHITE BLOOD COUNT 8.5 K/UL (4.8-10.8)
[2018-01-25 07:29] LABS: ANION GAP 9 mmol/L (5-15); BLOOD UREA NITROGEN 25 mg/dL (7-18); CALCIUM 9.1 MG/DL (8.5-10.1); CARBON DIOXIDE 24 MMOL/L (21-32); CHLORIDE 110 MMOL/L (98-107); CREATININE 0.9 MG/DL (0.55-1.30); POTASSIUM 3.5 MMOL/L (3.5-5.1); SODIUM 142 MMOL/L (136-145)
[2018-01-25 08:00] VITALS: BP 119/57
[2018-01-25] MEDS: VITAMIN A 10000 UNIT ORAL SCH (08:26)
[2018-01-25] MEDS: Docusate 100mg cap ORAL SCH ×2 (08:26→17:11)
[2018-01-25] MEDS: Vitamin D 1000 IU Tab ORAL SCH (08:28)
[2018-01-25] MEDS: Ascorbic Acid 500mg tab ORAL SCH (08:28)
[2018-01-25] MEDS: Zinc Sulfate 220mg cap ORAL SCH (08:28)
[2018-01-25] MEDS: Heparin 5000 units/ml inj SUBQ SCH ×2 (08:31→20:40)
[2018-01-25] MEDS: Furosemide 40mg tab ORAL SCH (08:34)
[2018-01-25] MEDS: Losartan 50mg tab ORAL SCH (08:34)
--- NOTE | 2018-01-25 10:54 | General Progress Note ---
Assessment/Plan Assessment/Plan LE wounds bilaterally cellulitis ho polio chronic pain hypokalemia anemia abx per ID awaiting LE arterial and Venous studie results vascular eval appreicated wound care per dr Kim check ferritin iron panel stool ob GI eval per Dr Bunch pain control per pain managment dvt and ulcer prophylaxis Subjective Allergies: Coded Allergies: CRANBERRY (Verified Allergy, Unknown, Anaphylaxis, 08/05/17) PENICILLINS (Verified Allergy, Unknown, 05/22/17) Subjective feels ok co pain in LE seesing pain managment no chest pain or sob had noted blood ? stool few days ago Objective Last 24 Hour Vital Signs Date Time Temp Pulse Resp B/P (MAP) Pulse Ox O2 Delivery O2 Flow Rate FiO2 01/25/18 09:00 Room Air 01/25/18 08:59 98.4 01/25/18 08:00 98.4 75 17 119/57 (77) 95 01/25/18 04:00 97.9 70 18 108/52 (70) 92 01/25/18 00:11 97.6 75 18 146/68 (94) 94 01/24/18 23:49 97.7 01/24/18 20:51 Room Air 01/24/18 20:49 97.7 67 18 113/56 (75) 92 01/24/18 16:00 98.4 64 20 106/57 (73) 90 01/24/18 12:00 98.2 78 18 126/62 (83) 95 Intake and Output 01/24/18 01/25/18 19:00 07:00 Intake Total 450 ml 630.000 ml Balance 450 ml 630.000 ml Intake Oral 450 ml 240 ml IV Total 390.000 ml # Voids 2 2 Laboratory Tests 01/24/18 21:45: Vancomycin Level Trough 10.2 01/25/18 06:20: White Blood Count 8.5, Red Blood Count 3.24L, Hemoglobin 8.0L, Hematocrit 24.7L , Mean Corpuscular Volume 76L, Mean Corpuscular Hemoglobin 24.6L, Mean Corpuscular Hemoglobin Concent 32.3, Red Cell Distribution Width 16.2H, Platelet Count 344, Mean Platelet Volume 5.9L, Neutrophils (%) (Auto) 66.9, Lymphocytes (%) (Auto) 22.8, Monocytes (%) (Auto) 6.4, Eosinophils (%) (Auto) 3.0, Basophils (%) (Auto) 0.8, Sodium Level 142, Potassium Level 3.5, Chloride Level 110H, Carbon Dioxide Level 24, Anion Gap 9, Blood Urea Nitrogen 25H, Creatinine 0.9, Estimat Glomerular Filtration Rate , Glucose Level 132H, Calcium Level 9.1, Ionized Calcium (Measured) 1.23, Ferritin 55, Folate 10.0 Height (Feet): 5 Height (Inches): 6.00 Weight (Pounds): 196 General Appearance: WD/WN, no apparent distress Neck: supple Cardiovascular: normal rate Respiratory/Chest: lungs clear Abdomen: soft Objective LE wraaped please see pictures for wounds Chas Hampton MD Jan 25, 2018 10:54
--- NOTE | 2018-01-25 11:36 | General Progress Note ---
Assessment/Plan Problem List: (1) Iron deficiency anemia ICD Codes: D50.9 - Iron deficiency anemia, unspecified SNOMED: 71029866 (2) Ankle cellulitis ICD Codes: L03.119 - Cellulitis of unspecified part of limb SNOMED: 75198188 (3) Open ankle wound ICD Codes: S91.009A - Unspecified open wound, unspecified ankle, initial encounter SNOMED: 277689575 Assessment/Plan iv iron fu cbc fu stool ob fu CEA GI procedure as in patient if needed bowel regimen Subjective ROS Limited/Unobtainable: Yes Allergies: Coded Allergies: CRANBERRY (Verified Allergy, Unknown, Anaphylaxis, 08/05/17) PENICILLINS (Verified Allergy, Unknown, 05/22/17) Objective Last 24 Hour Vital Signs Date Time Temp Pulse Resp B/P (MAP) Pulse Ox O2 Delivery O2 Flow Rate FiO2 01/25/18 09:00 Room Air 01/25/18 08:59 98.4 01/25/18 08:00 98.4 75 17 119/57 (77) 95 01/25/18 04:00 97.9 70 18 108/52 (70) 92 01/25/18 00:11 97.6 75 18 146/68 (94) 94 01/24/18 23:49 97.7 01/24/18 20:51 Room Air 01/24/18 20:49 97.7 67 18 113/56 (75) 92 01/24/18 16:00 98.4 64 20 106/57 (73) 90 01/24/18 12:00 98.2 78 18 126/62 (83) 95 Intake and Output 01/24/18 01/25/18 19:00 07:00 Intake Total 450 ml 630.000 ml Balance 450 ml 630.000 ml Intake Oral 450 ml 240 ml IV Total 390.000 ml # Voids 2 2 Laboratory Tests 01/24/18 21:45: Vancomycin Level Trough 10.2 01/25/18 06:20: White Blood Count 8.5, Red Blood Count 3.24L, Hemoglobin 8.0L, Hematocrit 24.7L , Mean Corpuscular Volume 76L, Mean Corpuscular Hemoglobin 24.6L, Mean Corpuscular Hemoglobin Concent 32.3, Red Cell Distribution Width 16.2H, Platelet Count 344, Mean Platelet Volume 5.9L, Neutrophils (%) (Auto) 66.9, Lymphocytes (%) (Auto) 22.8, Monocytes (%) (Auto) 6.4, Eosinophils (%) (Auto) 3.0, Basophils (%) (Auto) 0.8, Sodium Level 142, Potassium Level 3.5, Chloride Level 110H, Carbon Dioxide Level 24, Anion Gap 9, Blood Urea Nitrogen 25H, Creatinine 0.9, Estimat Glomerular Filtration Rate , Glucose Level 132H, Calcium Level 9.1, Ionized Calcium (Measured) 1.23, Ferritin 55, Folate 10.0 Height (Feet): 5 Height (Inches): 6.00 Weight (Pounds): 196 Neck: supple Cardiovascular: normal rate Respiratory/Chest: lungs clear Abdomen: normal bowel sounds, non tender, soft Extremities: non-tender Stevie Cleveland MD Jan 25, 2018 11:36
[2018-01-25 12:00] VITALS: BP 134/69
[2018-01-25] MEDS: Lactulose 10gm/15ml UDC ORAL SCH ×2 (12:42→17:11)
[2018-01-25 16:00] VITALS: BP 136/69
[2018-01-25 20:00] VITALS: BP 134/68
[2018-01-25] MEDS: Miralax 17gm pkt ORAL SCH (20:39)
[2018-01-25] MEDS: Iron Sucrose 100 MG in NS 55 ML IV SCH (20:39)
[2018-01-25] MEDS: HYDROcodone/Acetamin 10/325 tab ORAL PRN (21:03)
[2018-01-25] MEDS: Vancomycin 1 GM in D5W 275 ML IVPB SCH (22:28)
[2018-01-26 00:29] VITALS: BP 119/54
[2018-01-26] MEDS: HYDROmorphone 1mg/ml Carpuject IVP PRN ×3 (03:44→13:04)
[2018-01-26 04:00] VITALS: BP 130/63
[2018-01-26] MEDS: Aztreonam Inj 1 GM in D5W 55 ML IVPB SCH ×3 (05:27→20:47)
[2018-01-26 07:22] LABS: EOSINOPHILS % (AUTO) 2.7 % (0.0-3.0); HEMATOCRIT 26.2 % (37.0-47.0); HEMOGLOBIN 8.3 G/DL (12.0-16.0); LYMPHOCYTES % (AUTO) 25.1 % (20.0-45.0); MEAN CORPUSCULAR VOLUME 77 FL (80-99); MONOCYTES % (AUTO) 7.8 % (1.0-10.0); NEUTROPHILS % (AUTO) 63.5 % (45.0-75.0); PLATELET COUNT 350 K/UL (150-450); RED BLOOD COUNT 3.43 M/UL (4.20-5.40); RED CELL DISTRIBUTION WIDTH 16.6 % (11.6-14.8); WHITE BLOOD COUNT 8.5 K/UL (4.8-10.8)
[2018-01-26 08:00] VITALS: BP 123/71
[2018-01-26] MEDS: Ascorbic Acid 500mg tab ORAL SCH (08:53)
[2018-01-26] MEDS: VITAMIN A 10000 UNIT ORAL SCH (08:53)
[2018-01-26] MEDS: Docusate 100mg cap ORAL SCH ×2 (08:54→17:19)
[2018-01-26] MEDS: Vitamin D 1000 IU Tab ORAL SCH (08:55)
[2018-01-26] MEDS: Zinc Sulfate 220mg cap ORAL SCH (08:56)
[2018-01-26] MEDS: Lactulose 10gm/15ml UDC ORAL SCH ×3 (08:56→17:20)
[2018-01-26] MEDS: Heparin 5000 units/ml inj SUBQ SCH ×2 (08:59→19:58)
[2018-01-26] MEDS: Furosemide 40mg tab ORAL SCH (09:00)
[2018-01-26] MEDS: Losartan 50mg tab ORAL SCH (09:00)
--- NOTE | 2018-01-26 09:14 | General Progress Note ---
Assessment/Plan Problem List: (1) Iron deficiency anemia ICD Codes: D50.9 - Iron deficiency anemia, unspecified SNOMED: 32308331 (2) Ankle cellulitis ICD Codes: L03.119 - Cellulitis of unspecified part of limb SNOMED: 33643503 (3) Open ankle wound ICD Codes: S91.009A - Unspecified open wound, unspecified ankle, initial encounter SNOMED: 840864300 Assessment/Plan iv iron fu cbc fu stool ob fu CEA patient was offered EGD and colonoscopy but she wants to wait for now bowel regimen Subjective ROS Limited/Unobtainable: Yes Allergies: Coded Allergies: CRANBERRY (Verified Allergy, Unknown, Anaphylaxis, 08/05/17) PENICILLINS (Verified Allergy, Unknown, 05/22/17) Objective Last 24 Hour Vital Signs Date Time Temp Pulse Resp B/P (MAP) Pulse Ox O2 Delivery O2 Flow Rate FiO2 01/26/18 08:00 98.2 75 20 123/71 (88) 97 01/26/18 04:14 98.2 01/26/18 04:00 99.2 75 18 130/63 (85) 94 01/26/18 00:29 98.2 72 18 119/54 (75) 95 01/25/18 21:35 98.2 01/25/18 21:21 Room Air 01/25/18 20:00 98.1 80 19 134/68 (90) 96 01/25/18 16:00 98.2 87 19 136/69 (91) 96 01/25/18 12:00 99.5 72 18 134/69 (90) 92 Intake and Output 01/25/18 01/26/18 18:59 06:59 Intake Total 540 ml 695.000 ml Balance 540 ml 695.000 ml Intake Oral 240 ml 250 ml IV Total 445.000 ml Other 300 ml # Voids 1 4 Laboratory Tests 01/25/18 21:00: Stool Occult Blood [Pending] 01/26/18 05:15: White Blood Count 8.5, Red Blood Count 3.43L, Hemoglobin 8.3L, Hematocrit 26.2L , Mean Corpuscular Volume 77L, Mean Corpuscular Hemoglobin 24.1L, Mean Corpuscular Hemoglobin Concent 31.5L, Red Cell Distribution Width 16.6H, Platelet Count 350, Mean Platelet Volume 6.0L, Neutrophils (%) (Auto) 63.5, Lymphocytes (%) (Auto) 25.1, Monocytes (%) (Auto) 7.8, Eosinophils (%) (Auto) 2.7, Basophils (%) (Auto) 1.0, Carcinoembryonic Antigen [Pending] Height (Feet): 5 Height (Inches): 6.00 Weight (Pounds): 196 General Appearance: alert EENT: normal ENT inspection Neck: supple Cardiovascular: normal rate Respiratory/Chest: lungs clear Abdomen: normal bowel sounds, non tender, soft Stevie Cleveland MD Jan 26, 2018 09:14
[2018-01-26] MEDS ORDERED: NS 275ml ONE (09:56)
[2018-01-26] MEDS ORDERED: D5 1/2NS 1000ml IV ONE (09:57)
[2018-01-26] MEDS ORDERED: Sterile Water Irrig 1000ml IRRIG ONE (09:57)
[2018-01-26] MEDS: Lidocaine 4% Top Soln 50ml TOPIC PRN (11:18)
--- NOTE | 2018-01-26 11:45 | General Progress Note ---
Assessment/Plan Assessment/Plan (1) B/L LE pain (2) B/L LE cellulitis with open wounds (3) Post polio syndrome (4) H/o debridement of B/L LE wounds Patient will be continued on Neurontin, [place] and Dilaudid. D/w Dr. Stone and he concurred. Subjective Date patient seen: Jan 26, 2018 Time patient seen: 10:00 - am Allergies: Coded Allergies: CRANBERRY (Verified Allergy, Unknown, Anaphylaxis, 08/05/17) PENICILLINS (Verified Allergy, Unknown, 05/22/17) Subjective Constitutional: Reports: no symptoms Eye: Reports: no symptoms ENT: Reports: no symptoms Respiratory: Reports: no symptoms Cardiovascular: Reports: no symptoms Gastrointestinal: Reports: no symptoms Genitourinary: Reports: no symptoms Musculoskeletal: Reports: muscle stiffness Skin: Reports: lesions Psychiatric: Reports: no symptoms Neurological: Reports: focal weakness Endocrine: Reports: no symptoms Hematologic/Lymphatic: Reports: no symptoms Subjective Patient pain is unchanged tolerated on the Dilaudid and [place] regimen and reports reduction of pain with the Neurontin. She has no new complaints at this time. Objective Last 24 Hour Vital Signs Date Time Temp Pulse Resp B/P (MAP) Pulse Ox O2 Delivery O2 Flow Rate FiO2 01/26/18 10:05 98.2 01/26/18 09:00 Room Air 01/26/18 08:00 98.2 75 20 123/71 (88) 97 01/26/18 04:00 99.2 75 18 130/63 (85) 94 01/26/18 00:29 98.2 72 18 119/54 (75) 95 01/25/18 21:35 98.2 01/25/18 21:21 Room Air 01/25/18 20:00 98.1 80 19 134/68 (90) 96 01/25/18 16:00 98.2 87 19 136/69 (91) 96 01/25/18 12:00 99.5 72 18 134/69 (90) 92 Intake and Output 01/25/18 01/26/18 19:00 07:00 Intake Total 540 ml 695.000 ml Balance 540 ml 695.000 ml Intake Oral 240 ml 250 ml IV Total 445.000 ml Other 300 ml # Voids 1 4 Laboratory Tests 01/25/18 21:00: Stool Occult Blood Positive 01/26/18 05:15: White Blood Count 8.5, Red Blood Count 3.43L, Hemoglobin 8.3L, Hematocrit 26.2L , Mean Corpuscular Volume 77L, Mean Corpuscular Hemoglobin 24.1L, Mean Corpuscular Hemoglobin Concent 31.5L, Red Cell Distribution Width 16.6H, Platelet Count 350, Mean Platelet Volume 6.0L, Neutrophils (%) (Auto) 63.5, Lymphocytes (%) (Auto) 25.1, Monocytes (%) (Auto) 7.8, Eosinophils (%) (Auto) 2.7, Basophils (%) (Auto) 1.0, Carcinoembryonic Antigen [Pending] Height (Feet): 5 Height (Inches): 6.00 Weight (Pounds): 196 Objective General Appearance: WD/WN, no apparent distress, alert HEENT: PERRL, EOMI Neck: non-tender, normal alignment, supple, normal inspection Respiratory/Chest: lungs clear, normal breath sounds, no respiratory distress Cardiovascular/Chest: normal rate, regular rhythm Abdomen: non tender, soft Extremities: severe edema - with bandages applied, tenderness to palpaiton Neurologic: abnormal gait, alert, oriented x 3 Ricco Damico Jan 26, 2018 11:45
[2018-01-26 12:00] VITALS: BP 119/54
[2018-01-26] MEDS ORDERED: Gadavist 7.5mMol/7.5ml vial IV PRN ×2 (12:45)
--- NOTE | 2018-01-26 12:46 | Podiatric Progress Note ---
Assessment/Plan Patient Michelle Elias is a 72 year old female who was admitted on Jan 21, 2018 at 17:30 with Assessment/Plan Assessment/Plan (1) B/L LE Chronic Ulcerations with severe pain. (2) B/L LE cellulitis (3) Post polio syndrome (4) H/O debridement of B/L LE wounds - Pt seen and evaluated. - Chart reviewed. - WBC 8.5 downtrending since DOA. 18 - Cont IV ABx. - Wound Cx B/L LE reveal Gram (-) Allen Gram (-) Bacilli Staph Aureus - Recommend ID consult for IV ABx specification based on these results. - Blood Cx NGTD pre joel result. - B/L Leg, and ankle XR negative for OM or ST infection. - Left leg MRI negative for OM or deep ST infection. - Right leg MRI pending - B/L Ankle MRI pending. - Daily Wound care: please give adequate pain medication 30min to 1 hr before dressing change. Have Lidocaine solution available. Cleanse wounds with NS, remove dressing, apply xeroform to areas of ulceration as primary dressing, apply 4 x 4 gauze, ABD and Kerlix. -Pain management per primary team. - Pt has moderate to severe B/L LE vascular disease. Will await [facility] rec based on these study. - Cont Lidocaine solution for bedside dressing changes. - Pod will cont to monitor. Subjective Allergies: Coded Allergies: CRANBERRY (Verified Allergy, Unknown, Anaphylaxis, 08/05/17) PENICILLINS (Verified Allergy, Unknown, 05/22/17) Subjective Pt seen bedside with nursing staff. States her pain is controlled to B/L LE. Confirms keeping dressing C/D/I. Denies any recent constitutional symptoms. Pt states she feels better. Objective Exam Last 24 Hour Vital Signs Date Time Temp Pulse Resp B/P (MAP) Pulse Ox O2 Delivery O2 Flow Rate FiO2 01/26/18 10:05 98.2 01/26/18 09:00 Room Air 01/26/18 08:00 98.2 75 20 123/71 (88) 97 01/26/18 04:00 99.2 75 18 130/63 (85) 94 01/26/18 00:29 98.2 72 18 119/54 (75) 95 01/25/18 21:35 98.2 01/25/18 21:21 Room Air 01/25/18 20:00 98.1 80 19 134/68 (90) 96 01/25/18 16:00 98.2 87 19 136/69 (91) 96 Laboratory Tests Test 01/25/18 21:00 01/26/18 05:15 Stool Occult Blood Positive (NEGATIVE) White Blood Count 8.5 K/UL (4.8-10.8) Red Blood Count 3.43 M/UL (4.20-5.40) L Hemoglobin 8.3 G/DL (12.0-16.0) L Hematocrit 26.2 % (37.0-47.0) L Mean Corpuscular Volume 77 FL (80-99) L Mean Corpuscular Hemoglobin 24.1 PG (27.0-31.0) L Mean Corpuscular Hemoglobin Concent 31.5 G/DL (32.0-36.0) L Red Cell Distribution Width 16.6 % (11.6-14.8) H Platelet Count 350 K/UL (150-450) Mean Platelet Volume 6.0 FL (6.5-10.1) L Neutrophils (%) (Auto) 63.5 % (45.0-75.0) Lymphocytes (%) (Auto) 25.1 % (20.0-45.0) Monocytes (%) (Auto) 7.8 % (1.0-10.0) Eosinophils (%) (Auto) 2.7 % (0.0-3.0) Basophils (%) (Auto) 1.0 % (0.0-2.0) Carcinoembryonic Antigen Pending Microbiology Date/Time Source Procedure Growth Status 01/24/18 22:00 Blood Blood Culture - Preliminary NO GROWTH AFTER 24 HOURS Resulted 01/22/18 11:25 Wound Gram Stain - Final Resulted 01/22/18 11:25 Wound Culture - Preliminary Gram Negative Allen Gram Negative Bacillus 2 Resulted 01/23/18 11:40 Urine,Clean Catch Urine Culture - Final NO GROWTH AFTER 48 HOURS Complete Dermatological Dermatological Narrative O: Right Leg: Ulcer 1: Right medial leg: Approx 15cm x 5cm x UTD Wound base 80% fibrotic, exposed Subq layer, surrounding chris-wound erythema, (-) malodor or active purulent drainage. (+) severe POP. Ascending erythema to proximal 1/3 ant tibia. Ulcer 2: Right lateral RF: Approx: 10cm x 5xm x UTD, Wound base 100% fibrotic, exposed Subq layer, surrounding chris-wound erythema, (-) malodor or active purulent drainage. (+) severe POP. Ascending erythema to proximal 1/3 ant tibia. Left Leg: Ulcer 1: Left lateral leg: Size: Lateral Leg extending distally to lateral MF. Wound base 100% fibrotic, exposed Subq layer, surrounding chris-wound erythema, ( -) malodor or active purulent drainage. (+) severe POP. Ascending erythema to proximal 1/3 ant tibia. rUiel Green DPM Jan 26, 2018 12:46
--- NOTE | 2018-01-26 13:43 | Infectious Diseases Prog Note ---
Assessment/Plan Assessment/Plan ASSESSMENT AND PLAN: 1. bilateral leg cellulitis with infected wounds/ulcers of legs/ankles/feet, sepsis, leukocytosis - vancomycin and aztreonam, add bactrim, day # 5 antibiotics - wound culture with mrsa/stenotrophomonas and gram negatives, check final wound culture - sepsis better, leukocytosis better - monitor labs, check final wound culture - MRI without osteomyelitis 2. 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 3. The patient has a history of hypertension. 4. History of cardiac disease, positive related hypertension. 5. History of post-polio syndrome and weakness. 6. History of neurological disease. 7. History of cancer per the records. 8. Hypertension, treatment per primary. 9. Skin care protocol. Podiatry. 10. Past medical history noted. 11. Allergies, cranberry and penicillin. 12. Social history is negative. 13. Family history is noncontributory. 14. MAR was noted. 15. Case discussed with RN. 16. Continue with primary consultants. 17. Case communicated with primary doctor and Podiatry. Subjective Constitutional: Denies: fever, fatigue HEENT: Denies: congestion Respiratory: Denies: shortness of breath Cardiovascular: Denies: chest pain Gastrointestinal/Abdominal: Denies: nausea, diarrhea Genitourinary: Reports: other - no joshi ; Denies: dysuria, hematuria Neurologic: Denies: headache Psychiatric: Denies: depression Skin: Denies: rash Hematologic: Denies: bleeding Musculoskeletal: Reports: pain - leg pain controlled Allergies: Coded Allergies: CRANBERRY (Verified Allergy, Unknown, Anaphylaxis, 08/05/17) PENICILLINS (Verified Allergy, Unknown, 05/22/17) Objective Vital Signs Last 24 Hour Vital Signs Date Time Temp Pulse Resp B/P (MAP) Pulse Ox O2 Delivery O2 Flow Rate FiO2 01/26/18 12:00 98.6 75 18 119/54 (75) 95 01/26/18 10:05 98.2 01/26/18 09:00 Room Air 01/26/18 08:00 98.2 75 20 123/71 (88) 97 01/26/18 04:00 99.2 75 18 130/63 (85) 94 01/26/18 00:29 98.2 72 18 119/54 (75) 95 01/25/18 21:35 98.2 01/25/18 21:21 Room Air 01/25/18 20:00 98.1 80 19 134/68 (90) 96 01/25/18 16:00 98.2 87 19 136/69 (91) 96 Height (Feet): 5 Height (Inches): 6.00 Weight (Pounds): 196 General Appearance: no acute distress HEENT: normocephalic, atraumatic, anicteric, mucous membranes moist Respiratory/Chest: lungs clear, normal breath sounds, no respiratory distress, no accessory muscle use Cardiovascular: normal rate, regular rhythm, no gallop/murmur, no JVD Abdomen: normal bowel sounds, soft, non tender, no organomegaly, non distended Genitourinary: other - no joshi Extremities: no cyanosis, other - less cellulitis bilaterally, less redness, wounds covered Skin: no rash 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 No evidence of osteomyelitis or acute fracture. 2. Subcutaneous edema. No discrete abscess collection. Microbiology Date/Time Source Procedure Growth Status 01/24/18 22:00 Blood Blood Culture - Preliminary NO GROWTH AFTER 24 HOURS Resulted 01/22/18 11:25 Wound Gram Stain - Final Resulted 01/22/18 11:25 Wound Culture - Preliminary Gram Negative Allen Gram Negative Bacillus 2 Resulted 01/23/18 11:40 Urine,Clean Catch Urine Culture - Final NO GROWTH AFTER 48 HOURS Complete Microbiology Date/Time Source Procedure Growth Status 01/24/18 22:00 Blood Blood Culture - Preliminary NO GROWTH AFTER 24 HOURS Resulted 01/24/18 21:45 Blood Blood Culture - Preliminary NO GROWTH AFTER 24 HOURS Resulted Labs Test 01/24/18 05:10 01/24/18 21:45 01/25/18 06:20 01/25/18 21:00 White Blood Count 10.3 K/UL (4.8-10.8) 8.5 K/UL (4.8-10.8) Red Blood Count 3.21 M/UL (4.20-5.40) 3.24 M/UL (4.20-5.40) Hemoglobin 7.9 G/DL (12.0-16.0) 8.0 G/DL (12.0-16.0) Hematocrit 24.7 % (37.0-47.0) 24.7 % (37.0-47.0) Mean Corpuscular Volume 77 FL (80-99) 76 FL (80-99) Mean Corpuscular Hemoglobin 24.5 PG (27.0-31.0) 24.6 PG (27.0-31.0) Mean Corpuscular Hemoglobin Concent 31.9 G/DL (32.0-36.0) 32.3 G/DL (32.0-36.0) Red Cell Distribution Width 15.9 % (11.6-14.8) 16.2 % (11.6-14.8) Platelet Count 349 K/UL (150-450) 344 K/UL (150-450) Mean Platelet Volume 6.0 FL (6.5-10.1) 5.9 FL (6.5-10.1) Neutrophils (%) (Auto) % (45.0-75.0) 66.9 % (45.0-75.0) Lymphocytes (%) (Auto) % (20.0-45.0) 22.8 % (20.0-45.0) Monocytes (%) (Auto) % (1.0-10.0) 6.4 % (1.0-10.0) Eosinophils (%) (Auto) % (0.0-3.0) 3.0 % (0.0-3.0) Basophils (%) (Auto) % (0.0-2.0) 0.8 % (0.0-2.0) Differential Total Cells Counted 100 Neutrophils % (Manual) 75 % (45-75) Lymphocytes % (Manual) 15 % (20-45) Monocytes % (Manual) 8 % (1-10) Eosinophils % (Manual) 2 % (0-3) Basophils % (Manual) 0 % (0-2) Band Neutrophils 0 % (0-8) Platelet Estimate Adequate Platelet Morphology Normal Hypochromasia 3+ Anisocytosis 1+ Microcytosis 1+ Sodium Level 144 MMOL/L (136-145) 142 MMOL/L (136-145) Potassium Level 3.7 MMOL/L (3.5-5.1) 3.5 MMOL/L (3.5-5.1) Chloride Level 112 MMOL/L (98-107) 110 MMOL/L (98-107) Carbon Dioxide Level 22 MMOL/L (21-32) 24 MMOL/L (21-32) Anion Gap 10 mmol/L (5-15) 9 mmol/L (5-15) Blood Urea Nitrogen 28 mg/dL (7-18) 25 mg/dL (7-18) Creatinine 0.9 MG/DL (0.55-1.30) 0.9 MG/DL (0.55-1.30) Estimat Glomerular Filtration Rate mL/min (>60) mL/min (>60) Glucose Level 96 MG/DL (74-106) 132 MG/DL (74-106) Calcium Level 8.8 MG/DL (8.5-10.1) 9.1 MG/DL (8.5-10.1) Iron Level 22 ug/dL (50-175) Total Iron Binding Capacity 266 ug/dL (250-450) Percent Iron Saturation 8 % (15-50) Unsaturated Iron Binding 244 ug/dL (112-346) Ferritin 45 NG/ML (8-388) 55 NG/ML (8-388) Vitamin B12 Level 367 PG/ML (193-986) Vancomycin Level Trough 10.2 ug/mL (5.0-12.0) Ionized Calcium (Measured) 1.23 mmol/L (1.10-1.35) Folate 10.0 NG/ML (8.6-58.9) Stool Occult Blood Positive (NEGATIVE) Test 01/26/18 05:15 White Blood Count 8.5 K/UL (4.8-10.8) Red Blood Count 3.43 M/UL (4.20-5.40) Hemoglobin 8.3 G/DL (12.0-16.0) Hematocrit 26.2 % (37.0-47.0) Mean Corpuscular Volume 77 FL (80-99) Mean Corpuscular Hemoglobin 24.1 PG (27.0-31.0) Mean Corpuscular Hemoglobin Concent 31.5 G/DL (32.0-36.0) Red Cell Distribution Width 16.6 % (11.6-14.8) Platelet Count 350 K/UL (150-450) Mean Platelet Volume 6.0 FL (6.5-10.1) Neutrophils (%) (Auto) 63.5 % (45.0-75.0) Lymphocytes (%) (Auto) 25.1 % (20.0-45.0) Monocytes (%) (Auto) 7.8 % (1.0-10.0) Eosinophils (%) (Auto) 2.7 % (0.0-3.0) Basophils (%) (Auto) 1.0 % (0.0-2.0) Laboratory Tests Test 01/25/18 21:00 01/26/18 05:15 Stool Occult Blood Positive (NEGATIVE) White Blood Count 8.5 K/UL (4.8-10.8) Red Blood Count 3.43 M/UL (4.20-5.40) L Hemoglobin 8.3 G/DL (12.0-16.0) L Hematocrit 26.2 % (37.0-47.0) L Mean Corpuscular Volume 77 FL (80-99) L Mean Corpuscular Hemoglobin 24.1 PG (27.0-31.0) L Mean Corpuscular Hemoglobin Concent 31.5 G/DL (32.0-36.0) L Red Cell Distribution Width 16.6 % (11.6-14.8) H Platelet Count 350 K/UL (150-450) Mean Platelet Volume 6.0 FL (6.5-10.1) L Neutrophils (%) (Auto) 63.5 % (45.0-75.0) Lymphocytes (%) (Auto) 25.1 % (20.0-45.0) Monocytes (%) (Auto) 7.8 % (1.0-10.0) Eosinophils (%) (Auto) 2.7 % (0.0-3.0) Basophils (%) (Auto) 1.0 % (0.0-2.0) Carcinoembryonic Antigen Pending Current Medications Medications (Trade) Dose Ordered Sig/Alec Route PRN Reason Start Time Stop Time Status Last Admin Dose Admin Acetaminophen (Tylenol) 650 mg Q6H PRN ORAL Mild Pain/Temp > 100.5 01/21/18 21:15 02/20/18 21:14 Acetaminophen/ Hydrocodone Bitart ([place] 10/325) 1 tab Q4H PRN ORAL severe pain 01/24/18 12:35 01/29/18 12:34 01/25/18 21:03 Al Hydroxide/Mg Hydroxide (Mylanta) 30 ml BID PRN ORAL heartburn, upset stomach 01/21/18 21:15 02/20/18 21:14 Ascorbic Acid (Vitamin C) 3,000 mg DAILY ORAL 01/23/18 09:00 02/22/18 08:59 01/26/18 08:53 Aztreonam 1 gm/ Dextrose 55 ml @ 110 mls/hr Q8HR IVPB 01/22/18 17:00 01/29/18 16:59 01/26/18 12:57 Diphenhydramine HCl (Benadryl) 25 mg Q4HR PRN IVP Itching 01/21/18 23:21 02/20/18 23:20 01/21/18 23:32 Docusate Sodium (Colace) 100 mg TWICE A DAY ORAL 01/22/18 09:00 02/21/18 08:59 01/26/18 08:54 Fish Oil (Fish Oil) 3,000 mg DAILY ORAL 01/23/18 09:00 02/22/18 08:59 01/26/18 08:53 Furosemide (Lasix) 40 mg DAILY ORAL 01/22/18 09:00 02/21/18 08:59 Gabapentin (Neurontin) 300 mg THREE TIMES A DAY ORAL 01/24/18 09:19 02/21/18 09:18 01/26/18 12:53 Heparin Sodium (Porcine) (Heparin 5000 units/ml) 5,000 units EVERY 12 HOURS SUBQ 01/22/18 09:00 02/21/18 08:59 01/26/18 08:59 Hydromorphone HCl (Dilaudid) 1 mg Q3H PRN IVP severe breakthrough pain 01/24/18 09:15 01/31/18 09:14 01/26/18 13:04 Iron Sucrose 100 mg/Sodium Chloride 60 ml @ 240 mls/hr BEDTIME IV 01/24/18 21:00 01/26/18 21:14 01/25/18 20:39 Lactulose (Cephulac) 10 gm THREE TIMES A DAY ORAL 01/25/18 13:00 02/24/18 12:59 01/26/18 12:53 Lidocaine (Xylocaine) 3 ml DAILYPRN PRN TOPIC use when dressing changed 01/24/18 16:15 02/23/18 16:14 01/26/18 11:18 Losartan Potassium (Cozaar) 100 mg DAILY ORAL 01/22/18 09:00 02/21/18 08:59 Magnesium Hydroxide (Mom) 30 ml HSPRN PRN ORAL Constipation 01/21/18 21:15 02/20/18 21:14 Pantoprazole (Protonix) 40 mg DAILY ORAL 01/22/18 09:00 02/21/18 08:59 01/26/18 08:55 Polyethylene Glycol (Miralax) 17 gm BEDTIME ORAL 01/24/18 21:00 02/23/18 20:59 01/25/18 20:39 Vancomycin HCl (Vanco rx to dose) 1 ea DAILY PRN MISC Per rx protocol 01/21/18 21:15 02/20/18 21:14 Vancomycin HCl 1 gm/Dextrose 275 ml @ 183.708 mls/hr Q24H IVPB 01/24/18 23:00 01/29/18 22:59 01/25/18 22:28 Vitamin A (Aquasol A) 10,000 intlu DAILY ORAL 01/23/18 09:00 02/22/18 08:59 01/26/18 08:53 Vitamin D (Vitamin D) 4,000 intlu DAILY ORAL 01/23/18 09:00 02/22/18 08:59 01/26/18 08:55 Zinc Sulfate (Zinc Sulfate) 440 mg DAILY ORAL 01/23/18 09:00 02/22/18 08:59 01/26/18 08:56 Zolpidem Tartrate (Ambien) 5 mg HSPRN PRN ORAL Insomnia 01/21/18 21:15 01/28/18 21:14 Lynda Boo MD Jan 26, 2018 13:43
[2018-01-26 16:00] VITALS: BP 111/66
[2018-01-26] MEDS: Bactrim-DS 1 tab ORAL SCH (17:19)
[2018-01-26] MEDS: Miralax 17gm pkt ORAL SCH (19:56)
[2018-01-26] MEDS: Iron Sucrose 100 MG in NS 55 ML IV SCH (19:56)
[2018-01-26 20:00] VITALS: BP 147/82
[2018-01-26] MEDS: Vancomycin 1 GM in D5W 275 ML IVPB SCH (23:05)
[2018-01-27] VITALS: BP 121/55
[2018-01-27 04:00] VITALS: BP 125/65
[2018-01-27] MEDS: Aztreonam Inj 1 GM in D5W 55 ML IVPB SCH ×3 (05:01→20:23)
[2018-01-27] MEDS: HYDROmorphone 1mg/ml Carpuject IVP PRN ×4 (06:14→17:54)
[2018-01-27 07:58] LABS: BASOPHILS % (AUTO) 0.8 % (0.0-2.0); EOSINOPHILS % (AUTO) 1.5 % (0.0-3.0); HEMATOCRIT 26.6 % (37.0-47.0); HEMOGLOBIN 8.4 G/DL (12.0-16.0); LYMPHOCYTES % (AUTO) 18.5 % (20.0-45.0); MEAN CORPUSCULAR VOLUME 77 FL (80-99); MONOCYTES % (AUTO) 7.2 % (1.0-10.0); NEUTROPHILS % (AUTO) 72.1 % (45.0-75.0); PLATELET COUNT 378 K/UL (150-450); RED BLOOD COUNT 3.46 M/UL (4.20-5.40); RED CELL DISTRIBUTION WIDTH 16.9 % (11.6-14.8); WHITE BLOOD COUNT 9.7 K/UL (4.8-10.8)
[2018-01-27 08:00] VITALS: BP 127/68
[2018-01-27 08:04] LABS: ANION GAP 10 mmol/L (5-15); BLOOD UREA NITROGEN 19 mg/dL (7-18); CARBON DIOXIDE 26 MMOL/L (21-32); CHLORIDE 109 MMOL/L (98-107); CREATININE 0.9 MG/DL (0.55-1.30); POTASSIUM 3.3 MMOL/L (3.5-5.1); SODIUM 145 MMOL/L (136-145)
--- NOTE | 2018-01-27 08:31 | General Progress Note ---
Assessment/Plan Assessment/Plan (1) B/L LE pain (2) B/L LE cellulitis with open wounds (3) Post polio syndrome (4) H/o debridement of B/L LE wounds Patient will be continued on Neurontin, [place] and Dilaudid. D/w Dr. Stone and he concurred. Subjective Date patient seen: Jan 27, 2018 Time patient seen: 07:00 - am Allergies: Coded Allergies: CRANBERRY (Verified Allergy, Unknown, Anaphylaxis, 08/05/17) PENICILLINS (Verified Allergy, Unknown, 05/22/17) Subjective Constitutional: Reports: no symptoms Eye: Reports: no symptoms ENT: Reports: no symptoms Respiratory: Reports: no symptoms Cardiovascular: Reports: no symptoms Gastrointestinal: Reports: no symptoms Genitourinary: Reports: no symptoms Musculoskeletal: Reports: muscle stiffness Skin: Reports: lesions Psychiatric: Reports: no symptoms Neurological: Reports: focal weakness Endocrine: Reports: no symptoms Hematologic/Lymphatic: Reports: no symptoms Subjective Patient is laying in bed with continued c/o b/l LE pain. The pain has per patient has been tolerated on the Dilaudid 3 doses and [place]. She has no new complaints at this time. Objective Last 24 Hour Vital Signs Date Time Temp Pulse Resp B/P (MAP) Pulse Ox O2 Delivery O2 Flow Rate FiO2 01/27/18 04:00 98.3 68 20 125/65 (85) 92 01/27/18 00:00 99.4 69 20 121/55 (77) 91 01/26/18 21:00 Room Air 01/26/18 20:00 98.8 91 20 147/82 (103) 93 01/26/18 16:00 98.2 90 19 111/66 (81) 99 01/26/18 13:34 98.2 01/26/18 12:00 98.6 75 18 119/54 (75) 95 01/26/18 09:00 Room Air Intake and Output 01/26/18 01/27/18 18:59 06:59 Intake Total 720 ml 830.000 ml Balance 720 ml 830.000 ml Intake Oral 720 ml 440 ml IV Total 390.000 ml # Voids 2 4 Laboratory Tests 01/27/18 06:40: White Blood Count 9.7, Red Blood Count 3.46L, Hemoglobin 8.4L, Hematocrit 26.6L , Mean Corpuscular Volume 77L, Mean Corpuscular Hemoglobin 24.4L, Mean Corpuscular Hemoglobin Concent 31.7L, Red Cell Distribution Width 16.9H, Platelet Count 378, Mean Platelet Volume 5.8L, Neutrophils (%) (Auto) 72.1, Lymphocytes (%) (Auto) 18.5L, Monocytes (%) (Auto) 7.2, Eosinophils (%) (Auto) 1.5, Basophils (%) (Auto) 0.8, Sodium Level 145, Potassium Level 3.3L, Chloride Level 109H, Carbon Dioxide Level 26, Anion Gap 10, Blood Urea Nitrogen 19H, Creatinine 0.9, Estimat Glomerular Filtration Rate , Glucose Level 100, Calcium Level 9.0 Height (Feet): 5 Height (Inches): 6.00 Weight (Pounds): 196 Objective General Appearance: WD/WN, no apparent distress, alert HEENT: PERRL, EOMI Neck: non-tender, normal alignment, supple, normal inspection Respiratory/Chest: lungs clear, normal breath sounds, no respiratory distress Cardiovascular/Chest: normal rate, regular rhythm Abdomen: non tender, soft Extremities: severe edema - with bandages applied, tenderness to palpaiton Neurologic: abnormal gait, alert, oriented x 3 Ricco Damico Jan 27, 2018 08:31
[2018-01-27] MEDS: VITAMIN A 10000 UNIT ORAL SCH (09:00)
[2018-01-27] MEDS: Losartan 50mg tab ORAL SCH (09:00)
[2018-01-27] MEDS: Furosemide 40mg tab ORAL SCH (09:00)
[2018-01-27] MEDS: Zinc Sulfate 220mg cap ORAL SCH (09:01)
[2018-01-27] MEDS: Ascorbic Acid 500mg tab ORAL SCH (09:01)
[2018-01-27] MEDS: Docusate 100mg cap ORAL SCH ×2 (09:01→17:54)
[2018-01-27] MEDS: Vitamin D 1000 IU Tab ORAL SCH (09:01)
[2018-01-27] MEDS: Bactrim-DS 1 tab ORAL SCH ×2 (09:01→20:22)
[2018-01-27] MEDS: Lactulose 10gm/15ml UDC ORAL SCH ×3 (09:02→17:54)
[2018-01-27] MEDS: Heparin 5000 units/ml inj SUBQ SCH ×2 (09:10→20:08)
[2018-01-27] MEDS: HYDROcodone/Acetamin 10/325 tab ORAL PRN ×2 (10:49→20:22)
--- NOTE | 2018-01-27 11:02 | GI Progress Note ---
Assessment/Plan Problems: (1) Occult blood in stools ICD Codes: R19.5 - Other fecal abnormalities SNOMED: 08140370, 901478033 (2) Anemia ICD Codes: D64.9 - Anemia, unspecified SNOMED: 628964371 (3) Iron deficiency anemia ICD Codes: D50.9 - Iron deficiency anemia, unspecified SNOMED: 63779885 Status: stable Status Narrative Discussed with Dr. Cleveland. Assessment/Plan EGD scheduled tomorrow - NPO @ [place]. - hold all blood thinners tonight. iv iron fu cbc fu stool ob fu CEA bowel regimen outpatient colonoscopy The patient was seen and examined at bedside and all new and available data was reviewed in the patients chart. I agree with the above findings, impression and plan. (Patient seen earlier today. Signature stamp does not reflect patient encounter time.). - Stevie Cleveland MD Subjective Gastrointestinal/Abdominal: Reports: no symptoms Objective Last 24 Hour Vital Signs Date Time Temp Pulse Resp B/P (MAP) Pulse Ox O2 Delivery O2 Flow Rate FiO2 01/27/18 09:00 125/65 01/27/18 09:00 Room Air 01/27/18 08:00 98.6 71 20 127/68 (87) 94 01/27/18 04:00 98.3 68 20 125/65 (85) 92 01/27/18 00:00 99.4 69 20 121/55 (77) 91 01/26/18 21:00 Room Air 01/26/18 20:00 98.8 91 20 147/82 (103) 93 01/26/18 16:00 98.2 90 19 111/66 (81) 99 01/26/18 13:34 98.2 01/26/18 12:00 98.6 75 18 119/54 (75) 95 Intake and Output 01/26/18 01/27/18 18:59 06:59 Intake Total 720 ml 830.000 ml Balance 720 ml 830.000 ml Intake Oral 720 ml 440 ml IV Total 390.000 ml # Voids 2 4 Laboratory Tests Test 01/27/18 06:40 White Blood Count 9.7 K/UL (4.8-10.8) Red Blood Count 3.46 M/UL (4.20-5.40) L Hemoglobin 8.4 G/DL (12.0-16.0) L Hematocrit 26.6 % (37.0-47.0) L Mean Corpuscular Volume 77 FL (80-99) L Mean Corpuscular Hemoglobin 24.4 PG (27.0-31.0) L Mean Corpuscular Hemoglobin Concent 31.7 G/DL (32.0-36.0) L Red Cell Distribution Width 16.9 % (11.6-14.8) H Platelet Count 378 K/UL (150-450) Mean Platelet Volume 5.8 FL (6.5-10.1) L Neutrophils (%) (Auto) 72.1 % (45.0-75.0) Lymphocytes (%) (Auto) 18.5 % (20.0-45.0) L Monocytes (%) (Auto) 7.2 % (1.0-10.0) Eosinophils (%) (Auto) 1.5 % (0.0-3.0) Basophils (%) (Auto) 0.8 % (0.0-2.0) Sodium Level 145 MMOL/L (136-145) Potassium Level 3.3 MMOL/L (3.5-5.1) L Chloride Level 109 MMOL/L (98-107) H Carbon Dioxide Level 26 MMOL/L (21-32) Anion Gap 10 mmol/L (5-15) Blood Urea Nitrogen 19 mg/dL (7-18) H Creatinine 0.9 MG/DL (0.55-1.30) Estimat Glomerular Filtration Rate mL/min (>60) Glucose Level 100 MG/DL (74-106) Calcium Level 9.0 MG/DL (8.5-10.1) Height (Feet): 5 Height (Inches): 6.00 Weight (Pounds): 196 General Appearance: WD/WN, no apparent distress, alert Cardiovascular: normal rate Respiratory/Chest: normal breath sounds, no respiratory distress Abdominal Exam: normal bowel sounds, non tender, soft Extremities: normal range of motion, non-tender Santi Hendrix SKIN PILER Jan 27, 2018 11:02
--- NOTE | 2018-01-27 13:24 | Infectious Diseases Prog Note ---
Assessment/Plan Assessment/Plan ASSESSMENT AND PLAN: 1. bilateral leg cellulitis with infected wounds/ulcers of legs/ankles/feet, sepsis, leukocytosis - vancomycin, aztreonam and bactrim, day # 6 antibiotics - wound culture with mrsa/stenotrophomonas/acinetobacter species - sepsis better, leukocytosis better - monitor labs, check final wound culture - first MRI without osteomyelitis, f/u MRI on other LE ordered - can discharge on po bactrim and levofloxacin x 5 days if MRI okay, script written 2. 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 3. The patient has a history of hypertension. 4. History of cardiac disease, positive related hypertension. 5. History of post-polio syndrome and weakness. 6. History of neurological disease. 7. History of cancer per the records. 8. Hypertension, treatment per primary. 9. Skin care protocol. Podiatry. 10. Past medical history noted. 11. Allergies, cranberry and penicillin. 12. Social history is negative. 13. Family history is noncontributory. 14. MAR was noted. 15. Case discussed with RN. 16. Continue with primary consultants. 17. Case communicated with primary doctor and Podiatry. Subjective Constitutional: Denies: fever, chills, fatigue HEENT: Denies: congestion Respiratory: Denies: shortness of breath Cardiovascular: Denies: chest pain Gastrointestinal/Abdominal: Denies: vomiting, diarrhea Neurologic: Denies: headache Psychiatric: Denies: depression Skin: Denies: rash Hematologic: Denies: bleeding Musculoskeletal: Denies: pain Allergies: Coded Allergies: CRANBERRY (Verified Allergy, Unknown, Anaphylaxis, 08/05/17) PENICILLINS (Verified Allergy, Unknown, 05/22/17) Objective Vital Signs Last 24 Hour Vital Signs Date Time Temp Pulse Resp B/P (MAP) Pulse Ox O2 Delivery O2 Flow Rate FiO2 01/27/18 09:00 125/65 01/27/18 09:00 Room Air 01/27/18 08:00 98.6 71 20 127/68 (87) 94 01/27/18 04:00 98.3 68 20 125/65 (85) 92 01/27/18 00:00 99.4 69 20 121/55 (77) 91 01/26/18 21:00 Room Air 01/26/18 20:00 98.8 91 20 147/82 (103) 93 01/26/18 16:00 98.2 90 19 111/66 (81) 99 01/26/18 13:34 98.2 Height (Feet): 5 Height (Inches): 6.00 Weight (Pounds): 196 General Appearance: no acute distress HEENT: normocephalic, atraumatic, anicteric, mucous membranes moist Respiratory/Chest: lungs clear, normal breath sounds, no respiratory distress, no accessory muscle use Cardiovascular: normal rate, regular rhythm, no gallop/murmur, no JVD Abdomen: normal bowel sounds, soft, non tender, no organomegaly, non distended Genitourinary: other - no joshi Extremities: no cyanosis Skin: no rash Neurologic/Psychiatric: c engineer II-XII grossly normal, alert, oriented x 3, responsive Lymphatic: no neck adenopathy Musculoskeletal: no effusion Objective LE x-rays noted - no osteomyelitis mentioned, reports noted CT noted MRI LE - left leg 1. No evidence of osteomyelitis or acute fracture. 2. Subcutaneous edema. No discrete abscess collection. Microbiology Date/Time Source Procedure Growth Status 01/24/18 22:00 Blood Blood Culture - Preliminary NO GROWTH AFTER 48 HOURS Resulted 01/22/18 11:25 Wound Gram Stain - Final Complete 01/22/18 11:25 Wound Culture - Final Stenotrophomonas Maltophilia Achromobacter Denitrificans Complete 01/23/18 11:40 Urine,Clean Catch Urine Culture - Final NO GROWTH AFTER 48 HOURS Complete Microbiology Date/Time Source Procedure Growth Status 01/24/18 22:00 Blood Blood Culture - Preliminary NO GROWTH AFTER 48 HOURS Resulted 01/24/18 21:45 Blood Blood Culture - Preliminary NO GROWTH AFTER 48 HOURS Resulted Laboratory Tests Test 01/27/18 06:40 White Blood Count 9.7 K/UL (4.8-10.8) Red Blood Count 3.46 M/UL (4.20-5.40) L Hemoglobin 8.4 G/DL (12.0-16.0) L Hematocrit 26.6 % (37.0-47.0) L Mean Corpuscular Volume 77 FL (80-99) L Mean Corpuscular Hemoglobin 24.4 PG (27.0-31.0) L Mean Corpuscular Hemoglobin Concent 31.7 G/DL (32.0-36.0) L Red Cell Distribution Width 16.9 % (11.6-14.8) H Platelet Count 378 K/UL (150-450) Mean Platelet Volume 5.8 FL (6.5-10.1) L Neutrophils (%) (Auto) 72.1 % (45.0-75.0) Lymphocytes (%) (Auto) 18.5 % (20.0-45.0) L Monocytes (%) (Auto) 7.2 % (1.0-10.0) Eosinophils (%) (Auto) 1.5 % (0.0-3.0) Basophils (%) (Auto) 0.8 % (0.0-2.0) Sodium Level 145 MMOL/L (136-145) Potassium Level 3.3 MMOL/L (3.5-5.1) L Chloride Level 109 MMOL/L (98-107) H Carbon Dioxide Level 26 MMOL/L (21-32) Anion Gap 10 mmol/L (5-15) Blood Urea Nitrogen 19 mg/dL (7-18) H Creatinine 0.9 MG/DL (0.55-1.30) Estimat Glomerular Filtration Rate mL/min (>60) Glucose Level 100 MG/DL (74-106) Calcium Level 9.0 MG/DL (8.5-10.1) Current Medications Medications (Trade) Dose Ordered Sig/Alec Route PRN Reason Start Time Stop Time Status Last Admin Dose Admin Acetaminophen (Tylenol) 650 mg Q6H PRN ORAL Mild Pain/Temp > 100.5 01/21/18 21:15 02/20/18 21:14 Acetaminophen/ Hydrocodone Bitart ([place] 10/325) 1 tab Q4H PRN ORAL severe pain 01/24/18 12:35 01/29/18 12:34 01/27/18 10:49 Al Hydroxide/Mg Hydroxide (Mylanta) 30 ml BID PRN ORAL heartburn, upset stomach 01/21/18 21:15 02/20/18 21:14 Ascorbic Acid (Vitamin C) 3,000 mg DAILY ORAL 01/23/18 09:00 02/22/18 08:59 01/27/18 09:01 Aztreonam 1 gm/ Dextrose 55 ml @ 110 mls/hr Q8HR IVPB 01/22/18 17:00 11/14/18 16:59 01/27/18 05:01 Diphenhydramine HCl (Benadryl) 25 mg Q4HR PRN IVP Itching 01/21/18 23:21 02/20/18 23:20 01/21/18 23:32 Docusate Sodium (Colace) 100 mg TWICE A DAY ORAL 01/22/18 09:00 02/21/18 08:59 01/27/18 09:01 Fish Oil (Fish Oil) 3,000 mg DAILY ORAL 01/23/18 09:00 02/22/18 08:59 01/27/18 09:01 Furosemide (Lasix) 40 mg DAILY ORAL 01/22/18 09:00 02/21/18 08:59 Gabapentin (Neurontin) 300 mg THREE TIMES A DAY ORAL 01/24/18 09:19 02/21/18 09:18 01/27/18 12:38 Heparin Sodium (Porcine) (Heparin 5000 units/ml) 5,000 units EVERY 12 HOURS SUBQ 01/22/18 09:00 02/21/18 08:59 01/27/18 09:10 Hydromorphone HCl (Dilaudid) 1 mg Q3H PRN IVP severe breakthrough pain 01/24/18 09:15 01/31/18 09:14 01/27/18 12:43 Lactulose (Cephulac) 10 gm THREE TIMES A DAY ORAL 01/25/18 13:00 02/24/18 12:59 01/27/18 09:02 Lidocaine (Xylocaine) 3 ml DAILYPRN PRN TOPIC use when dressing changed 01/24/18 16:15 02/23/18 16:14 01/26/18 11:18 Losartan Potassium (Cozaar) 100 mg DAILY ORAL 01/22/18 09:00 02/21/18 08:59 Magnesium Hydroxide (Mom) 30 ml HSPRN PRN ORAL Constipation 01/21/18 21:15 02/20/18 21:14 Pantoprazole (Protonix) 40 mg DAILY ORAL 01/22/18 09:00 02/21/18 08:59 01/27/18 09:01 Polyethylene Glycol (Miralax) 17 gm BEDTIME ORAL 01/24/18 21:00 02/23/18 20:59 01/26/18 19:56 Potassium Chloride (K-Dur) 40 meq ONCE ORAL 01/27/18 12:32 01/27/18 13:32 01/27/18 12:38 Trimethoprim/ Sulfamethoxazole (Bactrim-DS) 1 tab TWICE A DAY ORAL 01/26/18 18:00 02/02/18 17:59 01/27/18 09:01 Vancomycin HCl (Vanco rx to dose) 1 ea DAILY PRN MISC Per rx protocol 01/21/18 21:15 02/20/18 21:14 Vancomycin HCl 1 gm/Dextrose 275 ml @ 183.708 mls/hr Q24H IVPB 01/24/18 23:00 01/29/18 22:59 01/26/18 23:05 Vitamin A (Aquasol A) 10,000 intlu DAILY ORAL 01/23/18 09:00 02/22/18 08:59 01/27/18 09:00 Vitamin D (Vitamin D) 4,000 intlu DAILY ORAL 01/23/18 09:00 02/22/18 08:59 01/27/18 09:01 Zinc Sulfate (Zinc Sulfate) 440 mg DAILY ORAL 01/23/18 09:00 02/22/18 08:59 01/27/18 09:01 Zolpidem Tartrate (Ambien) 5 mg HSPRN PRN ORAL Insomnia 01/21/18 21:15 01/28/18 21:14 Lynda Boo MD Jan 27, 2018 13:24
--- NOTE | 2018-01-27 13:50 | Podiatric Progress Note ---
Assessment/Plan Patient Michelle Elias is a 72 year old female who was admitted on Jan 21, 2018 at 17:30 with Assessment/Plan Assessment/Plan (1) B/L LE Chronic Ulcerations with severe pain. (2) B/L LE cellulitis (3) Post polio syndrome (4) H/O debridement of B/L LE wounds - Pt seen and evaluated. - Chart reviewed. - WBC 9.7 downtrending since DOA. 18 - Cont IV ABx. - Wound Cx B/L LE reveal Gram (-) Allen Gram (-) Bacilli Staph Aureus - Recommend ID consult for IV ABx specification based on these results. - Blood Cx NGTD pre joel result. - B/L Leg, and ankle XR negative for OM or ST infection. - Left leg MRI negative for OM or deep ST infection. - Right leg MRI official report pending. - B/L Ankle MRI pending. - Daily Wound care: please give adequate pain medication 30min to 1 hr before dressing change. Have Lidocaine solution available. Cleanse wounds with NS, remove dressing, apply xeroform to areas of ulceration as primary dressing, apply 4 x 4 gauze, ABD and Kerlix. -Pain management per primary team. - Pt has moderate to severe B/L LE vascular disease. Will await vasc rec based on these study. - Cont Lidocaine solution for bedside dressing changes. - IF B/L Leg and Ankle MRI negative, pt could be scheduled for Excisional debridement with graft application pending vasc clearance. - Pod will cont to monitor. Subjective Allergies: Coded Allergies: CRANBERRY (Verified Allergy, Unknown, Anaphylaxis, 08/05/17) PENICILLINS (Verified Allergy, Unknown, 05/22/17) Subjective Pt seen bedside with nursing staff. She states her pain is better today. She confirms completing B/L Ankle MRI to B/L LE. Denies any constitutional symptoms. Pt resting at bedside Objective Exam Last 24 Hour Vital Signs Date Time Temp Pulse Resp B/P (MAP) Pulse Ox O2 Delivery O2 Flow Rate FiO2 01/27/18 09:00 125/65 01/27/18 09:00 Room Air 01/27/18 08:00 98.6 71 20 127/68 (87) 94 01/27/18 04:00 98.3 68 20 125/65 (85) 92 11/12/18 00:00 99.4 69 20 121/55 (77) 91 01/26/18 21:00 Room Air 01/26/18 20:00 98.8 91 20 147/82 (103) 93 01/26/18 16:00 98.2 90 19 111/66 (81) 99 Laboratory Tests Test 01/27/18 06:40 White Blood Count 9.7 K/UL (4.8-10.8) Red Blood Count 3.46 M/UL (4.20-5.40) L Hemoglobin 8.4 G/DL (12.0-16.0) L Hematocrit 26.6 % (37.0-47.0) L Mean Corpuscular Volume 77 FL (80-99) L Mean Corpuscular Hemoglobin 24.4 PG (27.0-31.0) L Mean Corpuscular Hemoglobin Concent 31.7 G/DL (32.0-36.0) L Red Cell Distribution Width 16.9 % (11.6-14.8) H Platelet Count 378 K/UL (150-450) Mean Platelet Volume 5.8 FL (6.5-10.1) L Neutrophils (%) (Auto) 72.1 % (45.0-75.0) Lymphocytes (%) (Auto) 18.5 % (20.0-45.0) L Monocytes (%) (Auto) 7.2 % (1.0-10.0) Eosinophils (%) (Auto) 1.5 % (0.0-3.0) Basophils (%) (Auto) 0.8 % (0.0-2.0) Sodium Level 145 MMOL/L (136-145) Potassium Level 3.3 MMOL/L (3.5-5.1) L Chloride Level 109 MMOL/L (98-107) H Carbon Dioxide Level 26 MMOL/L (21-32) Anion Gap 10 mmol/L (5-15) Blood Urea Nitrogen 19 mg/dL (7-18) H Creatinine 0.9 MG/DL (0.55-1.30) Estimat Glomerular Filtration Rate mL/min (>60) Glucose Level 100 MG/DL (74-106) Calcium Level 9.0 MG/DL (8.5-10.1) Microbiology Date/Time Source Procedure Growth Status 01/24/18 22:00 Blood Blood Culture - Preliminary NO GROWTH AFTER 48 HOURS Resulted 01/22/18 11:25 Wound Gram Stain - Final Complete 01/22/18 11:25 Wound Culture - Final Stenotrophomonas Maltophilia Achromobacter Denitrificans Complete 01/23/18 11:40 Urine,Clean Catch Urine Culture - Final NO GROWTH AFTER 48 HOURS Complete Dermatological Dermatological Narrative O: Right Leg: Ulcer 1: Right medial leg: Approx 15cm x 5cm x UTD Wound base 80% fibrotic, exposed Subq layer, surrounding chris-wound erythema, (-) malodor or active purulent drainage. (+) severe POP. Ascending erythema to proximal 1/3 ant tibia. Ulcer 2: Right lateral RF: Approx: 10cm x 5xm x UTD, Wound base 100% fibrotic, exposed Subq layer, surrounding chris-wound erythema, (-) malodor or active purulent drainage. (+) severe POP. Ascending erythema to proximal 1/3 ant tibia. Left Leg: Ulcer 1: Left lateral leg: Size: Lateral Leg extending distally to lateral MF. Wound base 100% fibrotic, exposed Subq layer, surrounding chris-wound erythema, ( -) malodor or active purulent drainage. (+) severe POP. Ascending erythema to proximal 1/3 ant tibia. Uriel Green DPM Jan 27, 2018 13:50
--- NOTE | 2018-01-27 14:15 | Diagnostic Imaging Report ---
Indication: Open wound near distal tibial region Technique: Sagittal, axial, and coronal T1 fast spin echo and fast spin echo STIR images were obtained through the left ankle and hindfoot Comparison: Reference made to tibia-fibula MRI dated 01/24/2018 Findings: There is slight irregularity of the soft tissues mostly laterally, with diffuse circumferential skin thickening and edema. No discrete drainable fluid collections are evident. No marrow edema is evident. The large tendons are grossly intact. Impression: Slight soft tissue irregularity of the lateral soft tissues, may be correlated with stated clinical history of open wound Diffuse edema and thickening of the skin no evidence of acute osteomyelitis. No evidence of drainable abscess collection
[2018-01-27] MEDS: Lidocaine 4% Top Soln 50ml TOPIC PRN (14:21)
--- NOTE | 2018-01-27 14:26 | Diagnostic Imaging Report ---
Indication: Large open wound across the ankle and distal tibia Technique: Sagittal, coronal, axial T1 fast spin echo and fast spin echo STIR images obtained of the ankle and hindfoot Comparison: none. Reference is made to recent tibia-fibula MRI Findings: There are discrete foci of low T1 and high T2 signal within the distal fibula, primarily along the articular surface and in the medial malleolus. A similar finding is seen in the anterior right talus. There is edema of the subcutaneous fat. This is circumferential in the distal leg and predominantly medial in the ankle. No other definite osseous signal abnormality is demonstrated. No focal drainable fluid collection demonstrated. There is circumferential edema of the distal leg, as well as superficial skin thickening and edema more distally medially. Impression: Signal abnormality in the distal tibia, predominantly medially, appearance of which is suggestive of degenerative subchondral cyst formation. No definite evidence of acute osteomyelitis. Soft tissue swelling, most likely cellulitis given stated clinical history
[2018-01-27 15:47] VITALS: BP 123/64
[2018-01-27 20:00] VITALS: BP 145/70
[2018-01-27] MEDS: Miralax 17gm pkt ORAL SCH (20:07)
--- NOTE | 2018-01-27 20:46 | General Progress Note ---
Assessment/Plan Assessment/Plan LE wounds bilaterally cellulitis ho polio chronic pain hypokalemia anemia abx per ID LE arterial and Venous studie results noted vascular eval appreicated, dw Dr Negron, will need angiogram, pateint refuses at this time, awre of moridity possible needng amputation if doesnt do angio, and possible mortablity, she will further discuss with Dr Méndez wound care per dr Kim GI eval per Dr Bunch , to get EGD tomorrow, refued colonpsy pain control per pain managment dvt and ulcer prophylaxis Subjective Allergies: Coded Allergies: CRANBERRY (Verified Allergy, Unknown, Anaphylaxis, 08/05/17) PENICILLINS (Verified Allergy, Unknown, 05/22/17) Subjective feels ok co pain in LE seeing pain managment, stool ob pos, getting egd tomorrow refused colonospy Objective Last 24 Hour Vital Signs Date Time Temp Pulse Resp B/P (MAP) Pulse Ox O2 Delivery O2 Flow Rate FiO2 01/27/18 15:47 98.1 82 22 123/64 (83) 95 01/27/18 09:00 125/65 01/27/18 09:00 Room Air 01/27/18 08:00 98.6 71 20 127/68 (87) 94 01/27/18 04:00 98.3 68 20 125/65 (85) 92 01/27/18 00:00 99.4 69 20 121/55 (77) 91 01/26/18 21:00 Room Air Intake and Output 01/26/18 01/27/18 19:00 07:00 Intake Total 720 ml 830.000 ml Balance 720 ml 830.000 ml Intake Oral 720 ml 440 ml IV Total 390.000 ml # Voids 2 4 Laboratory Tests 01/27/18 06:40: White Blood Count 9.7, Red Blood Count 3.46L, Hemoglobin 8.4L, Hematocrit 26.6L , Mean Corpuscular Volume 77L, Mean Corpuscular Hemoglobin 24.4L, Mean Corpuscular Hemoglobin Concent 31.7L, Red Cell Distribution Width 16.9H, Platelet Count 378, Mean Platelet Volume 5.8L, Neutrophils (%) (Auto) 72.1, Lymphocytes (%) (Auto) 18.5L, Monocytes (%) (Auto) 7.2, Eosinophils (%) (Auto) 1.5, Basophils (%) (Auto) 0.8, Sodium Level 145, Potassium Level 3.3L, Chloride Level 109H, Carbon Dioxide Level 26, Anion Gap 10, Blood Urea Nitrogen 19H, Creatinine 0.9, Estimat Glomerular Filtration Rate , Glucose Level 100, Calcium Level 9.0 Height (Feet): 5 Height (Inches): 6.00 Weight (Pounds): 196 General Appearance: WD/WN, no apparent distress Neck: supple Cardiovascular: normal rate Respiratory/Chest: lungs clear Abdomen: soft Objective LE wraaped please see pictures for wounds Chas Hampton MD Jan 27, 2018 20:46
--- NOTE | 2018-01-27 20:47 | General Progress Note ---
Assessment/Plan Assessment/Plan LE wounds bilaterally cellulitis ho polio chronic pain hypokalemia anemia abx per ID LE arterial and Venous studie results noted vascular eval appreicated, dw Dr Negron, will need angiogram, pateint refuses at this time, awre of moridity possible needng amputation if doesnt do angio, and possible mortablity, she will further discuss with Dr Méndez wound care per dr Kim GI eval per Dr Bunch consider egd colonpsy if stool ob pos on venofer pain control per pain managment dvt and ulcer prophylaxis Subjective Allergies: Coded Allergies: CRANBERRY (Verified Allergy, Unknown, Anaphylaxis, 08/05/17) PENICILLINS (Verified Allergy, Unknown, 05/22/17) Subjective this note reflects my visit with patient on 01/26/2018feels ok co pain in LE seeing pain managment, on venofer, awating stoo ob Objective Last 24 Hour Vital Signs Date Time Temp Pulse Resp B/P (MAP) Pulse Ox O2 Delivery O2 Flow Rate FiO2 01/27/18 15:47 98.1 82 22 123/64 (83) 95 01/27/18 09:00 125/65 01/27/18 09:00 Room Air 01/27/18 08:00 98.6 71 20 127/68 (87) 94 01/27/18 04:00 98.3 68 20 125/65 (85) 92 01/27/18 00:00 99.4 69 20 121/55 (77) 91 01/26/18 21:00 Room Air Intake and Output 01/26/18 01/27/18 19:00 07:00 Intake Total 720 ml 830.000 ml Balance 720 ml 830.000 ml Intake Oral 720 ml 440 ml IV Total 390.000 ml # Voids 2 4 Laboratory Tests 01/27/18 06:40: White Blood Count 9.7, Red Blood Count 3.46L, Hemoglobin 8.4L, Hematocrit 26.6L , Mean Corpuscular Volume 77L, Mean Corpuscular Hemoglobin 24.4L, Mean Corpuscular Hemoglobin Concent 31.7L, Red Cell Distribution Width 16.9H, Platelet Count 378, Mean Platelet Volume 5.8L, Neutrophils (%) (Auto) 72.1, Lymphocytes (%) (Auto) 18.5L, Monocytes (%) (Auto) 7.2, Eosinophils (%) (Auto) 1.5, Basophils (%) (Auto) 0.8, Sodium Level 145, Potassium Level 3.3L, Chloride Level 109H, Carbon Dioxide Level 26, Anion Gap 10, Blood Urea Nitrogen 19H, Creatinine 0.9, Estimat Glomerular Filtration Rate , Glucose Level 100, Calcium Level 9.0 Height (Feet): 5 Height (Inches): 6.00 Weight (Pounds): 196 General Appearance: WD/WN, no apparent distress Cardiovascular: normal rate Respiratory/Chest: lungs clear Objective LE wraaped please see pictures for wounds Chas Hampton MD Jan 27, 2018 20:47
[2018-01-27] MEDS ORDERED: Vancomycin 1 GM in D5W 275 ML IVPB SCH (23:00)
[2018-01-27] MEDS: Vancomycin 500mg in D5W 275ml IVPB SCH (23:48)
[2018-01-28] VITALS (9 sets, daily range): BP systolic 110–130; BP diastolic 49–73
[2018-01-28] MEDS: HYDROmorphone 1mg/ml Carpuject IVP PRN ×3 (03:29→14:01)
[2018-01-28] MEDS: Aztreonam Inj 1 GM in D5W 55 ML IVPB SCH ×3 (05:55→21:34)
--- NOTE | 2018-01-28 05:58 | Anethesia Preoperative Eval ---
Anesthesia Pre-op PMH/ROS General Date of Evaluation: Jan 28, 2018 Time of Evaluation: 05:53 Anesthesiologist: eduardo ASA Score: ASA 3 Mallampati Score Class I : Soft palate, uvula, fauces, pillars visible Class II: Soft palate, uvula, fauces visible Class III: Soft palate, base of uvula visible Class IV: Only hard plate visible Mallampati Classification: Class II Surgeon: gabyb Diagnosis: anemia, occult blood Surgical Procedure: egd Anesthesia History: none Social History: smoking - nonsmoker Family History: no anesthesia problems Allergies: Coded Allergies: CRANBERRY (Verified Allergy, Unknown, Anaphylaxis, 08/05/17) PENICILLINS (Verified Allergy, Unknown, 05/22/17) Medications: see eMAR Patient NPO?: Yes Past Medical History Cardiovascular: Reports: HTN, other - venous stasis bilateral lower extremities Neurologic/Psychiatric: Reports: other - post polio syndrome, polio Hematology/Immune: Reports: anemia - iron deficiency, mrsa isolation wound, danna parapsilosis infection, other - cancer Other: obesity PSxH Narrative: hysterectomy Anesthesia Pre-op Phys. Exam Physician Exam Last Vital Signs Date Time Temp Pulse Resp B/P (MAP) Pulse Ox O2 Delivery O2 Flow Rate FiO2 01/28/18 04:00 98.9 74 18 116/59 (78) 97 01/27/18 21:00 Room Air Constitutional: NAD Neurologic: CN 2-12 intact Cardiovascular: RRR Respiratory: CTA Gastrointestinal: S/NT/ND Airway Exam Mallampati Score: Class II MO: limited Neck: short TMD: 2fb ROM: limited Anesthesia Pre-op A/P Labs Labs Test 01/25/18 21:00 01/26/18 05:15 01/27/18 06:40 01/27/18 21:45 Stool Occult Blood Positive (NEGATIVE) White Blood Count 8.5 K/UL (4.8-10.8) 9.7 K/UL (4.8-10.8) Red Blood Count 3.43 M/UL (4.20-5.40) 3.46 M/UL (4.20-5.40) Hemoglobin 8.3 G/DL (12.0-16.0) 8.4 G/DL (12.0-16.0) Hematocrit 26.2 % (37.0-47.0) 26.6 % (37.0-47.0) Mean Corpuscular Volume 77 FL (80-99) 77 FL (80-99) Mean Corpuscular Hemoglobin 24.1 PG (27.0-31.0) 24.4 PG (27.0-31.0) Mean Corpuscular Hemoglobin Concent 31.5 G/DL (32.0-36.0) 31.7 G/DL (32.0-36.0) Red Cell Distribution Width 16.6 % (11.6-14.8) 16.9 % (11.6-14.8) Platelet Count 350 K/UL (150-450) 378 K/UL (150-450) Mean Platelet Volume 6.0 FL (6.5-10.1) 5.8 FL (6.5-10.1) Neutrophils (%) (Auto) 63.5 % (45.0-75.0) 72.1 % (45.0-75.0) Lymphocytes (%) (Auto) 25.1 % (20.0-45.0) 18.5 % (20.0-45.0) Monocytes (%) (Auto) 7.8 % (1.0-10.0) 7.2 % (1.0-10.0) Eosinophils (%) (Auto) 2.7 % (0.0-3.0) 1.5 % (0.0-3.0) Basophils (%) (Auto) 1.0 % (0.0-2.0) 0.8 % (0.0-2.0) Carcinoembryonic Antigen 0.7 ng/mL (0.0-4.7) Sodium Level 145 MMOL/L (136-145) Potassium Level 3.3 MMOL/L (3.5-5.1) Chloride Level 109 MMOL/L (98-107) Carbon Dioxide Level 26 MMOL/L (21-32) Anion Gap 10 mmol/L (5-15) Blood Urea Nitrogen 19 mg/dL (7-18) Creatinine 0.9 MG/DL (0.55-1.30) Estimat Glomerular Filtration Rate mL/min (>60) Glucose Level 100 MG/DL (74-106) Calcium Level 9.0 MG/DL (8.5-10.1) Vancomycin Level Trough 8.8 ug/mL (5.0-12.0) Test 01/28/18 05:40 White Blood Count 10.8 K/UL (4.8-10.8) Red Blood Count 3.51 M/UL (4.20-5.40) Hemoglobin 8.6 G/DL (12.0-16.0) Hematocrit 27.2 % (37.0-47.0) Mean Corpuscular Volume 77 FL (80-99) Mean Corpuscular Hemoglobin 24.4 PG (27.0-31.0) Mean Corpuscular Hemoglobin Concent 31.5 G/DL (32.0-36.0) Red Cell Distribution Width 17.0 % (11.6-14.8) Platelet Count 291 K/UL (150-450) Mean Platelet Volume 6.0 FL (6.5-10.1) Neutrophils (%) (Auto) 74.0 % (45.0-75.0) Lymphocytes (%) (Auto) 16.7 % (20.0-45.0) Monocytes (%) (Auto) 6.4 % (1.0-10.0) Eosinophils (%) (Auto) 1.6 % (0.0-3.0) Basophils (%) (Auto) 1.3 % (0.0-2.0) Prothrombin Time 12.7 SEC (9.30-11.50) Prothromb Time International Ratio 1.2 (0.9-1.1) Activated Partial Thromboplast Time 30 SEC (23-33) Sodium Level 141 MMOL/L (136-145) Potassium Level 4.1 MMOL/L (3.5-5.1) Chloride Level 108 MMOL/L (98-107) Carbon Dioxide Level 25 MMOL/L (21-32) Anion Gap 9 mmol/L (5-15) Blood Urea Nitrogen 25 mg/dL (7-18) Creatinine 0.9 MG/DL (0.55-1.30) Estimat Glomerular Filtration Rate mL/min (>60) Glucose Level 91 MG/DL (74-106) Calcium Level 8.6 MG/DL (8.5-10.1) Risk Assessment & Plan Assessment: asa3 Plan: mac Status Change Before Surgery: No Pre-Antibiotics Drug: Karly Ruiz MD Jan 28, 2018 05:58
[2018-01-28] MEDS ORDERED: Midazolam 2mg/2ml Inj IVP PRN (06:00)
[2018-01-28] MEDS ORDERED: DiphenhydrAMINE 50mg/ml Inj IVP PRN (06:00)
[2018-01-28] MEDS ORDERED: fentaNYL 100 mcg/2 mL IV PRN (06:00)
[2018-01-28] MEDS ORDERED: Atropine Inj 1mg/10ml Syr IV PRN (06:00)
[2018-01-28 06:14] LABS: BASOPHILS % (AUTO) 1.3 % (0.0-2.0); EOSINOPHILS % (AUTO) 1.6 % (0.0-3.0); HEMATOCRIT 27.2 % (37.0-47.0); HEMOGLOBIN 8.6 G/DL (12.0-16.0); LYMPHOCYTES % (AUTO) 16.7 % (20.0-45.0); MEAN CORPUSCULAR VOLUME 77 FL (80-99); MONOCYTES % (AUTO) 6.4 % (1.0-10.0); PLATELET COUNT 291 K/UL (150-450); RED BLOOD COUNT 3.51 M/UL (4.20-5.40); WHITE BLOOD COUNT 10.8 K/UL (4.8-10.8)
--- NOTE | 2018-01-28 06:47 | Pre-Procedure Note/Attestation ---
Pre-Procedure Note/Attestation Complete Prior to Procedure Planned Procedure: not applicable Procedure Narrative: egd Indications for Procedure Pre-Operative Diagnosis: anemia Attestation I attest that I discussed the nature of the procedure; its benefits; risks and complications; and alternatives (and the risks and benefits of such alternatives ), prior to the procedure, with the patient (or the patient's legal client services representative). I attest that, if there was a reasonable possibility of needing a blood transfusion, the patient (or the patient's legal client services representative) was given the [facility] standardized written summary, pursuant to the Duane [place] Blood Safety Act ([place] Health and Safety Code # 1645, as amended). I attest that I re-evaluated the patient just prior to the surgery and that there has been no change in the patient's H&P, except as documented below: Stevie Cleveland MD Jan 28, 2018 06:47
[2018-01-28 06:49] LABS: INR 1.2 (0.9-1.1)
--- NOTE | 2018-01-28 06:53 | Endoscopy Procedure Note ---
Endoscopy Procedure Note General Indication for Procedure: anemia Procedures Performed: EGD Operative Findings/Diagnosis: gastritis Specimen: yes Pt Tolerated Procedure Well: Yes Estimated Blood Loss: none Anesthesia Anesthesiologist: silvana Anesthesia: MAC Inserted Devices Implant(s) used?: No GI Core Measures 50 yrs or older w/o bx or poly: Not Applicable 10yrs. F/U not recommended: Not Applicable Stevie Cleveland MD Jan 28, 2018 06:53
[2018-01-28] MEDS ORDERED: NS 500ML IVPB ONE ×2 (06:58→11:20)
[2018-01-28 07:05] LABS: ANION GAP 9 mmol/L (5-15); BLOOD UREA NITROGEN 25 mg/dL (7-18); CALCIUM 8.6 MG/DL (8.5-10.1); CARBON DIOXIDE 25 MMOL/L (21-32); CHLORIDE 108 MMOL/L (98-107); CREATININE 0.9 MG/DL (0.55-1.30); POTASSIUM 4.1 MMOL/L (3.5-5.1); SODIUM 141 MMOL/L (136-145)
[2018-01-28] MEDS ORDERED: Lidocaine 4% Top Soln 50ml TOPIC PRN (08:15)
[2018-01-28] MEDS: Bactrim-DS 1 tab ORAL SCH ×2 (08:22→20:23)
[2018-01-28] MEDS: HYDROcodone/Acetamin 10/325 tab ORAL PRN (08:22)
[2018-01-28] MEDS: VITAMIN A 10000 UNIT ORAL SCH (08:32)
[2018-01-28] MEDS: Losartan 50mg tab ORAL SCH (08:32)
[2018-01-28] MEDS: Lactulose 10gm/15ml UDC ORAL SCH ×3 (08:32→18:00)
[2018-01-28] MEDS: Docusate 100mg cap ORAL SCH ×2 (08:32→18:00)
[2018-01-28] MEDS: Zinc Sulfate 220mg cap ORAL SCH (08:33)
[2018-01-28] MEDS: Ascorbic Acid 500mg tab ORAL SCH (08:33)
[2018-01-28] MEDS: Vitamin D 1000 IU Tab ORAL SCH (08:33)
[2018-01-28] MEDS: Heparin 5000 units/ml inj SUBQ SCH ×2 (08:33→21:00)
[2018-01-28] MEDS: Furosemide 40mg tab ORAL SCH (08:33)
--- NOTE | 2018-01-28 08:56 | General Progress Note ---
Assessment/Plan Assessment/Plan (1) B/L LE pain (2) B/L LE cellulitis with open wounds (3) Post polio syndrome (4) H/o debridement of B/L LE wounds Patient will be continued on Neurontin, Sterling and Dilaudid. D/w Dr. Stone and he concurred. Subjective Date patient seen: Jan 28, 2018 Time patient seen: 07:00 - am Allergies: Coded Allergies: CRANBERRY (Verified Allergy, Unknown, Anaphylaxis, 08/05/17) PENICILLINS (Verified Allergy, Unknown, 05/22/17) Subjective Constitutional: Reports: no symptoms Eye: Reports: no symptoms ENT: Reports: no symptoms Respiratory: Reports: no symptoms Cardiovascular: Reports: no symptoms Gastrointestinal: Reports: no symptoms Genitourinary: Reports: no symptoms Musculoskeletal: Reports: muscle stiffness Skin: Reports: lesions Psychiatric: Reports: no symptoms Neurological: Reports: focal weakness Endocrine: Reports: no symptoms Hematologic/Lymphatic: Reports: no symptoms Subjective Patient continues to c/o pain in her lower extremities. She has had 3 Sterling and 5 Dilaudid in the last 24hrs. Objective Last 24 Hour Vital Signs Date Time Temp Pulse Resp B/P (MAP) Pulse Ox O2 Delivery O2 Flow Rate FiO2 01/28/18 04:00 98.9 74 18 116/59 (78) 97 01/28/18 00:00 98.9 80 20 130/73 (92) 99 01/27/18 21:00 Room Air 01/27/18 20:00 99.3 84 20 145/70 (95) 95 01/27/18 15:47 98.1 82 22 123/64 (83) 95 01/27/18 09:00 125/65 01/27/18 09:00 Room Air Intake and Output 01/27/18 01/28/18 19:00 07:00 Intake Total 480 ml 385 ml Output Total 600 ml Balance 480 ml -215 ml Intake Oral 480 ml IV Total 385 ml Output Urine Total 600 ml # Voids 2 # Bowel Movements 1 Laboratory Tests 01/27/18 21:45: Vancomycin Level Trough 8.8 01/28/18 05:40: White Blood Count 10.8, Red Blood Count 3.51L, Hemoglobin 8.6L, Hematocrit 27.2L , Mean Corpuscular Volume 77L, Mean Corpuscular Hemoglobin 24.4L, Mean Corpuscular Hemoglobin Concent 31.5L, Red Cell Distribution Width 17.0H, Platelet Count 291, Mean Platelet Volume 6.0L, Neutrophils (%) (Auto) 74.0, Lymphocytes (%) (Auto) 16.7L, Monocytes (%) (Auto) 6.4, Eosinophils (%) (Auto) 1.6, Basophils (%) (Auto) 1.3, Prothrombin Time 12.7H, Prothromb Time International Ratio 1.2H, Activated Partial Thromboplast Time 30, Sodium Level 141, Potassium Level 4.1, Chloride Level 108H, Carbon Dioxide Level 25, Anion Gap 9, Blood Urea Nitrogen 25H, Creatinine 0.9, Estimat Glomerular Filtration Rate , Glucose Level 91, Calcium Level 8.6 Height (Feet): 5 Height (Inches): 5.00 Weight (Pounds): 196 Objective General Appearance: WD/WN, no apparent distress, alert HEENT: PERRL, EOMI Neck: non-tender, normal alignment, supple, normal inspection Respiratory/Chest: lungs clear, normal breath sounds, no respiratory distress Cardiovascular/Chest: normal rate, regular rhythm Abdomen: non tender, soft Extremities: severe edema - with bandages applied, tenderness to palpaiton Neurologic: abnormal gait, alert, oriented x 3 Ricco Damico Jan 28, 2018 08:56
[2018-01-28] MEDS ORDERED: Propofol 200mg/20ml IV ONE (11:00)
[2018-01-28] MEDS ORDERED: Lidocaine 1% MPF 10mg/ml 5ml ONE (11:00)
--- NOTE | 2018-01-28 12:10 | General Progress Note ---
Assessment/Plan Assessment/Plan LE wounds bilaterally cellulitis ho polio chronic pain hypokalemia anemia abx per ID LE arterial and Venous studie results noted vascular eval appreicated, dw Dr Negron, will need angiogram, pateint refuses at this time, awre of moridity possible needng amputation if doesnt do angio, and possible mortablity, she will further discuss with Dr Méndez wound care per dr Kim to get endoscopy today on venofer pain control per pain managment dvt and ulcer prophylaxis Subjective Allergies: Coded Allergies: CRANBERRY (Verified Allergy, Unknown, Anaphylaxis, 08/05/17) PENICILLINS (Verified Allergy, Unknown, 05/22/17) Subjective this note reflects my visit with patient on 01/26/2018feels ok co pain in LE seeing pain managment, on venofer, getting EGD today stool ob pos Objective Last 24 Hour Vital Signs Date Time Temp Pulse Resp B/P (MAP) Pulse Ox O2 Delivery O2 Flow Rate FiO2 01/28/18 09:00 Room Air 01/28/18 08:00 98.7 74 20 118/52 (74) 96 01/28/18 04:00 98.9 74 18 116/59 (78) 97 01/28/18 00:00 98.9 80 20 130/73 (92) 99 01/27/18 21:00 Room Air 01/27/18 20:00 99.3 84 20 145/70 (95) 95 01/27/18 15:47 98.1 82 22 123/64 (83) 95 Intake and Output 01/27/18 01/28/18 18:59 06:59 Intake Total 480 ml 385 ml Output Total 600 ml Balance 480 ml -215 ml Intake Oral 480 ml IV Total 385 ml Output Urine Total 600 ml # Voids 2 # Bowel Movements 1 Laboratory Tests 01/27/18 21:45: Vancomycin Level Trough 8.8 01/28/18 05:40: White Blood Count 10.8, Red Blood Count 3.51L, Hemoglobin 8.6L, Hematocrit 27.2L , Mean Corpuscular Volume 77L, Mean Corpuscular Hemoglobin 24.4L, Mean Corpuscular Hemoglobin Concent 31.5L, Red Cell Distribution Width 17.0H, Platelet Count 291, Mean Platelet Volume 6.0L, Neutrophils (%) (Auto) 74.0, Lymphocytes (%) (Auto) 16.7L, Monocytes (%) (Auto) 6.4, Eosinophils (%) (Auto) 1.6, Basophils (%) (Auto) 1.3, Prothrombin Time 12.7H, Prothromb Time International Ratio 1.2H, Activated Partial Thromboplast Time 30, Sodium Level 141, Potassium Level 4.1, Chloride Level 108H, Carbon Dioxide Level 25, Anion Gap 9, Blood Urea Nitrogen 25H, Creatinine 0.9, Estimat Glomerular Filtration Rate , Glucose Level 91, Calcium Level 8.6 Height (Feet): 5 Height (Inches): 5.00 Weight (Pounds): 196 General Appearance: WD/WN, no apparent distress Neck: supple Cardiovascular: normal rate Respiratory/Chest: lungs clear Abdomen: soft Objective LE wraaped please see pictures for wounds Chas Hampton MD Jan 28, 2018 12:10
--- NOTE | 2018-01-28 12:20 | Immediate Post-Op Evaluation ---
Immediate Post-Op Evalulation Immediate Post-Op Evalulation Procedure: egd w/bx Date of Evaluation: Jan 28, 2018 Time of Evaluation: 12:24 IV Fluids: 250ml 0.9ns Blood Products: none Estimated Blood Loss: negligible Blood Pressure Systolic: 107 Blood Pressure Diastolic: 54 Pulse Rate: 66 Respiratory Rate: 18 O2 Sat by Pulse Oximetry: 100 Temperature (Fahrenheit): 97.7 Pain Score (1-10): 0 Nausea: No Vomiting: No Complications none Patient Status: awake, reacts, patent Hydration Status: adequate Drug: Karly Ruiz MD Jan 28, 2018 12:19
--- NOTE | 2018-01-28 12:21 | 48 Hour Post Anesthesia Eval ---
Post Anesthesia Evaluation Procedure: egd w/bx Date of Evaluation: Jan 28, 2018 Time of Evaluation: 12:26 Blood Pressure Systolic: 122 0: 51 Pulse Rate: 66 Respiratory Rate: 18 Temperature (Fahrenheit): 97.7 O2 Sat by Pulse Oximetry: 100 Airway: patent Nausea: No Vomiting: No Pain Intensity: 0 Hydration Status: adequate Cardiopulmonary Status: stable Mental Status/LOC: patient returned to baseline Post-Anesthesia Complications: none Follow-up care needed: N/A Karly Alcaraz MD Jan 28, 2018 12:21
[2018-01-28] MEDS: Vancomycin 500mg in D5W 275ml IVPB SCH ×2 (13:03→22:40)
--- NOTE | 2018-01-28 14:10 | Infectious Diseases Prog Note ---
Assessment/Plan Assessment/Plan ASSESSMENT AND PLAN: 1. bilateral leg cellulitis with infected wounds/ulcers of legs/ankles/feet, sepsis, leukocytosis - vancomycin, aztreonam and bactrim, day # 7 antibiotics - wound culture with mrsa/stenotrophomonas/acinetobacter species - cellulitis clinically better, wound care per podiatry - sepsis better, leukocytosis better - monitor labs, check final wound culture - Bilateral LE MRI without osteomyelitis - can discharge on po bactrim and levofloxacin x 5 days, script written - d/w Dr. Hampton 2. 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 3. The patient has a history of hypertension. 4. History of cardiac disease per records 5. History of post-polio syndrome and weakness. 6. History of neurological disease. 7. History of cancer per the records. 8. Hypertension, treatment per primary. 9. Skin care protocol. Podiatry. 10. Past medical history noted. 11. Allergies, cranberry and penicillin. 12. Social history is negative. 13. Family history is noncontributory. 14. MAR was noted. 15. Case discussed with RN. 16. Continue with primary consultants. 17. Case communicated with primary doctor and Podiatry. 18. anemia - s/p EGD - await results Subjective Constitutional: Denies: fever HEENT: Denies: congestion Respiratory: Denies: shortness of breath Cardiovascular: Denies: chest pain Gastrointestinal/Abdominal: Denies: nausea Genitourinary: Denies: dysuria, hematuria, frequency, nocturia, other Neurologic: Denies: headache Psychiatric: Denies: depression Skin: Denies: rash Hematologic: Denies: bleeding Musculoskeletal: Reports: pain - leg pain better Allergies: Coded Allergies: CRANBERRY (Verified Allergy, Unknown, Anaphylaxis, 08/05/17) PENICILLINS (Verified Allergy, Unknown, 05/22/17) Objective Vital Signs Last 24 Hour Vital Signs Date Time Temp Pulse Resp B/P (MAP) Pulse Ox O2 Delivery O2 Flow Rate FiO2 01/28/18 12:28 66 18 116/49 99 Room Air 01/28/18 12:22 67 18 112/50 99 Room Air 01/28/18 12:21 66 18 100 01/28/18 12:20 66 18 100 01/28/18 12:17 67 18 122/51 99 Room Air 01/28/18 12:12 97.7 66 18 110/54 99 Nasal Cannula 2 01/28/18 09:00 Room Air 01/28/18 08:00 98.7 74 20 118/52 (74) 96 01/28/18 04:00 98.9 74 18 116/59 (78) 97 01/28/18 00:00 98.9 80 20 130/73 (92) 99 01/27/18 21:00 Room Air 01/27/18 20:00 99.3 84 20 145/70 (95) 95 01/27/18 15:47 98.1 82 22 123/64 (83) 95 Height (Feet): 5 Height (Inches): 5.00 Weight (Pounds): 196 General Appearance: no acute distress HEENT: normocephalic, atraumatic, anicteric, mucous membranes moist Respiratory/Chest: lungs clear, normal breath sounds, no respiratory distress, no accessory muscle use Cardiovascular: normal rate, regular rhythm, no gallop/murmur, no JVD Abdomen: normal bowel sounds, soft, non tender, no organomegaly, non distended Genitourinary: other - no joshi Extremities: no cyanosis, other - leg cellulitis and redness better, wounds covered Skin: no rash 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 No evidence of osteomyelitis or acute fracture. 2. Subcutaneous edema. No discrete abscess collection. MRI LE - right: Impression: Signal abnormality in the distal tibia, predominantly medially, appearance of which is suggestive of degenerative subchondral cyst formation. No definite evidence of acute osteomyelitis. Soft tissue swelling, most likely cellulitis given stated clinical history Microbiology Date/Time Source Procedure Growth Status 01/24/18 22:00 Blood Blood Culture - Preliminary NO GROWTH AFTER 72 HOURS Resulted 01/22/18 11:25 Wound Gram Stain - Final Complete 01/22/18 11:25 Wound Culture - Final Stenotrophomonas Maltophilia Achromobacter Denitrificans Complete 01/23/18 11:40 Urine,Clean Catch Urine Culture - Final NO GROWTH AFTER 48 HOURS Complete Laboratory Tests Test 01/27/18 21:45 01/28/18 05:40 Vancomycin Level Trough 8.8 ug/mL (5.0-12.0) White Blood Count 10.8 K/UL (4.8-10.8) Red Blood Count 3.51 M/UL (4.20-5.40) L Hemoglobin 8.6 G/DL (12.0-16.0) L Hematocrit 27.2 % (37.0-47.0) L Mean Corpuscular Volume 77 FL (80-99) L Mean Corpuscular Hemoglobin 24.4 PG (27.0-31.0) L Mean Corpuscular Hemoglobin Concent 31.5 G/DL (32.0-36.0) L Red Cell Distribution Width 17.0 % (11.6-14.8) H Platelet Count 291 K/UL (150-450) Mean Platelet Volume 6.0 FL (6.5-10.1) L Neutrophils (%) (Auto) 74.0 % (45.0-75.0) Lymphocytes (%) (Auto) 16.7 % (20.0-45.0) L Monocytes (%) (Auto) 6.4 % (1.0-10.0) Eosinophils (%) (Auto) 1.6 % (0.0-3.0) Basophils (%) (Auto) 1.3 % (0.0-2.0) Prothrombin Time 12.7 SEC (9.30-11.50) H Prothromb Time International Ratio 1.2 (0.9-1.1) H Activated Partial Thromboplast Time 30 SEC (23-33) Sodium Level 141 MMOL/L (136-145) Potassium Level 4.1 MMOL/L (3.5-5.1) Chloride Level 108 MMOL/L (98-107) H Carbon Dioxide Level 25 MMOL/L (21-32) Anion Gap 9 mmol/L (5-15) Blood Urea Nitrogen 25 mg/dL (7-18) H Creatinine 0.9 MG/DL (0.55-1.30) Estimat Glomerular Filtration Rate mL/min (>60) Glucose Level 91 MG/DL (74-106) Calcium Level 8.6 MG/DL (8.5-10.1) Current Medications Medications (Trade) Dose Ordered Sig/Alec Route PRN Reason Start Time Stop Time Status Last Admin Dose Admin Acetaminophen (Tylenol) 650 mg Q6H PRN ORAL Mild Pain/Temp > 100.5 01/21/18 21:15 02/20/18 21:14 Acetaminophen/ Hydrocodone Bitart (Evergreen 10/325) 1 tab Q4H PRN ORAL severe pain 01/24/18 12:35 01/29/18 12:34 01/28/18 08:22 Al Hydroxide/Mg Hydroxide (Mylanta) 30 ml BID PRN ORAL heartburn, upset stomach 01/21/18 21:15 02/20/18 21:14 Ascorbic Acid (Vitamin C) 3,000 mg DAILY ORAL 01/23/18 09:00 02/22/18 08:59 01/27/18 09:01 Aztreonam 1 gm/ Dextrose 55 ml @ 110 mls/hr Q8HR IVPB 01/27/18 14:00 02/03/18 13:59 01/28/18 05:55 Diphenhydramine HCl (Benadryl) 25 mg Q4HR PRN IVP Itching 01/21/18 23:21 02/20/18 23:20 01/21/18 23:32 Docusate Sodium (Colace) 100 mg TWICE A DAY ORAL 01/22/18 09:00 02/21/18 08:59 01/27/18 09:01 Fish Oil (Fish Oil) 3,000 mg DAILY ORAL 01/23/18 09:00 02/22/18 08:59 01/27/18 09:01 Furosemide (Lasix) 40 mg DAILY ORAL 01/22/18 09:00 02/21/18 08:59 Gabapentin (Neurontin) 300 mg THREE TIMES A DAY ORAL 01/24/18 09:19 02/21/18 09:18 01/28/18 13:04 Heparin Sodium (Porcine) (Heparin 5000 units/ml) 5,000 units EVERY 12 HOURS SUBQ 01/22/18 09:00 02/21/18 08:59 01/27/18 09:10 Hydromorphone HCl (Dilaudid) 1 mg Q3H PRN IVP severe breakthrough pain 01/24/18 09:15 01/31/18 09:14 01/28/18 14:01 Lactulose (Cephulac) 10 gm THREE TIMES A DAY ORAL 01/25/18 13:00 02/24/18 12:59 01/27/18 09:02 Lidocaine (Xylocaine) 50 ml DAILYPRN PRN TOPIC use when dressing changed 01/28/18 08:15 02/23/18 16:14 Losartan Potassium (Cozaar) 100 mg DAILY ORAL 01/22/18 09:00 02/21/18 08:59 Magnesium Hydroxide (Mom) 30 ml HSPRN PRN ORAL Constipation 01/21/18 21:15 02/20/18 21:14 Pantoprazole (Protonix) 40 mg DAILY ORAL 01/22/18 09:00 02/21/18 08:59 01/27/18 09:01 Polyethylene Glycol (Miralax) 17 gm BEDTIME ORAL 01/24/18 21:00 02/23/18 20:59 01/26/18 19:56 Trimethoprim/ Sulfamethoxazole (Bactrim-DS) 1 tab Q12HR ORAL 01/27/18 21:00 02/02/18 17:59 01/28/18 08:22 Vancomycin HCl (Vanco rx to dose) 1 ea DAILY PRN MISC Per rx protocol 01/27/18 13:15 02/26/18 13:14 Vancomycin HCl 500 mg/Dextrose 275 ml @ 275 mls/hr Q12H IVPB 01/27/18 23:00 02/01/18 22:59 01/28/18 13:03 Vitamin A (Aquasol A) 10,000 intlu DAILY ORAL 01/23/18 09:00 02/22/18 08:59 01/27/18 09:00 Vitamin D (Vitamin D) 4,000 intlu DAILY ORAL 01/23/18 09:00 02/22/18 08:59 01/27/18 09:01 Zinc Sulfate (Zinc Sulfate) 440 mg DAILY ORAL 01/23/18 09:00 02/22/18 08:59 01/27/18 09:01 Zolpidem Tartrate (Ambien) 5 mg HSPRN PRN ORAL Insomnia 01/21/18 21:15 01/28/18 21:14 Lynda Boo MD Jan 28, 2018 14:10
--- NOTE | 2018-01-28 17:16 | Procedure Note ---
DATE OF PROCEDURE: 01/28/2018 SURGEON: Stevie Cleveland M.D. ANESTHESIOLOGIST: Dr. Medina. REFERRING PHYSICIAN: Chas Hampton M.D. PROCEDURE: Upper endoscopy with biopsy. ANESTHESIA: Per Dr. Medina. INSTRUMENT: Olympus adult flexible upper endoscope. INDICATION: Anemia, stool OB positive. The procedure, risks, benefits, and possible consequences, including hemorrhage, aspiration, perforation and infection, and alternative treatments, were explained to the patient/legal guardian by Dr. Stevie Cleveland and the patient/legal guardian understood and accepted these risks. DESCRIPTION OF PROCEDURE: After informed consent was obtained and the patient was adequately sedated, Olympus upper endoscope was advanced from the mouth into the second portion of the duodenum and retroflexion was performed in the stomach. There was a large ulcer in the antrum of the stomach. 4 o'clock position. This has cavitary fold. There was no adherent clot. No visible vessel. There was another small ulcer across from this one, but that one was very flat and very small. The larger ulcer was over a centimeter in size. Then, we started biopsying. We did biopsy of each of the ulcer and also biopsy of the antrum for H. pylori infection. The rest of the exam grossly looked within normal limits. The patient tolerated the procedure very well without any complication. SUMMARY OF FINDINGS: Gastric ulcerations, see above for details, status post biopsy of the edge of the ulcer and also antrum. RECOMMENDATIONS: 1. Follow biopsy results and treat accordingly. 2. Send the H. pylori serology. 3. PPI daily for now. 4. The patient needs outpatient followup for colonoscopy. The patient was informed. I want to thank Dr. Chas Hampton for this kind referral. Darline Nevarez JOB#: [id number] CC: Chas Hampton M.D.; Fax#: [phone]
[2018-01-28] MEDS: Miralax 17gm pkt ORAL SCH (21:00)
[2018-01-29] VITALS: BP 140/72
[2018-01-29 04:00] VITALS: BP 142/61
[2018-01-29] MEDS: Aztreonam Inj 1 GM in D5W 55 ML IVPB SCH (05:34)
[2018-01-29 06:28] LABS: BASOPHILS % (AUTO) 0.5 % (0.0-2.0); EOSINOPHILS % (AUTO) 1.6 % (0.0-3.0); HEMOGLOBIN 8.2 G/DL (12.0-16.0); LYMPHOCYTES % (AUTO) 17.2 % (20.0-45.0); MEAN CORPUSCULAR VOLUME 77 FL (80-99); MONOCYTES % (AUTO) 8.9 % (1.0-10.0); NEUTROPHILS % (AUTO) 71.8 % (45.0-75.0); PLATELET COUNT 358 K/UL (150-450); RED BLOOD COUNT 3.39 M/UL (4.20-5.40)
[2018-01-29] MEDS: HYDROmorphone 1mg/ml Carpuject IVP PRN ×2 (07:09→11:42)
[2018-01-29 07:22] LABS: ANION GAP 9 mmol/L (5-15); CARBON DIOXIDE 24 MMOL/L (21-32); CHLORIDE 109 MMOL/L (98-107); POTASSIUM 3.8 MMOL/L (3.5-5.1); SODIUM 142 MMOL/L (136-145)
[2018-01-29 07:32] LABS: BLOOD UREA NITROGEN 25 mg/dL (7-18); CALCIUM 8.6 MG/DL (8.5-10.1); CREATININE 0.9 MG/DL (0.55-1.30)
--- NOTE | 2018-01-29 08:45 | General Progress Note ---
Assessment/Plan Assessment/Plan (1) B/L LE pain (2) B/L LE cellulitis with open wounds (3) Post polio syndrome (4) H/o debridement of B/L LE wounds Patient will be continued on Neurontin, [place] and Dilaudid. D/w Dr. Stone and he concurred. Subjective Date patient seen: Jan 29, 2018 Time patient seen: 07:00 - am Allergies: Coded Allergies: CRANBERRY (Verified Allergy, Unknown, Anaphylaxis, 08/05/17) PENICILLINS (Verified Allergy, Unknown, 05/22/17) Subjective Constitutional: Reports: no symptoms Eye: Reports: no symptoms ENT: Reports: no symptoms Respiratory: Reports: no symptoms Cardiovascular: Reports: no symptoms Gastrointestinal: Reports: no symptoms Genitourinary: Reports: no symptoms Musculoskeletal: Reports: muscle stiffness Skin: Reports: lesions Psychiatric: Reports: no symptoms Neurological: Reports: focal weakness Endocrine: Reports: no symptoms Hematologic/Lymphatic: Reports: no symptoms Subjective Patient is in bed no signs of pain or distress. Has gotten 4 Dilaudid and 1 Madison in the last 24hrs. Objective Last 24 Hour Vital Signs Date Time Temp Pulse Resp B/P (MAP) Pulse Ox O2 Delivery O2 Flow Rate FiO2 01/29/18 04:00 97.2 75 19 142/61 (88) 98 01/29/18 00:00 98.0 91 18 140/72 (94) 95 01/28/18 21:00 Room Air 01/28/18 20:00 98.8 83 18 128/61 (83) 94 01/28/18 16:00 97.5 85 20 124/58 (80) 94 01/28/18 12:28 66 18 116/49 99 Room Air 01/28/18 12:22 67 18 112/50 99 Room Air 01/28/18 12:21 66 18 100 01/28/18 12:20 66 18 100 01/28/18 12:17 67 18 122/51 99 Room Air 01/28/18 12:12 97.7 66 18 110/54 99 Nasal Cannula 2 01/28/18 09:00 Room Air Intake and Output 01/28/18 01/29/18 19:00 07:00 Intake Total 780 ml 585 ml Balance 780 ml 585 ml Intake Oral 480 ml 200 ml IV Total 300 ml 385 ml # Voids 3 5 Laboratory Tests 01/29/18 05:50: White Blood Count 9.0, Red Blood Count 3.39L, Hemoglobin 8.2L, Hematocrit 26.0L , Mean Corpuscular Volume 77L, Mean Corpuscular Hemoglobin 24.3L, Mean Corpuscular Hemoglobin Concent 31.6L, Red Cell Distribution Width 17.0H, Platelet Count 358, Mean Platelet Volume 5.8L, Neutrophils (%) (Auto) 71.8, Lymphocytes (%) (Auto) 17.2L, Monocytes (%) (Auto) 8.9, Eosinophils (%) (Auto) 1.6, Basophils (%) (Auto) 0.5, Sodium Level 142, Potassium Level 3.8, Chloride Level 109H, Carbon Dioxide Level 24, Anion Gap 9, Blood Urea Nitrogen 25H, Creatinine 0.9, Estimat Glomerular Filtration Rate , Glucose Level 120H, Calcium Level 8.6, Helicobacter pylori IgG Antibody [Pending], Helicobacter pylori IgA Antibody [Pending], Helicobacter pylori IgM Antibody [Pending] Height (Feet): 5 Height (Inches): 5.00 Weight (Pounds): 195 Objective General Appearance: WD/WN, no apparent distress, alert HEENT: PERRL, EOMI Neck: non-tender, normal alignment, supple, normal inspection Respiratory/Chest: lungs clear, normal breath sounds, no respiratory distress Cardiovascular/Chest: normal rate, regular rhythm Abdomen: non tender, soft Extremities: severe edema - with bandages applied, tenderness to palpaiton Neurologic: abnormal gait, alert, oriented x 3 Ricco Damico Jan 29, 2018 08:45
[2018-01-29 08:54] VITALS: BP 122/53
[2018-01-29 09:00] VITALS: BP 122/53
[2018-01-29] MEDS: Losartan 50mg tab ORAL SCH (09:00)
[2018-01-29] MEDS: Furosemide 40mg tab ORAL SCH (09:00)
[2018-01-29] MEDS: Lactulose 10gm/15ml UDC ORAL SCH ×2 (09:00→13:00)
[2018-01-29] MEDS: Docusate 100mg cap ORAL SCH (09:00)
[2018-01-29] MEDS: Ascorbic Acid 500mg tab ORAL SCH (09:03)
[2018-01-29] MEDS: Bactrim-DS 1 tab ORAL SCH (09:03)
[2018-01-29] MEDS: Vitamin D 1000 IU Tab ORAL SCH (09:04)
[2018-01-29] MEDS: VITAMIN A 10000 UNIT ORAL SCH (09:04)
[2018-01-29] MEDS: Zinc Sulfate 220mg cap ORAL SCH (09:04)
[2018-01-29] MEDS: Heparin 5000 units/ml inj SUBQ SCH (09:07)
[2018-01-29] MEDS: HYDROcodone/Acetamin 10/325 tab ORAL PRN (09:47)
[2018-01-29] MEDS ORDERED: Lidocaine 1% MPF 10mg/ml 5ml ONE (10:00)
[2018-01-29] MEDS ORDERED: LR 1000ml ONE (10:00)
[2018-01-29] MEDS ORDERED: Propofol 200mg/20ml IV ONE (10:00)
[2018-01-29] MEDS: Vancomycin 500mg in D5W 275ml IVPB SCH (11:00)
[2018-01-29] MEDS ORDERED: BACTRIM-DS1 EA ORAL (11:26)
[2018-01-29] MEDS ORDERED: PROTONIX20 MG ORAL (11:27)
[2018-01-29] MEDS ORDERED: LEVOFLOXACIN500 MG ORAL (11:27)
--- NOTE | 2018-01-29 11:32 | GI Progress Note ---
Assessment/Plan Problems: (1) Occult blood in stools ICD Codes: R19.5 - Other fecal abnormalities SNOMED: 54609885, [id number] (2) Anemia ICD Codes: D64.9 - Anemia, unspecified SNOMED: 931976080 (3) Iron deficiency anemia ICD Codes: D50.9 - Iron deficiency anemia, unspecified SNOMED: 02955394 Status: stable Status Narrative Discussed with Dr. Cleveland. Assessment/Plan SUMMARY OF FINDINGS: Gastric ulcerations, see above for details, status post biopsy of the edge of the ulcer and also antrum. RECOMMENDATIONS: 1. Follow biopsy results and treat accordingly. 2. Send the H. pylori serology. 3. PPI daily for now. 4. The patient needs outpatient followup for colonoscopy. The patient was informed. The patient was seen and examined at bedside and all new and available data was reviewed in the patients chart. I agree with the above findings, impression and plan. (Patient seen earlier today. Signature stamp does not reflect patient encounter time.). - Stevie Cleveland MD Subjective Gastrointestinal/Abdominal: Reports: no symptoms Objective Last 24 Hour Vital Signs Date Time Temp Pulse Resp B/P (MAP) Pulse Ox O2 Delivery O2 Flow Rate FiO2 01/29/18 09:00 122/53 01/29/18 08:54 98.2 74 16 122/53 (76) 95 01/29/18 04:00 97.2 75 19 142/61 (88) 98 01/29/18 00:00 98.0 91 18 140/72 (94) 95 01/28/18 21:00 Room Air 01/28/18 20:00 98.8 83 18 128/61 (83) 94 01/28/18 16:00 97.5 85 20 124/58 (80) 94 01/28/18 12:28 66 18 116/49 99 Room Air 01/28/18 12:22 67 18 112/50 99 Room Air 01/28/18 12:21 66 18 100 01/28/18 12:20 66 18 100 01/28/18 12:17 67 18 122/51 99 Room Air 01/28/18 12:12 97.7 66 18 110/54 99 Nasal Cannula 2 Intake and Output 01/28/18 01/29/18 19:00 07:00 Intake Total 780 ml 585 ml Balance 780 ml 585 ml Intake Oral 480 ml 200 ml IV Total 300 ml 385 ml # Voids 3 5 Laboratory Tests Test 01/29/18 05:50 White Blood Count 9.0 K/UL (4.8-10.8) Red Blood Count 3.39 M/UL (4.20-5.40) L Hemoglobin 8.2 G/DL (12.0-16.0) L Hematocrit 26.0 % (37.0-47.0) L Mean Corpuscular Volume 77 FL (80-99) L Mean Corpuscular Hemoglobin 24.3 PG (27.0-31.0) L Mean Corpuscular Hemoglobin Concent 31.6 G/DL (32.0-36.0) L Red Cell Distribution Width 17.0 % (11.6-14.8) H Platelet Count 358 K/UL (150-450) Mean Platelet Volume 5.8 FL (6.5-10.1) L Neutrophils (%) (Auto) 71.8 % (45.0-75.0) Lymphocytes (%) (Auto) 17.2 % (20.0-45.0) L Monocytes (%) (Auto) 8.9 % (1.0-10.0) Eosinophils (%) (Auto) 1.6 % (0.0-3.0) Basophils (%) (Auto) 0.5 % (0.0-2.0) Sodium Level 142 MMOL/L (136-145) Potassium Level 3.8 MMOL/L (3.5-5.1) Chloride Level 109 MMOL/L (98-107) H Carbon Dioxide Level 24 MMOL/L (21-32) Anion Gap 9 mmol/L (5-15) Blood Urea Nitrogen 25 mg/dL (7-18) H Creatinine 0.9 MG/DL (0.55-1.30) Estimat Glomerular Filtration Rate mL/min (>60) Glucose Level 120 MG/DL (74-106) H Calcium Level 8.6 MG/DL (8.5-10.1) Helicobacter pylori IgG Antibody Pending Helicobacter pylori IgA Antibody Pending Helicobacter pylori IgM Antibody Pending Height (Feet): 5 Height (Inches): 5.00 Weight (Pounds): 195 General Appearance: WD/WN, no apparent distress, alert Cardiovascular: normal rate Respiratory/Chest: normal breath sounds, no respiratory distress Abdominal Exam: normal bowel sounds, non tender, soft Extremities: normal range of motion, non-tender Santi Hendrix NP Jan 29, 2018 11:32
[2018-01-29] MEDS ORDERED: NORCO 10-325 T1 EACH ORAL (11:33)
[2018-01-29] MEDS ORDERED: NS 275ml ONE (13:09)
--- NOTE | 2018-01-29 17:32 | Diagnostic Imaging Report ---
APPROVED REPORT CPT Code: 10017 Present Symptoms Comments: BILATERAL LEGS PAIN. BILATERAL: Imaging reveals a patent deep venous system bilaterally. There is no evidence of thrombus within the femoral and popliteal segments. The greater saphenous veins are also within normal limits. Doppler indicates normal spontaneous flow within these segments. Tibial veins not imaged bilaterally due to patient refusal (pain, wound and bandage).
--- NOTE | 2018-01-29 17:32 | Diagnostic Imaging Report ---
APPROVED REPORT CPT Code: 97197 Comments BILATERAL LEGS PAIN. RIGHT LEG: Common femoral artery waveform analysis is within normal limits at rest. Color flow duplex sonography reveals patency of the superficial femoral and popliteal arteries. there is no evidence of stenosis or occlusion within these segments. Doppler tibial artery waveform analysis is within normal limits. There is no evidence of significant arterial occlusive disease. calf arteries were not imaged due to pain, wound and bandage patient refused. LEFT LEG: Common femoral artery waveform analysis is within normal limits at rest. Color flow duplex sonography reveals patency of the superficial femoral and popliteal arteries. there is no evidence of stenosis or occlusion within these segments. Doppler tibial artery waveform analysis is within normal limits. There is no evidence of significant arterial occlusive disease. calf arteries were not imaged due to pain, wound and bandage patient refused.
--- NOTE | 2018-01-30 09:59 | Discharge Summary ---
Discharge Summary Discharge Summary _ DATE OF ADMISSION: 01/21/2018 DATE OF DISCHARGE: 01/29/2018 CONSULTANTS: Dr. Stevie Green BRIEF HOSPITAL COURSE: Patient is an unfortunate 72-year-old female, with history of polio since childhood, history of lower extremity wounds with cellulitis, followed by her metallurgical specialist Dr. Kim for wound care. She presented to metallurgical specialist's office and was sent in to the hospital for evaluation of worsening lower extremity bilateral cellulitis and wounds. She denied any fever or chills. She has pain and takes narcotics at home. She denied chest pain or shortness of breath. Denied headache or sore throat. She denied any urinary symptoms. She has medical history significant for hypertension, lower extremity osteomyelitis with cellulitis in the past, history of sepsis, she had been hospitalized for 6 weeks for sepsis and had debridement done in the past. On evaluation at ED, vital signs were stable. Blood work showed leukocytosis with WBC count of 18, hemoglobin was 8, hematocrit 25. She was admitted for evaluation of bilateral cellulitis with nonhealing leg wounds. She was seen by metallurgical specialist. Wound culture was sent. She was given wound care. Imaging on the lower legs were ordered. Sedimentation rate was elevated to 22. Pain management was consulted. She was given Neurontin, [place] and Dilaudid prn. ID was consulted. Patient has penicillin allergy. Patient was given vancomycin and aztreonam for MRSA and gram-negative coverage. Patient seemed to be septic with elevated white count. SIRS criteria likely secondary to soft tissue infection. Vascular surgeon was consulted. Patient has palpable femoral pulses. Intact popliteal and pedal dopplers bilaterally. CT angiogram with abdominal run off showed no significant stenosis of the abdominal aorta, iliac arteries or major branches of the abdominal aorta. No significant stenosis of the femoral or popliteal arteries. There was moderate to severe vascular disease below the knees bilaterally involving the tibial peroneal trunk with poor runoff to the ankle and feet secondary to multifocal moderate to high-grade stenosis. Venous duplex of bilateral lower extremity did not show evidence of thrombosis within the femoral and popliteal segments. Doppler with normal spontaneous flow. Tibial veins not imaged bialterally due to patient refusal. Patient will need to have selective angiogram to assess need for percutaneous revascularization. Patient was made aware however patient refused. Wound culture showed growth of MRSA, stenotrophomonas and acinetobacter species. Bactrim was added to her regimen. X-rays of leg and ankle did not show any acute fractures. MRI without evidence of osteomyelitis. No abscess. She had anemia and noticed blood in her stools. GI was consulted. Anemia workup done showed serum iron of 22, 8% saturation, ferritin level of 45. She was given IV Venofer. Stool OB was positive. On 01/28/2018, she underwent EGD with findings of a large ulcer at the antrum of the stomach over a centimeter in size. There was another small ulcer across which was very flat and small. Biopsies were done, results still pending. H. pylori antibody pending. Wound culture did not isolate any growth. Urine culture did not isolate any growth. Leukocytosis resolved. Patient was cleared for discharge to continue po Bactrim and levofloxacin for 5 days. FINAL DIAGNOSES: Lower extremity wounds with cellulitis bilaterally Bilateral leg cellulitis with infected wounds/ulcers on the legs/ankle and feet , sepsis, leukocytosis Post polio syndrome and weakness Hypokalemia Iron deficiency Anemia Hypertension Low albumin, protein calorie malnutrition S/p EGD by Dr Cleveland Gastric ulcer Peripheral vascular disease DISPOSITION: Patient was discharged home with home health. DISCHARGE MEDICATIONS: Refer to Discharge Medication List. DISCHARGE INSTRUCTIONS: Follow up in a week. I have been assigned to dictate discharge summary on this account, and I was not involved in the patient's management. Magdalena Suárez NP Jan 30, 2018 09:59
--- NOTE | 2018-01-30 15:52 | Diagnostic Imaging Report ---
EXAM: MR Right Lower Extremity Without Intravenous Contrast, Tibia and Fibula CLINICAL HISTORY: Extensive wound on lower distal tibia region. right side. TECHNIQUE: Multiplanar magnetic resonance images of the right tibia and fibula without intravenous contrast. COMPARISON: No relevant prior studies available. FINDINGS: Bones/joints: Focal edema in the distal tibial epiphysis likely chronic/degenerative. No definite evidence of acute fracture or osteomyelitis. Soft tissues: Soft tissue edema. No discrete abscess collection. IMPRESSION: 1. Focal edema in the distal tibial epiphysis likely chronic/degenerative. No definite evidence of acute fracture or osteomyelitis. 2. Soft tissue edema. No discrete abscess collection.
--- NOTE | 2018-01-31 10:52 | Pre-Procedure Note/Attestation ---
Pre-Procedure Note/Attestation Complete Prior to Procedure Planned Procedure: not applicable Procedure Narrative: egd Indications for Procedure Pre-Operative Diagnosis: anemia Attestation I attest that I discussed the nature of the procedure; its benefits; risks and complications; and alternatives (and the risks and benefits of such alternatives ), prior to the procedure, with the patient (or the patient's legal wholesale representative). I attest that, if there was a reasonable possibility of needing a blood transfusion, the patient (or the patient's legal wholesale representative) was given the [facility] standardized written summary, pursuant to the [place] Blood Safety Act ([place] Health and Safety Code # 1645, as amended). I attest that I re-evaluated the patient just prior to the surgery and that there has been no change in the patient's H&P, except as documented below: Stevie Cleveland MD Jan 31, 2018 10:52
== END 2018-01-29 13:10 | disposition home health service (06) | DRG 872 ==
LOC: EMR 16:43 → 4E 17:30 → EDBEDREQ 19:00
PROC: 0DB78ZX Excision of Stomach, Pylorus, Via Natural or Artificial Opening Endoscopic, Diagnostic (ICD-10-PCS; principal; 2018-01-28 11:53)
DX: A41.9 Sepsis, unspecified organism (principal); L03.116 Cellulitis of left lower limb; E46 Unspecified protein-calorie malnutrition; L97.821 Non-pressure chronic ulcer of other part of left lower leg limited to breakdown of skin; L97.811 Non-pressure chronic ulcer of other part of right lower leg limited to breakdown of skin; L03.115 Cellulitis of right lower limb; G14 Postpolio syndrome; E87.6 Hypokalemia; D50.9 Iron deficiency anemia, unspecified; I10 Essential (primary) hypertension; K25.9 Gastric ulcer, unspecified as acute or chronic, without hemorrhage or perforation; Z88.0 Allergy status to penicillin; I11.9 Hypertensive heart disease without heart failure
CPT/HCPCS: 36415; 75635; 80048; 80053; 80061; 80202; 81001; 82270; 82330; 82378; 82607; 82728; 82746; 83540; 83550; 83735; 83880; 84134; 84443; 84484; 85007; 85025; 85610; 85651; 85730; 86140; 86677; 86850; 86900; 86901; 86920; 87040; 87070; 87086; 87181; 87205; 93005; 93925; 93970; 96365; 96375; 99285; J2405; J8499

== ENCOUNTER 2018-02-18 14:35 | Outpatient (RCR) | payer MEDICARE, BC ==
[~2018-02-18 14:35] MED LIST changes: +BACTRIM-DS1 EA ORAL; +BIOTIN5 M2 PO; +FISH OIL 1,0001 EAC1 ORAL; +FUROSEMIDE40 MG ORAL; +LOSARTAN POTAS100 MG ORAL; +NORCO 10-325 T1 EACH ORAL; +PROTEIN975 MG PO; +PROTONIX20 MG ORAL; +RESVERATROL100 MG PO; +VITAMIN A10000 UNIT ORAL; +VITAMIN C500 M1 ORAL; +VITAMIN D1000 UNI1 ORAL; +ZINC30 MG ORAL; +ZINC50 M1 ORAL; +[UNRECOGNIZED DRUG - OTHER] PO
== END 2018-03-17 | disposition home or self-care (01) ==
LOC: WCC 14:35
DX: L97.815 Non-pressure chronic ulcer of other part of right lower leg with muscle involvement without evidence of necrosis (principal); L97.825 Non-pressure chronic ulcer of other part of left lower leg with muscle involvement without evidence of necrosis; R60.0 Localized edema; M89.671 Osteopathy after poliomyelitis, right ankle and foot; M89.672 Osteopathy after poliomyelitis, left ankle and foot; I87.2 Venous insufficiency (chronic) (peripheral); I89.0 Lymphedema, not elsewhere classified; Z88.0 Allergy status to penicillin; I10 Essential (primary) hypertension
CPT/HCPCS: G0463

== ENCOUNTER 2018-02-18 15:37 | Outpatient (CLI) | payer MEDICARE, BC ==
--- NOTE | 2018-02-18 16:21 | Diagnostic Imaging Report ---
Indication: Cough Technique: One view of the chest Comparison: 08/05/2017 Findings: Lungs and pleural spaces are clear. Heart size is normal. No significant interim change Impression: No acute process
[2018-02-18 16:30] LABS: BASOPHILS % (AUTO) 0.7 % (0.0-2.0); EOSINOPHILS % (AUTO) 1.4 % (0.0-3.0); HEMOGLOBIN 11.1 G/DL (12.0-16.0); MEAN CORPUSCULAR VOLUME 78 FL (80-99); MONOCYTES % (AUTO) 6.9 % (1.0-10.0); PLATELET COUNT 349 K/UL (150-450); RED BLOOD COUNT 4.63 M/UL (4.20-5.40); RED CELL DISTRIBUTION WIDTH 17.2 % (11.6-14.8); WHITE BLOOD COUNT 6.2 K/UL (4.8-10.8)
[2018-02-18 16:41] LABS: ANION GAP 10 mmol/L (5-15); BLOOD UREA NITROGEN 14 mg/dL (7-18); CALCIUM 9.5 MG/DL (8.5-10.1); CARBON DIOXIDE 25 MMOL/L (21-32); CHLORIDE 105 MMOL/L (98-107); CREATININE 0.9 MG/DL (0.55-1.30); POTASSIUM 3.3 MMOL/L (3.5-5.1); SODIUM 140 MMOL/L (136-145)
[2018-02-18 16:48] LABS: INR 1.1 (0.9-1.1)
--- NOTE | 2018-02-19 16:32 | Cardiology Report ---
APPROVED REPORT EKG Measurement Heart [id number] MD [id number] Normal sinus rhythm Possible Left atrial enlargement Nonspecific ST and T wave abnormality Abnormal ECG
== END 2018-02-18 17:37 | disposition home or self-care (01) ==
LOC: RAD 15:37
DX: Z01.818 Encounter for other preprocedural examination (principal)
CPT/HCPCS: 36415; 71045; 80048; 85025; 85610; 85730; 86850; 86900; 86901; 93005

== ENCOUNTER 2018-03-25 14:26 | Outpatient (RCR) | payer MEDICARE, BC ==
[~2018-03-25] VITALS: Ht 167.6 cm; Wt 81.6 kg
[2018-03-26] MEDS ORDERED: Lidocaine 4% Top Soln 50ml TOPIC ONE (12:15)
[2018-04-02] MEDS ORDERED: Lidocaine 4% Top Soln 50ml TOPIC ONE (13:15)
[2018-04-11] MEDS ORDERED: Lidocaine 4% Top Soln 50ml TOPIC ONE (09:15)
== END 2018-04-17 | disposition home or self-care (01) ==
LOC: WCC 14:26
DX: L97.815 Non-pressure chronic ulcer of other part of right lower leg with muscle involvement without evidence of necrosis (principal); L97.825 Non-pressure chronic ulcer of other part of left lower leg with muscle involvement without evidence of necrosis; R60.0 Localized edema; M89.671 Osteopathy after poliomyelitis, right ankle and foot; M89.672 Osteopathy after poliomyelitis, left ankle and foot; I87.2 Venous insufficiency (chronic) (peripheral); I89.0 Lymphedema, not elsewhere classified; Z88.0 Allergy status to penicillin; I10 Essential (primary) hypertension
CPT/HCPCS: 11043; 11046; G0463

== ENCOUNTER 2018-04-29 14:17 | Outpatient (RCR) | payer MEDICARE, BC ==
[~2018-04-29] VITALS: Ht 167.6 cm; Wt 81.6 kg
[2018-04-30] MEDS ORDERED: FUROSEMIDE20 M1 ORAL (18:18)
[2018-05-05] MEDS ORDERED: Lidocaine 4% Top Soln 50ml TOPIC ONE (09:00)
[2018-05-06] MEDS ORDERED: LEVAQUIN500 MG ORAL (14:53)
[2018-05-06] MEDS ORDERED: DOXYCYCLINE MO100 MG ORAL (14:57)
[2018-05-14] MEDS ORDERED: Lidocaine 4% Top Soln 50ml TOPIC ONE (12:00)
== END 2018-05-15 | disposition home or self-care (01) ==
LOC: WCC 14:17
DX: L97.815 Non-pressure chronic ulcer of other part of right lower leg with muscle involvement without evidence of necrosis (principal); L97.825 Non-pressure chronic ulcer of other part of left lower leg with muscle involvement without evidence of necrosis; R60.0 Localized edema; M89.671 Osteopathy after poliomyelitis, right ankle and foot; M89.672 Osteopathy after poliomyelitis, left ankle and foot; I87.2 Venous insufficiency (chronic) (peripheral); I89.0 Lymphedema, not elsewhere classified; L03.116 Cellulitis of left lower limb; L03.115 Cellulitis of right lower limb; I10 Essential (primary) hypertension; Z88.0 Allergy status to penicillin
CPT/HCPCS: G0463 ×2

== ENCOUNTER 2018-04-30 16:03 | Inpatient (IN) | payer MEDICARE, BC ==
[~2018-04-30] VITALS: Ht 170.2 cm; Wt 74.8 kg
[2018-04-30 16:28] VITALS: BP 141/119
--- NOTE | 2018-04-30 16:29 | NUR ---
ED Nurse Note: Pt ROBYN from a wound care center, pt has wounds on bilateral lower legs, bandages applied on. Dr. Kim sent pt to the ER for antibiotics. Pain 5/10 bridgett. Pt walked in with walker. AOx4, VSS bridgett. Will cont to monitor.
--- NOTE | 2018-04-30 16:45 | NUR ---
ED Nurse Note: Blood drawn and sent to lab.
[2018-04-30] MEDS ORDERED: Vancomycin 1.5gm/D5W 275ml 250 ML IVPB ONE (17:00)
[2018-04-30 17:06] LABS: BASOPHILS % (AUTO) 0.8 % (0.0-2.0); EOSINOPHILS % (AUTO) 0.6 % (0.0-3.0); HEMATOCRIT 30.3 % (37.0-47.0); HEMOGLOBIN 9.4 G/DL (12.0-16.0); LYMPHOCYTES % (AUTO) 13.7 % (20.0-45.0); MEAN CORPUSCULAR VOLUME 78 FL (80-99); MONOCYTES % (AUTO) 5.9 % (1.0-10.0); NEUTROPHILS % (AUTO) 79.1 % (45.0-75.0); PLATELET COUNT 347 K/UL (150-450); RED BLOOD COUNT 3.91 M/UL (4.20-5.40); RED CELL DISTRIBUTION WIDTH 19.8 % (11.6-14.8); WHITE BLOOD COUNT 11.2 K/UL (4.8-10.8)
[2018-04-30 17:28] LABS: ANION GAP 10 mmol/L (5-15); BLOOD UREA NITROGEN 42 mg/dL (7-18); CALCIUM 9.6 MG/DL (8.5-10.1); CARBON DIOXIDE 31 MMOL/L (21-32); CHLORIDE 98 MMOL/L (98-107); CREATININE 1.5 MG/DL (0.55-1.30); SODIUM 138 MMOL/L (136-145)
[2018-04-30] MEDS ORDERED: Lidocaine HCl 2% Jelly 6ml Tube TOPIC ONE ×3 (17:30→19:00)
[2018-04-30] MEDS ORDERED: Bacitracin Oint UD TOPIC ONE ×2 (17:30→17:45)
[2018-04-30 17:33] LABS: ALANINE AMINOTRANSFERASE 24 U/L (12-78); ALBUMIN 2.8 G/DL (3.4-5.0); ALBUMIN/GLOBULIN RATIO 0.5 (1.0-2.7); ALKALINE PHOSPHATASE 102 U/L (46-116); ASPARTATE AMINO TRANSFERASE 24 U/L (15-37); BILIRUBIN,TOTAL 0.6 MG/DL (0.2-1.0)
[2018-04-30] MEDS ORDERED: Bacitracin Oint 15gm Tube TOPIC ONE ×2 (17:39→18:00)
[2018-04-30] MEDS ORDERED: Morphine Sulfate 4mg/ml Inj (IV USE ONLY) IVP ONE (17:45)
[2018-04-30] MEDS ORDERED: cefTRIAXone 1 GM in NS 55 ML IVPB ONE (17:45)
[2018-04-30] MEDS ORDERED: HYDROmorphone 1mg/ml Carpuject IVP ONE (18:00)
[2018-04-30] MEDS ORDERED: FUROSEMIDE20 M1 ORAL (18:18)
--- NOTE | 2018-04-30 18:19 | Emergency Room Report ---
History of Present Illness General Chief Complaint: General Complaint Source: Medical Record Present Illness HPI 73-year-old female patient presents the ER brought in by family member complaining of bilateral lower leg infection for the past 3 years. Reports that she receives daily wound care treatments. States that she was seen by her physician yesterday and was told reports the ER at the time to get IV antibiotics however states she did come in yesterday. Denies fever, chest pain , shortness of breath. Denies history of diabetes. Reports history of high blood pressure. Reports normally takes Dilaudid symptoms because morphine and [place] did not help. Allergies: Coded Allergies: CRANBERRY (Verified Allergy, Unknown, Anaphylaxis, 08/05/17) PENICILLINS (Verified Allergy, Unknown, 05/22/17) Patient History Past Medical History: see triage record Reviewed Nursing Documentation: PMH: Agreed; PSxH: Agreed Nursing Documentation-PMH Past Medical History: No History, Except For Hx Cardiac Problems: No - non healing wound on BLE for years Hx Hypertension: Yes Hx Pacemaker: No Hx Asthma: No Hx COPD: No Hx Diabetes: No Hx Cancer: Yes - Uterine CA Hx Gastrointestinal Problems: No Hx Dialysis: No Hx Neurological Problems: Yes Hx Cerebrovascular Accident: No Hx Seizures: No Hx Weakness: Yes - post polio syndrome Review of Systems All Other Systems: negative except mentioned in HPI Physical Exam Vital Signs Date Time Temp Pulse Resp B/P (MAP) Pulse Ox O2 Delivery O2 Flow Rate FiO2 04/30/18 16:16 98.4 88 16 113/57 95 Room Air Sp02 EP Interpretation: reviewed, normal General Appearance: well appearing, no apparent distress, alert, GCS 15, non- toxic Head: normocephalic, atraumatic Eyes: bilateral eye normal inspection, bilateral eye PERRL ENT: hearing grossly normal, normal pharynx, no angioedema, normal voice, uvula midline, moist mucus membranes Neck: full range of motion Respiratory: lungs clear, normal breath sounds, no rhonchi, no respiratory distress, no accessory muscle use, no wheezing, speaking full sentences Cardiovascular #1: regular rate, rhythm, no edema Musculoskeletal: back normal, digits/nails normal, gait/station normal, normal range of motion, non-tender Neurologic: alert, oriented x3, responsive, motor strength/tone normal, sensory intact Skin: other - Chronic bilateral infected ankle and lower leg ulcers, surrounding erythema, edema Medical Decision Making PA Attestation Dr. Ivy is my supervising Physician whom patient management has been discussed with. Diagnostic Impression: Primary Impression: Chronic skin ulcer Additional Impressions: Hypokalemia Elevated BUN ER Course Pt. presents to the ED c/o chronic leg infections. Ddx considered but are not limited to cellulitis, stasis ulcers, abscess, peripheral vascular disease, kidney failure. Vital signs: are WNL, pt. is afebrile ER COURSE: EKG reviewed by Dr. Ivy. Patient wounds cleaned and dressed in the ER, viscous lidocaine applied to affected areas. Patient provided with Dilaudid for pain symptoms. CBC shows mild elevation WBCs, will provide patient with antibiotics, provide with vancomycin and Rocephin while in the ER. CMP shows mild hypokalemia, provide with potassium in the ER, elevated BUN and creatinine noted. Patient is currently taking losartan and Lasix. Patient is followed by Dr. Hampton. Discussed patient care with Dr. Ivy, lower extremities seen and evaluated by her, patient to be admitted. Patient to be admitted chronic skin ulcers of the lower legs. - Please note that this Emergency Department Report was dictated using [employer] man technology software, occasionally this can lead to erroneous entry secondary to interpretation by the dictation equipment. Labs Test 04/30/18 16:48 White Blood Count 11.2 K/UL (4.8-10.8) Red Blood Count 3.91 M/UL (4.20-5.40) Hemoglobin 9.4 G/DL (12.0-16.0) Hematocrit 30.3 % (37.0-47.0) Mean Corpuscular Volume 78 FL (80-99) Mean Corpuscular Hemoglobin 24.1 PG (27.0-31.0) Mean Corpuscular Hemoglobin Concent 31.0 G/DL (32.0-36.0) Red Cell Distribution Width 19.8 % (11.6-14.8) Platelet Count 347 K/UL (150-450) Mean Platelet Volume 5.7 FL (6.5-10.1) Neutrophils (%) (Auto) 79.1 % (45.0-75.0) Lymphocytes (%) (Auto) 13.7 % (20.0-45.0) Monocytes (%) (Auto) 5.9 % (1.0-10.0) Eosinophils (%) (Auto) 0.6 % (0.0-3.0) Basophils (%) (Auto) 0.8 % (0.0-2.0) Sodium Level 138 MMOL/L (136-145) Potassium Level 3.0 MMOL/L (3.5-5.1) Chloride Level 98 MMOL/L (98-107) Carbon Dioxide Level 31 MMOL/L (21-32) Anion Gap 10 mmol/L (5-15) Blood Urea Nitrogen 42 mg/dL (7-18) Creatinine 1.5 MG/DL (0.55-1.30) Estimat Glomerular Filtration Rate mL/min (>60) Glucose Level 104 MG/DL (74-106) Calcium Level 9.6 MG/DL (8.5-10.1) Total Bilirubin 0.6 MG/DL (0.2-1.0) Aspartate Amino Transf (AST/SGOT) 24 U/L (15-37) Alanine Aminotransferase (ALT/SGPT) 24 U/L (12-78) Alkaline Phosphatase 102 U/L (46-116) Total Protein 8.4 G/DL (6.4-8.2) Albumin 2.8 G/DL (3.4-5.0) Globulin 5.6 g/dL Albumin/Globulin Ratio 0.5 (1.0-2.7) EKG Diagnostic Results Rate: normal Rhythm: NSR ST Segments: no acute changes ASA given to the pt in ED: No PA Scribe Bravo Wagner PA-C Rhythm Strip Diag. Results EP Interpretation: yes Rate: 87 Rhythm: NSR, no ectopy PA Scribe Bravo Wagner PA-C Last Vital Signs Date Time Temp Pulse Resp B/P (MAP) Pulse Ox O2 Delivery O2 Flow Rate FiO2 04/30/18 16:34 89 17 Room Air 04/30/18 16:28 98.4 141/119 98 Disposition: ADMITTED INPATIENT Condition: Serious Referrals: Evan Kim DPM (PCP) Joe Wagner Apr 30, 2018 18:19
--- NOTE | 2018-04-30 18:49 | NUR ---
ED Nurse Note: Wound re-bandaged by EMT.
--- NOTE | 2018-04-30 19:01 | NUR ---
ED Nurse Note: Report given to ALTAF Wright at ext [phone]. Pt to be transfered to room 421-1 per protocol with all belongings.
[2018-04-30 19:03] VITALS: BP 124/54
--- NOTE | 2018-04-30 20:00 | NUR ---
ED Nurse Note: pt was tranfered to [facility], report was given to jimenez by the previous rn. pt left ed with all belongings.
--- NOTE | 2018-04-30 20:36 | Infectious Diseases Prog Note ---
Assessment/Plan Assessment/Plan Full consult dictation to follow: A) bilateral leg/foot cellulitis and infected wounds previous MRI neg for osteomyelitis mild leukocytosis pmh noted allergies - pcn P) vancomycin, aztreonam and flagyl check wound culture, labs podiatry f/u - defer further imaging to them since follow pt as outpatient thank you Subjective Allergies: Coded Allergies: CRANBERRY (Verified Allergy, Unknown, Anaphylaxis, 08/05/17) PENICILLINS (Verified Allergy, Unknown, 05/22/17) Objective Vital Signs Last 24 Hour Vital Signs Date Time Temp Pulse Resp B/P (MAP) Pulse Ox O2 Delivery O2 Flow Rate FiO2 04/30/18 19:03 98.4 91 17 124/54 99 Room Air 04/30/18 19:03 98.4 91 17 124/54 99 Room Air 04/30/18 18:39 98.4 04/30/18 16:34 89 17 Room Air 04/30/18 16:28 98.4 89 17 141/119 98 Room Air 04/30/18 16:16 98.4 88 16 113/57 95 Room Air Height (Feet): 5 Height (Inches): 7.00 Weight (Pounds): 175 Laboratory Tests Test 04/30/18 16:48 White Blood Count 11.2 K/UL (4.8-10.8) H Red Blood Count 3.91 M/UL (4.20-5.40) L Hemoglobin 9.4 G/DL (12.0-16.0) L Hematocrit 30.3 % (37.0-47.0) L Mean Corpuscular Volume 78 FL (80-99) L Mean Corpuscular Hemoglobin 24.1 PG (27.0-31.0) L Mean Corpuscular Hemoglobin Concent 31.0 G/DL (32.0-36.0) L Red Cell Distribution Width 19.8 % (11.6-14.8) H Platelet Count 347 K/UL (150-450) Mean Platelet Volume 5.7 FL (6.5-10.1) L Neutrophils (%) (Auto) 79.1 % (45.0-75.0) H Lymphocytes (%) (Auto) 13.7 % (20.0-45.0) L Monocytes (%) (Auto) 5.9 % (1.0-10.0) Eosinophils (%) (Auto) 0.6 % (0.0-3.0) Basophils (%) (Auto) 0.8 % (0.0-2.0) Sodium Level 138 MMOL/L (136-145) Potassium Level 3.0 MMOL/L (3.5-5.1) L Chloride Level 98 MMOL/L (98-107) Carbon Dioxide Level 31 MMOL/L (21-32) Anion Gap 10 mmol/L (5-15) Blood Urea Nitrogen 42 mg/dL (7-18) H Creatinine 1.5 MG/DL (0.55-1.30) H Estimat Glomerular Filtration Rate mL/min (>60) Glucose Level 104 MG/DL (74-106) Calcium Level 9.6 MG/DL (8.5-10.1) Total Bilirubin 0.6 MG/DL (0.2-1.0) Aspartate Amino Transf (AST/SGOT) 24 U/L (15-37) Alanine Aminotransferase (ALT/SGPT) 24 U/L (12-78) Alkaline Phosphatase 102 U/L (46-116) Total Protein 8.4 G/DL (6.4-8.2) H Albumin 2.8 G/DL (3.4-5.0) L Globulin 5.6 g/dL Albumin/Globulin Ratio 0.5 (1.0-2.7) L Lynda Boo MD Apr 30, 2018 20:36
--- NOTE | 2018-04-30 21:00 | NUR ---
NURSE NOTES: Admitted patient awake,alert,verbal,resting in bed,with essentially normal vital signs.
[2018-04-30] MEDS ORDERED: HYDROcodone/Acetamin 10/325 tab ORAL PRN (21:30)
[2018-04-30] MEDS ORDERED: Milk of Magnesia 30ml Ud ORAL PRN (21:30)
[2018-04-30] MEDS: Lidocaine HCl 2% Jelly 6ml Tube TOPIC PRN (23:00)
[2018-04-30] MEDS: HYDROmorphone 1mg/ml Carpuject IVP PRN (23:24)
[2018-05-01 00:20] VITALS: BP 101/50
[2018-05-01 04:00] VITALS: BP 114/57
[2018-05-01] MEDS: HYDROmorphone 1mg/ml Carpuject IVP PRN ×5 (05:03→22:54)
[2018-05-01 07:18] LABS: BASOPHILS % (AUTO) 0.8 % (0.0-2.0); HEMATOCRIT 25.6 % (37.0-47.0); HEMOGLOBIN 8.1 G/DL (12.0-16.0); LYMPHOCYTES % (AUTO) 15.9 % (20.0-45.0); MEAN CORPUSCULAR VOLUME 77 FL (80-99); MONOCYTES % (AUTO) 7.7 % (1.0-10.0); NEUTROPHILS % (AUTO) 73.6 % (45.0-75.0); PLATELET COUNT 290 K/UL (150-450); RED BLOOD COUNT 3.31 M/UL (4.20-5.40); RED CELL DISTRIBUTION WIDTH 19.8 % (11.6-14.8); WHITE BLOOD COUNT 8.8 K/UL (4.8-10.8)
--- NOTE | 2018-05-01 07:24 | NUR ---
HAND-OFF: Report given to Abhishek Dong RN.
[2018-05-01 07:29] LABS: ALANINE AMINOTRANSFERASE 17 U/L (12-78); ALBUMIN 2.1 G/DL (3.4-5.0); ALBUMIN/GLOBULIN RATIO 0.4 (1.0-2.7); ALKALINE PHOSPHATASE 83 U/L (46-116); ANION GAP 8 mmol/L (5-15); ASPARTATE AMINO TRANSFERASE 20 U/L (15-37); BILIRUBIN,TOTAL 0.3 MG/DL (0.2-1.0); BLOOD UREA NITROGEN 36 mg/dL (7-18); CALCIUM 8.7 MG/DL (8.5-10.1); CARBON DIOXIDE 31 MMOL/L (21-32); CHLORIDE 104 MMOL/L (98-107); CHOLESTEROL 155 MG/DL (< 200); CREATININE 1.1 MG/DL (0.55-1.30); HDL CHOLESTEROL 52 MG/DL (40-60); SODIUM 143 MMOL/L (136-145); TRIGLYCERIDES 59 MG/DL (30-150)
[2018-05-01 07:31] LABS: POTASSIUM 2.7 MMOL/L (3.5-5.1)
--- NOTE | 2018-05-01 07:36 | NUR ---
Received patient from Adriana RN, patient is up in bed, eating breakfast, no distress noted, bed is locked and in lowest position, call light within reach, will continue to monitor.
[2018-05-01 08:00] VITALS: BP 105/50
[2018-05-01] MEDS: Losartan 50mg tab ORAL SCH (08:58)
[2018-05-01] MEDS ORDERED: Ascorbic Acid 500mg tab ORAL SCH (09:00)
[2018-05-01] MEDS ORDERED: VITAMIN A 10000 UNIT ORAL SCH (09:00)
[2018-05-01] MEDS ORDERED: Vitamin D 1000 IU Tab ORAL SCH (09:00)
[2018-05-01] MEDS: Heparin 5000 units/ml inj SUBQ SCH ×2 (09:01→20:51)
--- NOTE | 2018-05-01 09:04 | General Progress Note ---
Assessment/Plan Assessment/Plan (1) B/L LE pain (2) B/L LE cellulitis with open wounds (3) Post polio syndrome (4) H/o debridement of B/L LE wounds Patient will be continued on [place] and Dilaudid. We will start Neurontin 100mg TID D/w Dr. Stone and he concurred. Subjective Date patient seen: May 01, 2018 Time patient seen: 08:30 - am Allergies: Coded Allergies: CRANBERRY (Verified Allergy, Unknown, Anaphylaxis, 08/05/17) PENICILLINS (Verified Allergy, Unknown, 05/22/17) Subjective Constitutional: Reports: no symptoms Eye: Reports: no symptoms ENT: Reports: no symptoms Respiratory: Reports: no symptoms Cardiovascular: Reports: no symptoms Gastrointestinal: Reports: no symptoms Genitourinary: Reports: no symptoms Musculoskeletal: Reports: muscle stiffness Skin: Reports: lesions Psychiatric: Reports: no symptoms Neurological: Reports: focal weakness Endocrine: Reports: no symptoms Hematologic/Lymphatic: Reports: no symptoms Subjective Patient is a known patient from prior admission and has returned with continued pain in her legs. She is on Dilaudid 1mg IV Q4H PRN and [place] 10/325mg PO 1 tab Q4H PRN. We were consulted so patient has adequate pain control while here in the hospital. Objective Last 24 Hour Vital Signs Date Time Temp Pulse Resp B/P (MAP) Pulse Ox O2 Delivery O2 Flow Rate FiO2 05/01/18 08:58 105/50 05/01/18 08:00 98.8 86 17 105/50 (68) 96 05/01/18 05:33 98.5 05/01/18 04:00 98.5 84 18 114/57 (76) 91 05/01/18 00:20 98.6 92 18 101/50 (67) 93 04/30/18 21:40 Room Air 04/30/18 19:03 98.4 91 17 124/54 99 Room Air 04/30/18 19:03 98.4 91 17 124/54 99 Room Air 04/30/18 18:39 98.4 04/30/18 16:34 89 17 Room Air 04/30/18 16:28 98.4 89 17 141/119 98 Room Air 04/30/18 16:16 98.4 88 16 113/57 95 Room Air Intake and Output 04/30/18 05/01/18 19:00 07:00 Intake Total 505 ml Balance 505 ml Intake IV Total 505 ml # Voids 2 Laboratory Tests 04/30/18 16:48: White Blood Count 11.2H, Red Blood Count 3.91L, Hemoglobin 9.4L, Hematocrit 30.3L, Mean Corpuscular Volume 78L, Mean Corpuscular Hemoglobin 24.1L, Mean Corpuscular Hemoglobin Concent 31.0L, Red Cell Distribution Width 19.8H, Platelet Count 347, Mean Platelet Volume 5.7L, Neutrophils (%) (Auto) 79.1H, Lymphocytes (%) (Auto) 13.7L, Monocytes (%) (Auto) 5.9, Eosinophils (%) (Auto) 0.6, Basophils (%) (Auto) 0.8, Sodium Level 138, Potassium Level 3.0L, Chloride Level 98, Carbon Dioxide Level 31, Anion Gap 10, Blood Urea Nitrogen 42H, Creatinine 1.5H, Estimat Glomerular Filtration Rate , Glucose Level 104, Calcium Level 9.6, Total Bilirubin 0.6, Aspartate Amino Transf (AST/SGOT) 24, Alanine Aminotransferase (ALT/SGPT) 24, Alkaline Phosphatase 102, Total Protein 8.4H, Albumin 2.8L, Globulin 5.6, Albumin/Globulin Ratio 0.5L 05/01/18 05:40: White Blood Count 8.8, Red Blood Count 3.31L, Hemoglobin 8.1L, Hematocrit 25.6L , Mean Corpuscular Volume 77L, Mean Corpuscular Hemoglobin 24.5L, Mean Corpuscular Hemoglobin Concent 31.8L, Red Cell Distribution Width 19.8H, Platelet Count 290, Mean Platelet Volume 6.1L, Neutrophils (%) (Auto) 73.6, Lymphocytes (%) (Auto) 15.9L, Monocytes (%) (Auto) 7.7, Eosinophils (%) (Auto) 2.0, Basophils (%) (Auto) 0.8, Sodium Level 143, Potassium Level 2.7*L, Chloride Level 104, Carbon Dioxide Level 31, Anion Gap 8, Blood Urea Nitrogen 36H, Creatinine 1.1, Estimat Glomerular Filtration Rate , Glucose Level 93, Calcium Level 8.7, Total Bilirubin 0.3, Aspartate Amino Transf (AST/SGOT) 20, Alanine Aminotransferase (ALT/SGPT) 17, Alkaline Phosphatase 83, Total Protein 6.9, Albumin 2.1L, Globulin 4.8, Albumin/Globulin Ratio 0.4L, Magnesium Level 2.6H, Triglycerides Level 59, Cholesterol Level 155, LDL Cholesterol 90, HDL Cholesterol 52, Cholesterol/HDL Ratio 3.0L, Thyroid Stimulating Hormone (TSH) 1.641 Height (Feet): 5 Height (Inches): 7.00 Weight (Pounds): 165 Objective General Appearance: WD/WN, no apparent distress, alert HEENT: PERRL, EOMI Neck: non-tender, normal alignment, supple, normal inspection Respiratory/Chest: lungs clear, normal breath sounds, no respiratory distress Cardiovascular/Chest: normal rate, regular rhythm Abdomen: non tender, soft Extremities: severe edema - with bandages applied, tenderness to palpaiton Neurologic: abnormal gait, alert, oriented x 3 Ricco Damico May 01, 2018 09:04
[2018-05-01 12:00] VITALS: BP 108/53
[2018-05-01 16:00] VITALS: BP 117/57
[2018-05-01] MEDS ORDERED: Vancomycin 750mg/NS 275ml IVPB SCH ×2 (18:00)
--- NOTE | 2018-05-01 18:16 | NUR ---
NURSE NOTES: RN spoke with patient about changing her dressings and patient refused dressing change at this time and is requesting dressing change on evening shift, dressings are clean, dry and intact.
[2018-05-01] MEDS: Vancomycin 1gm/D5W 275ml IVPB SCH ×2 (18:42)
--- NOTE | 2018-05-01 19:25 | NUR ---
HAND-OFF: Report given to Adriana SOLITARIO.
--- NOTE | 2018-05-01 19:47 | NUR ---
NURSE NOTES: Received patient awake,alert,verbal,resting in bed,uses the bedside commode with minimal assist.
[2018-05-01 19:49] VITALS: BP 144/74
--- NOTE | 2018-05-01 21:06 | NUR ---
CASE MANAGEMENT: INITIAL REVIEW 73 YO F PRESENTED TO OUR ED FROM HOME CC: BILATERAL LEG WOUNDS PMHx: HTN. SI:CELLULITIS. T 98.4 HR 88 RR 16 B/P 113/57 SATS 95% ON RA WBC 11.2 K 3 BUN 42 CR 1.5 IS: VANCO IV X1 BACITRACIN TOP X1 MORPHINE IV X1 CEFTRIAXONE IV X1 DILAUDID IV X1 ZOFRAN IV X1 PATIENT ADMITTED TO MED/SURG 04/30/2018 @ 1804 DCP: PATIENT TO BE DISCHARGED TO HOME ONCE MEDICALLY CLEARED. PLAN OF CARE: WOUND CARE Addendum: 05/03/18 at 0909 by Sylvie Underwood CM INTERQUAL MET FOR ACUTE
[2018-05-01] MEDS: Lidocaine HCl 2% Jelly 6ml Tube TOPIC PRN (22:53)
[2018-05-02 04:00] VITALS: BP 144/74
[2018-05-02] MEDS: HYDROmorphone 1mg/ml Carpuject IVP PRN ×5 (04:15→21:47)
--- NOTE | 2018-05-02 07:34 | NUR ---
HAND-OFF: Report given to Joseph Acosta RN.
[2018-05-02 07:39] LABS: ANION GAP 7 mmol/L (5-15); BLOOD UREA NITROGEN 29 mg/dL (7-18); CALCIUM 8.9 MG/DL (8.5-10.1); CARBON DIOXIDE 30 MMOL/L (21-32); CHLORIDE 107 MMOL/L (98-107); CREATININE 0.9 MG/DL (0.55-1.30); POTASSIUM 3.4 MMOL/L (3.5-5.1); SODIUM 144 MMOL/L (136-145)
[2018-05-02 08:00] VITALS: BP 125/60
[2018-05-02 08:01] LABS: EOSINOPHILS % (AUTO) 2.5 % (0.0-3.0); HEMATOCRIT 25.9 % (37.0-47.0); HEMOGLOBIN 8.1 G/DL (12.0-16.0); LYMPHOCYTES % (AUTO) 24.2 % (20.0-45.0); MEAN CORPUSCULAR VOLUME 78 FL (80-99); MONOCYTES % (AUTO) 7.5 % (1.0-10.0); NEUTROPHILS % (AUTO) 64.7 % (45.0-75.0); PLATELET COUNT 288 K/UL (150-450); RED BLOOD COUNT 3.33 M/UL (4.20-5.40); RED CELL DISTRIBUTION WIDTH 19.8 % (11.6-14.8)
[2018-05-02] MEDS: Losartan 50mg tab ORAL SCH ×2 (08:23→08:28)
[2018-05-02] MEDS: Heparin 5000 units/ml inj SUBQ SCH ×2 (08:28→21:08)
--- NOTE | 2018-05-02 08:45 | History and Physical Report ---
DATE OF ADMISSION: 04/30/2018 HISTORY OF PRESENT ILLNESS: The patient is an unfortunate 73-year-old female with history of polio since childhood, history of lower extremity wounds and cellulitis, history of previous osteomyelitis, followed by Dr. Kim. The patient also recently underwent angiography by Dr. Méndez of lower extremities, which did not reveal any significant arterial issues. The patient was seen by Dr. Kim, was noted to have worsening lower extremity wounds and thus she has been admitted for further treatment. There is no fever or chills. No chest pain. No shortness of breath. No headaches. No abdominal pain. No urinary symptoms. PAST MEDICAL HISTORY: Includes history of hypertension, history of lower extremity osteomyelitis, history of cellulitis, history of sepsis in the past. She was hospitalized for six weeks 01:18 sepsis and had debridement done 01:22___, history of anemia. MEDICATIONS: Please see reconciled medication list. ALLERGIES: Penicillin. 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 She does not smoke, does not drink alcohol, does not use any illicit drugs. FAMILY HISTORY: Noncontributory. REVIEW OF SYSTEMS: Twelve-point review of systems reviewed and negative except for above. PHYSICAL EXAMINATION: GENERAL: She is well developed, well nourished, currently in no apparent distress. VITAL SIGNS: Stable. She is afebrile. HEENT: Head is normocephalic and atraumatic. Pupils are equal, reactive to light. Extraocular muscles are intact. Eyes are anicteric. NECK: Supple. LUNGS: Clear. ABDOMEN: Soft. Positive bowel sounds. EXTREMITIES: Please see pictures 02:27. PSYCHIATRIC: Normal mood and affect. LABORATORY DATA: Labs revealed a white count of 11.2, hemoglobin 9.4, hematocrit 30.3, and platelet count 347. White count this morning is 8.8, hemoglobin 8.1. Her sodium is 138, potassium 3.0, BUN 42, creatinine 1.5. Magnesium is 2.6. ASSESSMENT AND PLAN: The patient is an unfortunate 73-year-old female, who presents with worsening lower extremity wounds. The patient will be followed by Dr. Kim, her grant administrator for her wounds and she will be seen by Dr. Boo, Infectious Diseases physician and antibiotics will be instituted. If potassium is low, we will supplement and recheck. The patient should be on DVT and ulcer prophylaxes. Chas Hampton M.D. DR: Janie JOB#: [id number] CC: Evan Kim D.P.M.; Fax#: [phone]
--- NOTE | 2018-05-02 09:03 | General Progress Note ---
Assessment/Plan Assessment/Plan (1) B/L LE pain (2) B/L LE cellulitis with open wounds (3) Post polio syndrome (4) H/o debridement of B/L LE wounds Patient will be continued on Neurontin, [place] and Dilaudid. D/w Dr. Stone and he concurred. Subjective Date patient seen: May 02, 2018 Time patient seen: 08:00 - am Allergies: Coded Allergies: CRANBERRY (Verified Allergy, Unknown, Anaphylaxis, 08/05/17) PENICILLINS (Verified Allergy, Unknown, 05/22/17) Subjective Constitutional: Reports: no symptoms Respiratory: Reports: no symptoms Cardiovascular: Reports: no symptoms Gastrointestinal: Reports: no symptoms Musculoskeletal: Reports: muscle stiffness Skin: Reports: lesions Endocrine: Reports: no symptoms Hematologic/Lymphatic: Reports: no symptoms Subjective Patient has been doing well and is tolerating the pain on the Dilaudid [place] and Neurontin. She has no new complaints at this time. Objective Last 24 Hour Vital Signs Date Time Temp Pulse Resp B/P (MAP) Pulse Ox O2 Delivery O2 Flow Rate FiO2 05/02/18 08:00 97.5 65 19 125/60 (81) 94 05/02/18 04:45 97.2 05/02/18 04:00 97.9 73 18 144/74 (97) 94 05/01/18 20:37 Room Air 05/01/18 19:49 97.2 82 18 144/74 (97) 92 05/01/18 16:00 98.4 75 17 117/57 (77) 94 05/01/18 12:00 98.6 73 17 108/53 (71) 94 Intake and Output 05/01/18 05/02/18 19:00 07:00 Intake Total 820 ml 815.000 ml Balance 820 ml 815.000 ml Intake Oral 720 ml 240 ml IV Total 100 ml 575.000 ml # Voids 4 4 Laboratory Tests 05/02/18 05:37: White Blood Count 8.0, Red Blood Count 3.33L, Hemoglobin 8.1L, Hematocrit 25.9L , Mean Corpuscular Volume 78L, Mean Corpuscular Hemoglobin 24.3L, Mean Corpuscular Hemoglobin Concent 31.2L, Red Cell Distribution Width 19.8H, Platelet Count 288, Mean Platelet Volume 6.1L, Neutrophils (%) (Auto) 64.7, Lymphocytes (%) (Auto) 24.2, Monocytes (%) (Auto) 7.5, Eosinophils (%) (Auto) 2.5, Basophils (%) (Auto) 1.0, Sodium Level 144, Potassium Level 3.4L, Chloride Level 107, Carbon Dioxide Level 30, Anion Gap 7, Blood Urea Nitrogen 29H, Creatinine 0.9, Estimat Glomerular Filtration Rate , Glucose Level 89, Calcium Level 8.9, Magnesium Level 2.3 Height (Feet): 5 Height (Inches): 7.00 Weight (Pounds): 165 Objective General Appearance: WD/WN, no apparent distress, alert HEENT: PERRL, EOMI Neck: non-tender, normal alignment, supple, normal inspection Respiratory/Chest: lungs clear, normal breath sounds, no respiratory distress Cardiovascular/Chest: normal rate, regular rhythm Abdomen: non tender, soft Extremities: severe edema - with bandages applied, tenderness to palpaiton Neurologic: abnormal gait, alert, oriented x 3 Ricco Damico May 02, 2018 09:03
--- NOTE | 2018-05-02 09:05 | General Progress Note ---
Assessment/Plan Assessment/Plan LE cellulitis ho LE OM chronic pain ho polio as a child abx wound care pain control dvt and ulcer rpohylaxis laxatives/stool softners Subjective Allergies: Coded Allergies: CRANBERRY (Verified Allergy, Unknown, Anaphylaxis, 08/05/17) PENICILLINS (Verified Allergy, Unknown, 05/22/17) Subjective feelting better less redness in leg still in pain co constipation Objective Last 24 Hour Vital Signs Date Time Temp Pulse Resp B/P (MAP) Pulse Ox O2 Delivery O2 Flow Rate FiO2 05/02/18 08:00 97.5 65 19 125/60 (81) 94 05/02/18 04:45 97.2 05/02/18 04:00 97.9 73 18 144/74 (97) 94 05/01/18 20:37 Room Air 05/01/18 19:49 97.2 82 18 144/74 (97) 92 05/01/18 16:00 98.4 75 17 117/57 (77) 94 05/01/18 12:00 98.6 73 17 108/53 (71) 94 Intake and Output 05/01/18 05/02/18 19:00 07:00 Intake Total 820 ml 815.000 ml Balance 820 ml 815.000 ml Intake Oral 720 ml 240 ml IV Total 100 ml 575.000 ml # Voids 4 4 Laboratory Tests 05/02/18 05:37: White Blood Count 8.0, Red Blood Count 3.33L, Hemoglobin 8.1L, Hematocrit 25.9L , Mean Corpuscular Volume 78L, Mean Corpuscular Hemoglobin 24.3L, Mean Corpuscular Hemoglobin Concent 31.2L, Red Cell Distribution Width 19.8H, Platelet Count 288, Mean Platelet Volume 6.1L, Neutrophils (%) (Auto) 64.7, Lymphocytes (%) (Auto) 24.2, Monocytes (%) (Auto) 7.5, Eosinophils (%) (Auto) 2.5, Basophils (%) (Auto) 1.0, Sodium Level 144, Potassium Level 3.4L, Chloride Level 107, Carbon Dioxide Level 30, Anion Gap 7, Blood Urea Nitrogen 29H, Creatinine 0.9, Estimat Glomerular Filtration Rate , Glucose Level 89, Calcium Level 8.9, Magnesium Level 2.3 Height (Feet): 5 Height (Inches): 7.00 Weight (Pounds): 165 General Appearance: WD/WN Neck: supple Cardiovascular: normal rate Respiratory/Chest: lungs clear Abdomen: soft Objective LE wrapped Chas Hampton MD May 02, 2018 09:05
[2018-05-02] MEDS ORDERED: Milk of Magnesia 30ml Ud ORAL PRN (10:15)
--- NOTE | 2018-05-02 10:19 | NUR ---
NURSE NOTES: pt in bed with no sob nor in any form of distress noted. Pain med provided as needed. dressing intact and dry. will continue to monitor
[2018-05-02 12:00] VITALS: BP 130/68
[2018-05-02 16:00] VITALS: BP 129/62
[2018-05-02] MEDS: Docusate 100mg cap ORAL SCH (17:49)
[2018-05-02] MEDS: Vancomycin 1gm/D5W 275ml IVPB SCH ×2 (18:25)
--- NOTE | 2018-05-02 19:35 | NUR ---
HAND-OFF: Report given to ALTAF Grace.
--- NOTE | 2018-05-02 19:56 | Infectious Diseases Prog Note ---
Assessment/Plan Assessment/Plan A) 1) staph aureus right foot and left leg wound infection, leg/foot cellulitis 2) previous MRI negative for osteomyelitis 3) mild leukocytosis resolved 4) pmh - htn, chronic leg wounds, hx osteo per records, no dm, hx uterine ca per records, hx polio 5) allergies - pcn, sh-neg, fh-nc, mar noted, notes and records reviewed 6) d/w RN P) 1) vancomycin, cefepime and flagyl 2) check wound culture final and labs 3) podiatry f/u - defer further imaging to them since follow pt as outpatient 4) wound care per protocol 5) d/w patient Subjective Constitutional: Reports: fatigue, other - no chills; Denies: fever HEENT: Denies: congestion Respiratory: Denies: shortness of breath Cardiovascular: Denies: chest pain Gastrointestinal/Abdominal: Denies: nausea, vomiting, diarrhea Genitourinary: Reports: other - no joshi ; Denies: dysuria, hematuria Neurologic: Denies: headache Psychiatric: Denies: depression Skin: Denies: rash Hematologic: Denies: bleeding Musculoskeletal: Reports: other - less leg pain per patient ; Denies: pain Allergies: Coded Allergies: CRANBERRY (Verified Allergy, Unknown, Anaphylaxis, 08/05/17) PENICILLINS (Verified Allergy, Unknown, 05/22/17) Objective Vital Signs Last 24 Hour Vital Signs Date Time Temp Pulse Resp B/P (MAP) Pulse Ox O2 Delivery O2 Flow Rate FiO2 05/02/18 18:19 98.8 05/02/18 16:00 98.8 68 17 129/62 (84) 96 05/02/18 12:00 98.2 67 19 130/68 (88) 96 05/02/18 09:57 Room Air 05/02/18 08:00 97.5 65 19 125/60 (81) 94 05/02/18 04:00 97.9 73 18 144/74 (97) 94 05/01/18 20:37 Room Air 05/01/18 19:49 97.2 82 18 144/74 (97) 92 Height (Feet): 5 Height (Inches): 7.00 Weight (Pounds): 165 General Appearance: no acute distress HEENT: normocephalic, atraumatic, anicteric, mucous membranes moist, EOMI, supple, no JVD Respiratory/Chest: lungs clear, normal breath sounds, no respiratory distress, no accessory muscle use Cardiovascular: normal rate, regular rhythm, no gallop/murmur, no JVD Abdomen: normal bowel sounds, soft, non tender, no organomegaly, non distended Genitourinary: other - no joshi, no cva pain Extremities: no cyanosis, other - wounds covered, less leg pain per patient Skin: no rash, no ulcers Neurologic/Psychiatric: courtesy driver II-XII grossly normal, alert, oriented x 3, responsive, normal mood/affect Lymphatic: no neck adenopathy Musculoskeletal: no effusion Microbiology Date/Time Source Procedure Growth Status 04/30/18 17:30 Blood Blood Culture - Preliminary NO GROWTH AFTER 24 HOURS Resulted 04/30/18 17:15 Blood Blood Culture - Preliminary NO GROWTH AFTER 24 HOURS Resulted 04/30/18 23:20 Leg Left Gram Stain - Final Resulted 04/30/18 23:20 Wound Culture - Preliminary Staphylococcus Aureus Resulted 04/30/18 23:20 Foot Right Gram Stain - Final Resulted 04/30/18 23:20 Wound Culture - Preliminary Staphylococcus Aureus Gram Negative Bacillus 1 Diphtheroids Resulted Laboratory Tests Test 05/02/18 05:37 White Blood Count 8.0 K/UL (4.8-10.8) Red Blood Count 3.33 M/UL (4.20-5.40) L Hemoglobin 8.1 G/DL (12.0-16.0) L Hematocrit 25.9 % (37.0-47.0) L Mean Corpuscular Volume 78 FL (80-99) L Mean Corpuscular Hemoglobin 24.3 PG (27.0-31.0) L Mean Corpuscular Hemoglobin Concent 31.2 G/DL (32.0-36.0) L Red Cell Distribution Width 19.8 % (11.6-14.8) H Platelet Count 288 K/UL (150-450) Mean Platelet Volume 6.1 FL (6.5-10.1) L Neutrophils (%) (Auto) 64.7 % (45.0-75.0) Lymphocytes (%) (Auto) 24.2 % (20.0-45.0) Monocytes (%) (Auto) 7.5 % (1.0-10.0) Eosinophils (%) (Auto) 2.5 % (0.0-3.0) Basophils (%) (Auto) 1.0 % (0.0-2.0) Sodium Level 144 MMOL/L (136-145) Potassium Level 3.4 MMOL/L (3.5-5.1) L Chloride Level 107 MMOL/L (98-107) Carbon Dioxide Level 30 MMOL/L (21-32) Anion Gap 7 mmol/L (5-15) Blood Urea Nitrogen 29 mg/dL (7-18) H Creatinine 0.9 MG/DL (0.55-1.30) Estimat Glomerular Filtration Rate mL/min (>60) Glucose Level 89 MG/DL (74-106) Calcium Level 8.9 MG/DL (8.5-10.1) Magnesium Level 2.3 MG/DL (1.8-2.4) Current Medications Medications (Trade) Dose Ordered Sig/Alec Route PRN Reason Start Time Stop Time Status Last Admin Dose Admin Acetaminophen/ Hydrocodone Bitart ([place] 10/325) 1 tab Q6H PRN ORAL MODERATE PAIN 04/30/18 21:30 05/07/18 21:29 Al Hydroxide/Mg Hydroxide (Mylanta) 30 ml BIDPRN PRN ORAL Abdominal cramps 04/30/18 21:30 05/30/18 21:29 Cefepime HCl 2 gm/ Dextrose 100 ml @ 200 mls/hr Q12HR IVPB 05/01/18 21:00 05/08/18 20:59 05/02/18 08:25 Diphenhydramine HCl (Benadryl) 25 mg Q4H PRN ORAL Itching 04/30/18 21:30 05/30/18 21:29 Docusate Sodium (Colace) 100 mg TWICE A DAY ORAL 05/02/18 18:00 06/01/18 17:59 05/02/18 17:49 Fish Oil (Fish Oil) 2,000 mg DAILY ORAL 05/01/18 09:00 05/31/18 08:59 05/02/18 08:24 Furosemide (Lasix) 10 mg DAILY ORAL 05/01/18 09:00 05/31/18 08:59 Gabapentin (Neurontin) 100 mg THREE TIMES A DAY ORAL 05/01/18 13:00 05/31/18 12:59 05/02/18 17:49 Heparin Sodium (Porcine) (Heparin 5000 units/ml) 5,000 units EVERY 12 HOURS SUBQ 05/01/18 09:00 05/31/18 08:59 05/02/18 08:28 Hydromorphone HCl (Dilaudid) 1 mg Q4H PRN IVP SEVERE PAIN 04/30/18 21:30 05/07/18 21:29 05/02/18 17:49 Lidocaine HCl (Xylocaine Jelly 2%) 1 applic DAILYPRN PRN TOPIC For Pain 04/30/18 22:00 05/30/18 21:59 05/01/18 22:53 Losartan Potassium (Cozaar) 100 mg DAILY ORAL 05/01/18 09:00 05/31/18 08:59 Magnesium Hydroxide (Mom) 30 ml BIDPRN PRN ORAL Constipation 05/02/18 10:15 06/01/18 10:14 Metronidazole 100 ml @ 100 mls/hr Q8HR IVPB 05/01/18 06:00 05/08/18 05:59 05/02/18 13:08 Multivitamins (Multivitamins) 1 tab DAILY ORAL 05/01/18 09:00 05/31/18 08:59 05/02/18 08:23 Ondansetron HCl (Zofran) 4 mg Q4H PRN IVP Nausea & Vomiting 04/30/18 21:30 05/30/18 21:29 Pantoprazole (Protonix) 40 mg DAILY ORAL 05/01/18 09:00 05/31/18 08:59 05/02/18 08:23 Vancomycin HCl (Vanco rx to dose) 1 ea DAILY PRN MISC Per rx protocol 04/30/18 20:45 05/30/18 20:44 Vancomycin HCl 1 gm/Dextrose 275 ml @ 183.708 mls/hr DAILY@1800 IVPB 05/01/18 18:30 05/06/18 18:29 05/02/18 18:25 Lynda Boo MD May 02, 2018 19:56
[2018-05-02 20:00] VITALS: BP 158/81
--- NOTE | 2018-05-02 20:31 | NUR ---
NURSE NOTES: Pt awake, alert, bed in lowest position, call light within reach, able to make needs known, IV running, no c/o pain or distress at the moment. will monitor.
--- NOTE | 2018-05-02 23:00 | Consultation ---
DATE OF CONSULTATION: 04/30/2018 INFECTIOUS DISEASES CONSULTATION CONSULTING PHYSICIAN: Lynda Boo M.D. ATTENDING PHYSICIAN: Chas Hampton M.D. REFERRING PHYSICIAN: Evan Kim D.P.M. REASON FOR CONSULTATION: Bilateral leg and infected wound cellulitis and also right foot cellulitis infected wound. CHIEF COMPLAINT: The patient's chief complaint coming in is lower extremity cellulitis and infected wounds, also the right foot and bilateral legs. HISTORY OF PRESENT ILLNESS: This is a very pleasant 73-year-old female who has history of chronic ulcers of the lower extremities, legs and feet. I discussed with the patient. She does not know why she has these persistent ulcers. The patient has a history of recurrent wound infection and cellulitis. The patient presents to [facility] with worsening lower extremity cellulitis, foot wounds and cellulitis. Infectious diseases consultation requested for antibiotic management. She is allergic to penicillin; however, she tolerated Rocephin and the patient was placed on cefepime 2 grams intravenous q.12 hours in addition to vancomycin and Flagyl. She has had previous MRI imaging of the legs without any evidence of osteo upon reviewing reports. MAR was noted. Orders were noted. Notes and records were reviewed. The patient will be continued on vancomycin, Rocephin, Flagyl for lower extremity cellulitis and infected wounds. REVIEW OF SYSTEMS: CONSTITUTIONAL: The patient has no fever, chills, night sweats. No weight loss. HEAD AND NECK: No head pain, neck pain, thrush, dysphagia. CARDIAC: No chest pain. GASTROINTESTINAL: No nausea, vomiting, or diarrhea. No abdominal pain. GENITOURINARY: No dysuria or frequency. PULMONARY: No congestion, shortness of breath, hemoptysis, or secretions. SKIN: No new rashes. NEUROLOGIC: No seizures. EXTREMITIES: She has severe extremity pain secondary to cellulitis and infected wounds. GENITOURINARY: No [place]. No CVA tenderness. PAST MEDICAL HISTORY: The patient has a past medical history of chronic lower extremity ulcers and wounds of the legs and feet, unclear etiology. She has history of recurrent cellulitis, unclear if she has history of osteo. Per the records, it looks like she could have history of osteo. In addition, she has history of hypertension and history of uterine cancer per the records and history of polio per the records. She has no history of diabetes. She does have history of anemia also, but no diabetes. Again, she does have history of hypertension. ALLERGIES: Include cranberry and penicillin, however, she tolerates cephalosporins. FAMILY HISTORY: Noncontributory. Negative for tuberculosis or cancer. SOCIAL HISTORY: Negative for smoking, alcohol, or drug abuse. MEDICATIONS: Upon reviewing the MAR, she is on following medications: She is on Colace, magnesium, cefepime, vancomycin, Flagyl, Neurontin or gabapentin, furosemide, losartan, fish oil, heparin, pantoprazole, multivitamins, lidocaine, hydrocodone, hydromorphone, Zofran and diphenhydramine. Antibiotics, vancomycin, Cefepime, Flagyl. Outside medications noted and reconciliated. PHYSICAL EXAMINATION: VITAL SIGNS: The patient's temperature was 98.4, pulse rate 88, respiratory rate 16, blood pressure 113/57, saturation 95% on room air. GENERAL: Alert and responsive, no acute distress, oriented x3 HEAD AND NECK: Oral exam, no thrush. Eye exam: No icterus. Neck is supple. No JVD. Normocephalic. HEART: Regular. No gallop or murmur. No friction rub. ABDOMEN: Soft. Positive bowel sounds. Nontender. LUNGS: Clear bilaterally. No rhonchi or rales. SKIN: No rash. MUSCULOSKELETAL: No evidence of septic arthritis. EXTREMITIES: Lower extremity exam, she has bilateral foot and leg wounds that are infected with surrounding cellulitis. PERIPHERAL VASCULAR: No gangrene. She has significant pain in the lower extremities. GENITOURINARY: No [place]. No CVA tenderness. LINE SITES: Without phlebitis. NEUROLOGIC: Intact. Alert and oriented x3. LABORATORY DATA: White count 11.2, hemoglobin 9.4. Creatinine 1.5. Wound cultures are pending. As I discussed previously imaging in the past include MRI which showed no evidence of osteo. These were done in January 2018 of lower extremities. Wound cultures pending. ASSESSMENT AND PLAN: 1. The patient has bilateral leg and foot infected wounds with ulcers, infected ulcers and surrounding cellulitis warmth and redness. We will continue with vancomycin, cefepime, and Flagyl to treat bilateral leg infected wounds and ulcers and cellulitis. Fairly recent MRI showed no evidence of osteo. Continue vancomycin, cefepime, Flagyl for MRSA gram-negative coverage and anaerobic coverage for bilateral leg and foot infected wounds, ulcers and cellulitis. Watch the patient clinically. Check final wound cultures. Continue wound care protocol. 2. Hypertension. Blood pressure treatment per primary. 3. No history of diabetes. 4. History of chronic ulcers, lower extremities and repeat antibiotic treatment for cellulitis. 5. Per the records, history of uterine cancer. 6. Per the records, history of polio. 7. The patient is anemic. 8. Allergies to cranberry and penicillin. 9. Social history is negative. 10. Family history is noncontributory. 11. MAR was noted. 12. Case discussed with RN. 13. Continue treatment per primary consultants. 14. Notes and records were noted. 15. Orders were entered. Lynda Boo M.D. DR: Rad JOB#: [id number] CC:
[2018-05-03] VITALS: BP 127/62
[2018-05-03] MEDS: HYDROmorphone 1mg/ml Carpuject IVP PRN ×5 (02:39→23:04)
[2018-05-03 04:00] VITALS: BP 128/70
--- NOTE | 2018-05-03 07:19 | NUR ---
HAND-OFF: Report given to ALTAF [place].
--- NOTE | 2018-05-03 07:30 | NUR ---
nurse notes received patient awake, alert, oriented, x4, no sign of distress, Denies pain or discomfort at this time, on fall precaution observed and maintained, plan of care was discussed verbalized understanding 4 P's in progress call light w/n reach, will continue to monitor patient condition michael locke
[2018-05-03 08:00] VITALS: BP 145/70
[2018-05-03] MEDS: Docusate 100mg cap ORAL SCH ×2 (08:39→17:15)
[2018-05-03] MEDS: Losartan 50mg tab ORAL SCH (08:39)
[2018-05-03] MEDS: Heparin 5000 units/ml inj SUBQ SCH ×2 (08:44→21:03)
[2018-05-03 09:23] LABS: BASOPHILS % (AUTO) 1.3 % (0.0-2.0); HEMATOCRIT 28.5 % (37.0-47.0); HEMOGLOBIN 8.8 G/DL (12.0-16.0); LYMPHOCYTES % (AUTO) 26.2 % (20.0-45.0); MEAN CORPUSCULAR VOLUME 78 FL (80-99); MONOCYTES % (AUTO) 8.3 % (1.0-10.0); NEUTROPHILS % (AUTO) 60.2 % (45.0-75.0); PLATELET COUNT 304 K/UL (150-450); RED BLOOD COUNT 3.68 M/UL (4.20-5.40); RED CELL DISTRIBUTION WIDTH 20.3 % (11.6-14.8); WHITE BLOOD COUNT 6.3 K/UL (4.8-10.8)
[2018-05-03 09:38] LABS: ANION GAP 7 mmol/L (5-15); BLOOD UREA NITROGEN 20 mg/dL (7-18); CALCIUM 8.9 MG/DL (8.5-10.1); CARBON DIOXIDE 28 MMOL/L (21-32); CHLORIDE 107 MMOL/L (98-107); CREATININE 0.9 MG/DL (0.55-1.30); POTASSIUM 3.1 MMOL/L (3.5-5.1); SODIUM 142 MMOL/L (136-145)
[2018-05-03 12:00] VITALS: BP 142/73
--- NOTE | 2018-05-03 12:58 | NUR ---
nurse notes patient very non compliant refused for novolog and some morning medication michael locke Addendum: 05/03/18 at 1702 by AMELIE ELIAS RN RN wrong patient
[2018-05-03] MEDS: Lidocaine HCl 2% Jelly 6ml Tube TOPIC PRN (13:48)
--- NOTE | 2018-05-03 14:00 | NUR ---
nurse notes wound photo taken but the camera not working unable to upload michael locke
--- NOTE | 2018-05-03 14:00 | NUR ---
nurse notes left message to Dr mcneil tel no, regarding K level awaiting for his call michael locke
[2018-05-03 16:13] VITALS: BP 134/64
--- NOTE | 2018-05-03 16:17 | Cardiology Report ---
APPROVED REPORT EKG Measurement Heart [id number] Normal sinus rhythm Possible Left atrial enlargement Abnormal ECG
[2018-05-03] MEDS: Vancomycin 1gm/D5W 275ml IVPB SCH ×2 (18:40)
--- NOTE | 2018-05-03 19:10 | NUR ---
HAND-OFF: Report given to Ms Ji RN.
[2018-05-03 20:00] VITALS: BP 114/52
--- NOTE | 2018-05-03 20:20 | General Progress Note ---
Assessment/Plan Assessment/Plan LE cellulitis ho LE OM chronic pain ho polio as a child hypokalemia abx wound care per Dr Kim pain control dvt and ulcer prohylaxis laxatives/stool softners replace potassium check magnesium Subjective Allergies: Coded Allergies: CRANBERRY (Verified Allergy, Unknown, Anaphylaxis, 08/05/17) PENICILLINS (Verified Allergy, Unknown, 05/22/17) Subjective feelting better less redness in leg see pictures still in pain pos BM Objective Last 24 Hour Vital Signs Date Time Temp Pulse Resp B/P (MAP) Pulse Ox O2 Delivery O2 Flow Rate FiO2 05/03/18 16:13 98.2 66 20 134/64 (87) 93 05/03/18 12:00 98.0 70 20 142/73 (96) 94 05/03/18 08:39 128/70 05/03/18 08:25 Room Air 05/03/18 08:00 98.4 66 18 145/70 (95) 94 05/03/18 04:00 99.1 71 18 128/70 (89) 92 05/03/18 00:00 99.1 81 18 127/62 (83) 93 05/02/18 21:00 Room Air Intake and Output 05/02/18 05/03/18 19:00 07:00 Intake Total 1520 ml Balance 1520 ml Intake Oral 240 ml IV Total 300 ml Other 980 ml # Voids 3 # Bowel Movements 1 Laboratory Tests 05/03/18 07:55: White Blood Count 6.3, Red Blood Count 3.68L, Hemoglobin 8.8L, Hematocrit 28.5L , Mean Corpuscular Volume 78L, Mean Corpuscular Hemoglobin 23.9L, Mean Corpuscular Hemoglobin Concent 30.8L, Red Cell Distribution Width 20.3H, Platelet Count 304, Mean Platelet Volume 5.9L, Neutrophils (%) (Auto) 60.2, Lymphocytes (%) (Auto) 26.2, Monocytes (%) (Auto) 8.3, Eosinophils (%) (Auto) 4.0H, Basophils (%) (Auto) 1.3, Sodium Level 142, Potassium Level 3.1L, Chloride Level 107, Carbon Dioxide Level 28, Anion Gap 7, Blood Urea Nitrogen 20H, Creatinine 0.9, Estimat Glomerular Filtration Rate , Glucose Level 93, Calcium Level 8.9 05/03/18 17:20: Vancomycin Level Trough 15.6H Height (Feet): 5 Height (Inches): 7.00 Weight (Pounds): 165 General Appearance: WD/WN, no apparent distress Neck: supple Respiratory/Chest: lungs clear Abdomen: soft Objective LE wrapped see pictures Chas Hampton MD May 03, 2018 20:21
--- NOTE | 2018-05-03 20:39 | NUR ---
NURSE NOTES: Pt received awake, alert, oriented, IV running Vanco, no signs of pain or distress at the moment, call light within reach, bedside commode next to bed, able to make needs known. will monitor.
[2018-05-04] VITALS: BP 143/74
--- NOTE | 2018-05-04 02:06 | NUR ---
NURSE NOTES: Pt IV infiltrated at approx 2304, dilaudid was already prepared to be given. IV reinserted at approx 0000 and dilaudid medication was given at that time.
[2018-05-04] MEDS: HYDROmorphone 1mg/ml Carpuject IVP PRN ×5 (03:57→21:04)
[2018-05-04 04:00] VITALS: BP 163/81
--- NOTE | 2018-05-04 07:38 | NUR ---
HAND-OFF: Report given to ALTAF Ruiz.
[2018-05-04 08:00] VITALS: BP 145/69
--- NOTE | 2018-05-04 08:00 | NUR ---
nurse notes tried to upload wound photo , still the camera not working Lida graham stated she will call somebody to fix the camera michael locke
[2018-05-04] MEDS: Losartan 50mg tab ORAL SCH (08:47)
[2018-05-04] MEDS: Docusate 100mg cap ORAL SCH ×2 (08:47→17:10)
[2018-05-04 08:49] LABS: BASOPHILS % (AUTO) 1.3 % (0.0-2.0); HEMATOCRIT 30.8 % (37.0-47.0); HEMOGLOBIN 9.7 G/DL (12.0-16.0); LYMPHOCYTES % (AUTO) 25.8 % (20.0-45.0); MEAN CORPUSCULAR VOLUME 77 FL (80-99); MONOCYTES % (AUTO) 8.4 % (1.0-10.0); NEUTROPHILS % (AUTO) 61.5 % (45.0-75.0); PLATELET COUNT 347 K/UL (150-450); RED BLOOD COUNT 3.99 M/UL (4.20-5.40); RED CELL DISTRIBUTION WIDTH 19.7 % (11.6-14.8); WHITE BLOOD COUNT 6.9 K/UL (4.8-10.8)
[2018-05-04] MEDS: Heparin 5000 units/ml inj SUBQ SCH ×2 (08:50→21:04)
[2018-05-04 09:00] LABS: ANION GAP 8 mmol/L (5-15); CALCIUM 9.1 MG/DL (8.5-10.1); CARBON DIOXIDE 25 MMOL/L (21-32); CHLORIDE 108 MMOL/L (98-107); CREATININE 0.9 MG/DL (0.55-1.30); POTASSIUM 4.2 MMOL/L (3.5-5.1); SODIUM 141 MMOL/L (136-145)
[2018-05-04 09:07] LABS: BLOOD UREA NITROGEN 13 mg/dL (7-18)
--- NOTE | 2018-05-04 10:08 | NUR ---
NURSE NOTES: pt in bed with no sob nor in any form of distress noted. pain med given as needed. kept dressing intact and dry. will continue to monitor
--- NOTE | 2018-05-04 11:35 | General Progress Note ---
Assessment/Plan Assessment/Plan (1) B/L LE pain (2) B/L LE cellulitis with open wounds (3) Post polio syndrome (4) H/o debridement of B/L LE wounds Patient will be continued on Neurontin, Spade and Dilaudid. D/w Dr. Stone and he concurred. Subjective Date patient seen: May 04, 2018 Time patient seen: 11:05 - am Allergies: Coded Allergies: CRANBERRY (Verified Allergy, Unknown, Anaphylaxis, 08/05/17) PENICILLINS (Verified Allergy, Unknown, 05/22/17) Subjective Constitutional: Reports: no symptoms Respiratory: Reports: no symptoms Cardiovascular: Reports: no symptoms Gastrointestinal: Reports: no symptoms Musculoskeletal: Reports: muscle stiffness Skin: Reports: lesions Endocrine: Reports: no symptoms Hematologic/Lymphatic: Reports: no symptoms Subjective Patient is doing well and pain has been stable on the Dilaudid and Spade. Objective Last 24 Hour Vital Signs Date Time Temp Pulse Resp B/P (MAP) Pulse Ox O2 Delivery O2 Flow Rate FiO2 05/04/18 09:48 Room Air 05/04/18 09:21 97.9 05/04/18 08:47 145/69 05/04/18 08:00 98.0 71 18 145/69 (94) 96 05/04/18 04:00 97.9 73 17 163/81 (108) 93 05/04/18 00:00 98.1 71 18 143/74 (97) 95 05/03/18 21:00 Room Air 05/03/18 20:00 98.1 72 17 114/52 (72) 97 05/03/18 16:13 98.2 66 20 134/64 (87) 93 05/03/18 12:00 98.0 70 20 142/73 (96) 94 Intake and Output 05/03/18 05/04/18 19:00 07:00 Intake Total 820 ml 780 ml Balance 820 ml 780 ml Intake Oral 720 ml 480 ml IV Total 100 ml 300 ml # Voids 6 3 Laboratory Tests 05/03/18 17:20: Vancomycin Level Trough 15.6H 05/04/18 08:30: White Blood Count 6.9, Red Blood Count 3.99L, Hemoglobin 9.7L, Hematocrit 30.8L , Mean Corpuscular Volume 77L, Mean Corpuscular Hemoglobin 24.3L, Mean Corpuscular Hemoglobin Concent 31.4L, Red Cell Distribution Width 19.7H, Platelet Count 347, Mean Platelet Volume 5.9L, Neutrophils (%) (Auto) 61.5, Lymphocytes (%) (Auto) 25.8, Monocytes (%) (Auto) 8.4, Eosinophils (%) (Auto) 3.0, Basophils (%) (Auto) 1.3, Sodium Level 141, Potassium Level 4.2, Chloride Level 108H, Carbon Dioxide Level 25, Anion Gap 8, Blood Urea Nitrogen 13, Creatinine 0.9, Estimat Glomerular Filtration Rate , Glucose Level 96, Calcium Level 9.1, Magnesium Level 1.9 Height (Feet): 5 Height (Inches): 7.00 Weight (Pounds): 165 Objective General Appearance: WD/WN, no apparent distress, alert HEENT: PERRL, EOMI Neck: non-tender, normal alignment, supple, normal inspection Respiratory/Chest: lungs clear, normal breath sounds, no respiratory distress Cardiovascular/Chest: normal rate, regular rhythm Abdomen: non tender, soft Extremities: severe edema - with bandages applied, tenderness to palpaiton Neurologic: abnormal gait, alert, oriented x 3 Ricco Damico May 04, 2018 11:35
[2018-05-04 12:00] VITALS: BP 137/68
[2018-05-04 16:00] VITALS: BP 121/55
--- NOTE | 2018-05-04 17:00 | NUR ---
NURSE NOTES STILL THE CAMERA NOT WORKING , UNABLE TO UPLOAD, CHARGE NURSE GEORGE ECHEVERRIA
--- NOTE | 2018-05-04 17:01 | Infectious Diseases Prog Note ---
Assessment/Plan Assessment/Plan A) 1) bilateral leg/foot wound/ulcer infection with cellulitis, wound cultures with mrsa and enterobacter noted - clinically improved with less pain and redness 2) previous MRI negative for osteomyelitis 3) mild leukocytosis resolved 4) pmh - htn, chronic leg wounds, hx osteo per records, no dm, hx uterine ca per records, hx polio 5) allergies - pcn, sh-neg, fh-nc, mar noted, notes and records reviewed 6) d/w RN P) 1) vancomycin, cefepime - day # 5 abx, consider oral abx soon if patient continues to improve 2) monitor labs 3) podiatry f/u - defer further imaging to them since follow pt as outpatient 4) wound care per protocol 5) d/w patient, answered questions Subjective Constitutional: Reports: fatigue, other - much less leg pain ; Denies: fever HEENT: Denies: congestion Respiratory: Denies: shortness of breath Cardiovascular: Denies: chest pain Gastrointestinal/Abdominal: Denies: nausea, vomiting Genitourinary: Reports: other - no joshi Neurologic: Denies: headache Psychiatric: Denies: depression Skin: Denies: rash Hematologic: Denies: bleeding Musculoskeletal: Denies: pain Allergies: Coded Allergies: CRANBERRY (Verified Allergy, Unknown, Anaphylaxis, 08/05/17) PENICILLINS (Verified Allergy, Unknown, 05/22/17) Objective Vital Signs Last 24 Hour Vital Signs Date Time Temp Pulse Resp B/P (MAP) Pulse Ox O2 Delivery O2 Flow Rate FiO2 05/04/18 16:00 98.1 79 18 121/55 (77) 98 05/04/18 13:08 97.9 05/04/18 12:00 98.8 91 17 137/68 (91) 96 05/04/18 09:48 Room Air 05/04/18 08:47 145/69 05/04/18 08:00 98.0 71 18 145/69 (94) 96 05/04/18 04:00 97.9 73 17 163/81 (108) 93 05/04/18 00:00 98.1 71 18 143/74 (97) 95 05/03/18 21:00 Room Air 05/03/18 20:00 98.1 72 17 114/52 (72) 97 Height (Feet): 5 Height (Inches): 7.00 Weight (Pounds): 165 General Appearance: no acute distress HEENT: normocephalic, atraumatic, anicteric, mucous membranes moist Respiratory/Chest: lungs clear, normal breath sounds, no respiratory distress, no accessory muscle use Cardiovascular: normal rate, regular rhythm, no gallop/murmur, no JVD Abdomen: normal bowel sounds, soft, non tender, no organomegaly, non distended Genitourinary: other - no joshi Extremities: no cyanosis Skin: no rash, other - wounds covered, less redness at dressing edges, unwrapping deferred secondary to pain Neurologic/Psychiatric: rn faculty II-XII grossly normal, abnormal gait, alert, oriented x 3, responsive Lymphatic: no neck adenopathy Musculoskeletal: no effusion Objective none Microbiology Date/Time Source Procedure Growth Status 04/30/18 17:30 Blood Blood Culture - Preliminary NO GROWTH AFTER 72 HOURS Resulted 04/30/18 23:20 Leg Left Gram Stain - Final Complete 04/30/18 23:20 Wound Culture - Final Staphylococcus Aureus - Mrsa Diphtheroids Complete Microbiology Date/Time Source Procedure Growth Status 04/30/18 17:30 Blood Blood Culture - Preliminary NO GROWTH AFTER 72 HOURS Resulted 04/30/18 23:20 Leg Left Gram Stain - Final Complete 04/30/18 23:20 Wound Culture - Final Staphylococcus Aureus - Mrsa Diphtheroids Complete Laboratory Tests Test 05/03/18 17:20 05/04/18 08:30 Vancomycin Level Trough 15.6 ug/mL (5.0-12.0) H White Blood Count 6.9 K/UL (4.8-10.8) Red Blood Count 3.99 M/UL (4.20-5.40) L Hemoglobin 9.7 G/DL (12.0-16.0) L Hematocrit 30.8 % (37.0-47.0) L Mean Corpuscular Volume 77 FL (80-99) L Mean Corpuscular Hemoglobin 24.3 PG (27.0-31.0) L Mean Corpuscular Hemoglobin Concent 31.4 G/DL (32.0-36.0) L Red Cell Distribution Width 19.7 % (11.6-14.8) H Platelet Count 347 K/UL (150-450) Mean Platelet Volume 5.9 FL (6.5-10.1) L Neutrophils (%) (Auto) 61.5 % (45.0-75.0) Lymphocytes (%) (Auto) 25.8 % (20.0-45.0) Monocytes (%) (Auto) 8.4 % (1.0-10.0) Eosinophils (%) (Auto) 3.0 % (0.0-3.0) Basophils (%) (Auto) 1.3 % (0.0-2.0) Sodium Level 141 MMOL/L (136-145) Potassium Level 4.2 MMOL/L (3.5-5.1) Chloride Level 108 MMOL/L (98-107) H Carbon Dioxide Level 25 MMOL/L (21-32) Anion Gap 8 mmol/L (5-15) Blood Urea Nitrogen 13 mg/dL (7-18) Creatinine 0.9 MG/DL (0.55-1.30) Estimat Glomerular Filtration Rate mL/min (>60) Glucose Level 96 MG/DL (74-106) Calcium Level 9.1 MG/DL (8.5-10.1) Magnesium Level 1.9 MG/DL (1.8-2.4) Current Medications Medications (Trade) Dose Ordered Sig/Alec Route PRN Reason Start Time Stop Time Status Last Admin Dose Admin Acetaminophen/ Hydrocodone Bitart ([place] 10/325) 1 tab Q6H PRN ORAL MODERATE PAIN 04/30/18 21:30 05/07/18 21:29 Al Hydroxide/Mg Hydroxide (Mylanta) 30 ml BIDPRN PRN ORAL Abdominal cramps 04/30/18 21:30 05/30/18 21:29 Cefepime HCl 2 gm/ Dextrose 100 ml @ 200 mls/hr Q12HR IVPB 05/01/18 21:00 05/08/18 20:59 05/04/18 08:46 Diphenhydramine HCl (Benadryl) 25 mg Q4H PRN ORAL Itching 04/30/18 21:30 05/30/18 21:29 Docusate Sodium (Colace) 100 mg TWICE A DAY ORAL 05/02/18 18:00 06/01/18 17:59 05/04/18 08:47 Fish Oil (Fish Oil) 2,000 mg DAILY ORAL 05/01/18 09:00 05/31/18 08:59 05/04/18 08:48 Furosemide (Lasix) 10 mg DAILY ORAL 05/01/18 09:00 05/31/18 08:59 Gabapentin (Neurontin) 100 mg THREE TIMES A DAY ORAL 05/01/18 13:00 05/31/18 12:59 05/04/18 13:41 Heparin Sodium (Porcine) (Heparin 5000 units/ml) 5,000 units EVERY 12 HOURS SUBQ 05/01/18 09:00 05/31/18 08:59 05/04/18 08:50 Hydromorphone HCl (Dilaudid) 1 mg Q4H PRN IVP SEVERE PAIN 04/30/18 21:30 05/07/18 21:29 05/04/18 16:39 Lidocaine HCl (Xylocaine Jelly 2%) 1 applic DAILYPRN PRN TOPIC For Pain 04/30/18 22:00 05/30/18 21:59 05/03/18 13:48 Losartan Potassium (Cozaar) 100 mg DAILY ORAL 05/01/18 09:00 05/31/18 08:59 05/04/18 08:47 Magnesium Hydroxide (Mom) 30 ml BIDPRN PRN ORAL Constipation 05/02/18 10:15 06/01/18 10:14 Metronidazole 100 ml @ 100 mls/hr Q8HR IVPB 05/01/18 06:00 05/08/18 05:59 05/04/18 13:41 Multivitamins (Multivitamins) 1 tab DAILY ORAL 05/01/18 09:00 05/31/18 08:59 05/04/18 08:47 Ondansetron HCl (Zofran) 4 mg Q4H PRN IVP Nausea & Vomiting 04/30/18 21:30 05/30/18 21:29 Pantoprazole (Protonix) 40 mg DAILY ORAL 05/01/18 09:00 05/31/18 08:59 05/04/18 08:48 Vancomycin HCl (Vanco rx to dose) 1 ea DAILY PRN MISC Per rx protocol 04/30/18 20:45 05/30/18 20:44 Vancomycin HCl 1 gm/Dextrose 275 ml @ 183.708 mls/hr DAILY@1800 IVPB 05/01/18 18:30 05/06/18 18:29 05/03/18 18:40 Lynda Boo MDb 17, 2019 17:00
[2018-05-04] MEDS: Vancomycin 1 GM in D5W 275 ML IVPB SCH (18:03)
--- NOTE | 2018-05-04 19:08 | NUR ---
HAND-OFF: Report given to ALTAF Grace.
--- NOTE | 2018-05-04 19:50 | NUR ---
NURSE NOTES: Pt received awake, alert, able to make needs known, call light within reach, bed in lowest position, no signs of pain or distress, IV infiltrated, will replace.
[2018-05-04 20:00] VITALS: BP 161/78
--- NOTE | 2018-05-04 21:17 | General Progress Note ---
Assessment/Plan Assessment/Plan LE cellulitis ho LE OM chronic pain ho polio as a child hypokalemia abx wound care per Dr Kim pain control dvt and ulcer prohylaxis laxatives/stool softners Subjective Allergies: Coded Allergies: CRANBERRY (Verified Allergy, Unknown, Anaphylaxis, 08/05/17) PENICILLINS (Verified Allergy, Unknown, 05/22/17) Subjective feelting better less redness in leg see pictures still in pain pos BM Objective Last 24 Hour Vital Signs Date Time Temp Pulse Resp B/P (MAP) Pulse Ox O2 Delivery O2 Flow Rate FiO2 05/04/18 17:09 97.9 05/04/18 16:00 98.1 79 18 121/55 (77) 98 05/04/18 12:00 98.8 91 17 137/68 (91) 96 05/04/18 09:48 Room Air 05/04/18 08:47 145/69 05/04/18 08:00 98.0 71 18 145/69 (94) 96 05/04/18 04:00 97.9 73 17 163/81 (108) 93 05/04/18 00:00 98.1 71 18 143/74 (97) 95 Intake and Output 05/03/18 05/04/18 19:00 07:00 Intake Total 820 ml 780 ml Balance 820 ml 780 ml Intake Oral 720 ml 480 ml IV Total 100 ml 300 ml # Voids 6 3 Laboratory Tests 05/04/18 08:30: White Blood Count 6.9, Red Blood Count 3.99L, Hemoglobin 9.7L, Hematocrit 30.8L , Mean Corpuscular Volume 77L, Mean Corpuscular Hemoglobin 24.3L, Mean Corpuscular Hemoglobin Concent 31.4L, Red Cell Distribution Width 19.7H, Platelet Count 347, Mean Platelet Volume 5.9L, Neutrophils (%) (Auto) 61.5, Lymphocytes (%) (Auto) 25.8, Monocytes (%) (Auto) 8.4, Eosinophils (%) (Auto) 3.0, Basophils (%) (Auto) 1.3, Sodium Level 141, Potassium Level 4.2, Chloride Level 108H, Carbon Dioxide Level 25, Anion Gap 8, Blood Urea Nitrogen 13, Creatinine 0.9, Estimat Glomerular Filtration Rate , Glucose Level 96, Calcium Level 9.1, Magnesium Level 1.9 Height (Feet): 5 Height (Inches): 7.00 Weight (Pounds): 165 General Appearance: WD/WN Neck: supple Cardiovascular: normal rate Respiratory/Chest: lungs clear Abdomen: soft Objective LE wrapped see pictures Chas Hampton MD May 04, 2018 21:17
[2018-05-05] VITALS: BP 128/66
[2018-05-05] MEDS: HYDROmorphone 1mg/ml Carpuject IVP PRN ×6 (00:53→22:17)
[2018-05-05 04:00] VITALS: BP 146/71
--- NOTE | 2018-05-05 07:34 | NUR ---
HAND-OFF: Report given to ALTAF Ruiz.
--- NOTE | 2018-05-05 07:44 | NUR ---
NURSE NOTES: pt in bed with no sob nor in any form of distress noted. kept dressing intact and dry. denies pain at this time. will continue to monitor
--- NOTE | 2018-05-05 07:58 | General Progress Note ---
Assessment/Plan Assessment/Plan (1) B/L LE pain (2) B/L LE cellulitis with open wounds (3) Post polio syndrome (4) H/o debridement of B/L LE wounds Patient will be continued on Neurontin, [place] and Dilaudid. D/w Dr. Stone and he concurred. Subjective Date patient seen: May 05, 2018 Time patient seen: 07:00 - am Allergies: Coded Allergies: CRANBERRY (Verified Allergy, Unknown, Anaphylaxis, 08/05/17) PENICILLINS (Verified Allergy, Unknown, 05/22/17) Subjective Constitutional: Reports: no symptoms Respiratory: Reports: no symptoms Cardiovascular: Reports: no symptoms Gastrointestinal: Reports: no symptoms Musculoskeletal: Reports: muscle stiffness Skin: Reports: lesions Endocrine: Reports: no symptoms Hematologic/Lymphatic: Reports: no symptoms Subjective Patient is in bed and tolerating the pain on the Dilaudid 6 doses in the last 24hrs. She has no new complaints at this time. Objective Last 24 Hour Vital Signs Date Time Temp Pulse Resp B/P (MAP) Pulse Ox O2 Delivery O2 Flow Rate FiO2 05/05/18 04:00 98.2 72 18 146/71 (96) 93 05/05/18 00:00 97.7 74 16 128/66 (86) 95 05/04/18 21:00 Room Air 05/04/18 20:00 96.8 76 17 161/78 (105) 95 05/04/18 17:09 97.9 05/04/18 16:00 98.1 79 18 121/55 (77) 98 05/04/18 12:00 98.8 91 17 137/68 (91) 96 05/04/18 09:48 Room Air 05/04/18 08:47 145/69 05/04/18 08:00 98.0 71 18 145/69 (94) 96 Intake and Output 05/04/18 05/05/18 19:00 07:00 Intake Total 1060 ml 967.416 ml Balance 1060 ml 967.416 ml Intake Oral 860 ml 400 ml IV Total 200 ml 567.416 ml # Voids 7 3 # Bowel Movements 1 1 Laboratory Tests 05/04/18 08:30: White Blood Count 6.9, Red Blood Count 3.99L, Hemoglobin 9.7L, Hematocrit 30.8L , Mean Corpuscular Volume 77L, Mean Corpuscular Hemoglobin 24.3L, Mean Corpuscular Hemoglobin Concent 31.4L, Red Cell Distribution Width 19.7H, Platelet Count 347, Mean Platelet Volume 5.9L, Neutrophils (%) (Auto) 61.5, Lymphocytes (%) (Auto) 25.8, Monocytes (%) (Auto) 8.4, Eosinophils (%) (Auto) 3.0, Basophils (%) (Auto) 1.3, Sodium Level 141, Potassium Level 4.2, Chloride Level 108H, Carbon Dioxide Level 25, Anion Gap 8, Blood Urea Nitrogen 13, Creatinine 0.9, Estimat Glomerular Filtration Rate , Glucose Level 96, Calcium Level 9.1, Magnesium Level 1.9 Height (Feet): 5 Height (Inches): 7.00 Weight (Pounds): 165 Objective General Appearance: WD/WN, no apparent distress, alert HEENT: PERRL, EOMI Neck: non-tender, normal alignment, supple, normal inspection Respiratory/Chest: lungs clear, normal breath sounds, no respiratory distress Cardiovascular/Chest: normal rate, regular rhythm Abdomen: non tender, soft Extremities: severe edema - with bandages applied, tenderness to palpaiton Neurologic: abnormal gait, alert, oriented x 3 Ricco Damico May 05, 2018 07:58
[2018-05-05 08:00] VITALS: BP 154/75
[2018-05-05] MEDS: Losartan 50mg tab ORAL SCH (08:17)
[2018-05-05] MEDS: Docusate 100mg cap ORAL SCH ×2 (08:18→17:44)
[2018-05-05] MEDS: Heparin 5000 units/ml inj SUBQ SCH ×2 (08:22→21:17)
[2018-05-05 09:12] LABS: BASOPHILS % (AUTO) 0.8 % (0.0-2.0); EOSINOPHILS % (AUTO) 2.9 % (0.0-3.0); HEMATOCRIT 31.8 % (37.0-47.0); HEMOGLOBIN 9.8 G/DL (12.0-16.0); LYMPHOCYTES % (AUTO) 27.9 % (20.0-45.0); MEAN CORPUSCULAR VOLUME 77 FL (80-99); MONOCYTES % (AUTO) 8.9 % (1.0-10.0); NEUTROPHILS % (AUTO) 59.5 % (45.0-75.0); PLATELET COUNT 364 K/UL (150-450); RED BLOOD COUNT 4.13 M/UL (4.20-5.40); RED CELL DISTRIBUTION WIDTH 19.9 % (11.6-14.8); WHITE BLOOD COUNT 7.2 K/UL (4.8-10.8)
[2018-05-05 10:00] LABS: ANION GAP 9 mmol/L (5-15); BLOOD UREA NITROGEN 11 mg/dL (7-18); CALCIUM 8.8 MG/DL (8.5-10.1); CARBON DIOXIDE 23 MMOL/L (21-32); CHLORIDE 107 MMOL/L (98-107); CREATININE 0.8 MG/DL (0.55-1.30); POTASSIUM 3.8 MMOL/L (3.5-5.1); SODIUM 139 MMOL/L (136-145)
[2018-05-05 12:00] VITALS: BP 112/54
--- NOTE | 2018-05-05 14:13 | NUR ---
RD ASSESSMENT & RECOMMENDATIONS SEE CARE ACTIVITY FOR COMPLETE ASSESSMENT DAILY ESTIMATED NEEDS: Needs based on OM/ 64kg abw 25-30 kcals/kg 5826-4128 total kcals 1.25-1.5 g protein/kg 80-96 g total protein 25-30 mL/kg 0592-2850 total fluid mLs NUTRITION DIAGNOSIS: * Increased protein intake needs R/T wound healing as evidenced by pt admitted w/ BLE cellulitis w/ open wounds, L LE OM per MD. CURRENT DIET: Regular PO DIET RECOMMENDATIONS: REGULAR + Double Protein Portions ADDITIONAL RECOMMENDATIONS: * Calibrated bedscale wt- currently inaccurate @217# * Wound healing: Add MVI w/ min 1 tab QD, [place]igo 1pkt BID * Monitor lytes closely while on lasix, replete as needed
[2018-05-05 16:00] VITALS: BP 119/57
[2018-05-05] MEDS: Vancomycin 1 GM in D5W 275 ML IVPB SCH (17:44)
--- NOTE | 2018-05-05 19:23 | NUR ---
HAND-OFF: Report given to ALTAF Rinaldi.
--- NOTE | 2018-05-05 19:55 | NUR ---
CASE MANAGEMENT: REVIEW SI: INFECTED FOOT ULCER . B/L LE CELLULITIS WITH OPEN WOUNDS T 98.4 HR 75 RR 20 BP 154/75 SAT 94% ROOM AIR H/H 9.8/31.8 IS: VANCO IV QD CEFEPIME IV Q12HR LASIX PO QD LOSARTAN PO QD MED/SURG STATUS DCP: PATIENT IS FROM HOME
[2018-05-05 20:00] VITALS: BP 149/77
[2018-05-05] MEDS ORDERED: NS 275ml ONE (20:21)
--- NOTE | 2018-05-05 21:02 | NUR ---
Received patient from ALTAF Ruiz. Patient in bed, awake, in room air, not in respiratory distress. Bed is locked, call light is within reach. Will continue to monitor patient.
--- NOTE | 2018-05-05 23:09 | General Progress Note ---
Assessment/Plan Assessment/Plan LE cellulitis ho LE OM chronic pain ho polio as a child hypokalemia abx wound care per Dr Kim pain control dvt and ulcer prohylaxis laxatives/stool softners dc plans for tomorrow if ok with Dr Kim and Dr Gregory Boo to write her rx for abx for discharge fup out pateint with dr kim Subjective Allergies: Coded Allergies: CRANBERRY (Verified Allergy, Unknown, Anaphylaxis, 08/05/17) PENICILLINS (Verified Allergy, Unknown, 05/22/17) Subjective feelting better less redness in leg see pictures still in pain pos BM Objective Last 24 Hour Vital Signs Date Time Temp Pulse Resp B/P (MAP) Pulse Ox O2 Delivery O2 Flow Rate FiO2 05/05/18 18:13 97.7 05/05/18 16:00 98.4 67 20 119/57 (77) 94 05/05/18 12:00 98.1 63 19 112/54 (73) 94 05/05/18 09:54 Room Air 05/05/18 08:17 154/75 05/05/18 08:00 97.7 75 18 154/75 (101) 95 05/05/18 04:00 98.2 72 18 146/71 (96) 93 05/05/18 00:00 97.7 74 16 128/66 (86) 95 Intake and Output 05/04/18 05/05/18 18:59 06:59 Intake Total 1060 ml 967.416 ml Balance 1060 ml 967.416 ml Intake Oral 860 ml 400 ml IV Total 200 ml 567.416 ml # Voids 7 3 # Bowel Movements 1 1 Laboratory Tests 05/05/18 08:26: White Blood Count 7.2, Red Blood Count 4.13L, Hemoglobin 9.8L, Hematocrit 31.8L , Mean Corpuscular Volume 77L, Mean Corpuscular Hemoglobin 23.7L, Mean Corpuscular Hemoglobin Concent 30.8L, Red Cell Distribution Width 19.9H, Platelet Count 364, Mean Platelet Volume 5.9L, Neutrophils (%) (Auto) 59.5, Lymphocytes (%) (Auto) 27.9, Monocytes (%) (Auto) 8.9, Eosinophils (%) (Auto) 2.9, Basophils (%) (Auto) 0.8, Sodium Level 139, Potassium Level 3.8, Chloride Level 107, Carbon Dioxide Level 23, Anion Gap 9, Blood Urea Nitrogen 11, Creatinine 0.8, Estimat Glomerular Filtration Rate , Glucose Level 93, Calcium Level 8.8 Height (Feet): 5 Height (Inches): 7.00 Weight (Pounds): 165 General Appearance: WD/WN, no apparent distress Neck: supple Cardiovascular: normal rate Respiratory/Chest: lungs clear Abdomen: soft Objective LE wrapped see pictures Chas Hampton MD May 05, 2018 23:09
[2018-05-06] VITALS: BP 146/69
[2018-05-06] MEDS: HYDROmorphone 1mg/ml Carpuject IVP PRN ×2 (02:20→13:01)
[2018-05-06 04:00] VITALS: BP 124/56
--- NOTE | 2018-05-06 07:10 | NUR ---
HAND-OFF: Report given to ALTAF Dubon.
--- NOTE | 2018-05-06 07:11 | NUR ---
HAND-OFF: Report given to ALTAF Dubon.
[2018-05-06 08:00] VITALS: BP 131/64
[2018-05-06] MEDS: Docusate 100mg cap ORAL SCH (08:50)
[2018-05-06] MEDS: Losartan 50mg tab ORAL SCH (08:50)
[2018-05-06] MEDS: Heparin 5000 units/ml inj SUBQ SCH (08:51)
--- NOTE | 2018-05-06 10:46 | NUR ---
NURSE NOTES: PT REQUESTS FOR WOUND CARE TO BE DONE AT 1300HRS. PT STATES SHE WISHES TO BE DISCHARGED HOME WITH HOME HEALTH TODAY. PT HAS A RIDE PICKING HER UP AT 1500HRS TODAY. RN EDUCATED PT ON ORDERS FROM DR TELLO REGARDING DISCHARGE IF CLEARED BY DR AGUAYO AND DR MINAYA. NENA MALAVE, RECEIVED CLEARANCE FROM DR. AGUAYO.RN LEFT MESSAGE FOR DR MINAYA REGARDING CLEARANCE FOR DISCHARGE. IN NO APPARENT DISTRESS AT THIS TIME. WILL CONTINUE TO MONITOR.
[2018-05-06 12:00] VITALS: BP 144/76
--- NOTE | 2018-05-06 12:18 | NUR ---
*-* DISCHARGE PLANNED *-* PATIENT HAS BEEN REFERRED TO: [facility] P:[phone] F:[phone] Addendum: 05/06/18 at 1222 by GURMEET REBOLLEDO CM *-* SPOKE WITH JADIEL THEY HAVE AGREED TO CONTINUE TO FOLLOW PATIENT
--- NOTE | 2018-05-06 14:11 | Infectious Diseases Prog Note ---
Assessment/Plan Assessment/Plan A) 1) bilateral leg/foot wound/ulcer infection with cellulitis, wound cultures with mrsa and enterobacter noted - clinically improved with less pain and improving redness/erythema - wounds stable 2) previous MRI negative for osteomyelitis 3) mild leukocytosis resolved 4) pmh - htn, chronic leg wounds, hx osteo per records, no dm, hx uterine ca per records, hx polio 5) allergies - pcn, sh-neg, fh-nc, mar noted, notes and records reviewed 6) d/w RN P) 1) vancomycin, cefepime - day # 7 abx 2) can transition to oral levofloxacin plus doxycycline x 5 days (patient says that bactrim does not help her) 3) podiatry f/u - defer further imaging to them since follow pt as outpatient 4) wound care per protocol 5) d/w patient, answered questions 6) Subjective HEENT: Denies: congestion Respiratory: Denies: shortness of breath Cardiovascular: Denies: chest pain Gastrointestinal/Abdominal: Denies: nausea, vomiting, diarrhea Genitourinary: Reports: other - no joshi Neurologic: Denies: headache Psychiatric: Denies: depression Skin: Denies: rash Hematologic: Denies: bleeding Musculoskeletal: Reports: pain - less leg pain, controlled Allergies: Coded Allergies: CRANBERRY (Verified Allergy, Unknown, Anaphylaxis, 08/05/17) PENICILLINS (Verified Allergy, Unknown, 05/22/17) Objective Vital Signs Last 24 Hour Vital Signs Date Time Temp Pulse Resp B/P (MAP) Pulse Ox O2 Delivery O2 Flow Rate FiO2 05/06/18 12:00 97.1 85 18 144/76 (98) 94 05/06/18 09:00 Room Air 05/06/18 08:50 131/64 05/06/18 08:00 98.6 80 18 131/64 (86) 94 05/06/18 04:00 98.1 72 17 124/56 (78) 94 05/06/18 00:00 99.1 79 18 146/69 (94) 05/05/18 21:00 Room Air 05/05/18 20:00 98.5 79 18 149/77 (101) 96 05/05/18 18:13 97.7 05/05/18 16:00 98.4 67 20 119/57 (77) 94 Height (Feet): 5 Height (Inches): 7.00 Weight (Pounds): 165 General Appearance: no acute distress HEENT: normocephalic, atraumatic, anicteric, mucous membranes moist Respiratory/Chest: lungs clear, normal breath sounds, no respiratory distress, no accessory muscle use Cardiovascular: normal rate, regular rhythm, no gallop/murmur, no JVD Abdomen: normal bowel sounds, soft, non tender, no organomegaly, non distended Genitourinary: other - no joshi, no cva pain Extremities: no cyanosis, other - less redness of legs, wounds noted with RN and stable Skin: no rash 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, alert, responsive Lymphatic: no neck adenopathy Musculoskeletal: no effusion Objective none Microbiology Date/Time Source Procedure Growth Status 04/30/18 17:30 Blood Blood Culture - Final NO GROWTH AFTER 5 DAYS Complete 04/30/18 23:20 Leg Left Gram Stain - Final Complete 04/30/18 23:20 Wound Culture - Final Staphylococcus Aureus - Mrsa Diphtheroids Complete Labs Test 05/03/18 17:20 05/04/18 08:30 05/05/18 08:26 Vancomycin Level Trough 15.6 ug/mL (5.0-12.0) White Blood Count 6.9 K/UL (4.8-10.8) 7.2 K/UL (4.8-10.8) Red Blood Count 3.99 M/UL (4.20-5.40) 4.13 M/UL (4.20-5.40) Hemoglobin 9.7 G/DL (12.0-16.0) 9.8 G/DL (12.0-16.0) Hematocrit 30.8 % (37.0-47.0) 31.8 % (37.0-47.0) Mean Corpuscular Volume 77 FL (80-99) 77 FL (80-99) Mean Corpuscular Hemoglobin 24.3 PG (27.0-31.0) 23.7 PG (27.0-31.0) Mean Corpuscular Hemoglobin Concent 31.4 G/DL (32.0-36.0) 30.8 G/DL (32.0-36.0) Red Cell Distribution Width 19.7 % (11.6-14.8) 19.9 % (11.6-14.8) Platelet Count 347 K/UL (150-450) 364 K/UL (150-450) Mean Platelet Volume 5.9 FL (6.5-10.1) 5.9 FL (6.5-10.1) Neutrophils (%) (Auto) 61.5 % (45.0-75.0) 59.5 % (45.0-75.0) Lymphocytes (%) (Auto) 25.8 % (20.0-45.0) 27.9 % (20.0-45.0) Monocytes (%) (Auto) 8.4 % (1.0-10.0) 8.9 % (1.0-10.0) Eosinophils (%) (Auto) 3.0 % (0.0-3.0) 2.9 % (0.0-3.0) Basophils (%) (Auto) 1.3 % (0.0-2.0) 0.8 % (0.0-2.0) Sodium Level 141 MMOL/L (136-145) 139 MMOL/L (136-145) Potassium Level 4.2 MMOL/L (3.5-5.1) 3.8 MMOL/L (3.5-5.1) Chloride Level 108 MMOL/L (98-107) 107 MMOL/L (98-107) Carbon Dioxide Level 25 MMOL/L (21-32) 23 MMOL/L (21-32) Anion Gap 8 mmol/L (5-15) 9 mmol/L (5-15) Blood Urea Nitrogen 13 mg/dL (7-18) 11 mg/dL (7-18) Creatinine 0.9 MG/DL (0.55-1.30) 0.8 MG/DL (0.55-1.30) Estimat Glomerular Filtration Rate mL/min (>60) mL/min (>60) Glucose Level 96 MG/DL (74-106) 93 MG/DL (74-106) Calcium Level 9.1 MG/DL (8.5-10.1) 8.8 MG/DL (8.5-10.1) Magnesium Level 1.9 MG/DL (1.8-2.4) Current Medications Medications (Trade) Dose Ordered Sig/Alec Route PRN Reason Start Time Stop Time Status Last Admin Dose Admin Acetaminophen/ Hydrocodone Bitart ([place] 10/325) 1 tab Q6H PRN ORAL MODERATE PAIN 04/30/18 21:30 05/07/18 21:29 Al Hydroxide/Mg Hydroxide (Mylanta) 30 ml BIDPRN PRN ORAL Abdominal cramps 04/30/18 21:30 05/30/18 21:29 Cefepime HCl 2 gm/ Dextrose 100 ml @ 200 mls/hr Q12HR IVPB 05/01/18 21:00 05/08/18 20:59 05/06/18 08:49 Diphenhydramine HCl (Benadryl) 25 mg Q4H PRN ORAL Itching 04/30/18 21:30 05/30/18 21:29 Docusate Sodium (Colace) 100 mg TWICE A DAY ORAL 05/02/18 18:00 06/01/18 17:59 05/06/18 08:50 Fish Oil (Fish Oil) 2,000 mg DAILY ORAL 05/01/18 09:00 05/31/18 08:59 05/06/18 08:49 Furosemide (Lasix) 10 mg DAILY ORAL 05/01/18 09:00 05/31/18 08:59 Gabapentin (Neurontin) 200 mg THREE TIMES A DAY ORAL 05/05/18 09:00 05/15/18 08:59 05/06/18 13:01 Heparin Sodium (Porcine) (Heparin 5000 units/ml) 5,000 units EVERY 12 HOURS SUBQ 05/01/18 09:00 05/31/18 08:59 05/06/18 08:51 Hydromorphone HCl (Dilaudid) 1 mg Q4H PRN IVP SEVERE PAIN 04/30/18 21:30 05/07/18 21:29 05/06/18 13:01 Lidocaine HCl (Xylocaine Jelly 2%) 1 applic DAILYPRN PRN TOPIC For Pain 04/30/18 22:00 05/30/18 21:59 05/03/18 13:48 Losartan Potassium (Cozaar) 100 mg DAILY ORAL 05/01/18 09:00 05/31/18 08:59 05/06/18 08:50 Magnesium Hydroxide (Mom) 30 ml BIDPRN PRN ORAL Constipation 05/02/18 10:15 06/01/18 10:14 Multivitamins (Multivitamins) 1 tab DAILY ORAL 05/01/18 09:00 05/31/18 08:59 05/06/18 08:49 Ondansetron HCl (Zofran) 4 mg Q4H PRN IVP Nausea & Vomiting 04/30/18 21:30 05/30/18 21:29 Pantoprazole (Protonix) 40 mg DAILY ORAL 05/01/18 09:00 05/31/18 08:59 05/06/18 08:49 Vancomycin HCl (Vanco rx to dose) 1 ea DAILY PRN MISC Per rx protocol 05/04/18 17:15 06/03/18 17:14 Vancomycin HCl 1 gm/Dextrose 275 ml @ 183.708 mls/hr DAILY@1800 IVPB 05/04/18 18:00 05/09/18 17:59 05/05/18 17:44 Lynda Boo MD May 06, 2018 14:11
[2018-05-06] MEDS ORDERED: LEVAQUIN500 MG ORAL (14:53)
[2018-05-06] MEDS ORDERED: DOXYCYCLINE MO100 MG ORAL (14:57)
--- NOTE | 2018-05-06 15:12 | NUR ---
NURSE NOTES: DR MINAYA AT BEDSIDE WITH PT. PT CLEARED FOR DISCHARGE PER DR MINAYA AND RX FOR PO ANTIBIOTICS. PT REQUESTS FOR PRESCRIPTIONS TO BE FILLED BEFORE SHE LEAVES. [facility] DELIVERED PO ANTIBIOTICS TO BEDSIDE. PT WAITING FOR PRIVATE TRANSPORTATION HOME. PER CM'S NOTES, [facility] HAS AGREED TO FOLLOW PT.
--- NOTE | 2018-05-06 15:50 | NUR ---
NURSE NOTES: PT WAS DISCHARGED IN STABLE CONDITION. RN REVIEWED DISCHARGE PACKET AND DISCHARGE MEDICATIONS. PT VERBALIZED UNDERSTANDING. WOUND DRESSINGS CHANGED. PT LEFT WITH FAMILY AND PRIVATE TRANSPORTATION. ALL BELONGINGS ACCOUNTED.
--- NOTE | 2018-05-08 10:36 | Discharge Summary ---
Discharge Summary Discharge Summary _ DATE OF ADMISSION: 04/30/2018 DATE OF DISCHARGE: 05/06/2018 DISCHARGED BY: Dr. Hampton REASON FOR ADMISSION: 73 years old female with past medical history of hypertension, uterine cancer, post polio syndrome, was brought to the emergency department by family member , complaining of bilateral lower leg infection for the past 3 years. Apparently patient was receiving daily wound care treatment. Patient seen by her physician yesterday and was recommended to go to emergency room for IV antibiotics. Patient denied fever or chills. She denied chest pain or shortness of breath. She denied history of diabetes. Upon evaluation vital signs were stable. Laboratory workup revealed mild leukocytosis WBC 11.2 , hemoglobin 9.4 , hematocrit 30.3. Potassium 3.0. BUN 42, creatinine 1.5. Glucose 104. Stable LFT Albumin 2.8 EKG revealed sinus rhythm, no acute ischemic changes. Patient was admitted for further management of bilateral lower extremities infected wounds with cellulitis . CONSULTANTS: ID specialist pain specialist Dr. Stone [facility] COURSE: Patient admitted to medical surgical floor. Patient started on empiric antibiotic. ID consult was requested. Blood cultures were negative. Wound culture revealed MRSA and Enterobacter complex. IV antibiotic regimen was optimized as per infectious disease specialist recommendation. After 7 days of IV antibiotic patient was transitioned to oral antibiotic / Levaquin and Doxycycline to be continued for additional 5 days. Previous MRI was negative for osteomyelitis. Mild leukocytosis resolved. Potassium was replaced. Renal parameters and electrolytes were closely monitored Electrolytes further corrected as needed. Nephrotoxins were avoided. Creatinine from initial 1.5 down to 0.8 and BUN from 42 down to 11. DVT and GI prophylaxis provided. Pain management was addressed as per pain specialist recommendation , who closely followed. Blood pressure was managed with losartan and remained stable. Fish oil was continued. Lipid panel stable. Supportive care provided. Bowel regimen instituted. Patient stabilized and was ready for discharge home with home health services. Patient to follow-up with blast furnace [facility]er as outpatient. Continue wound care by home health nursing. 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 DISCHARGE INSTRUCTIONS: Patient was discharged home with home health services for wound care. Follow up with primary care provider in one week. I have been assigned to dictate discharge summary for this account. I was not involved in the patient's management. Zahra Nuñez NP May 08, 2018 10:36
== END 2018-05-06 15:45 | disposition home or self-care (01) | DRG 593 ==
LOC: EDBEDREQ 17:04 → ENRESERV 17:19 → EMR 17:50 → 4E 18:05 → ENRESERV 18:38 → EDBEDREQ 19:10
DX: L97.929 Non-pressure chronic ulcer of unspecified part of left lower leg with unspecified severity (principal); L03.116 Cellulitis of left lower limb; L03.115 Cellulitis of right lower limb; L97.919 Non-pressure chronic ulcer of unspecified part of right lower leg with unspecified severity; B96.89 Other specified bacterial agents as the cause of diseases classified elsewhere; B95.62 Methicillin resistant Staphylococcus aureus infection as the cause of diseases classified elsewhere; E87.6 Hypokalemia; G89.29 Other chronic pain; I10 Essential (primary) hypertension; G14 Postpolio syndrome; Z88.0 Allergy status to penicillin
CPT/HCPCS: 36415; 80048; 80053; 80061; 80202; 83735; 84443; 85025; 87040; 87070; 87181; 87205; 93005; 96365; 96367; 96375; 99285; J2405; J8499

== ENCOUNTER 2018-05-27 13:47 | Outpatient (RCR) | payer MEDICARE, BC ==
[~2018-05-27] VITALS: Ht 167.6 cm; Wt 83.9 kg
[~2018-05-27 13:47] MED LIST changes: +DOXYCYCLINE MO100 MG ORAL; +LEVAQUIN500 MG ORAL
[2018-06-04] MEDS ORDERED: Lidocaine 4% Top Soln 50ml TOPIC ONE (12:15)
== END 2018-06-15 | disposition home or self-care (01) ==
LOC: WCC 13:47
DX: L97.815 Non-pressure chronic ulcer of other part of right lower leg with muscle involvement without evidence of necrosis (principal); L97.825 Non-pressure chronic ulcer of other part of left lower leg with muscle involvement without evidence of necrosis; R60.0 Localized edema; M89.671 Osteopathy after poliomyelitis, right ankle and foot; M89.672 Osteopathy after poliomyelitis, left ankle and foot; I87.2 Venous insufficiency (chronic) (peripheral); I89.0 Lymphedema, not elsewhere classified; L88 Pyoderma gangrenosum; I10 Essential (primary) hypertension; Z88.0 Allergy status to penicillin
CPT/HCPCS: G0463